=== PATIENT | male | born 1955 | race Caucasian/White ===

== ENCOUNTER → 2016-11-29 | Outpatient (REF) | payer OTHER | LOC: M LAB REF 12:21 | PROVIDERS: ATTEND Family Medicine | DX: N39.0 Urinary tract infection, site not specified (principal) ==

== ENCOUNTER 2019-03-11 15:07 | Observation (INO) | payer BC, SELFPAY ==
[~2019-03-11] VITALS: Ht 180.3 cm; Wt 218.2 kg
[2019-03-11 11:45] VITALS: BP 132/62
[2019-03-11] MEDS ORDERED: METF10004 (15:17)
[2019-03-11] MEDS ORDERED: ATEN50TA2 (15:17)
[2019-03-11] MEDS ORDERED: FURO20TA2 (15:17)
[2019-03-11] MEDS ORDERED: SIMV40TA2 (15:17)
[2019-03-11] MEDS ORDERED: HUMA75IN2 (15:17)
[2019-03-11] MEDS ORDERED: ASPI81TA85 PO (15:18)
[2019-03-11] MEDS ORDERED: RAMI1CAP26 (15:18)
[2019-03-11] MEDS ORDERED: HYDR25TAB (15:18)
[2019-03-11 17:55] LABS: BASO % 0.2 % (0.0-1.0); EOS # 0.1 10^3/uL (0.0-0.50); EOS % 0.5 % (0.0-3.0); HEMATOCRIT 42.3 % (42.0-52.0); HEMOGLOBIN 13.6 g/dl (13.5-17.5); LYMPH # 1.3 10^3/uL (1.5-4.5); LYMPH % 13.8 % (24.0-44.0); MEAN CORPUSCULAR HEMOGLOBIN 31.7 pg (27.0-33.0); MEAN CORPUSCULAR HGB CONC 32.2 g/dl (32.0-36.5); MEAN CORPUSCULAR VOLUME 98.6 fl (80.0-96.0); MONO # 0.7 10^3/uL (0.0-0.8); MONO % 7.4 % (0.0-5.0); NEUTROPHILS # 7.6 10^3/uL (1.8-7.7); NEUTROPHILS % 77.7 % (36.0-66.0); PLATELET COUNT, AUTOMATED 242 10^3/uL (150-450); RED BLOOD COUNT 4.29 10^6/uL (4.30-6.10); WHITE BLOOD COUNT 9.7 10^3/uL (4.0-10.0)
[2019-03-11 18:10] LABS: BLOOD UREA NITROGEN 24 MG/DL (7-18); CARBON DIOXIDE LEVEL 34 MEQ/L (21-32); CHLORIDE LEVEL 98 MEQ/L (98-107); CPK CREATINE PHOSPHOKINASE 101 U/L (39-308); CREATININE FOR GFR 1.06 MG/DL (0.70-1.30); GLOMERULAR FILTRATION RATE > 60.0 (>49); GLUCOSE, FASTING 162 MG/DL (70-100); MB/CK RELATIVE INDEX 1.68 (< OR =4); NT-PRO BNP 1759 PG/ML (<125); POTASSIUM SERUM 4.3 MEQ/L (3.5-5.1); SODIUM LEVEL 139 MEQ/L (136-145); TROPONIN I 0.02 NG/ML (< 0.10)
[2019-03-11] MEDS ORDERED: ISOVUE-370 76% 100ML VIAL (Q9967) As Ordered ONE (18:34)
--- NOTE | 2019-03-11 19:41 | REPVR ---
EXAM: CT Angiography Chest With Contrast EXAM DATE/TIME: 03/11/2019 7:21 PM CLINICAL HISTORY: 63 years old, male; Signs and symptoms; Shortness of breath; Additional info: SOB, HX chf TECHNIQUE: Imaging protocol: Axial computed tomographic angiography images of the chest with intravenous contrast using CT angiography protocol. Coronal and sagittal reformatted images were created and reviewed. 3D rendering: MIP reconstructed images were created and reviewed. Radiation optimization: All CT scans at this facility use at least one of these dose optimization techniques: automated exposure control; mA and/or kV adjustment per patient size (includes targeted exams where dose is matched to clinical indication); or iterative reconstruction. Contrast material: ISOVUE 370; Contrast volume: 75 ml; Contrast route: IV; COMPARISON: CR CHEST 2 VIEW 03/20/2014 8:13 AM FINDINGS: Limitations: Detail/sensitivity limited by motion and other artifacts. Pulmonary arteries: No pulmonary emboli. Aorta: No aortic aneurysm. No aortic dissection. Lungs: No focal infiltrate, consolidation, or mass. Pleural space: No pneumothorax. No pleural effusion. Heart: No cardiomegaly. No pericardial effusion. Lymph nodes: Unremarkable. No enlarged lymph nodes. Bones/joints: Degenerative changes in the spine. No acute fracture. Normal alignment. Bridging osteophytes at multiple contiguous levels in the spine, which could be due to diffuse idiopathic skeletal hyperostosis (DISH). Soft tissues: Unremarkable. IMPRESSION: 1. No acute findings. No pulmonary embolism. 2. Nonacute/incidental findings above. COMMENT: Study limited by artifacts. Electronically signed by: Lino Mina On 03/11/2019 19:41:12 PM
[2019-03-11] MEDS ORDERED: ACETAMINOPHEN TAB 650MG DOSE (2X325MG) PO PRN (21:00)
[2019-03-11] MEDS: CEPHALEXIN 500 MG CAP PO SCH (21:00)
[2019-03-11] MEDS ORDERED: MAALOX 30 ML SUSP *UDC PO PRN (21:00)
[2019-03-11] MEDS: LEVEMIR (INSULIN DETEMIR) 1 UNITS/0.01ML SC SCH (21:00)
[2019-03-11] MEDS ORDERED: MOM 30ML SUSPENSION UDC PO PRN (21:00)
[2019-03-11] MEDS ORDERED: SIMV40TA2 PO (21:10)
[2019-03-11] MEDS ORDERED: HYDR25TAB PO (21:10)
[2019-03-11] MEDS ORDERED: ATEN50TA2 PO (21:10)
[2019-03-11] MEDS ORDERED: RAMI1CAP26 PO (21:10)
[2019-03-11] MEDS ORDERED: METF-877 PO (21:10)
[2019-03-11] MEDS ORDERED: HUMA75VLDS SC (21:10)
[2019-03-11] MEDS ORDERED: ASPI81TA27 PO (21:10)
[2019-03-11] MEDS ORDERED: FURO20TA2 PO (21:10)
[2019-03-11] MEDS ORDERED: LANTINJ4 SC (21:10)
[2019-03-11] MEDS ORDERED: HYDR-4514 PO (21:14)
--- NOTE | 2019-03-11 22:57 | HPEPDOC ---
General Date of Admission Mar 11, 2019 at 15:08 Date of Service: Mar 11, 2019 Chief Complaint The patient is a 63-year-old male admitted with a reason for visit of New Onset Afib. Source: Patient, RN/MD, Old records History of Present Illness Mr. Blackmon is a 63 years old man with hx/p IDDM, CHF and HTN who presents to the Er with c/o SOB and dry cough for a week. He denies chest pain, palpitation, fever or chills. He also reports spontaneous tear of the skin on his right sole and sharp pain in the area. In the Er, pt had normal vitals, and pretty normal routine blood tests, except for elevated BNP 1759; no previous lab to compare. EKG showed AF with rate in 60s; no previous EKG to compare. Pt doesn't give hx/o AF in the past. Cardiac markers are normal. The area around the skin tear on right sole appeared slightly irritated and red without fluid collection or discharge. Pt has significant, chronic leg swelling from lymphedema. Home Medications Scheduled Aspirin (Aspirin EC) 81 Mg Tablet.dr, 81 MG PO DAILY, (Reported) Atenolol (Atenolol) 50 Mg Tablet, 50 MG PO DAILY, (Reported) Furosemide (Furosemide) 20 Mg Tablet, 40 MG PO DAILY, (Reported) Hydrochlorothiazide (Hydrochlorothiazide) 25 Mg Tablet, 25 MG PO DAILY, (Reported) Insulin Glargine,Hum.rec.anlog (Lantus Solostar) 100 Unit/1 Ml Insuln.pen, 30 UNITS SC QHS, (Reported) WAS ON 50 UNITS BUT PATIENT FELT HIS BLOOD SUGAR WAS TOO LOW ON THAT DOSE Insulin Human Lispro (Humalog Mix 75-25 Vial) 100 Unit/1 Ml Vial, 1 DOSE SC AC, (Reported) PER SLIDING SCALE Metformin HCl (Metformin HCl) 1,000 Mg Tablet, 1,000 MG PO BID, (Reported) Ramipril (Ramipril) 10 Mg Capsule, 10 MG PO DAILY, (Reported) Simvastatin (Simvastatin) 40 Mg Tablet, 40 MG PO DAILY, (Reported) Scheduled PRN Hydrocodone/Acetaminophen (Hydrocodone-Acetamin 7.5-325) 1 Each Tablet, 1 TAB PO QID PRN for PAIN, (Reported) Allergies Coded Allergies: No Known Allergies (Unverified , 03/11/19) Past Medical History Medical History IDDM, Chronic Lymphedema, ?CHF, HTN, HLD Surgical History none reported Family History Significant Family History: No pertinent family hx Social History * Smoker: Denies Alcohol: Denies Drugs: denies A-FIB/CHADSVASC A-FIB History Current/History of A-Fib/PAF?: Yes Current PO Anticoag Therapy: Yes Age/Risk Factor Scoring CHADSVASC: CHADSVASC Response (Comments) Value Age Risk Factor Age < 65 years old 0 Gender Risk Factor Male 0 Hx of CHF Yes 1 Hx of HTN Yes 1 Hx of Stroke/TIA/or VTE No 0 Hx of Diabetes Yes 1 Hx of Vascular Disease No 0 Total 3 Treatment Treatment ordered: Rivaroxaban Review of Systems Constitutional: Denies: Chills, Fever Eyes: Denies: Pain ENT: Denies: Head Aches Skin: Reports: Breakdown; Denies: Rash, Lesions Pulmonary: Reports: Dyspnea, Cough Cardiovascular: Reports: Orthopnea, Edema; Denies: Chest Pain, Palpitations Gastrointestinal: Denies: Nausea, Vomiting, Abdominal Pain, Diarrhea Genitourinary: Denies: Dysuria, Frequency Musculoskeletal: Denies: Neck Pain, Back Pain Neurological: Denies: Weakness, Numbness, Change in speech, Confusion Psych: Reports: Mood Normal; Denies: Anxiety Physical Examination General Exam: Positive: Alert, Cooperative Eye Exam: Positive: PERRLA ENT Exam: Positive: Atraumatic Neck Exam: Positive: Supple; Negative: JVD Chest Exam: Positive: Clear to auscultation, Normal air movement Heart Exam: Positive: Rate Normal, Irregular Rhythm; Negative: Murmurs Abdomen Exam: Positive: Normal bowel sounds, Soft; Negative: Tenderness Extremity Exam: Positive: Edema Skin Exam: Positive: Nl turgor and temperature, Rash, Breakdown Neuro Exam: Positive: Normal Speech, Strength at 5/5 X4 ext, Normal Tone Psych Exam: Positive: Mental status NL, Mood NL Vital Signs Vital Signs Date Time Temp Pulse Resp B/P (MAP) Pulse Ox O2 Delivery O2 Flow Rate FiO2 03/11/19 22:37 66 22 135/86 (102) 97 Room Air 03/11/19 19:50 97.7 Laboratory Data Labs 24H Laboratory Tests 2 03/11/19 17:32: Immature Granulocyte % (Auto) 0.4, White Blood Count 9.7, Red Blood Count 4.29L, Hemoglobin 13.6, Hematocrit 42.3, Mean Corpuscular Volume 98.6H, Mean Corpuscular Hemoglobin 31.7, Mean Corpuscular Hemoglobin Concent 32.2, Red Cell Distribution Width 13.9, Platelet Count 242, Neutrophils (%) (Auto) 77.7H, Lymphocytes (%) (Auto) 13.8L, Monocytes (%) (Auto) 7.4H, Eosinophils (%) (Auto) 0.5, Basophils (%) (Auto) 0.2, Neutrophils # (Auto) 7.6, Lymphocytes # (Auto) 1.3L, Monocytes # (Auto) 0.7, Eosinophils # (Auto) 0.1, Basophils # (Auto) 0.0, Nucleated Red Blood Cells % (auto) 0.0, Anion Gap 7L, Glomerular Filtration Rate > 60.0, Blood Urea Nitrogen 24H, Creatinine 1.06, Sodium Level 139, Potassium Level 4.3, Chloride Level 98, Carbon Dioxide Level 34H, Calcium Level 9.0, Total Creatine Kinase 101, Creatine Kinase MB 2.0, Creatine Kinase MB Relative Index 1.68, Troponin I 0.02, VY-Rra-I-Type Natriuretic Peptide 1759H 03/11/19 17:35: Bedside Glucose (Misc Panel) 170H CBC/BMP Laboratory Tests 03/11/19 17:32 Red Blood Count 4.29 L, Mean Corpuscular Volume 98.6 H, Mean Corpuscular Hemoglobin 31.7, Mean Corpuscular Hemoglobin Concent 32.2, Red Cell Distribution Width 13.9, Neutrophils (%) (Auto) 77.7 H, Lymphocytes (%) (Auto) 13.8 L, Monocytes (%) (Auto) 7.4 H, Eosinophils (%) (Auto) 0.5, Basophils (%) (Auto) 0.2, Neutrophils # (Auto) 7.6, Lymphocytes # (Auto) 1.3 L, Monocytes # (Auto) 0.7, Eosinophils # (Auto) 0.1, Basophils # (Auto) 0.0, Calcium Level 9.0, Total Creatine Kinase 101 Assessment/Plan New Onset AF, Acute on Chronic CHF - Admit to inpatient - Tele; repeat cardiac markers - IV Lasix; continue other home cardiac meds - Start on Xarelto for anticoagulation - Echo in the morning Mild Cellulitis near skin tear on right Sole - Oral Keflex - Wound care IDDM - AREVALO and SSI Plan / VTE VTE Prophylaxis Ordered?: No VTE Exclusion Mechanical Proph: Other VTE Exclusion Pharmacological: Other Plan Anticipated Discharge: Home With Services MARTA NEWMAN MD Mar 11, 2019 22:57
[2019-03-11] MEDS: FUROSEMIDE 100 MG/10 ML VIAL (J1940) IV SCH (23:06)
[2019-03-11] MEDS: DOCUSATE SODIUM 100 MG CAP PO SCH (23:07)
[2019-03-11] MEDS: RIVAROXABAN 10 MG TAB (XARELTO) PO SCH (23:07)
[2019-03-12 01:02] LABS: INR 2.04; PROTHROMBIN TIME 23.4 SECONDS (12.1-14.4)
[2019-03-12 01:07] LABS: PARTIAL THROMBOPLASTIN TIME 37.9 SECONDS (25.4-37.6)
[2019-03-12] MEDS ORDERED: GLUCOSE 4 GM CHEW TABLET PO PRN (01:15)
[2019-03-12] MEDS ORDERED: GLUCAGON FOR INJ 1 MG VIAL (J1610) SC PRN (01:15)
[2019-03-12] MEDS ORDERED: DEXTROSE 50% 50 ML SYRINGE IV PRN (01:15)
[2019-03-12 01:22] LABS: CPK CREATINE PHOSPHOKINASE 128 U/L (39-308); MB/CK RELATIVE INDEX 1.56 (< OR =4); TROPONIN I < 0.02 NG/ML (< 0.10)
[2019-03-12 05:59] LABS: HEMOGLOBIN 13.1 g/dl (13.5-17.5); MEAN CORPUSCULAR HEMOGLOBIN 31.3 pg (27.0-33.0); MEAN CORPUSCULAR VOLUME 98.1 fl (80.0-96.0); PLATELET COUNT, AUTOMATED 239 10^3/uL (150-450); RED BLOOD COUNT 4.18 10^6/uL (4.30-6.10); WHITE BLOOD COUNT 8.3 10^3/uL (4.0-10.0)
[2019-03-12 06:00] VITALS: BP 130/68
[2019-03-12 06:27] LABS: BLOOD UREA NITROGEN 23 MG/DL (7-18); CALCIUM LEVEL 8.9 MG/DL (8.8-10.2); CARBON DIOXIDE LEVEL 35 MEQ/L (21-32); CHLORIDE LEVEL 97 MEQ/L (98-107); CPK CREATINE PHOSPHOKINASE 193 U/L (39-308); CREATININE FOR GFR 1.05 MG/DL (0.70-1.30); GLOMERULAR FILTRATION RATE > 60.0 (>49); GLUCOSE, FASTING 153 MG/DL (70-100); MB/CK RELATIVE INDEX 0.98 (< OR =4); POTASSIUM SERUM 4.5 MEQ/L (3.5-5.1); SODIUM LEVEL 137 MEQ/L (136-145); TROPONIN I < 0.02 NG/ML (< 0.10)
[2019-03-12 08:01] LABS: ABG BASE EXCESS 7.3 (-2.0-2.0); ABG HCO3 32.5 MEQ/L (22.0-26.0); ABG O2 SATURATION 91.2 % (95.0-99.0); ABG PARTIAL PRESSURE CO2 48.2 mmHg (35.0-45.0); ABG STANDARD HCO3 30.9 MEQ/L (22.0-26.0); ABG pH (ARTERIAL) 7.447 UNITS (7.350-7.450)
--- NOTE | 2019-03-12 08:15 | ECGEPIP ---
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
[2019-03-12] MEDS: HumaLOG INSULIN (NovoLOG) PER UNIT SC SCH ×3 (08:23→17:10)
[2019-03-12] MEDS: RAMIPRIL 5 MG CAP PO SCH (08:24)
[2019-03-12] MEDS: DOCUSATE SODIUM 100 MG CAP PO SCH ×2 (08:24→20:29)
[2019-03-12] MEDS: SIMVASTATIN 40 MG TAB PO SCH (08:24)
[2019-03-12] MEDS: FUROSEMIDE 100 MG/10 ML VIAL (J1940) IV SCH ×2 (08:24→17:10)
[2019-03-12] MEDS: CEPHALEXIN 500 MG CAP PO SCH ×3 (08:24→20:29)
[2019-03-12] MEDS ORDERED: ATENOLOL 50 MG TAB PO SCH (09:00)
[2019-03-12] MEDS ORDERED: hydroCHLOROthiazide 25 MG TAB PO SCH (09:00)
[2019-03-12 14:00] VITALS: BP 120/60
--- NOTE | 2019-03-12 16:09 | IPNPDOC ---
Subjective Date Seen The patient was seen on 03/12/19. Subjective Chief Complaint/HPI Says unable to sleep in a bed. He has been sitting in the sofa. There is no recliner large enough for him in the hospital. Says SOb is better. The right heel cracked skin is noted with some erythema around it pateint does not complain of any pain there. Objective Physical Examination General Exam: Positive: Alert, Cooperative, No Acute Distress Eye Exam: Positive: PERRLA ENT Exam: Positive: Atraumatic Neck Exam: Positive: Supple; Negative: JVD Chest Exam: Positive: Clear to auscultation, Diminished Heart Exam: Positive: Rate Normal, Irregular Rhythm, Normal S1, Normal S2; Negative: Murmurs Telemetry: Positive: Atrial fibrillation Abdomen Exam: Positive: Normal bowel sounds, Soft; Negative: Tenderness Extremity Exam: Positive: Edema, Tenderness, Swelling, Other (Lymphedema with chronic venous stasis changes bilaterally) Skin Exam: Positive: Nl turgor and temperature, Rash, Breakdown Neuro Exam: Positive: Normal Speech, Strength at 5/5 X4 ext, Normal Tone Psych Exam: Positive: Mental status NL, Mood NL Assessment /Plan Assessment Right Heel ulcer, dry thick and cracked skin. does not look infected but due to h/o dm will give keflex consult podiatry. Afib new diagnosis. Unknown how long present. rate controlled . On atenolol pulse down to 40s during sleep with pauses will stop atenolol. started on Xarelto. Morbid obesity complicating care. patient cannot lie down in bed sleeps in a recliner for > 10 years. possibly has SUSAN also. Obesity hypoventilation probably restrictive due to obesity. Abg in awake and sitting shows hypoxia and hypercarbia. IDDM, continue levemir and lispro hold meformin in hospital Diabetic Neuropathy Chronic Lymphedema with bilateral stasis dermatitis. CHF, ordered echo continue lasix. HTN will stop atenolol continue lasix and ramipril HLD continue statin. Plan/VTE VTE Prophylaxis Ordered?: Yes VTE Exclusion Mechanical Proph: Other VTE Exclusion Pharmacological: Other Plan Anticipated Discharge: Home With Services VS, I&O, 24H, Fishbone Vital Signs/I&O Vital Signs Date Time Temp Pulse Resp B/P (MAP) Pulse Ox O2 Delivery O2 Flow Rate FiO2 6/4/19 14:00 97.2 71 20 120/60 (80) 92 03/11/19 22:37 Room Air I&O- Last 24 Hours up to 6 AM 03/12/19 06:00 Intake Total 60 ml Output Total 450 ml Balance -390 ml Laboratory Data 24H LABS Laboratory Tests 2 03/11/19 17:32: Immature Granulocyte % (Auto) 0.4, White Blood Count 9.7, Red Blood Count 4.29L, Hemoglobin 13.6, Hematocrit 42.3, Mean Corpuscular Volume 98.6H, Mean Corpuscular Hemoglobin 31.7, Mean Corpuscular Hemoglobin Concent 32.2, Red Cell Distribution Width 13.9, Platelet Count 242, Neutrophils (%) (Auto) 77.7H, Lymphocytes (%) (Auto) 13.8L, Monocytes (%) (Auto) 7.4H, Eosinophils (%) (Auto) 0.5, Basophils (%) (Auto) 0.2, Neutrophils # (Auto) 7.6, Lymphocytes # (Auto) 1.3L, Monocytes # (Auto) 0.7, Eosinophils # (Auto) 0.1, Basophils # (Auto) 0.0, Nucleated Red Blood Cells % (auto) 0.0, Anion Gap 7L, Glomerular Filtration Rate > 60.0, Blood Urea Nitrogen 24H, Creatinine 1.06, Sodium Level 139, Potassium Level 4.3, Chloride Level 98, Carbon Dioxide Level 34H, Calcium Level 9.0, Total Creatine Kinase 101, Creatine Kinase MB 2.0, Creatine Kinase MB Relative Index 1.68, Troponin I 0.02, PR-Ydg-A-Type Natriuretic Peptide 1759H 03/11/19 17:35: Bedside Glucose (Misc Panel) 170H 03/11/19 23:05: Bedside Glucose (Misc Panel) 186H 03/12/19 00:38: Total Creatine Kinase 128, Creatine Kinase MB 2.0, Creatine Kinase MB Relative Index 1.56, Troponin I < 0.02, Prothrombin Time 23.4H, Prothromb Time International Ratio 2.04, Activated Partial Thromboplast Time 37.9H 03/12/19 05:21: Nucleated Red Blood Cells % (auto) 0.0, Anion Gap 5L, Glomerular Filtration Rate > 60.0, Blood Urea Nitrogen 23H, Creatinine 1.05, Sodium Level 137, Potassium Level 4.5, Chloride Level 97L, Carbon Dioxide Level 35H, Calcium Level 8.9, Total Creatine Kinase 193, Creatine Kinase MB 2.0, Creatine Kinase MB Relative Index 0.98, Troponin I < 0.02 03/12/19 07:51: Blood Gas Bicarbonate Standard 30.9H, Arterial Blood pH 7.447, Arterial Blood Partial Pressure CO2 48.2H, Arterial Blood Partial Pressure O2 63.0L, Arterial Blood Total CO2 34.0H, Arterial Blood HCO3 32.5H, Arterial Blood Base Excess 7.3H, Arterial Blood Oxygen Saturation 91.2L 03/12/19 12:08: Bedside Glucose (Misc Panel) 149H CBC/BMP Laboratory Tests 03/11/19 17:32 Red Blood Count 4.29 L, Mean Corpuscular Volume 98.6 H, Mean Corpuscular Hemoglobin 31.7, Mean Corpuscular Hemoglobin Concent 32.2, Red Cell Distribution Width 13.9, Neutrophils (%) (Auto) 77.7 H, Lymphocytes (%) (Auto) 13.8 L, Monocytes (%) (Auto) 7.4 H, Eosinophils (%) (Auto) 0.5, Basophils (%) (Auto) 0.2, Neutrophils # (Auto) 7.6, Lymphocytes # (Auto) 1.3 L, Monocytes # (Auto) 0.7, Eosinophils # (Auto) 0.1, Basophils # (Auto) 0.0, Calcium Level 9.0, Total Creatine Kinase 101 03/12/19 05:21 Red Blood Count 4.18 L, Mean Corpuscular Volume 98.1 H, Mean Corpuscular Hemoglobin 31.3, Mean Corpuscular Hemoglobin Concent 32.0, Red Cell Distribution Width 14.0, Calcium Level 8.9, Total Creatine Kinase 193 DORCAS DISLA MD Mar 12, 2019 16:09
--- NOTE | 2019-03-12 16:42 | CR ---
DATE OF CONSULTATION: 03/12/219 REASON FOR CONSULTATION: Right foot open wound. Mr. Blackmon is a pleasant 63-year-old diabetic male who presented to the hospital on March 11 due to open wound and new onset atrial fibrillation. States the wound was noticed earlier this last week, does not recall any injury to the area. He has chronic swelling of his legs. He is unable to elevate his legs secondary to this swelling and also due to trouble breathing when his feet are elevated. 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 PAST MEDICAL HISTORY: Significant for insulin dependent diabetes, congestive heart failure, hypertension, and lymphedema as well as atrial fibrillation. ALLERGIES: None. SOCIAL HISTORY: Denies alcohol and smoking. PAST SURGICAL HISTORY: None. REVIEW OF SYSTEMS: Denies nausea, vomiting, fever or chills. VITAL SIGNS: Are reviewed. He has remained afebrile since being in the hospital. LABS: Are reviewed. White blood cell count is 8.3; was 9.7 yesterday. LOWER EXTREMITY EXAM: Significant edema is present on bilateral lower extremities. There is dry cracking skin on the plantar aspects of both feet with a skin tear open area on the plantar surface of the right foot. Pedal pulses are nonpalpable secondary to edema. There is no surrounding erythema or significant signs of infection. ASSESSMENT: 63-year-old diabetic male with right foot ulcer, chronic lymphedema. PLAN: Antibiotic ointment and Optifoam to be applied to the plantar wound. Lac-Hydrin ordered for the dry skin. The patient should have his feet elevated as much as he able. This is limited, however, secondary to his inability to raise his legs. Can continue on oral Keflex. Recommend 10 days duration. He should have followup in my office once discharged.
[2019-03-12] MEDS: RIVAROXABAN 10 MG TAB (XARELTO) PO SCH (17:13)
[2019-03-12] MEDS: LACTIC ACID 12% LOTION 225 GM BTL TOP SCH (19:27)
[2019-03-12] MEDS: NEOSPORIN TOP OINT 15GM TOP SCH (19:28)
[2019-03-12] MEDS: LEVEMIR (INSULIN DETEMIR) 1 UNITS/0.01ML SC SCH (20:30)
[2019-03-12] MEDS ORDERED: HumaLOG INSULIN (NovoLOG) PER UNIT SC SCH (21:00)
[2019-03-12 22:00] VITALS: BP 108/62
--- NOTE | 2019-03-12 22:22 | ECHO ---
DATE OF PROCEDURE: 03/12/2019 AGE: 63 GENDER: Male HEIGHT: 71 inches WEIGHT: 487 pounds BODY SURFACE AREA: 3.07 m2 PATIENT LOCATION: Inpatient, [address] [place] [address], room 4235 REFERRING PHYSICIAN: Eliel Bustillos MD INDICATION: Congestive heart failure (CHF). 2-D MEASUREMENTS: RV: Not possible LV: 5.6 cm Septum: 1.3 cm Posterior wall: 1.3 cm Aortic root: 3.0 cm LA: 5.7 cm LVEF: ? 50 - 55% DOPPLER MEASUREMENTS: Not possible because of technical reasons with the patient's body habitus. COMMENTS: Underlying atrial fibrillation with controlled ventricular response. Technically extremely challenging study in light of the patient's body habitus, but some diagnostically useful information was obtained. M-mode and attempted two-dimensional echocardiography was performed with attempted pulsed, continuous wave, and color flow Doppler study were performed from limited projections. Mildly dilated and hypertrophied left ventricle with fairly normal motion of the proximal left ventricle/basal structures visualized. Moderately prominently dilated left atrium in keeping with an elevated mean left atrial pressure. Right heart chamber sizes could not be evaluated. Mildly dilated inferior vena cava with reduced respiratory collapse suggestive of an elevated central venous pressure. Visualized portions of the mitral and aortic valves showed minimal thickening without valvular stenosis or visualized insufficiency. No pericardial effusion.
[2019-03-13 06:00] VITALS: BP 112/58
[2019-03-13 08:26] VITALS: BP 158/68
[2019-03-13] MEDS: DOCUSATE SODIUM 100 MG CAP PO SCH (08:26)
[2019-03-13] MEDS: SIMVASTATIN 40 MG TAB PO SCH (08:26)
[2019-03-13] MEDS: RAMIPRIL 5 MG CAP PO SCH (08:26)
[2019-03-13] MEDS: FUROSEMIDE 100 MG/10 ML VIAL (J1940) IV SCH (08:26)
[2019-03-13] MEDS: CEPHALEXIN 500 MG CAP PO SCH (08:26)
[2019-03-13] MEDS: HumaLOG INSULIN (NovoLOG) PER UNIT SC SCH (08:27)
[2019-03-13] MEDS: LACTIC ACID 12% LOTION 225 GM BTL TOP SCH (09:34)
[2019-03-13] MEDS: NEOSPORIN TOP OINT 15GM TOP SCH (09:34)
[2019-03-13] MEDS ORDERED: CEPH500C PO (10:00)
[2019-03-13] MEDS ORDERED: LACH12LO TOP (10:00)
[2019-03-13] MEDS ORDERED: TRIPOIN5 TOP (10:00)
[2019-03-13] MEDS ORDERED: XARE10TA PO (10:00)
[2019-03-13] MEDS ORDERED: FUROSEMIDE 100 MG/10 ML VIAL (J1940) IV ONE (12:00)
--- NOTE | 2019-03-13 21:18 | DS.PDOC ---
Discharge Summary General Date of Admission Mar 11, 2019 at 15:08 Date of Discharge 03/13/19 Discharge Summary PROCEDURES PERFORMED DURING STAY: ECHO: Mildly dilated and hypertrophied left ventricle with fairly normal motion of the proximal left ventricle/basal structures visualized. Moderately prominently dilated left atrium in keeping with an elevated mean left atrial pressure. Right heart chamber sizes could not be evaluated. Mildly dilated inferior vena cava with reduced respiratory collapse suggestive of an elevated central venous pressure. Visualized portions of the mitral and aortic valves showed minimal thickening without valvular stenosis or visualized insufficiency. No pericardial effusion. DISCHARGE DIAGNOSES: Right Diabetic foot ulcer Afib rate controlled new diagnosis Systolic and diastolic CHF exacerbation Obesity Hypoventilation Morbid obesity Probable SUSAN chronic Lymphedema Hypertension HLD Diabetes with neuropathy COMPLICATIONS/CHIEF COMPLAINT: New Onset Afib. HISTORY OF PRESENT ILLNESS: See history and physical HOSPITAL COURSE: 63 year old male with h/o Morbid obesity, Diabetes, Lymphedema, CHF, Hypertension , hyperlipidemia presented to the hospital for right heel ulcer, difficulty in walking and SOB. He was admitted for right heel diabetic foot ulcer and CHF exacerbation. Patient was noted to be in Afib with controlled heart rate. On telemetry he was noted to have bradycardia to low 40s during sleep. Also in the hospital pateint could not sleep in the bariatric bed and as the hospital did not have any recliner big enough for him he was sitting in the chair through out the hospitalization and he was sleeping in sitting position which was causing his head to drop forward and then he would desaturate to 70s. However ABG done showed hypoxia and hypercarbia when awake so patient probably has Obesity hypoventilation and probably also SUSAN. Right foot diabetic ulcer, dry thick and cracked skin. does not look infected but due to h/o dm will give keflex follow podiatry recommendations follow up Dr Chen on discharge. keep legs elevated as much as possible. Afib new diagnosis. Unknown how long present. rate controlled . On atenolol pulse down to 40s during sleep with pauses stopped atenolol. started on Xarelto. stopped ASA. Morbid obesity complicating care. patient cannot lie down in bed sleeps in a recliner for > 10 years. possibly has SUSAN also. Obesity hypoventilation probably restrictive due to obesity. Abg in awake and sitting shows hypoxia and hypercarbia. Probable SUSAN should get a sleep study. IDDM, continue levemir restart metformin Diabetic Neuropathy Chronic Lymphedema with bilateral stasis dermatitis. CHF, very poor technical quality of the echo due to body habitus But looks like he has both systolic and diastolic CHF. EF 50 to 55%. also probably pulmonary hypertension and chronic right heart failure continue lasix and HCTZ. HTN will stop atenolol continue lasix and ramipril HLD continue statin. DISCHARGE MEDICATIONS: Please see below. ALLERGIES: Please see below. PHYSICAL EXAMINATION ON DISCHARGE: VITAL SIGNS: Please see below. General Exam: Positive: Alert, Cooperative, No Acute Distress Eye Exam: Positive: PERRLA ENT Exam: Positive: Atraumatic Neck Exam: Positive: Supple; Negative: JVD Chest Exam: Positive: Clear to auscultation, Diminished Heart Exam: Positive: Rate Normal, Irregular Rhythm, Normal S1, Normal S2; Negative: Murmurs Telemetry: Positive: Atrial fibrillation Abdomen Exam: Positive: Normal bowel sounds, Soft; Negative: Tenderness Extremity Exam: Positive: Edema, Tenderness, Swelling, Other (Lymphedema with chronic venous stasis changes bilaterally) Skin Exam: Positive: Nl turgor and temperature, Rash, Breakdown prssent. Neuro Exam: Positive: Normal Speech, Strength at 5/5 X4 ext, Normal Tone Psych Exam: Positive: Mental status NL, Mood NL LABORATORY DATA: Please see below. ACTIVITY: [As tolerated]. DIET: Carb consistent, 2 gram sodium with fluid restriction 2L / day. DISPOSITION: Home, Self-Care. DISCHARGE INSTRUCTIONS: Follow up PMD in [address] Chen in 3 to 4 weeks Suggested Sleep Study DISCHARGE CONDITION: [Stable]. TIME SPENT ON DISCHARGE: 40 minutes. Vital Signs/I&Os Vital Signs Date Time Temp Pulse Resp B/P (MAP) Pulse Ox O2 Delivery O2 Flow Rate FiO2 03/13/19 08:26 158/68 03/13/19 06:00 96.6 56 17 96 03/11/19 22:37 Room Air I&O- Last 24 Hours up to 6 AM 03/13/19 06:00 Intake Total 720 ml Output Total 4625 ml Balance -3905 ml Laboratory Data CBC/BMP Item Value Date Time White Blood Count 8.3 10^3/uL 03/12/19 0521 Red Blood Count 4.18 10^6/uL L 03/12/19 0521 Hemoglobin 13.1 g/dl L 03/12/19 0521 Hematocrit 41.0 % L 03/12/19520 Mean Corpuscular Volume 98.1 fl H 03/12/19520 Mean Corpuscular Hemoglobin 31.3 pg 03/12/19520 Mean Corpuscular Hemoglobin Concent 32.0 g/dl 03/12/19520 Red Cell Distribution Width 14.0 % 03/12/19520 Platelet Count 239 10^3/uL 03/12/19520 Sodium Level 137 MEQ/L 03/12/19520 Potassium Level 4.5 MEQ/L 03/12/19520 Chloride Level 97 MEQ/L L 03/12/19520 Carbon Dioxide Level 35 MEQ/L H 03/12/19520 Anion Gap 5 MEQ/L L 03/12/19520 Blood Urea Nitrogen 23 MG/DL H 03/12/19520 Creatinine 1.05 MG/DL 03/12/19520 Glomerular Filtration Rate > 60.0 03/12/19520 Fasting Glucose 153 MG/DL H 03/12/19520 Calcium Level 8.9 MG/DL 03/12/19520 Total Creatine Kinase 193 U/L 03/12/19520 Creatine Kinase MB 2.0 NG/ML 03/12/19520 Creatine Kinase MB Relative Index 0.98 03/12/19520 Troponin I < 0.02 NG/ML 03/12/19520 Discharge Medications Scheduled Cephalexin (Cephalexin) 500 Mg Capsule, 500 MG PO TID Furosemide (Furosemide) 20 Mg Tablet, 40 MG PO DAILY, (Reported) Hydrochlorothiazide (Hydrochlorothiazide) 25 Mg Tablet, 25 MG PO DAILY, (Reported) Insulin Glargine,Hum.rec.anlog (Lantus Solostar) 100 Unit/1 Ml Insuln.pen, 30 UNITS SC QHS, (Reported) WAS ON 50 UNITS BUT PATIENT FELT HIS BLOOD SUGAR WAS TOO LOW ON THAT DOSE Insulin Human Lispro (Humalog Mix 75-25 Vial) 100 Unit/1 Ml Vial, 1 DOSE SC AC, (Reported) PER SLIDING SCALE Lactic Acid (Britt-Hydrolac) 222 Ml Lotion, 0 DOSE TOP DAILY Metformin HCl (Metformin HCl) 1,000 Mg Tablet, 1,000 MG PO BID, (Reported) Neomycin/Bacitracin/Polymyxinb (Triple Antibiotic Ointment) 28 Gm Oint...g., 0 DOSE TOP DAILY Ramipril (Ramipril) 10 Mg Capsule, 10 MG PO DAILY, (Reported) Rivaroxaban (Xarelto) 10 Mg Tablet, 20 MG PO DAILY@18 Simvastatin (Simvastatin) 40 Mg Tablet, 40 MG PO DAILY, (Reported) Scheduled PRN Hydrocodone/Acetaminophen (Hydrocodone-Acetamin 7.5-325) 1 Each Tablet, 1 TAB PO QID PRN for PAIN, (Reported) Allergies Coded Allergies: No Known Allergies (Unverified , 03/11/19) DORCAS DISLA MD Mar 13, 2019 21:17
== END 2019-03-13 12:45 | disposition home or self-care (01) ==
LOC: M ED 15:07 → M ED INP 15:08 → M MSPAV 23:39
PROVIDERS: ADMIT Internal Medicine; ATTEND Internal Medicine Nephrology
DX: I48.91 Unspecified atrial fibrillation (principal); E11.622 Type 2 diabetes mellitus with other skin ulcer; L98.498 Non-pressure chronic ulcer of skin of other sites with other specified severity; I50.43 Acute on chronic combined systolic (congestive) and diastolic (congestive) heart failure; E66.2 Morbid (severe) obesity with alveolar hypoventilation; G47.9 Sleep disorder, unspecified; I89.0 Lymphedema, not elsewhere classified; I11.0 Hypertensive heart disease with heart failure; E78.5 Hyperlipidemia, unspecified; E11.40 Type 2 diabetes mellitus with diabetic neuropathy, unspecified; R00.1 Bradycardia, unspecified; I87.2 Venous insufficiency (chronic) (peripheral); L03.115 Cellulitis of right lower limb; Z79.899 Other long term (current) drug therapy; Z79.82 Long term (current) use of aspirin; Z79.4 Long term (current) use of insulin
CPT/HCPCS: 36415; 36600; 71275; 80048; 82550; 82553; 82803; 83880; 84484; 85025; 85027; 85610; 85730; 93005; 93306; 94760; 96374; 96376; 99285; J1940; Q9967

== ENCOUNTER → 2020-04-07 | Outpatient (REF) | payer BC ==
[~2020-04-07] MED LIST: ASPI81TA27 PO; ASPI81TA85 PO; ATEN50TA2; ATEN50TA2 PO; CEPH500C PO; FURO20TA2; FURO20TA2 PO; HUMA75IN2; HUMA75VLDS SC; HYDR-4514 PO; HYDR25TAB; HYDR25TAB PO; LACH12LO TOP; LANTINJ4 SC; METF-877 PO; METF10004; RAMI1CAP26; RAMI1CAP26 PO; SIMV40TA20; SIMV40TA20 PO; TRIPOIN5 TOP; XARE10TA PO
== END ==
LOC: M LAB REF 12:06
PROVIDERS: ATTEND Family Medicine
DX: D64.9 Anemia, unspecified (principal)

== ENCOUNTER 2020-04-27 11:05 | Inpatient (IN) | payer BC ==
[~2020-04-27] VITALS: Ht 182.9 cm; Wt 218.0 kg
[~2020-04-27 11:05] MED LIST changes: -ASPI81TA85 PO; +ASPI81TA86 PO
[2020-04-27] MEDS ORDERED: XARE20TA PO (11:53)
[2020-04-27] MEDS ORDERED: METF10004 (11:53)
--- NOTE | 2020-04-27 12:28 | REP ---
Clinical: Cough and dyspnea. Comparison: 03/20/2014. Findings: Very subtle perihilar and lower lobe infiltrates cannot be excluded. No discrete focal consolidation. No effusion or pneumothorax. Skeletal structures intact. Impression: Cannot exclude subtle alveolar infiltrates. Electronically Signed by Jesus Serrano MD 04/27/2020 12:20 P
[2020-04-27 13:54] LABS: BASO % 0.3 % (0.0-1.0); EOS # 0.1 10^3/uL (0.0-0.5); EOS % 1.5 % (0.0-3.0); HEMATOCRIT 36.9 % (42.0-52.0); HEMOGLOBIN 10.5 g/dl (13.5-17.5); LYMPH # 1.4 10^3/uL (1.5-5.0); LYMPH % 15.3 % (24.0-44.0); MEAN CORPUSCULAR HEMOGLOBIN 25.2 pg (27.0-33.0); MEAN CORPUSCULAR HGB CONC 28.5 g/dl (32.0-36.5); MEAN CORPUSCULAR VOLUME 88.7 fl (80.0-96.0); MONO # 0.6 10^3/uL (0.0-0.8); MONO % 6.8 % (0.0-5.0); NEUTROPHILS # 6.9 10^3/uL (1.5-8.5); NEUTROPHILS % 74.7 % (36.0-66.0); PLATELET COUNT, AUTOMATED 342 10^3/uL (150-450); RED BLOOD COUNT 4.16 10^6/uL (4.30-6.10); WHITE BLOOD COUNT 9.2 10^3/uL (4.0-10.0)
[2020-04-27 14:22] LABS: ALBUMIN 2.1 GM/DL (3.2-5.2); ALT/SGPT 15 U/L (12-78); BILIRUBIN,DIRECT 0.3 MG/DL (0.0-0.2); BILIRUBIN,TOTAL 0.5 MG/DL (0.2-1.0); TOTAL PROTEIN 7.3 GM/DL (6.4-8.2)
[2020-04-27] MEDS ORDERED: ISOVUE-370 76% 100ML VIAL As Ordered ONE (14:42)
--- NOTE | 2020-04-27 15:30 | REP ---
Clinical: Shortness of breath. Technique: Axial contrast enhanced images from the thoracic inlet to the upper abdomen with coronal and sagittal re-formations using 75 ml Isovue 370 intravenous contrast material. Comparison: 03/11/2019 Findings: Very subtle perihilar and basilar atelectasis (versus motion artifact) cannot be excluded. No focal consolidation. No effusion. No pneumothorax. Tracheobronchial tree is patent. Subcentimeter mediastinal and hilar lymph nodes are nonspecific and possibly reactive. Mediastinum demonstrates normal thoracic aorta, pulmonary vasculature, and heart/pericardium. Atherosclerotic changes to the coronary arteries again noted. Surrounding musculoskeletal structures are intact. Impression: No focal consolidation. Electronically Signed by Jesus Serrano MD 04/27/2020 03:21 P
[2020-04-27 15:35] LABS: CK-MB VALUE MASS < 1.0 NG/ML (<3.6); CPK CREATINE PHOSPHOKINASE 34 U/L (39-308); MB/CK RELATIVE INDEX 2.94 (< OR =4); NT-PRO BNP 2358 PG/ML (<125); TROPONIN I 0.05 NG/ML (< 0.10)
[2020-04-27] MEDS ORDERED: FUROSEMIDE 40MG/4ML VIAL (J1940) IV ONE (15:45)
--- NOTE | 2020-04-27 17:22 | REP ---
SOFT TISSUE SONOGRAPHY LEFT POSTERIOR THIGH. HISTORY: Left posterior five swelling and bleeding, question hematoma. FINDINGS: Scanning in the area of clinical concern demonstrates multiple superficial venous varicosities in the posterior thigh. These surround a hypoechoic gelatinous-appearing complex fluid collection demonstrating independent internal motion. This is adjacent to a nearby open wound. IMPRESSION: Findings consistent with hematoma versus abscess, 4.0 x 2.0 x 3.0 cm. There are adjacent superficial venous varicosities. Electronically Signed by Reji Madrigal MD 04/27/2020 05:33 P
[2020-04-27] MEDS: HumaLOG INSULIN (NovoLOG) PER UNIT SC SCH ×2 (17:30→21:00)
[2020-04-27 17:31] LABS: INR 1.71; PROTHROMBIN TIME 19.8 SECONDS (11.8-14.0)
[2020-04-27 17:32] LABS: PARTIAL THROMBOPLASTIN TIME 42.3 SECONDS (25.0-38.4)
--- NOTE | 2020-04-27 17:42 | HPEPDOC ---
[facility] Medical History & Physical Date of Admission Apr 27, 2020 Date of Service: Apr 27, 2020 History and Physical CHIEF COMPLAINT: SOB HISTORY OF PRESENT ILLNESS: Patient is 64 year old morbidly obese male with PMH CHF, IDDM, HTN presented to the ER with complaints of SOB for the past week. He states that he normally sits upright because of orthopnea. He doesn't not walk around much, usually with a walker when he go around the house but no significant distance. He states that it has been more difficult in the past week due to dyspnea on exertion. His leg is chronically swollen with extreme skin thickening and lumpy. He has a draining lesion in his posterior thigh that bursted in the ER today, he reports getting occasional boils at home. He currently is lying comfortably in bed any denies any complaints including any chest pain, SOB, fever, chills or recent illness. He is very poor historian with poor insight into his medical problems. Most history obtained from previous documentation and re-verified with patient. PAST MEDICAL HISTORY: Refer to [facility] PAST SURGICAL HISTORY: None reported SOCIAL HISTORY: Social alcohol consumption. Denies tobacco or illicit drug use. FAMILY HISTORY: Parents- CAD ALLERGIES: Please see below. REVIEW OF SYSTEMS: 10 point review of system negative except as stated in HPI HOME MEDICATIONS: Please see below. PHYSICAL EXAMINATION: General: No acute distress, Alert, morbidly obese with limited mobility Eyes: Normal sclera, EOMI HENT: Atraumatic Cardiovascular: Normal rate Pulmonary: Clear to auscultation b/l, no wheezing GI: Soft, nontender, obese Skin: Extensive thickening and lumps in b/l LE with some spots of bloody smears. Cannot appreciate pitting edema as skin is too thick for indentation. Open lesion posterior LLE with serosanguineous drainage. Neuro: CN grossly intact. No focal deficits. Strengths equal b/l. Psych: oriented x 3 LABORATORY DATA: See below. IMAGING: CXR- cannot exclude subtle alveolar infiltrates. Chest CT- No focal consolidation Extremity US- hematoma vs. abscess 4x2x3 cm. MICROBIOLOGY: Please see below. ASSESSMENT AND PLAN: 1. Acute on chronic SOB - Suspect CHF given elevated BNP at 2300. Do not appreciate significant fluid on CXR however. - CT with contrast does not show any significant findings. - Difficult to appreciate LE edema as his skin is so thickened that unable to make dentation. - On 40mg PO lasix daily at home. Will give 40mg IV lasix BID. monitor I/O. Fluid restriction. - Saturating well. ECHO 03/27 does not seem to show any significant finding surprisingly. EF 50-55%. - Will repeat ECHO. 2. IDDM - Resume conversion Lantus to Levemir home dose with ISS. - Hold metformin for now. - consistent carbohydrate diet. 3. HTN - BP controlled. Home med resumed. 4. Afib - rate controlled. - Xarelto for AC. 5. Chronic debility - PT ordered. - Very limited mobility, gets around at home to go to bathroom mostly only using a walker. 6. Posterior LLE wound - draining serosanguineous lesion. Recurrent "boils" at home reportedly. - No evidence of systemic infection. - Wound care ordered and surgery consulted. DVT ppx: Xarelto Code status: Full code Vital Signs Vital Signs Date Time Temp Pulse Resp B/P (MAP) Pulse Ox O2 Delivery O2 Flow Rate FiO2 04/27/20 11:49 04/27/20 11:47 97.3 82 24 99 Nasal Cannula 2.0 Laboratory Data Labs 24H Laboratory Tests 2 04/27/20 13:06: Prothrombin Time 19.8H, Prothromb Time International Ratio 1.71, Activated Partial Thromboplast Time 42.3H, Total Bilirubin 0.5, Direct Bilirubin 0.3H, Aspartate Amino Transf (AST/SGOT) 17, Alanine Aminotransferase (ALT/SGPT) 15, Alkaline Phosphatase 204H, Total Creatine Kinase 34L, Creatine Kinase MB < 1.0, Creatine Kinase MB Relative Index 2.94, Troponin I 0.05, VV-Lnj-M-Type Natriuretic Peptide 2358H, Total Protein 7.3, Albumin 2.1L, Albumin/Globulin Ratio 0.4 04/27/20 13:07: Immature Granulocyte % (Auto) 1.4, Neutrophils (%) (Auto) 74.7H, Lymphocytes (%) (Auto) 15.3L, Monocytes (%) (Auto) 6.8H, Eosinophils (%) (Auto) 1.5, Basophils (%) (Auto) 0.3, Neutrophils # (Auto) 6.9, Lymphocytes # (Auto) 1.4L, Monocytes # (Auto) 0.6, Eosinophils # (Auto) 0.1, Basophils # (Auto) 0.0, Nucleated Red Blood Cells % (auto) 0.0 04/27/20 13:52: POC Glucose (Misc Panel) 88, POC Sodium (Misc Panel) 139, POC Potassium (Misc Panel) 3.7, POC Chloride (Misc Panel) 92L, POC Total CO2 (Misc Panel) 36.0H, POC Blood Urea Nitrogen (Misc Panel 25, POC Ionized Calcium (Misc Panel) 4.6, POC Creatinine (Misc Panel) 0.9, POC Hematocrit (Misc Panel) 37.0L CBC/BMP Laboratory Tests 04/27/20 13:07 Microbiology Microbiology 04/27/20 Respiratory Virus Panel (PCR) (ROSSY) - Final, Complete 04/27/20 Blood Culture, Received Pending 04/27/20 Blood Culture, Received Pending Home Medications Scheduled Furosemide (Furosemide) 20 Mg Tablet, 40 MG PO DAILY Hydrochlorothiazide (Hydrochlorothiazide) 25 Mg Tablet, 25 MG PO DAILY Insulin Glargine,Hum.rec.anlog (Lantus Solostar) 100 Unit/1 Ml Insuln.pen, 50 UNITS SC QHS Insulin Human Lispro (Humalog Mix 75-25 Vial) 100 Unit/1 Ml Vial, 1 DOSE SC AC PER SLIDING SCALE Metformin HCl (Metformin HCl) 1,000 Mg Tablet, 1,000 MG PO BID Ramipril (Ramipril) 10 Mg Capsule, 10 MG PO DAILY Rivaroxaban (Xarelto) 20 Mg Tablet, 20 MG PO DAILY IN AFTERNOON Simvastatin (Simvastatin) 40 Mg Tablet, 40 MG PO QHS Scheduled PRN Hydrocodone/Acetaminophen (Hydrocodone-Acetamin 7.5-325) 1 Each Tablet, 1 TAB PO QID PRN for PAIN Allergies Coded Allergies: No Known Allergies (Unverified , 03/11/19) A-FIB/CHADSVASC A-FIB History Current/History of A-Fib/PAF?: Yes Current PO Anticoag Therapy: Yes MIKE GOETZ MD Apr 27, 2020 17:42
[2020-04-27] MEDS ORDERED: ACETAMINOPHEN TAB 650MG DOSE (2X325MG) PO PRN (17:45)
[2020-04-27] MEDS ORDERED: GLUCAGON INJ 1MG VIAL SC PRN (19:00)
[2020-04-27] MEDS ORDERED: DEXTROSE 50% 50 ML SYRINGE IV PRN (19:00)
[2020-04-27] MEDS ORDERED: ANEXSIA, NORCO 7.5MG/325MG TABLET(HYDROCODONE/APAP) PO PRN (19:00)
[2020-04-27] MEDS ORDERED: GLUCOSE 4GM CHEW TABLET PO PRN (19:00)
[2020-04-27] MEDS ORDERED: LEVEMIR (INSULIN DETEMIR) 1 UNITS/0.01ML SC SCH (21:00)
[2020-04-27 21:15] VITALS: BP 138/63
[2020-04-27] MEDS: SIMVASTATIN 40 MG TAB PO SCH (22:24)
[2020-04-28 05:51] LABS: HEMATOCRIT 36.8 % (42.0-52.0); HEMOGLOBIN 10.5 g/dl (13.5-17.5); MEAN CORPUSCULAR HEMOGLOBIN 25.5 pg (27.0-33.0); MEAN CORPUSCULAR HGB CONC 28.5 g/dl (32.0-36.5); MEAN CORPUSCULAR VOLUME 89.5 fl (80.0-96.0); PLATELET COUNT, AUTOMATED 275 10^3/uL (150-450); RED BLOOD COUNT 4.11 10^6/uL (4.30-6.10); WHITE BLOOD COUNT 8.5 10^3/uL (4.0-10.0)
[2020-04-28 06:00] VITALS: BP 145/75
[2020-04-28 06:17] LABS: BLOOD UREA NITROGEN 24 MG/DL (7-18); CALCIUM LEVEL 8.6 MG/DL (8.8-10.2); CARBON DIOXIDE LEVEL 35 MEQ/L (21-32); CHLORIDE LEVEL 99 MEQ/L (98-107); CREATININE FOR GFR 0.92 MG/DL (0.70-1.30); GLOMERULAR FILTRATION RATE > 60.0 (>49); GLUCOSE, FASTING 43 MG/DL (70-100); POTASSIUM SERUM 4.4 MEQ/L (3.5-5.1); SODIUM LEVEL 141 MEQ/L (136-145)
[2020-04-28] MEDS: HumaLOG INSULIN (NovoLOG) PER UNIT SC SCH ×4 (07:30→20:56)
--- NOTE | 2020-04-28 07:30 | ECGEPIP ---
[facility] - ED Test Date: 2020-04-27 Pat Name: MARTÍN ADDISON Department: Room: - Gender: Male Desktop Support Technician: jennifer : [id number] Requested By: Alan Lopez Order Number: [id number] Reading MD: Paul Rivas Measurements Intervals [place] Rate: 73 P: [place]: 0 QRS: 90 QRSD: 97 T: 41 QT: 382 QTc: 422 Interpretive Statements ATRIAL FIBRILLATION Nonspecific ST-T wave abnormalities Low QRS complex voltage in the limb leads Similar to tracing done 03-11-19 Electronically Signed on 04-28-2020 7:30:44 EDT by Paul Rivas
[2020-04-28] MEDS: RIVAROXABAN 20 MG TAB (XARELTO) PO SCH (09:16)
[2020-04-28] MEDS: hydroCHLOROthiazide 25 MG TAB PO SCH (09:16)
[2020-04-28] MEDS: ramipriL 5 MG CAP PO SCH (09:21)
--- NOTE | 2020-04-28 10:23 | CR ---
DATE OF CONSULTATION: 04/28/2020 REASON FOR CONSULTATION: Left leg abscess. HISTORY OF PRESENT ILLNESS: The patient is a 64-year-old male who presents with shortness of breath. He was admitted by the hospital service for suspected congestive heart failure (CHF) exacerbation. Incidentally, while he was in the emergency room (ER), he mentioned a wound on the back of his left leg, Ultrasound confirmed that it was likely an abscess and opened and started draining ectopy on its own while he was in the ER. He claims he has had these boils on the back of his legs for years. He has never had to have any of them cut opened; they usually will open and drain on their own and go away spontaneously. He does have severe morbid obesity with venous stasis dermatitis, oozing wounds in between cracks in the skin in the lower leg bilaterally. No signs of any cellulitis. His main complaint at this time is weakness and difficulty with movement, mainly due to his size. His shortness of breath is already starting to improve. He has no complaints of the abscess. He has no pain from it and its already open and draining well on its own. PAST MEDICAL HISTORY: 1. Morbid obesity. 2 Congestive heart failure (CHF). 3. Diabetes. 4. Hypertension. PAST SURGICAL HISTORY: None. SOCIAL HISTORY: Denies drug, alcohol, tobacco abuse. FAMILY HISTORY: Noncontributory. ALLERGIES: None. HOME MEDICATIONS: Please see [facility] rec REVIEW OF SYSTEMS: For positives and negatives, see in history of present illness. PHYSICAL EXAMINATION: General: Alert and oriented x3. No acute distress. VITALS: Temperature 98, pulse 73, respirations 20, blood pressure 145/75, pulse oximetry 94% on 2 liters nasal cannula. HEENT: Pupils equally round and react to light accommodation. HEART: S1-S2 regular rate and rhythm. LUNGS: Clear to auscultation bilaterally. ABDOMEN: Soft, obese, nontender. EXTREMITIES: There is bilateral lower extremity pitting edema with venous stasis dermatitis on the left medial posterior thigh. There is about a 4 cm indurated area that is open and actively draining purulent fluid. No signs of surrounding cellulitis. LABORATORY DATA: White count on admission 9.2, down to 8.5 today, hemoglobin 10.5, platelets 275. IMAGING STUDIES: Ultrasound of the left lower extremity on the emergency room (ER) yesterday showed an abscess versus hematoma measuring 4 x 2 x 3 cm. ASSESSMENT/PLAN: The patient is 64-year-old male with congestive heart failure (CHF) exacerbation also has left posterior leg superficial skin abscesses already open and draining. He has not in any distress. Vitals are stable. Labs are stable. RECOMMENDATIONS: Just to continue with antibiotics. Continue with wound care with keeping covered and clean at least once a day. There is no need for any further surgical debridement at this time. It is already opened actively draining. He does not need to follow up with us, outpatient either, unless this returns or increases in size.
[2020-04-28 14:00] VITALS: BP 101/70
[2020-04-28] MEDS: FUROSEMIDE 40MG/4ML VIAL (J1940) IV SCH (16:48)
--- NOTE | 2020-04-28 17:34 | IPNPDOC ---
Date Seen The patient was seen on 04/28/20. Progress Note SUBJECTIVE: Patient reports feeling better today. Breathing better than on presentation and denies any other complaints. LLE wound evaluated by surgery. Afebrile overnight. WBC 8.5. OBJECTIVE PHYSICAL EXAMINATION: VITAL SIGNS: Please see below. General: No acute distress, Alert, morbidly obese with limited mobility Eyes: Normal sclera, EOMI HENT: Atraumatic Cardiovascular: Normal rate Pulmonary: Clear to auscultation b/l, no wheezing GI: Soft, nontender, obese Skin: Extensive thickening and lumps in b/l LE with some spots of bloody smears. Cannot appreciate pitting edema as skin is too thick for indentation. Open lesion posterior LLE with serosanguineous drainage. Neuro: CN grossly intact. No focal deficits. Strengths equal b/l. Psych: oriented x 3 LABORATORY DATA, IMAGING STUDIES, MICROBIOLOGY: Please see below. ASSESSMENT AND PLAN: 1. Acute on chronic SOB - Suspect CHF given elevated BNP at 2300. Do not appreciate significant fluid on CXR however. - CT with contrast does not show any significant findings. - Difficult to appreciate LE edema as his skin is so thickened that unable to make dentation. - On 40mg PO lasix daily at home. Will give 40mg IV lasix BID. monitor I/O. Fluid restriction. - Saturating well. ECHO 03/27 does not seem to show any significant finding surprisingly. EF 50-55%. - Will repeat ECHO. 2. IDDM - Resumed conversion Lantus to Levemir with ISS. - Hold metformin for now. - consistent carbohydrate diet. - Home dose documented as 50 units qhs but patient was hypoglycemic today. Drop ped down to 20 units daily. 3. HTN - BP controlled. Home med resumed. 4. Afib - rate controlled. - Xarelto for AC. 5. Chronic debility - PT ordered. - Very limited mobility, gets around at home to go to bathroom mostly only using a walker. 6. Posterior LLE wound - draining serosanguineous lesion. Recurrent "boils" at home reportedly. - No evidence of systemic infection. - Wound care ordered and surgery consulted. No further intervention recommended as it is already draining. - Will treat with course of Bactrim. DVT ppx: Xarelto Code status: Full code VS, I&O, 24H, Fishbone Vital Signs/I&O Vital Signs Date Time Temp Pulse Resp B/P (MAP) Pulse Ox O2 Delivery O2 Flow Rate FiO2 04/28/20 09:21 122/68 04/28/20 06:00 98.0 73 20 94 Nasal Cannula 2.0 I&O- Last 24 Hours up to 6 AM 04/28/20 06:00 Intake Total 300 ml Output Total 450 ml Balance -150 ml Laboratory Data 24H LABS Laboratory Tests 2 04/27/20 22:20: Bedside Glucose (Misc Panel) 105 04/28/20 05:41: Nucleated Red Blood Cells % (auto) 0.0, Anion Gap 7L, Glomerular Filtration Rate > 60.0, Calcium Level 8.6L 04/28/20 07:59: Bedside Glucose (Misc Panel) 28*L 04/28/20 08:21: Bedside Glucose (Misc Panel) 37*L 04/28/20 08:22: Bedside Glucose Confirm (Misc) 39*L 04/28/20 08:46: Bedside Glucose (Misc Panel) 39*L 04/28/20 09:13: Bedside Glucose (Misc Panel) 75L 04/28/20 11:17: Bedside Glucose (Misc Panel) 124H 04/28/20 17:01: Bedside Glucose (Misc Panel) 111 CBC/BMP Laboratory Tests 04/28/20 05:41 Microbiology Microbiology 04/27/20 Respiratory Virus Panel (PCR) (ROSSY) - Final, Complete 04/27/20 Blood Culture - Preliminary, Resulted No growth after 24 hours . All specim... 04/27/20 Blood Culture - Preliminary, Resulted No growth after 24 hours . All specim... MIKE GOETZ MD Apr 28, 2020 17:34
[2020-04-28] MEDS: LEVEMIR (INSULIN DETEMIR) 1 UNITS/0.01ML SC SCH (21:00)
[2020-04-28] MEDS: BACTRIM 160MG/800MG DS TAB PO SCH (21:33)
[2020-04-28] MEDS: SIMVASTATIN 40 MG TAB PO SCH (21:33)
[2020-04-28 22:00] VITALS: BP 110/57
[2020-04-29] MEDS: FUROSEMIDE 40MG/4ML VIAL (J1940) IV SCH ×2 (03:59→16:23)
[2020-04-29 06:00] VITALS: BP 164/60
[2020-04-29 06:23] LABS: HEMATOCRIT 33.7 % (42.0-52.0); HEMOGLOBIN 9.6 g/dl (13.5-17.5); MEAN CORPUSCULAR HEMOGLOBIN 25.6 pg (27.0-33.0); MEAN CORPUSCULAR HGB CONC 28.5 g/dl (32.0-36.5); MEAN CORPUSCULAR VOLUME 89.9 fl (80.0-96.0); PLATELET COUNT, AUTOMATED 311 10^3/uL (150-450); RED BLOOD COUNT 3.75 10^6/uL (4.30-6.10); WHITE BLOOD COUNT 9.5 10^3/uL (4.0-10.0)
[2020-04-29 06:48] LABS: BLOOD UREA NITROGEN 24 MG/DL (7-18); CALCIUM LEVEL 8.5 MG/DL (8.8-10.2); CARBON DIOXIDE LEVEL 42 MEQ/L (21-32); CHLORIDE LEVEL 96 MEQ/L (98-107); CREATININE FOR GFR 1.04 MG/DL (0.70-1.30); GLOMERULAR FILTRATION RATE > 60.0 (>49); GLUCOSE, FASTING 80 MG/DL (70-100); POTASSIUM SERUM 4.4 MEQ/L (3.5-5.1); SODIUM LEVEL 137 MEQ/L (136-145)
[2020-04-29] MEDS: HumaLOG INSULIN (NovoLOG) PER UNIT SC SCH ×4 (07:30→21:00)
[2020-04-29] MEDS: ramipriL 5 MG CAP PO SCH (09:00)
[2020-04-29] MEDS: hydroCHLOROthiazide 25 MG TAB PO SCH (09:11)
[2020-04-29] MEDS: BACTRIM 160MG/800MG DS TAB PO SCH ×2 (09:11→21:24)
[2020-04-29] MEDS: RIVAROXABAN 20 MG TAB (XARELTO) PO SCH (09:11)
[2020-04-29 09:16] VITALS: BP 98/50
[2020-04-29 10:34] VITALS: BP 100/54
[2020-04-29 14:00] VITALS: BP 148/56
[2020-04-29 18:09] VITALS: BP 110/62
--- NOTE | 2020-04-29 19:55 | IPNPDOC ---
Date Seen The patient was seen on 04/29/20. Progress Note SUBJECTIVE: Patient seen and examined at bedside. Patient denies any complaints currently. Patient says he is feeling well. Denies any fever, chills, chest pain, difficulty breathing, nausea, vomiting, abdominal pain. We'll simply patient off O2 today OBJECTIVE PHYSICAL EXAMINATION: VITAL SIGNS: Please see below. GENERAL: Supportive morbidly obese man laying in bed, pleasant CARDIOVASCULAR: irregularly irregular, normal S1/2. RESPIRATORY: CTA B/L, normal W/R/R. ABDOMINAL: Soft, morbidly obese, nontender, nondistended EXTREMITIES: 2+ pitting edema bilateral lower extremities, intact distal pulses NEUROLOGICAL: No focal deficits appreciated. Normal speech PSYCHOLOGICAL: AAO 3, appropriate LABORATORY DATA, IMAGING STUDIES, MICROBIOLOGY: Please see below. DVT prophylaxis ordered?: On AC ASSESSMENT AND PLAN: Patient is 64 year old morbidly obese male with PMH CHF, IDDM, HTN presented to the ER with complaints of SOB for the past week found to have CHF exacerbation with LLE abscess as well. #Acute on chronic SOB - Suspect CHF given elevated BNP at 2300. Do not appreciate significant fluid on CXR however. - CT with contrast does not show any significant findings. - Cont. 40mg IV lasix BID. monitor I/O. Fluid restriction. - Saturating well. ECHO 03/27 does not seem to show any significant finding surprisingly. EF 50-55%. #IDDM - Resumed conversion Lantus to Levemir with ISS. - Hold metformin for now. - consistent carbohydrate diet. - Home dose documented as 50 units qhs but patient was hypoglycemic today. Dropped down to 20 units daily. #HTN - BP controlled. Home med resumed. #Afib - rate controlled. - Xarelto for AC. #Chronic debility - PT ordered. - Very limited mobility, gets around at home to go to bathroom mostly only using a walker. #Posterior LLE wound - draining serosanguineous lesion. Recurrent "boils" at home reportedly. - No evidence of systemic infection. - Wound care ordered and surgery consulted. No further intervention recommended as it is already draining. - appreciate surgery consult DVT ppx: Xarelto Code status: Full code VS, I&O, 24H, Fishbone Vital Signs/I&O Vital Signs Date Time Temp Pulse Resp B/P (MAP) Pulse Ox O2 Delivery O2 Flow Rate FiO2 04/29/20 18:09 80 110/62 (78) 04/29/20 14:00 98.0 22 94 Nasal Cannula 2.0 I&O- Last 24 Hours up to 6 AM 04/29/20 06:00 Intake Total 1710 ml Output Total 1700 ml Balance 10 ml Laboratory Data 24H LABS Laboratory Tests 2 04/28/20 20:33: Bedside Glucose (Misc Panel) 85 04/29/20 00:20: Bedside Glucose (Misc Panel) 93 04/29/20 05:41: Nucleated Red Blood Cells % (auto) 0.0, Anion Gap , Glomerular Filtration Rate > 60.0, Calcium Level 8.5L 04/29/20 11:14: Bedside Glucose (Misc Panel) 132H 04/29/20 16:33: Bedside Glucose (Misc Panel) 135H CBC/BMP Laboratory Tests 04/29/20 05:41 Microbiology Microbiology 04/27/20 Respiratory Virus Panel (PCR) (ROSSY) - Final, Complete 04/27/20 Blood Culture - Preliminary, Resulted No Growth after 48 hours. All Specime... 04/27/20 Blood Culture - Preliminary, Resulted No Growth after 48 hours. All Specime... HANNAH HAND MD Apr 29, 2020 19:55
[2020-04-29] MEDS: SIMVASTATIN 40 MG TAB PO SCH (21:24)
[2020-04-29] MEDS: LEVEMIR (INSULIN DETEMIR) 1 UNITS/0.01ML SC SCH (21:24)
[2020-04-29 22:00] VITALS: BP 108/62
[2020-04-30] MEDS: FUROSEMIDE 40MG/4ML VIAL (J1940) IV SCH (04:19)
[2020-04-30 06:00] VITALS: BP 108/62
[2020-04-30 06:19] LABS: HEMATOCRIT 32.8 % (42.0-52.0); HEMOGLOBIN 9.5 g/dl (13.5-17.5); MEAN CORPUSCULAR HEMOGLOBIN 25.3 pg (27.0-33.0); MEAN CORPUSCULAR VOLUME 87.5 fl (80.0-96.0); PLATELET COUNT, AUTOMATED 299 10^3/uL (150-450); RED BLOOD COUNT 3.75 10^6/uL (4.30-6.10); WHITE BLOOD COUNT 8.7 10^3/uL (4.0-10.0)
[2020-04-30 06:30] LABS: BLOOD UREA NITROGEN 22 MG/DL (7-18); CALCIUM LEVEL 8.8 MG/DL (8.8-10.2); CARBON DIOXIDE LEVEL 40 MEQ/L (21-32); CHLORIDE LEVEL 94 MEQ/L (98-107); CREATININE FOR GFR 1.07 MG/DL (0.70-1.30); GLOMERULAR FILTRATION RATE > 60.0 (>49); GLUCOSE, FASTING 108 MG/DL (70-100); POTASSIUM SERUM 4.1 MEQ/L (3.5-5.1); SODIUM LEVEL 138 MEQ/L (136-145)
[2020-04-30] MEDS: BACTRIM 160MG/800MG DS TAB PO SCH (08:16)
[2020-04-30] MEDS: HumaLOG INSULIN (NovoLOG) PER UNIT SC SCH (08:16)
[2020-04-30] MEDS: RIVAROXABAN 20 MG TAB (XARELTO) PO SCH (08:16)
[2020-04-30] MEDS: hydroCHLOROthiazide 25 MG TAB PO SCH (08:16)
[2020-04-30 08:19] VITALS: BP 104/62
[2020-04-30] MEDS: ramipriL 5 MG CAP PO SCH (08:19)
[2020-05-02] MEDS ORDERED: FUROSEMIDE 40MG/4ML VIAL (J1940) ONE ×2 (09:26→16:37)
[2020-05-02] MEDS ORDERED: HumaLOG INSULIN (NovoLOG) PER UNIT ONE ×3 (09:26→16:37)
[2020-05-02] MEDS ORDERED: hydroCHLOROthiazide 25 MG TAB ONE (09:26)
[2020-05-02] MEDS ORDERED: BACTRIM 160MG/800MG DS TAB ONE ×2 (09:26→20:58)
[2020-05-02] MEDS ORDERED: RIVAROXABAN 20 MG TAB (XARELTO) ONE (09:26)
[2020-05-02] MEDS ORDERED: ramipriL 5 MG CAP ONE (09:26)
[2020-05-02] MEDS ORDERED: FUROSEMIDE 40 MG TAB ONE (11:30)
[2020-05-02] MEDS ORDERED: SIMVASTATIN 40 MG TAB ONE (20:58)
[2020-05-02] MEDS ORDERED: LEVEMIR (INSULIN DETEMIR) 1 UNITS/0.01ML ONE (20:58)
[2020-05-03] MEDS ORDERED: hydroCHLOROthiazide 25 MG TAB ONE (03:50)
[2020-05-03] MEDS ORDERED: RIVAROXABAN 20 MG TAB (XARELTO) ONE (03:50)
[2020-05-03] MEDS ORDERED: FUROSEMIDE 40MG/4ML VIAL (J1940) ONE (03:50)
[2020-05-03] MEDS ORDERED: BACTRIM 160MG/800MG DS TAB ONE ×2 (03:50→06:09)
[2020-05-03] MEDS ORDERED: HumaLOG INSULIN (NovoLOG) PER UNIT ONE ×3 (03:50→12:55)
[2020-05-03] MEDS ORDERED: LEVEMIR (INSULIN DETEMIR) 1 UNITS/0.01ML ONE (06:09)
[2020-05-03] MEDS ORDERED: SIMVASTATIN 40 MG TAB ONE (06:09)
[2020-05-03] MEDS ORDERED: FUROSEMIDE 40 MG TAB ONE (12:55)
[2020-05-03] MEDS ORDERED: FUROSEMIDE 40 MG TAB As Ordered ONE (15:13)
[2020-05-04] MEDS ORDERED: FUROSEMIDE 40 MG TAB As Ordered ONE (04:09)
[2020-05-04] MEDS ORDERED: RIVAROXABAN 20 MG TAB (XARELTO) ONE (09:37)
[2020-05-04] MEDS ORDERED: ramipriL 5 MG CAP ONE (09:37)
[2020-05-04] MEDS ORDERED: FUROSEMIDE 40 MG TAB ONE (09:37)
[2020-05-04] MEDS ORDERED: BACTRIM 160MG/800MG DS TAB ONE (09:37)
[2020-05-04] MEDS ORDERED: HumaLOG INSULIN (NovoLOG) PER UNIT ONE (09:37)
[2020-06-10 11:47] LABS: HEMATOCRIT 34.6 % (42.0-52.0); HEMOGLOBIN 10.2 g/dl (13.5-17.5); MEAN CORPUSCULAR HEMOGLOBIN 25.5 pg (27.0-33.0); MEAN CORPUSCULAR HGB CONC 29.5 g/dl (32.0-36.5); MEAN CORPUSCULAR VOLUME 86.5 fl (80.0-96.0); PLATELET COUNT, AUTOMATED 258 10^3/uL (150-450); WHITE BLOOD COUNT 6.6 10^3/uL (4.0-10.0)
[2020-06-10 15:00] LABS: HEMOGLOBIN 11.3 g/dl (13.5-17.5); MEAN CORPUSCULAR HEMOGLOBIN 25.8 pg (27.0-33.0); MEAN CORPUSCULAR HGB CONC 29.7 g/dl (32.0-36.5); MEAN CORPUSCULAR VOLUME 86.8 fl (80.0-96.0); PLATELET COUNT, AUTOMATED 319 10^3/uL (150-450); RED BLOOD COUNT 4.38 10^6/uL (4.30-6.10); WHITE BLOOD COUNT 7.1 10^3/uL (4.0-10.0)
[2020-06-16 12:24] LABS: BLOOD UREA NITROGEN 18 MG/DL (7-18); CALCIUM LEVEL 8.3 MG/DL (8.8-10.2); CARBON DIOXIDE LEVEL 40 mmol/L (20-29); CHLORIDE LEVEL 92 MEQ/L (98-107); CREATININE FOR GFR 1.09 MG/DL (0.70-1.30); GLOMERULAR FILTRATION RATE > 60.0 (>49); GLUCOSE, FASTING 133 MG/DL (70-100); MAGNESIUM LEVEL 1.7 MG/DL (1.8-2.4); POTASSIUM SERUM 3.8 MEQ/L (3.5-5.1); SODIUM LEVEL 137 MEQ/L (136-145)
[2020-06-16 15:09] LABS: BLOOD UREA NITROGEN 19 MG/DL (7-18); CALCIUM LEVEL 8.6 MG/DL (8.8-10.2); CARBON DIOXIDE LEVEL 40 mmol/L (20-29); CHLORIDE LEVEL 92 MEQ/L (98-107); CREATININE FOR GFR 1.27 MG/DL (0.70-1.30); GLOMERULAR FILTRATION RATE > 60.0 (>49); GLUCOSE, FASTING 138 MG/DL (70-100); SODIUM LEVEL 137 MEQ/L (136-145)
== END 2020-05-04 13:00 | disposition home or self-care (01) | DRG 194 ==
LOC: M ED 11:05 → M ED INP 17:34 → ENRESERV 18:42 → M MSPAV 21:23
PROVIDERS: ADMIT Student in an Organized Health Care Education/Training Program; ATTEND Internal Medicine
DX: I11.0 Hypertensive heart disease with heart failure (principal); L02.416 Cutaneous abscess of left lower limb; Z79.01 Long term (current) use of anticoagulants; E66.01 Morbid (severe) obesity due to excess calories; I50.43 Acute on chronic combined systolic (congestive) and diastolic (congestive) heart failure; Z68.44 Body mass index [BMI] 60.0-69.9, adult; I87.2 Venous insufficiency (chronic) (peripheral); I48.91 Unspecified atrial fibrillation; E11.9 Type 2 diabetes mellitus without complications; R53.81 Other malaise; Z74.09 Other reduced mobility; Z79.4 Long term (current) use of insulin; Z79.899 Other long term (current) drug therapy

== ENCOUNTER → 2020-10-13 | Outpatient (REF) | payer BC ==
[~2020-10-13] MED LIST changes: +XARE20TA PO
== END ==
LOC: M LAB REF 12:02
PROVIDERS: ATTEND Family Medicine
DX: E63.9 Nutritional deficiency, unspecified (principal)

== ENCOUNTER → 2021-02-22 | Outpatient (REF) | payer BC ==
[~2021-02-22] MED LIST changes: +HYDR-3490; +HYDR-3490 PO; -HYDR25TAB; -HYDR25TAB PO
[2021-02-22 19:07] LABS: PERCENT SATURATION 7.6 % (19.7-50.0); PREALBUMIN 11.5 MG/DL (20.0-40.0)
[2021-02-22 19:11] LABS: FOLATE 3.9 NG/ML
[2021-02-22 20:31] LABS: % LABILE ALKALINE PHOSPHATASE 38.86 %
== END ==
LOC: M LAB REF 17:19
PROVIDERS: ATTEND Family Medicine
DX: D64.9 Anemia, unspecified (principal)

== ENCOUNTER 2021-04-25 23:21 | Inpatient (IN) | payer BC ==
[~2021-04-25] VITALS: Ht 185.4 cm; Wt 187.0 kg
[~2021-04-25 23:21] MED LIST changes: +NEOM28OI TOP; -TRIPOIN5 TOP
[2021-04-25] MEDS ORDERED: NS 1,000 ML IV ONE (23:50)
[2021-04-26] VITALS (81 sets, daily range): BP systolic 65–145; BP diastolic 28–71
[2021-04-26] MEDS ORDERED: NS IV ONE (00:20)
[2021-04-26 00:35] LABS: BASO % 0.1 % (0.0-1.0); EOS % 0.3 % (0.0-3.0); HEMATOCRIT 31.4 % (42.0-52.0); HEMOGLOBIN 9.7 g/dl (13.5-17.5); LYMPH # 1.1 10^3/uL (1.5-5.0); LYMPH % 8.4 % (24.0-44.0); MEAN CORPUSCULAR HEMOGLOBIN 25.6 pg (27.0-33.0); MEAN CORPUSCULAR HGB CONC 30.9 g/dl (32.0-36.5); MEAN CORPUSCULAR VOLUME 82.8 fl (80.0-96.0); MONO # 0.6 10^3/uL (0.0-0.8); MONO % 4.9 % (2.0-8.0); NEUTROPHILS # 10.8 10^3/uL (1.5-8.5); NEUTROPHILS % 85.6 % (36.0-66.0); PLATELET COUNT, AUTOMATED 389 10^3/uL (150-450); RED BLOOD COUNT 3.79 10^6/uL (4.30-6.10); WHITE BLOOD COUNT 12.6 10^3/uL (4.0-10.0)
[2021-04-26 01:05] LABS: ALBUMIN 2.5 GM/DL (3.2-5.2); ALT/SGPT 15 U/L (12-78); BILIRUBIN,DIRECT 0.2 MG/DL (0.0-0.2); BILIRUBIN,TOTAL 0.4 MG/DL (0.2-1.0); BLOOD UREA NITROGEN 80 MG/DL (7-18); CALCIUM LEVEL 7.7 MG/DL (8.8-10.2); CARBON DIOXIDE LEVEL 18 MEQ/L (21-32); CHLORIDE LEVEL 91 MEQ/L (98-107); CPK CREATINE PHOSPHOKINASE 89 U/L (39-308); CREATININE FOR GFR 8.29 MG/DL (0.70-1.30); GLUCOSE, FASTING 101 MG/DL (70-100); LIPASE 1090 U/L (73-393); MB/CK RELATIVE INDEX 8.99 (< OR =4); POTASSIUM SERUM 7.1 MEQ/L (3.5-5.1); SODIUM LEVEL 121 MEQ/L (136-145); TOTAL PROTEIN 7.3 GM/DL (6.4-8.2); TROPONIN I < 0.02 NG/ML (< 0.10)
[2021-04-26 01:08] LABS: VENOUS BASE EXCESS -12.1 (-2.0-2.0); VENOUS HCO3 15.1 MEQ/L (23.0-27.0); VENOUS PARTIAL PRESSURE CO2 38.9 mmHg (38.0-50.0); VENOUS PARTIAL PRESSURE O2 73.3 mmHg (30.0-50.0); VENOUS PH 7.206 UNITS (7.330-7.430); VENOUS STANDARD HCO3 14.8 MEQ/L; VENOUS TOTAL CO2 16.3 MEQ/L (24.0-28.0)
[2021-04-26] MEDS ORDERED: PIPERACILLIN/TAZOBACTAM SOD 3.375 GM in D5W MINI-BAG PLUS 50 ML IV ONE (01:25)
[2021-04-26 01:27] LABS: RSV AMPLIFICATION NEGATIVE (NEGATIVE)
--- NOTE | 2021-04-26 02:19 | REPVR ---
PROCEDURE INFORMATION: Exam: CT Head without Contrast Exam date and time: 04/26/21 (1:23am) Age: 65 years old Clinical indication: AMS, sepsis. Fall. Taking Eliquis. TECHNIQUE: Imaging protocol: Computed tomography of the head without contrast. Radiation optimization: All CT scans at this facility use at least one of these dose optimization techniques: automated exposure control; mA and/or kV adjustment per patient size (includes targeted exams where dose is matched to clinical indication); or iterative reconstruction. COMPARISON: No relevant prior studies available FINDINGS: Brain: Unremarkable. No acute hemorrhage. No mass effect. Cerebral ventricles: No ventriculomegaly. Paranasal sinuses: Visualized sinuses are unremarkable. No air-fluid levels. Mastoid air cells: Visualized mastoid air cells are well aerated. Bones/joints: Unremarkable. No acute fracture. Soft tissues: Unremarkable. IMPRESSION: No acute intracranial pathology. Electronically signed by: Jesusita Khoury On 04/26/2021 02:18:21 AM
--- NOTE | 2021-04-26 02:55 | REPVR ---
PROCEDURE INFORMATION: Exam: CT Chest without Contrast; Diagnostic Exam date and time: 04/26/21 (1:24am) Age: 65 years old Clinical indication: AMS. Sepsis. Fall. Taking Eliquis. TECHNIQUE: Imaging protocol: Diagnostic computed tomography of the chest without contrast. Radiation optimization: All CT scans at this facility use at least one of these dose optimization techniques: automated exposure control; mA and/or kV adjustment per patient size (includes targeted exams where dose is matched to clinical indication); or iterative reconstruction. COMPARISON: CT CHEST of 04/27/20 FINDINGS: Lungs: Unremarkable. No consolidation. No masses. Pleural spaces: Unremarkable. No pneumothorax. No pleural effusions. Heart: Cardiomegaly. No pericardial effusion. Coronary artery calcifications. Aorta: Unremarkable. No aortic aneurysm. Lymph nodes: Unremarkable. No enlarged lymph nodes. Bones/joints: No acute fracture. Degenerative thoracic spine changes. Soft tissues: Unremarkable. IMPRESSION: No acute findings. Electronically signed by: Jesusita Khoury On 04/26/2021 02:55:15 AM
--- NOTE | 2021-04-26 03:04 | REPVR ---
PROCEDURE INFORMATION: Exam: CT Abdomen and Pelvis without Contrast Exam date and time: 04/26/21 (1:24am) Age: 65 years old Clinical indication: AMS. Sepsis. Scrotal erythema. KARMEN. Possible gangrene. TECHNIQUE: Imaging protocol: Computed tomography of the abdomen and pelvis without contrast. Radiation optimization: All CT scans at this facility use at least one of these dose optimization techniques: automated exposure control; mA and/or kV adjustment per patient size (includes targeted exams where dose is matched to clinical indication); or iterative reconstruction. COMPARISON: CT ABDOMEN PELVIS of 09/26/16 FINDINGS: Liver: Normal. No mass. Gallbladder and bile ducts: Distended gallbladder, containing a few small calcified stones (also noted in 2015). No ductal dilatation. Pancreas: Normal. No ductal dilatation. Spleen: Normal. No splenomegaly. Adrenal glands: Normal. No mass. Kidneys and ureters: Normal. No hydronephrosis. Stomach and bowel: Unremarkable. No bowel obstruction. No mucosal thickening. Appendix: No evidence of appendicitis. Intraperitoneal space: Unremarkable. No free air. No significant fluid collection. Vasculature: Unremarkable. No abdominal aortic aneurysm. Lymph nodes: Unremarkable. No enlarged lymph nodes. Urinary bladder: Lopez catheter in place. Urinary bladder not distended. Reproductive: Unremarkable as visualized. Bones/joints: Unremarkable. No acute fracture. Soft tissues: Obese patient. IMPRESSION: No acute findings. Distended gallbladder, containing a few small calcified stones (similar appearance in 2015). Electronically signed by: Jesusita Khoury On 04/26/2021 03:04:19 AM
--- NOTE | 2021-04-26 03:31 | REPVR ---
PROCEDURE INFORMATION: Exam: XR Chest Exam date and time: 04/26/21 (2:58am) Age: 65 years old Clinical indication: SOB TECHNIQUE: Imaging protocol: Portable CXR Views: 1 view COMPARISON: CT CHEST of 04/26/21 FINDINGS: Lungs: Unremarkable. No consolidation. Pleural spaces: Unremarkable. No pleural effusions. No pneumothorax. Heart/Mediastinum: Cardiomegaly. Bones/joints: Unremarkable. IMPRESSION: No acute findings. Clear lung walker. Electronically signed by: Jesusita Khoury On 04/26/2021 03:30:54 AM
[2021-04-26] MEDS ORDERED: POTA20TA6 PO (04:10)
[2021-04-26] MEDS ORDERED: OZEM2INJ SC (04:10)
[2021-04-26] MEDS ORDERED: HOME MED LIST COMPLETE! XX SCH (04:15)
--- NOTE | 2021-04-26 04:42 | HPEPDOC ---
[facility] Medical History & Physical Date of Admission Apr 26, 2021 Date of Service: Apr 26, 2021 Primary Care Physician: ROSI EVANS M.D. Attending Physician: ASHLEY MÁRQUEZ MD History and Physical TIME OF SERVICE: 440AM / CC time (including time discussing the case with the patient's & various specialists 69 min) CHIEF COMPLAINT: "not feeling well" HISTORY OF PRESENT ILLNESS: The patient was alert but confused and unable to provide a lot of history; per has not been feeling well and has not been eating or drinking for 1 week and he hasn't urinated for 5 days. At the time of my assessment the patient denied having any pain he thinks that he has not been taking his medications because he has not been feeling well. He received 2L of NS, zosyn & had a triple lumen placed by for levophed. According to his the patient doesn't like to go to the doctor, was referred to wound care for the BLE wounds over a year ago but declined, had 1 episode of "diarrhea" yesterday, has been c/o of not feeling well and has actually been taking his medications. ROS: limited except as listed in HPI bc of confusion PAST MEDICAL/SURGICAL HISTORY: essential HTN, Chronic HFpEF, NIDDM, Longstanding persistent Afib,& class 3 obesity SOCIAL HISTORY: He doesn't use tobacco products, drinks alcohol socially and uses THC; he is ( [place] [phone]) FAMILY HISTORY: CAD ALLERGIES: Please see below. HOME MEDICATIONS: Please see below. PHYSICAL EXAMINATION: Vital Signs Date Time Temp Pulse Resp B/P (MAP) Pulse Ox O2 Delivery O2 Flow Rate FiO2 04/25/21 23:33 77/42 (54) 04/25/21 23:35 98.9 69 16 93 Room Air GENERAL APPEARANCE: well nourished and developed / NAD HEENT: EOMI / MM pink but dry / no scleral icterus or conjunctival injection INTEGUMENT: stasis dermatitis changes on BLE / skin break down affecting BLE CARDIOVASCULAR: RRR/+ systolic murmur/ unable to assess for JVD bc of excess subcutaneous tissue / + BLE edema LUNGS: able to speak full sentences w/o stopping to take a break / not coughing /not wheezing ABDOMEN: contour obese / soft / he doesn't grimace w palpation : middleton in place (per RN only drained 60 ml of urine) MUSCULOSKELETAL: NCAT / KALYAN x 4 extremities NEUROLOGICAL: CN 2-12 grossly intact / speech not dysarthric PSYCHIATRIC: A&O / able to understand and follow simple commands LABORATORY DATA: Immature Granulocyte % (Auto) 0.7, Neutrophils (%) (Auto) 85.6H, Lymphocytes (%) (Auto) 8.4L, Monocytes (%) (Auto) 4.9, Eosinophils (%) (Auto) 0.3, Basophils (%) (Auto) 0.1, Neutrophils # (Auto) 10.8H, Lymphocytes # (Auto) 1.1L, Monocytes # (Auto) 0.6, Eosinophils # (Auto) 0.0, Basophils # (Auto) 0.0, Nucleated Red Blood Cells % (auto) 0.0, Anion Gap 12, Glomerular Filtration Rate 7.0L, Lactic Acid Level 1.8, Calcium Level 7.7L, Total Bilirubin 0.4, Direct Bilirubin 0.2, Aspartate Amino Transf (AST/SGOT) 14, Alanine Aminotransferase (ALT/SGPT) 15, Alkaline Phosphatase 167H, Total Creatine Kinase 89, Creatine Kinase MB 8.0H, Creatine Kinase MB Relative Index 8.99H, Troponin I < 0.02, Total Protein 7.3, Albumin 2.5L, Albumin/Globulin Ratio 0.5, Lipase 1090H 04/26/21 00:11: Urine Color BRAYAN, Urine Appearance CLOUDYH, Urine pH 5.0, Urine Specific [place] 1.024, Urine Protein 3+H, Urine Glucose (UA) NEGATIVE, Urine Ketones TRACEH, Urine Blood 1+H, Urine Nitrite NEGATIVE, Urine Bilirubin 1+H, Urine Urobilinogen 0.2, Urine Leukocyte Esterase 1+H, Urine WBC (Auto) 13H, Urine RBC (Auto) 4H, Urine Hyaline Casts (Auto) 3, Urine Bacteria (Auto) 1+H, Urine Squamous Epithelial Cells 1, Urine Transitional Epithelial Cells 1, Urine Amorphous Sediment SMALLH, Urine Mucus (Auto) SMALL, Urine Sperm (Auto) 04/26/21 00:34: POC pH (Misc Panel) 7.250L, POC Base Excess (Misc Panel) -11.0L, POC Saturated Percent O2 (Misc) 88L, POC pO2 (Misc Panel) 64.0L, POC pCO2 (Misc Panel) 36.8, POC HCO3 (Misc Panel) 16.1L, POC Total CO2 (Misc Panel) 17.0L 04/26/21 00:45: Coronavirus (COVID-19)(PCR) NEGATIVE, Influenza Type A (RT-PCR) NEGATIVE, Influenza Type B (RT-PCR) NEGATIVE, Respiratory Syncytial Virus (PCR) NEGATIVE 04/26/21 01:03: Blood Gas Bicarbonate Standard 14.8, Venous Blood pH 7.206L, Venous Blood Partial Pressure CO2 38.9, Venous Blood Partial Pressure O2 73.3H, Venous Blood Total Carbon Dioxide 16.3L, Venous Blood HCO3 15.1L, Venous Blood Oxygen Saturation 91.0H, Venous Blood Base Excess -12.1L, Ammonia 26 EKG A fib rate 64 IMAGING: CT abd/pelvis "IMPRESSION: No acute findings. Distended gallbladder, containing a few small calcified stones (similar appearance in 2015)." CT chest "IMPRESSION: No acute findings." CT head "IMPRESSION: No acute intracranial pathology." Chest xray "IMPRESSION: No acute findings. Clear lung walker." MICROBIOLOGY: Respiratory panel neg ASSESSMENT: is a 65 yr old w HTN, Chronic HFpEF, NIDDM, Afib, & obesity who is admitted for sepsis cause TBD, and multiple electrolyte derangements. PLAN: 1. Septic Shock qSOFA score is 3 which is high risk doubt UTI bc he is asymptomatic source may be wounds will need to r/o Cdiff & bacteremia Plan: admit to ICU/ pancx results including C.dif / c/w Zosyn and Linezolid / IVF / c/w Levophed & f/u w 2 KARMEN He is oliguric, I suspect he may need dialysis Plan: f/u w /IVF/ f/u ulytes, renal US, PTH, phosp, Hepatitis panel /hold ACEI, HTCZ, metformin and lasix /renal diet 3 Hyperkalemia EKG reviewed no T waves Plan: telemetry / calcium gluconate, insulin with dextrose, albuterol and Kayexalate / hold oral potassium supplement 4 Metabolic Encephalopathy Plan: neuro checks / treat infection and metabolic derangements 5 NAG Metabolic Acidosis / RTA? Plan: f/u repeat BMP & w Nephro 6 Hyponatremia Plan: middleton / f/u serum and U osmo, Jhon, TSH, Cortisol / frequent BMPs / repeat labs reviewed w who confirmed that it is ok to c/w NS 7 N anemia Plan: trend Hg & f/u w iron studies 8 Elevated Lipase He doesn't meet the [place] criteria to diagnose pancreatitis 9 Chronic HFpEF clinically hypovolemic Plan: hold lasix / monitor Is and Os and weight 10 NIDDM Plan: FSBS Q6H / SSI / hypoglycemia protocol / f/u A1C / hold oral agents/ hold long acting insulin until his appetite has improved 11 Wounds BLE, scrotum and back Plan: day time team to consult for woun care 12 Longstanding persistent Afib Plan: hold DOAC 13 class 3 obesity complicates care DVT Px w heparin DVT dose anticipate he will need a permacath for dialysis prognosis is guarded Dispo: will need more than 2 midnight's stay Home Medications Scheduled Furosemide (Furosemide) 20 Mg Tablet, 40 MG PO DAILY Hydrochlorothiazide (Hydrochlorothiazide) 25 Mg Tablet, 25 MG PO DAILY Insulin Glargine,Hum.rec.anlog (Lantus Solostar) 100 Unit/1 Ml Insuln.pen, 20 UNITS SC QHS Insulin Human Lispro (Humalog Mix 75-25 Vial) 100 Unit/1 Ml Vial, 1 DOSE SC AC PER SLIDING SCALE Metformin HCl (Metformin HCl) 1,000 Mg Tablet, 1,000 MG PO BID Potassium Chloride (Potassium Chloride) 20 Meq Tab.er.prt, 20 MG PO DAILY Ramipril (Ramipril) 10 Mg Capsule, 10 MG PO DAILY Rivaroxaban (Xarelto) 20 Mg Tablet, 20 MG PO QHS Semaglutide (Ozempic) 0.25 Mg/0.2 Ml Pen.injctr, 0.5 MG SC QWEEK monday Simvastatin (Simvastatin) 40 Mg Tablet, 40 MG PO DAILY Scheduled PRN Hydrocodone/Acetaminophen (Hydrocodone-Acetamin 7.5-325) 1 Each Tablet, 1 TAB PO QID PRN for PAIN Allergies Coded Allergies: No Known Allergies (Unverified , 03/11/19) A-FIB/CHADSVASC A-FIB History Current/History of A-Fib/PAF?: Yes Current PO Anticoag Therapy: No Treatment Reason Anticoagulant not given: Recent/upcomin procedure LWANGA,ASHLEY MD Apr 26, 2021 04:42
--- NOTE | 2021-04-26 04:44 | REPVR ---
PROCEDURE INFORMATION: Exam: XR Chest Exam date and time: 04/26/21 (4:14am) Age: 65 years old Clinical indication: Central line insertion TECHNIQUE: Imaging protocol: Portable CXR Views: 1 view COMPARISON: Portable CXR of 04/26/21 (2:58am) FINDINGS: Comparison is made with a portable CXR done approx. 80 minutes ago. Stable cardiomegaly. No focal infiltrates. No pleural effusions. A left-sided jugular venous catheter has been placed, with its tip in the low SVC. No pneumothorax. IMPRESSION: Stable cardiomegaly. A left-sided jugular venous catheter has been placed, with its tip in the low SVC. No pneumothorax. Electronically signed by: Jesusita Khoury On 04/26/2021 04:44:17 AM
[2021-04-26] MEDS ORDERED: HumuLIN R (REGULAR) INSULIN (NovoLIN R) **100U/ML** PER UNIT IV STA (04:59)
[2021-04-26] MEDS ORDERED: DEXTROSE 50% 50 ML SYRINGE IV STA (04:59)
[2021-04-26] MEDS ORDERED: GLUCAGON INJ 1MG VIAL SC PRN (05:00)
[2021-04-26] MEDS ORDERED: CALCIUM GLUCONATE 1,000 MG in D5W MINI-BAG PLUS 100 ML IV ONE (05:00)
[2021-04-26] MEDS ORDERED: DEXTROSE 50% 50 ML SYRINGE IV PRN (05:00)
[2021-04-26] MEDS ORDERED: GLUCOSE 4GM CHEW TABLET PO PRN (05:00)
[2021-04-26] MEDS ORDERED: ALBUTEROL SULFATE 2.5 MG/0.5 ML INH NEB SOLN NEB SCH (05:00)
[2021-04-26] MEDS ORDERED: SOD POLYSTYRENE SULFONATE SUSP 15 GM/60 ML UD PO STA (05:09)
[2021-04-26 05:12] LABS: INR 1.32; PROTHROMBIN TIME 16.7 SECONDS (12.5-14.3)
[2021-04-26] MEDS ORDERED: NOREPINEPHRINE BITARTRATE 8 MG in D5W 500 ML IV SCH (05:15)
[2021-04-26 05:17] LABS: PARTIAL THROMBOPLASTIN TIME 39.4 SECONDS (24.2-38.5)
[2021-04-26 05:48] LABS: BLOOD UREA NITROGEN 78 MG/DL (7-18); CALCIUM LEVEL 6.7 MG/DL (8.8-10.2); CARBON DIOXIDE LEVEL 16 MEQ/L (21-32); CHLORIDE LEVEL 100 MEQ/L (98-107); CREATININE FOR GFR 7.61 MG/DL (0.70-1.30); GLOMERULAR FILTRATION RATE 7.7 (>49); GLUCOSE, FASTING 91 MG/DL (70-100); POTASSIUM SERUM 6.7 MEQ/L (3.5-5.1); SODIUM LEVEL 127 MEQ/L (136-145); TROPONIN I < 0.02 NG/ML (< 0.10)
[2021-04-26] MEDS ORDERED: SODIUM CHLORIDE 0.9% 1000ML IV STA (05:52)
[2021-04-26] MEDS: HumaLOG INSULIN (NovoLOG) PER UNIT SC SCH ×4 (06:00→23:56)
--- NOTE | 2021-04-26 06:05 | REPVR ---
PROCEDURE INFORMATION: Exam: US Retroperitoneal Limited, Kidneys Exam date and time: 04/26/21 (5:39am) Age: 65 years old Clinical indication: KARMEN. Screening examination. TECHNIQUE: Imaging protocol: Real-time ultrasound of the retroperitoneum with image documentation. Examination was focused on the kidneys. COMPARISON: CT ABDOMEN PELVIS of 04/26/21 FINDINGS: Right kidney: No stones. No hydronephrosis. Measures 11.0 cm in length. Left kidney: No stones. No hydronephrosis. Measures 12.0 cm in length. Urinary bladder: Lopez catheter in place. IMPRESSION: No acute findings. Each kidney is normal in size. No hydronephrosis. Electronically signed by: Jesusita Khoury On 04/26/2021 06:04:09 AM
[2021-04-26] MEDS: NOREPINEPHRINE BITARTRATE 16 MG in D5W 484 ML IV SCH (06:21)
[2021-04-26] MEDS: HEPARIN SOD (PORCINE) 5000UNITS/ML 1ML VIAL/SYRINGE SC SCH ×3 (06:34→21:46)
[2021-04-26 06:59] LABS: OSMOLALITY SERUM 289 MOSM/KG (280-301)
[2021-04-26 07:42] LABS: PHOSPHORUS LEVEL 6.6 MG/DL (2.5-4.9)
[2021-04-26 08:00] LABS: HEMOGLOBIN 8.8 g/dl (13.5-17.5); MEAN CORPUSCULAR HEMOGLOBIN 25.6 pg (27.0-33.0); MEAN CORPUSCULAR HGB CONC 30.3 g/dl (32.0-36.5); MEAN CORPUSCULAR VOLUME 84.3 fl (80.0-96.0); PLATELET COUNT, AUTOMATED 335 10^3/uL (150-450); RED BLOOD COUNT 3.44 10^6/uL (4.30-6.10); WHITE BLOOD COUNT 11.8 10^3/uL (4.0-10.0)
[2021-04-26] MEDS ORDERED: LINEZOLID 600 MG in IV 1 EA IV SCH (08:00)
[2021-04-26 08:23] LABS: HEMOGLOBIN A1c 6.2 %
--- NOTE | 2021-04-26 08:25 | CR ---
CRITICAL CARE CONSULTATION DATE: 04/26/2021 CHIEF COMPLAINT: Weakness. HISTORY OF PRESENT ILLNESS: Mr. Blackmon is a 65-year-old male with a past medical history of morbid obesity, CHF, insulin dependent diabetes and hypertension who presented to the ED with complaints of weakness and decreased p.o. intake for the past five days. Most of the history is obtained from the patient's as patient is confused although able to answer some questions appropriately and does follow commands appropriately. At baseline, the patient's states that he is a poor historian and does depend on her to provide most of his medical history at baseline and that she also gives all of his medications as well. As per the , for the past five days, the patient had not been eating or drinking because he reported feeling unwell. He was unable to qualify that any further. He denied any nausea or vomiting, did not have any abdominal pain. He denies any chest pain and had not reported any worsening shortness of breath or dyspnea. He has a history of chronic lower extremity edema and a history of chronic wounds in his lower extremities. His primary care provider had been adjusting his diuretics and reportedly had been working up leukocytosis as an outpatient. His reports his leg swelling does look much improved from previous but he does have wound still noted. He was on Lasix which he did hold in the last few days given that he was not eating or drinking. The patient also was reported not urinating. He did have an episode of loose stools earlier in the day. The patient does have some occasional cough which sounds as if it could be productive as per the but generally does not bring up any mucus. He had not had any fevers or chills reported at home. Patient's stated she was unable to get him up given his generalized weakness and so she did convince the patient to consent to coming to the ED for further evaluation. In the ED, the patient was noted to be hypotensive with blood pressure systolics in the 70s and 60s. Patient was not tachycardic, was in atrial fibrillation. He was ordered for 6.7 liters of normal saline fluid bolus of which he received almost four liters of normal saline and continues to have hypotension. Attempts at central line placement were done by the ED physician in the right IJ and in the left IJ which were unsuccessful. A postprocedure chest x-ray did not show any evidence of pneumothorax. The patient was also given Zosyn for broad-spectrum antibiotics in the ED. PAST MEDICAL AND SURGICAL HISTORY: 1. CHF. 2. Hypertension. 3. Insulin dependent diabetes. 4. Morbid obesity. 5. Chronic lower extremity edema. 6. Chronic lower extremity wounds. 7. Atrial fibrillation on anticoagulation. PAST SURGICAL HISTORY: None reported. SOCIAL HISTORY: Denies nicotine dependence and a history of social alcohol use. FAMILY HISTORY: Parents with history of CAD. ALLERGIES: No known drug allergies. HOME MEDICATIONS: 1. Furosemide. 2. Hydrochlorothiazide. 3. Percocet p.r.n. 4. Lantus. 5. Lispro. 6. Metformin. 7. Potassium chloride. 8. Ramipril. 9. Xarelto. 10. Semaglutide 11. Simvastatin. PHYSICAL EXAMINATION: Vitals: Temperature 96.4, pulse 68, respirations 20, blood pressure 76/46. O2 sat 92% on room air, ins 3.5 liters, out none. General: Patient is a morbidly obese male lying in the stretcher. He is awake and alert and able to answer questions appropriately although confused. He does not appear to be in any acute respiratory distress and is not using any accessory muscles for respiration. HEENT: Normocephalic, atraumatic. Pupils are reactive to light bilaterally. Dry mucous membranes. Neck: Supple. Trachea is midline. Unable to appreciate JVD with thick neck habitus. There is some bruising from previous attempts at central line placement in his neck bilaterally. Cardiac: Irregularly irregular. Normal S-1, S-2. Unable to appreciate any murmurs with somewhat distant heart sounds auscultated. . Pulmonary: Generalized diminished breath sounds bilaterally with no focal wheezing, rales or rhonchi noted. Abdomen: Obese, soft, nontender, nondistended. No palpable organomegaly. There is fungal infection in interginous folds and groin region with skin breakdown in scotal region. Extremities: There is chronic venous stasis skin changes noted with areas of excoriation and scabbing wounds bilaterally. There is some trace pitting edema in the lower extremities with mostly chronic lymphedema skin changes. There is wrinkling of skin noted in the lower extremities. There is larger wound noted on left leg posteriorly that is draining foul smelling discharge with some appearance of cellulitis/local necrosis. LABORATORY DATA: WBC 12.6, hemoglobin 9.7, platelets of 389. Chemistries: Sodium is 121. Potassium is 7.1. Chloride is 91. Bicarb is 18, BUN 80. Creatinine 8.29. Glucose is 101. Anion gap is 12. Lactic acid is 1.8. Calcium is 7.7. AST, ALT 14 and 15. Alk phos is 157. Ammonia is 26. Troponin if negative x1. Albumin is 2.5. Lipase is 1090. ABG: pH is 7.250, pCO2 of 36.8 and pO2 of 64.0. Micro: Respiratory virus panel negative. UA was positive for protein, trace ketones, bili, leukocytes, WBC and bacteria. IMAGING: CT of the head shows no acute intracranial pathology, no evidence of hemorrhage or stroke. CT, abdomen and pelvis shows distended gallbladder and gallstones which are relatively similar in appearance compared to 2016. CT of the chest shows some respiratory motion artifact and atelectasis noted in the lower lobes and lingula. There is no focal opacities or infiltrates. There are coronary artery calcifications noted. There is no pericardial effusion and no significant mediastinal hilar adenopathy on a noncontrast CT. ASSESSMENT AND PLAN: Mr. Blackmon is a 65-year-old male with a past medical history of hypertension, insulin dependent diabetes, atrial fibrillation on anticoagulation, CHF and morbid obesity who presented with complaints of weakness and decreased p.o. intake for five days. Patient was found on admission to have evidence of hypotension likely secondary to dehydration. He did also have leukocytosis and while he was afebrile he was mildly hypothermic and there is a possibility for sepsis contributing. He was also noted to have significant acute renal failure with various electrolyte abnormalities including hyperchloremia and hyponatremia as well as a nonanion gap metabolic acidosis. 1. Hypotension likely hypovolemic with a possible component of sepsis. Patient has received almost four liters of normal saline in the ED and continues to be hypotensive with systolics in the 70s. He had attempts for central line placement in the ED which were unsuccessful. A left IJ was placed by me and we will start him then on vasopressors with Levophed if needed to maintain a MAP above 65. He is ordered for 5.7 liters of fluid per weight for sepsis protocol with 30 mL per kg. We will continue to assess after every 500 mL for signs of fluid overload and hold IV fluids if there is evidence of worsening fluid overload. At this time, he does not have any crackles on exam and no significant lower extremity edema with mostly chronic exchanges in his lower extremities. He is also satting around 92% on room air and suspect this is chronic for him with likely a degree of OHS/SUSAN undiagnosed. Patient's lactic acid was normal. We will continue monitor. Patient was given broad spectrum antibiotics with Zosyn. His CT, abdomen, pelvis and chest did not show any acute pathology suggesting an etiology for his sepsis. His UA was positive, however, and so there is a possibility of UTI as his infectious etiology. We will follow up the results of his urine culture. Given his skin breakdown and chronic lower extremity wounds, we will also check a MRSA screen and if positive, then will start him on vancomycin as well for additional antibiotic coverage as suspect he has local cellulitis also with his LE wounds. 2. Acute renal failure likely secondary to a combination of medications and hypovolemia. Patient has been on CHAVEZ inhibitor and a diuretic chronically and was also on metformin. Suspect he is now in a degree of ATN. He does have severe electrolyte abnormalities with hyperkalemia and hyponatremia with the hyponatremia likely secondary to hypovolemia. The patient also has a nonanion gap metabolic acidosis with inappropriate respiratory acidosis again likely secondary to his renal failure. Patient has a Lopez catheter in place and currently does not have a urine output. We will continue to monitor closely and if he continues to be anuric and oliguric, he may need hemodialysis at that time. Would get renal consult for management of his renal failure and electrolyte abnormalities. May require hemodialysis, likely CRRT given hypotension. We will continue to monitor his electrolytes, in particular his potassium and his sodium. Suspect as this is more of an acute hyponatremia he could likely tolerate more rapid correction of his sodium but would still be cautious of overly rapid correction of sodium. Would repeat his chemistry now. Patient did not receive any calcium in the ED. His EKG did not show any significant peak T-waves. Would closely monitor and would have a low threshold for calcium given his hyperkalemia. Would follow up on his repeat chemistries and if still persistently hyperkalemic would give calcium at that time. Would renally dose medications and hold further nephrotoxins. 3. History of CHF and atrial fibrillation on anticoagulation. Patient clinically appears dehydrated and volume depleted. We will hold all his diuretics and hypotensive medications given his shock. He is Xarelto for anticoagulation. However, given his renal failure, would check his coags and would hold his Xarelto for now. He would need to be on a renally dosed NOAC or could also consider systemic heparin for anticoagulation. Would repeat troponins. His initial troponin was negative. Acute ACS event is less likely but would still rule out. 4. Anemia. Patient was anemic on presentation. Suspect that he has a degree of hemoconcentration and so will likely have even further decline after his aggressive fluid repletion. We will get a type and screen and transfuse if needed if hemoglobin less than 7. No evidence of active bleeding, most likely anemia of chronic disease 5. History of insulin dependent diabetes. Patient does not appear to be in DKA currently as he does not have any significant anion gap and while there are trace ketones in his urine, suspect it is more due to starvation ketoacidosis. We will closely monitor his fingerstick glucose checks, however, and if there is evidence of worsening anion gap and hyperglycemia, would treat him for likely DKA at that time. DVT prophylaxis: heparin, was on anticoagulation Code Status: FULL CODE. Total critical care time spent not including procedures approximately one hour and 45 minutes. ALBERTINA
[2021-04-26 08:27] LABS: CALCIUM LEVEL 7.5 MG/DL (8.8-10.2); CREATININE FOR GFR 7.89 MG/DL (0.70-1.30); GLOMERULAR FILTRATION RATE 7.4 (>49); MAGNESIUM LEVEL 2.4 MG/DL (1.8-2.4); PHOSPHORUS LEVEL 6.3 MG/DL (2.5-4.9); POTASSIUM SERUM 6.5 MEQ/L (3.5-5.1)
--- NOTE | 2021-04-26 08:51 | RO ---
OPERATIVE NOTE DATE OF OPERATION: 04/26/2021 PREPROCEDURE DIAGNOSIS: Shock. POSTPROCEDURE DIAGNOSIS: Shock. PROCEDURE: Central line. SURGEON: Gayle Houston MD INDICATION: Venous access; administration of vasopressors. CONSENT: Due to the emergent nature of the procedure, the permission was implied. ANESTHESIA: Local, epinephrine PROCEDURE SUMMARY: A timeout was performed prior to the procedure verifying correct patient, procedure and site. A central line practices form was completed by an independent observer. Full sterile technique was maintained throughout the procedure, including surgical cap, mask with protective eyewear, surgical gown, and sterile gloves. The patient was placed in the Trendelenburg position. The left neck region was prepped using chlorhexidine scrub and draped in sterile fashion using a full drape and then a sterile probe cover was employed. The left internal jugular vein was identified using ultrasound and anesthesia was achieved over the vein using 1% Lidocaine. Using real-time [id number] ultrasound guidance, the introducer needle was inserted into the left internal jugular vein. Under ultrasound visualization, venous blood was withdrawn. The syringe was removed and a guidewire was advanced into the introducer needle. The introducer needle was removed over the guidewire. A small incision was made at the skin surface with a scalpel, and the dilator was exchanged over the guidewire. After appropriate dilation was obtained, the dilator was exchanged over the wire for a triple-lumen central venous catheter. The wire was removed and the catheter was sutured in place at 20 cm. A sterile chlorhexidine-impregnated dressing was placed over the catheter at the insertion site. The patient tolerated the procedure without any hemodynamic compromise. At the time of procedure completion, all ports were aspirated and flushed properly. Post-procedure chest x-ray showed the left internal jugular triple-lumen catheter crossing over midline with the tip at the superior vena cava and no post-procedure pneumothorax. Estimated blood loss was less than 3 mL. MTDD
[2021-04-26] MEDS ORDERED: SODIUM CHLORIDE 0.9% INJ 10 ML SYR IV PRN (09:35)
[2021-04-26 10:11] LABS: PTH INTACT 328.8 PG/ML (18.5-88.0)
[2021-04-26 10:17] LABS: HEPATITIS B SURFACE ANTIBODY NEGATIVE (POSITIVE)
[2021-04-26 10:22] LABS: HEPATITIS B SURFACE ANTIGEN NEGATIVE (NEGATIVE)
[2021-04-26] MEDS ORDERED: LIDOCAINE 1% MDV 20ML VIAL As Ordered ONE (10:34)
[2021-04-26] MEDS ORDERED: LIDOCAINE 1% MDV 20ML VIAL SC ONE (10:45)
[2021-04-26 10:49] LABS: HEPATITIS B CORE ANTIBODY IGM NEGATIVE (NEGATIVE)
[2021-04-26 10:51] LABS: HEPATITIS A ANTIBODY IGM NEGATIVE (NEGATIVE)
--- NOTE | 2021-04-26 11:04 | REP ---
INDICATION: dialysis catheter placement. COMPARISON: 04/26/2021, 4:14 a.m. TECHNIQUE: Single portable AP view of the chest was performed. FINDINGS: There is placement of a right internal jugular central venous catheter, the tip is in the superior vena cava. Left central venous catheter is unchanged. There is no pneumothorax. There are no other acute findings. IMPRESSION: New right central venous catheter with the tip in the superior vena cava. No pneumothorax. <Electronically signed by Joaquin Leblanc > 04/26/21 1100
[2021-04-26] MEDS ORDERED: NS 1,000 ML IV SCH (11:05)
[2021-04-26] MEDS ORDERED: VANCOMYCIN HCL 1 MG in IV FLUID PLACE HOLDER 1 EA IV SCH (11:10)
--- NOTE | 2021-04-26 12:21 | RO ---
OPERATIVE NOTE DATE OF OPERATION: 04/26/2021 INDICATIONS: CRRT dialysis access. PRE-PROCEDURE DIAGNOSIS: Acute renal failure. POST-PROCEDURE DIAGNOSIS: Acute renal failure. RESIDENT PHYSICIAN: Dr. German Garcia ATTENDING PHYSICIAN: Dr. Gayle Houston ANESTHESIA: 1% lidocaine. CONSENT: Patient's was called and it was communicated to her that her needs another IV access line to receive hemodialysis for his acute renal failure. Consent was obtained over the phone with the patient's , risks and benefits were explained. PROCEDURE SUMMARY: A time out was performed prior to the procedure. Full sterile technique was obtained throughout the procedure including surgical cap, mask, protective eye wear, full gown, and sterile gloves. The right Internal Jugular region was prepped using chlorhexidine scrub and draped in a sterile fashion using a full drape. A sterile probe cover was employed. The right Internal Jugular Vein was identified using ultrasound. Anesthesia was achieved over the vein using 1% lidocaine. Using xopc-sbmd-jjl-of-plane guidance, the introducer needle was inserted into the right internal jugular vein under direct ultrasound visualization. Venous blood was drawn. The syringe was removed and a guidewire was advanced into the introducer needle. The introducer needle was removed over the guidewire. The guidewire was visualized in the internal jugular vein by ultrasound. A small incision was made at the skin surface with a scalpel and the introducer needle was exchanged for a dilator over the guidewire. After appropriate double dilation was obtained, the dilator was exchanged over the wire for a dual-lumen hemodialysis catheter. The wire was removed and the catheter was sutured in place. A sterile chlorhexidine-impregnated dressing was placed over the catheter at the insertion site. The patient tolerated the procedure without hemodynamic compromise. At the time of the procedure completion, all ports were aspirated and flushed properly and Heparin was instilled in the dialysis ports. Post-procedural chest x-ray shows the central venous catheter with the tip in the SVC. No pneumothorax. Estimated blood loss was less than 3 mL. Gayle Nettles, was present during the entirety of the procedure and supervised and assisted the procedure. ALBERTINA
[2021-04-26] MEDS: D5W/0.9% SODIUM CHLORIDE 1,000 ML IV SCH ×2 (12:33→18:58)
[2021-04-26] MEDS: PIPERACILLIN/TAZOBACTAM SOD 4.5 GM in D5W MINI-BAG PLUS 50 ML IV SCH ×2 (12:33→20:10)
[2021-04-26] MEDS: NYSTATIN 100,000 UNITS/GM TOPICAL PWD 15 GM TOP SCH ×2 (13:55→21:44)
[2021-04-26] MEDS: VANCOMYCIN HCL 1,000 MG, VIAL MATE ADAPTER 1 EACH in NS 250 ML IV SCH (13:55)
--- NOTE | 2021-04-26 14:37 | CR ---
CONSULTATION DATE: 04/26/2021 REQUESTING PHYSICIAN: Lisa Cruz MD CONSULTING PHYSICIAN: Hebert Pichardo M.D. REASON FOR CONSULTATION: Management of acute renal failure and electrolyte abnormalities in this patient with septic shock. CHIEF COMPLAINT: The patient was brought to the emergency room for weakness and not feeling well and leg ulcers. HISTORY OF PRESENT ILLNESS: Keegan Blackmon is a 65-year-old male with past medical history of hypertension, CHF, type 2 diabetic, history of A fib, multiple other comorbidities as mentioned below. He was not feeling well for the last couple of days. Most of the history was obtained from patient's and from the medical chart. The patient himself is not a very good historian. He has not been eating or drinking much for the last one week. He had a decreased urine output. He has not urinated in about five days. His kept on giving him all the home medications which included diuretics and Lee inhibitors as well. He has chronic leg ulcers as well and he has not followed up with anyone for the leg ulcers. When he arrived in the emergency room, the patient was confused. He was hypotensive with systolic blood pressures in the 60s-70s. He was fond to have leukocytosis with a white cell count of more than 12. He had ulcers in groin and legs. The patient was in acute renal failure with a creatinine of 8.2 and a potassium of 7.1. The case was discussed with myself, by the admitting physician, Dr. Lisa Cruz. Decision was made to hydrate the patient with normal saline and he was given 30 mL per kg of body weight fluid bolus and was started on empiric IV antibiotics and despite that, the patient needed to start Levophed. Critical care service was also called on board. He got a left IJ triple lumen catheter placed. I saw and evaluated the patient today morning at the bedside in the ICU. The patient is awake, able to answer a few questions. He was getting IV Levophed. Lopez has been placed. He has only made 15 mL of urine so far. There is no significant improvement in his renal function and he is persistently hyperkalemic and has metabolic acidosis. PAST MEDICAL HISTORY: 1. Hypertension. 2. Chronic heart failure with preserved ejection fraction. 3. Diabetes mellitus type 2. 4. Morbid obesity. 5. Persistent A fib. PAST SURGICAL HISTORY: Unknown past surgical history. ALLERGIES: No known drug allergies. FAMILY HISTORY: No significant family history of end-stage renal disease requiring hemodialysis. SOCIAL HISTORY: The patient lives at home with his . He uses marijuana, denies any smoking. His Izabella is the caregiver who makes medical decisions for him and her cell phone number is . REVIEW OF SYSTEMS: The patient is not a good historian. He was unable to provide me with a reliable review of systems. However, he did tell me that he is feeling weak and he is not making much urine and he has ulcers on his legs. PHYSICAL EXAMINATION: VITAL SIGNS: Temperature is 96.1 degrees Fahrenheit. Blood pressure is 92/43. Pulse is 77, respiratory rate of 18, saturating 93% on room air. HEAD AND NECK: Extraocular muscles are intact. Pupils are equally round and reactive to light. Mucous membranes are moist. Neck is supple. There is no JVD. He has a left IJ triple lumen catheter. CARDIOVASCULAR: S1, S2, irregular rate. EXTREMITIES: There is 1+ edema in the bilateral lower extremities. RESPIRATORY: Chest is clear to auscultation bilaterally. Bilateral equal air entry. No rales or rhonchi. ABDOMEN: Obese, positive bowel sounds. I could not appreciate any organomegaly. GENITOURINARY: The patient has a lot of excoriations and ulcerations in the groin region and in the scrotal area and he had an indwelling Lopez catheter placed and there was a very small amount of urine in the bag. MUSCULOSKELETAL: The patient has chronic, nonhealing ulcers of bilateral legs. He has edema and erythema of the legs and ulcers are painful and he has skin excoriations as well on the lower extremities. 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 Moves extremities and follows commands. LYMPH NODES: No significant cervical, axillary or inguinal lymphadenopathy noted. LAB REVIEW: CBC showed WBC of 10.6 on arrival, 11.8 right now, hemoglobin 8.8. Platelets are 335. BMP showed cloudy urine, 3+ protein, 1+ blood, 1+ bilirubin, 1+ leukocyte esterase. VBG: pH was 7.20 today. BMP on arrival showed sodium 121, potassium 7.1, chloride 91, bicarb 18, BUN 80, creatinine 8.2, glucose 101, A1c 6.2, lactic acid 1.8, calcium 7.7. Total bilirubin 0.4. Troponin less than 0.02. Repeat BMP after IV fluid hydration is sodium 127, potassium 6.5, chloride 99, bicarb 15, BUN 71, creatinine is 7.8, calcium 7.5, phosphorus 6.3, magnesium 2.4. Microbiology: Urine culture and blood cultures are pending. IMAGING: A chest CT was done which showed no acute findings. CT scan of the abdomen and pelvis was also done which showed distended gallbladder containing a few calculi, otherwise no acute pathology. HOME MEDICATIONS: The patient's home medications include Lasix 40 mg p.o. daily, hydrochlorothiazide 25 mg p.o. daily, insulin Lantus 20 units subcu q.h.s., insulin lispro sliding scale, metformin 1 gm p.o. twice a day, potassium chloride 20 mEq p.o. daily, Ramipril 10 mg p.o. daily, Xarelto 20 mg p.o. q.h.s., Ozempic 0.5 mg subcu once a week and simvastatin 40 mg p.o. daily. CURRENT INPATIENT MEDICATIONS: The patient's medications included Levophed which is running at 10 mcg. He was given normal saline bolus. He is getting IV Zosyn 4.5 gm q.8 hourly and vancomycin 1 gm IV q.12 hourly, heparin subcu, insulin lispro sliding scale and one dose of Kayexalate 30 gm was given. ASSESSMENT AND PLAN: 1. Acute anuric renal failure. It is secondary to sepsis, hypotension, use of metformin and lisinopril at home along with diuretics. The patient is septic and has metabolic acidosis and hyperkalemia. His current condition was discussed with his over the phone by myself. She agreed to start the patient on CVVHDF after placement of dialysis catheter. Pulmonary team is going to place the dialysis catheter and patient will be started on CVVHDF after that. 2. Septic shock. The patient is hypotensive, has leukocytosis and has ulcers on the lower extremities and groin. He is empirically getting vancomycin and Zosyn. He has already received normal saline 30 mL per kg body weight. I am going to check the CVP and start the patient on further IV fluid hydration. 3. Hyperkalemia. It is secondary to use of LEE inhibitors and potassium chloride at home in the setting of renal failure. Hemodialysis should correct his hyperkalemia. No need of further administration of Kayexalate. 4. Hyponatremia. The patient had hypovolemic hyponatremia secondary to use of diuretics and he has acute renal failure as well. With normal saline hydration, his sodium has improved to 127 which is optimal for today. 5. High anion gap metabolic acidosis. It is secondary to renal failure and also use of metformin. Avoid further use of metformin. Acidosis should resolve with hemodialysis, no need of bicarb administration at this time. 6. Anemia of chronic kidney disease. Hemoglobin is 8.8 which is suboptimal. Transfuse p.r.n. for hemoglobin below 8 only. 7. Ulcers in bilateral lower extremities. Management is as per wound care nursing. Continue the antibiotics at this time. 8. Secondary hyperparathyroidism. It is secondary to renal failure. At this point, no need of calcitriol. Calcitriol will be considered if patient's renal function does not improve. 9. Diabetes mellitus, type 2. Okay to continue insulin at this time. Avoid use of Ozempic or metformin at this time. Thank you for involving me in the care of this patient. I shall be happy to follow the patient along with you tomorrow morning. Total critical care time spent in the management of this patient today morning at the ICU excluding all the procedures was 1 hour and 45 minutes.
[2021-04-26] MEDS ORDERED: PIPERACILLIN/TAZOBACTAM SOD 4.5 GM in D5W MINI-BAG PLUS 50 ML IV SCH (15:00)
[2021-04-26] MEDS ORDERED: ACETAMINOPHEN TAB 650MG DOSE (2X325MG) PO PRN (16:30)
--- NOTE | 2021-04-26 16:54 | IPNPDOC ---
Text Note Date of Service The patient was seen on 04/26/21. NOTE Subjective: 65-year-old male with PMH of HTN, chronic HFpEF, IDDM 2, she of A. fib on Xarelto 20 mg at home, obesity, HDL, bilateral pedal edema with stasis dermatitis who was brought in to the ED by his reports patient had not been eating or drinking anything since 1 week and has not urinated in 5 days. He has not taken his medications as he is not feeling well past 1 week. In the ED patient was hypotensive and elevated white count he was given 7 L of boluses of fluids and started on broad-spectrum antibiotics and he reported triple-lumen placed by Dr. Houston for Levophed. Patient was admitted to the ICU for the same reason. Patient was seen and examined at bedside. Patient is alert oriented x3 but could not answer much of questions beyond that, and does not follow commands appropriately. He denies having any headache, shortness of breath, chest pain, cough, abdominal pain. The only thing he keeps mentioning this he feels like he has to pee, but he has a Lopez catheter in place. Objective: Physical exam: General: Patient is alert oriented x3, laying in bed does not appear to be in acute distress. He does not follow commands appropriately. Neck: Patient has some central line put in on the left side. Cardiac: Regularly irregular rhythm, no murmurs appreciated, distant heart sounds on auscultation Lungs: Could auscultate only anteriorly and laterally, diminished breath sounds laterally, could not appreciate any crackles, wheezes, rhonchi or rales. Abdomen: Morbidly obese, soft to touch, no tenderness on palpation of all 4 quadrants, positive bowel sounds heard in all 4 quadrants. Extremities: Bilateral lower extremities are large with chronic venous stasis, nonpitting edema, excoriation and scab wound found in bilateral legs. Large op en wound on the left lower calf posteriorly, with foul-smelling discharge. Labs: Vitals 96.1 temperature, HR 69, RR 18, BP 116/55, 98% on 3 L of oxygen. In the morning patient was on Levophed 4 mg. WBC 11.8 [came down from 12.6], Hb 8.8, head CT 29, platelet 335. BMP: NA 127, K6.5 [came down from 6.7], CL 94, HCO3 15, BUN 71 [came down from 78], creatinine 7.89 [trending up from 7.61], glucose 107 GFR 7.4 , UA done overnight showed appearance cloudy, leukocyte esterase 1+, WBC 13, RBC 4, nitrates negative, bacteria 1+. VBG done around midnight: pH 7.2, PCO2 338.9, HCO3 15, Blood cultures done on 04/26/2021: Pending Urine cultures done on 04/26/2021: Pending Gram stain/wound culture done on 04/26/2021: Pending Imaging: CT abdomen and pelvis with contrast 04/26/2021: Reported as:IMPRESSION: No acute findings. Distended gallbladder, containing a few small calcified stones (similar appearance in 2015). CT chest without contrast done on 04/26/2021: Reported as: Impression: No acute findings. CT head without contrast on 04/26/2021: Reported as: Impression: No acute intracranial pathology. Chest x-ray done on 04/26/2021: Reported as: No acute findings. Clear lung walker. Renal ultrasound done on 04/26/2021: Reported as: No acute findings. Each kidney is normal in size. No hydr onephrosis. Lower extremity Doppler done on 04/26/2021: Reported as: No evidence of DVT of bilateral lower extremity femoral popliteal venous system Assessment: 65-year-old male patient with PMH as mentioned above presented to the emergency department with hypotension, decreased oral intake since 1 week and anuric since 5 days. In the ED patient has leukocytosis, afebrile, abnormal electrolytes hyperkalemia and hyponatremia, and was in non-anion gap metabolic acidosis. Patient was started on Levophed after his central line was and was admitted to the ICU. Plan: Acute kidney injury: 2/2 hypotension[prerenal], vs intrinsic renal -Patient was on multiple blood pressure medications at home CHAVEZ inhibit/diuretics/Metformin -She reports he was not taking his medications appropriately since 1 week. -Decreased oral intake since 1 week. -Which might be even contributing non-anion gap metabolic acidosis. -Nephrology was consulted from the ED, Dr. Pichardo is the fuel cell builder on board with this patient. -We will avoid nephrotoxic medications at this point. Non-anion gap metabolic acidosis: -Patient had only one episode of diarrhea as reported by the . -Patient is on multiple hypertensive medications at home. -Patient might have a component of renal tubular acidosis given his hyperkalemia likely type IV. -Patient was started on CRRT because of his anuria. Hyperkalemia: -Patient does not have EKG changes suggesting of hyperkalemia. -Patient has an potassium level of 6.7 on arrival. -Patient was given 1 dose of calcium gluconate, and is getting every hourly -Patient was not given bicarbonate. -Patient was started on Kayexalate in the ED. -Likely cause of patient's hyperkalemia at this point is renal failure and his hypertensive medication at home. -As patient is on CRRT he would be given bicarbonate if needed through that, as per nephrology. Hypotension: -Patient did receive about 7 L of fluid in the ED. -He is started on Levophed because of his hypotension. -Likely cause of his hypotension is dehydration. History of CHF, HFpEF: -Patient had an echocardiogram done in December 2020 showing bilateral ventricular left > right and bilateral atrial dilatations. With EF of 65% -Patient does not have any crackles or not in any CHF exacerbation. -He does have bilateral edema nonpitting type likely from his lymphedema and chronic venous stasis. Atrial fibrillation: -Patient is on Xarelto at home for his anticoagulation for A. fib. -Given his acute renal failure will hold off on his anticoagulation for now. Chronic venous stasis ulcers: -Patient has stasis dermatitis and chronic ulcer on his left calf. -Patient has an elevated white count likely from the infection in his calf. -Patient was started on Zosyn and vancomycin empirically for now. -Gram stain and wound culture was sent and the results are pending. -Nystatin powder was ordered for patient wounds. Anemia of chronic disease: -Likely patient's anemia is due to his kidney condition. -Given his cardiac history if the hemoglobin is below 8 we will consider transfusing the patient. -We will continue to monitor H&H Diabetes mellitus type 2: -Patient is on insulin glargine 20 units at home. -Patient is on hypoglycemic protocol -we will continue insulin sliding scale with meals -We will hold his Metformin given his renal condition. Hypertension: -Patient is on furosemide 40 mg p.o. at home will hold this medication. -Patient is on hydrochlorothiazide 25 mg p.o. daily at home we will hold this m edication -Patient is on ramipril 10 mg at home will hold this medication. Dyslipidemia: -Patient is on simvastatin 40 mg p.o. daily we will hold this medication DVT prophylaxis: -Heparin 5000 units SC every 8 hours. GI prophylaxis: -Pantoprazole 40 mg IV every 24 hours VS,Fishbone, I+O VS, Fishbone, I+O Laboratory Tests 04/26/21 00:10 04/26/21 04:41 04/26/21 07:41 04/26/21 07:42 Vital Signs Date Time Temp Pulse Resp B/P (MAP) Pulse Ox O2 Delivery O2 Flow Rate FiO2 04/26/21 15:15 114 83/46 (58) 95 Room Air 04/26/21 12:00 96.1 18 04/26/21 08:00 3.0 I&O- Last 24 Hours up to 6 AM 04/26/21 06:00 Intake Total 5613 ml Balance 5613 ml GME ATTESTATION GME ATTESTATION My faculty preceptor for this patient encounter was physically present during the encounter and was fully available. All aspects of the patient interview, examination, medical decision making process, and medical care plan development were reviewed and approved by the faculty preceptor. The faculty preceptor is aware and concurs with the plan as stated in the body of this note and will attest to such by his/her cosignature. ATTENDING NOTE I, Jim Sanchez MD, have independently examined this patient and performed my own physical exam, as well as reviewed the documentation and edited where necessary. I have discussed in detail with the resident / student the findings and plan of treatment as documented by the resident / student and edited their n ote. I agree with their findings and treatment plan and have edited their documentation. I will continue to follow the patient during this hospital stay. Hina Camara MD Apr 26, 2021 16:54 JIM SANCHEZ MD Apr 29, 2021 12:29
[2021-04-26] MEDS ORDERED: VANCOMYCIN HCL 1,000 MG, VIAL MATE ADAPTER 1 EACH in NS 250 ML IV ONE (17:00)
--- NOTE | 2021-04-26 17:29 | REP ---
INDICATION: venous stasis changes COMPARISON: None. TECHNIQUE: Real time compression and duplex Doppler interrogation of the bilateral lower extremity deep venous system is performed. Compression ultrasound is performed of the bilateral peroneal and posterior tibial veins. FINDINGS: Bilaterally, the common femoral, superficial femoral and popliteal veins are fully compressible with transducer pressure and demonstrate normal spontaneous and phasic flow, without evidence of deep venous thrombosis. The peroneal and posterior tibial veins are not well visualized due to body habitus. IMPRESSION: No evidence of deep venous thrombosis of the bilateral lower extremity femoral popliteal venous system. <Electronically signed by Joaquin Leblanc > 04/26/21 [id number]
[2021-04-26 18:06] LABS: HEMATOCRIT 26.5 % (42.0-52.0); HEMOGLOBIN 8.2 g/dl (13.5-17.5); MEAN CORPUSCULAR HEMOGLOBIN 25.9 pg (27.0-33.0); MEAN CORPUSCULAR HGB CONC 30.9 g/dl (32.0-36.5); MEAN CORPUSCULAR VOLUME 83.6 fl (80.0-96.0); PLATELET COUNT, AUTOMATED 293 10^3/uL (150-450); RED BLOOD COUNT 3.17 10^6/uL (4.30-6.10); WHITE BLOOD COUNT 9.6 10^3/uL (4.0-10.0)
[2021-04-26] MEDS: CALCIUM GLUCONATE 1,000 MG, VIAL MATE ADAPTER 1 EACH in NS 100 ML IV SCH ×2 (18:17→19:34)
[2021-04-26 18:32] LABS: CALCIUM LEVEL 6.8 MG/DL (8.8-10.2); CREATININE FOR GFR 5.5 MG/DL (0.70-1.30); GLOMERULAR FILTRATION RATE 11.2 (>49); MAGNESIUM LEVEL 2.3 MG/DL (1.8-2.4); PHOSPHORUS LEVEL 4.7 MG/DL (2.5-4.9); POTASSIUM SERUM 5.6 MEQ/L (3.5-5.1)
--- NOTE | 2021-04-26 21:06 | ECGEPIP ---
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
[2021-04-26] MEDS: VASOPRESSIN INJ 20 UNITS in NS 499 ML IV SCH (23:33)
[2021-04-27] VITALS (99 sets, daily range): BP systolic 73–148; BP diastolic 36–78
[2021-04-27 00:08] LABS: CALCIUM LEVEL 7.1 MG/DL (8.8-10.2); CREATININE FOR GFR 4.48 MG/DL (0.70-1.30); GLOMERULAR FILTRATION RATE 14.2 (>49); MAGNESIUM LEVEL 2.4 MG/DL (1.8-2.4); POTASSIUM SERUM 5.4 MEQ/L (3.5-5.1)
[2021-04-27] MEDS: CALCIUM GLUCONATE 1,000 MG, VIAL MATE ADAPTER 1 EACH in NS 100 ML IV SCH ×6 (00:14→14:13)
[2021-04-27 00:36] LABS: PHOSPHORUS LEVEL 4.2 MG/DL (2.5-4.9)
[2021-04-27] MEDS: VANCOMYCIN HCL 1,000 MG, VIAL MATE ADAPTER 1 EACH in NS 250 ML IV SCH ×2 (02:16→15:23)
[2021-04-27] MEDS: PIPERACILLIN/TAZOBACTAM SOD 4.5 GM in D5W MINI-BAG PLUS 50 ML IV SCH ×3 (04:34→19:21)
[2021-04-27] MEDS: HumaLOG INSULIN (NovoLOG) PER UNIT SC SCH ×4 (06:00→23:54)
[2021-04-27] MEDS: NOREPINEPHRINE BITARTRATE 16 MG in D5W 484 ML IV SCH (06:02)
[2021-04-27] MEDS: PANTOPRAZOLE 40MG VIAL (C9113 PER 1) IV SCH (06:03)
[2021-04-27] MEDS: HEPARIN SOD (PORCINE) 5000UNITS/ML 1ML VIAL/SYRINGE SC SCH ×2 (06:03→13:57)
[2021-04-27 06:04] LABS: BASO % 0.4 % (0.0-1.0); EOS # 0.1 10^3/uL (0.0-0.5); EOS % 0.9 % (0.0-3.0); HEMATOCRIT 25.9 % (42.0-52.0); LYMPH # 0.9 10^3/uL (1.5-5.0); MEAN CORPUSCULAR HEMOGLOBIN 25.8 pg (27.0-33.0); MEAN CORPUSCULAR HGB CONC 30.9 g/dl (32.0-36.5); MEAN CORPUSCULAR VOLUME 83.5 fl (80.0-96.0); MONO # 0.7 10^3/uL (0.0-0.8); MONO % 8.4 % (2.0-8.0); NEUTROPHILS # 6.5 10^3/uL (1.5-8.5); NEUTROPHILS % 78.9 % (36.0-66.0); PLATELET COUNT, AUTOMATED 272 10^3/uL (150-450); WHITE BLOOD COUNT 8.2 10^3/uL (4.0-10.0)
[2021-04-27 06:36] LABS: CREATININE FOR GFR 3.63 MG/DL (0.70-1.30); GLOMERULAR FILTRATION RATE 18.1 (>49); MAGNESIUM LEVEL 2.4 MG/DL (1.8-2.4); PHOSPHORUS LEVEL 3.5 MG/DL (2.5-4.9)
[2021-04-27] MEDS ORDERED: D5W/0.9% SODIUM CHLORIDE 1,000 ML IV SCH (07:20)
[2021-04-27] MEDS: VASOPRESSIN INJ 20 UNITS in NS 499 ML IV SCH ×3 (07:41→23:46)
[2021-04-27] MEDS: NYSTATIN 100,000 UNITS/GM TOPICAL PWD 15 GM TOP SCH ×2 (08:40→21:18)
[2021-04-27 09:36] LABS: CORTISOL AM 21.1 UG/DL (4.3-22.4)
--- NOTE | 2021-04-27 10:31 | IPN ---
NEPHROLOGY PROGRESS NOTE DATE: 04/27/2021 SUBJECTIVE: Patient was seen and examined at the bedside today morning in the ICU, last 24 hour events are noted. Patient was started on CVVHDF, which he is tolerating well. His filter clotted once, that had to be changed. He continues to be on Levophed, actually vasopressin had also needed to be added. His CVP today was 14. Patient is otherwise awake and alert, but he is not being fed at this time. Hyperkalemia and acidosis is getting better with CVVHDF. OBJECTIVE: VITAL SIGNS: Temperature 98.8 degrees Fahrenheit, blood pressure 100/59, pulse 69, respiratory rate 30, saturating 94% on room air. INTAKE/OUTPUT: Urine output recorded as only 25 mL since overnight. Weight in the bed scale is 190.5 kg. PHYSICAL EXAMINATION: GENERAL: Patient is awake, alert, oriented x2, lying in bed, getting CVVHDF. HEAD/NECK: Extraocular muscles intact. Pupils equally round and reactive to light. Mucous membranes are moist. Neck is supple. He has a right IJ dialysis catheter which is being used for CVVHDF and left IJ triple lumen catheter. CVS: S1, S2, regular rate. 2+ edema of the bilateral lower extremities. RESPIRATORY: Chest is clear to auscultation bilaterally. Bilateral equal air entry. No rales or rhonchi. ABDOMEN: Soft, obese, positive bowel sounds, nontender. GENITOURINARY: He has a Lopez catheter and there are a lot of excoriations and ulcers in the groin area. MUSCULOSKELETAL: Multiple ulcers in the bilateral lower extremities with macerated skin in the lower extremities. 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 He is able to follow commands and move his extremities. LABORATORY REVIEW: CBC showed WBC 8.2, hemoglobin 8, platelets 272,000. BMP done today morning showed sodium 135, potassium 5, chloride 100, bicarb 24, BUN 31, creatinine 3.6; it was 4.4 yesterday. Calcium 7.7. Ionized calcium 4.1. MICROBIOLOGY: Wound culture is pending. Urine culture is negative so far. IMAGING: Vascular ultrasound was done, which ruled out the possibility of DVT. CURRENT INPATIENT MEDICATIONS: Patient's medications were all reviewed by myself. He continues to be on Levophed. Vasopressin was started yesterday. He is still on Vancomycin and Zosyn. I have restarted his I.V. fluid D5 normal saline at 60 cc an hour. ASSESSMENT AND PLAN: 1. Acute anuric renal failure: Patient is still dependent on CVVHDF because of shock hypotension requiring pressors. Continue the CVVHDF with minimal to no fluid removal depending upon the MAP perimeters. 2. Septic shock: Patient is on Vancomycin and Zosyn. He continues to be on I.V. antibiotics. CVP is adequate at this time. 3. Hyperkalemia: It has gotten better with the use of CVVHDF. Potassium level is trending down. 4. High anion gap metabolic acidosis: It is improving with CVVHDF. No need of I.V. bicarb administration. 5. Diabetes mellitus type 2: Insulin sliding scale is being used at this time. Patient is not eating food at this time. Glucose levels are in the acceptable range. 6. Ulcers in bilateral lower extremities: Patient is getting wound care. He is already on empiric antibiotic coverage. TOTAL CRITICAL CARE TIME SPENT IN THE MANAGEMENT OF THIS PATIENT: Today morning in the ICU excluding all the procedures was 40 minutes. MTDD
--- NOTE | 2021-04-27 10:59 | CCN ---
CRITICAL CARE NOTE DATE: 04/26/2021 SUBJECTIVE: The patient was seen and examined this morning during bedside rounds. Yesterday, the patient was started on CRRT by Nephrology for his acute anuric renal failure with hyperkalemia and metabolic acidosis. Patient was on Levophed for blood pressure support and with CRRT he did require increasing amounts of Levophed. He did not have any fluid removal including not being kept net, even so has been significantly positive since his admission of almost 8 liters now. Patient was started on Vasopressin yesterday evening to decrease the Levophed requirements. He did have a few runs of VT with the longest of approximately 20 beats. He was asymptomatic during this episode. This morning the patient denies any chest pain. No shortness of breath or dyspnea. He does have some occasional cough still which is nonproductive. He denies any abdominal pain. He has not had any nausea or vomiting. He is complaining of gas but has not had any bowel movements. Patient still does not report having any appetite. OBJECTIVE: VITAL SIGNS: Temperature is 96.3, pulse is 67, respirations are 16, blood pressure is 107/53, O2 sat 91 to 95% on room air. INTAKE AND OUTPUT: In 7.9 liters, out 30 ml. GENERAL: Patient is a morbidly obese male, is lying in bed and is awake, and alert and answers questions appropriately. He is not in any acute respiratory distress and is not using any accessory muscles for respirations. HEENT: Normocephalic, atraumatic. Pupils are reactive to light bilaterally. There are moist mucous membranes noted. NECK: Supple. Trachea is midline. Unable to evaluate JVD. Patient has a right IJ dialysis catheter and a left IJ triple lumen catheter. CARDIAC: Irregularly irregular. Normal S1 and S2. Unable to appreciate any murmurs with somewhat distant heart sounds. PULMONARY: Diminished breath sounds bilaterally with coarse wheeze on the right and no significant rhonchi noted. Wheezing appears to improve with coughing. ABDOMEN: Obese, soft, nontender and nondistended. No palpable organomegaly. Patient has Nystatin in the intertriginous folds and in his groin region where he had evidence of fungal infection and skin breakdown. EXTREMITIES: Chronic venous stasis skin changes noted with areas of excoriation and scabbing wounds bilaterally. There is trace pitting edema in the bilateral lower extremities and chronic lymphedema changes. There is a wound on his left leg posteriorly that is draining discharge. LABORATORY DATA: WBC 8.2, hemoglobin 8.0, platelets are 272,000. Chemistries: Sodium is 135, potassium is 5.0, chloride is 104, bicarbonate is 24, BUN 31, creatinine 3.63, glucose is 114. Potassium is 7.0, ionized calcium 4.1, phosphorus 2.5, magnesium 2.4, PTT is 39.2. IMAGING: Lower extremity Duplex yesterday was negative for DVT in the bilateral lower extremities. ASSESSMENT AND PLAN: Mr. Blackmon is a 65-year-old male with a past medical history of hypertension, insulin dependent diabetes, atrial fibrillation on anticoagulation, CHF and morbid obesity who presented with complaints of weakness and decreased p.o. intake for several days. On admission, the patient was hypotensive, likely hypovolemic as well as component of septic shock. Patient was also noted to have acute anuric renal failure with electrolyte abnormalities including hyperkalemia and hyponatremia as well as a non-anion gap metabolic acidosis. The patient was started on OCEANOGRAPHIC METEOROLOGIST given his renal failure with significant electrolyte abnormalities. He was also on vasopressors for his septic shock. 1. Hypotension, likely hypovolemic with component of septic shock. Patient has received aggressive fluid repletion and as he is not having any fluid removal with CRRT he is net positive now in the last 24 hours of almost 8 liters. Patient was started on Levophed for vasopressor support to maintain a MAP above 65. Overnight with CRRT he required increasing amounts of Levophed. He was started on Vasopressin and his Levophed requirements have been weaned down. He is current on 9 mcg/minute of Levophed. Will continue to wean down Levophed as tolerated to maintain a MAP of 65 and continue with Vasopressin. Patient did not have any lactic acidosis on admission. Patient does not appear to have any evidence of fluid overload, however, would continue closely monitoring and once he is on less vasopressor requirements would discuss with Nephrology about keeping patient more net even. Patient is on broad spectrum antibiotics with Zosyn and Vancomycin. His CT of chest, abdomen and pelvis did not show any acute pathology suggesting etiology for sepsis. His UA was positive, however his urine culture shows no growth to date. There is skin breakdown as well as a wound draining in his left lower extremity and there is concern for cellulitis. His MRSA screen was positive. His wound culture gram stain was negative Will continue with broad spectrum antibiotics and follow-up his culture results before deescalating Continue with contact precautions for MRSA. 2. Acute anuric renal failure secondary to combination of medications and shock. Patient with hyperkalemia and hyponatremia which is improving with CRRT. Patient's non-anion gap metabolic acidosis also is improving. Patient has a right hemodialysis catheter in place and he is on CRRT as per Nephrology. Would continue with CRRT and monitoring of renal function and electrolytes as per Nephrology. Will continue to replete his electrolytes. Would maintain his potassium and maintain a magnesium above 2 given the episode of VT overnight. Will continue to monitor his urine output. He has not had any urine output while on CRRT yet. 3. History of CHF and atrial fibrillation, on anticoagulation. Patient did also have episodes of VT overnight likely in the setting of his CRRT and potentially electrolyte derangements. Will continue to monitor his electrolytes and replete as needed. Patient does not appear to be fluid overloaded but for now will closely monitor his fluid status. He is unable to have any fluid removed due to his hypotension and shock. Once he is on less Vasopressor requirements, would see about keeping him net even if possible. Patient's anticoagulation was on hold given his renal failure. Would likely be able to restart his NOAC now that he has improvement in renal function on CRRT 4. For anemia, patient has evidence of anemia with no active bleeding, likely anemia of chronic disease. Will continue to monitor his H and H transfuse if needed. He does have an active type and screen currently. 5. History of insulin dependent diabetes. Patient has not been significantly hyperglycemic. He has significant glucose checks and sliding scale coverage. Will start him on diet although he does report a poor appetite. May need to adjust his insulin coverage once he is eating. DVT prophylaxis, Heparin and would start full dose anticoagulation. Code status: Full code. Total critical care time spent not including procedures approximately 45 minutes. MTDD
[2021-04-27 12:24] LABS: CALCIUM LEVEL 7.5 MG/DL (8.8-10.2); CREATININE FOR GFR 2.8 MG/DL (0.70-1.30); GLOMERULAR FILTRATION RATE 24.4 (>49); PHOSPHORUS LEVEL 2.8 MG/DL (2.5-4.9)
[2021-04-27 12:25] LABS: MAGNESIUM LEVEL 2.3 MG/DL (1.8-2.4)
[2021-04-27 12:28] LABS: TROPONIN I < 0.02 NG/ML (< 0.10)
--- NOTE | 2021-04-27 18:54 | IPNPDOC ---
Date Seen The patient was seen on 04/27/21. Progress Note SUBJECTIVE: Mr. Blackmon is sitting in his ICU bed. He states that he is doing about the same as he was yesterday. He is alert and oriented x3 and has an oxygen saturation of 93% on room air. He denies chest pain, palpitations, shortness of breath, or abdominal pain. His lower extremities are tender to the touch. He is not producing urine out of his middleton catheter and is receiving continuous CRRT. They are not removing fluid at this time due to patient's history of hypotension. OBJECTIVE PHYSICAL EXAMINATION: VITAL SIGNS: Please see below. GENERAL: Morbidly obese male in no acute distress HEENT: normocephalic, atraumatic, poor dentition, no lymphadenopathy, trachea midline, right IJ dialysis catheter noted CARDIOVASCULAR: regularly irregular rhythm, no murmurs or rubs noted RESPIRATORY: diminished breath sounds, unable to assess breath sounds posteriorly due to body habitus ABDOMINAL: distended and round due to obesity, positive bowel sounds, non tender to palpation : middleton catheter noted scrotal ulcers present EXTREMITIES: Chronic venous stasis changes noted on lower extremities with bilateral excoriations. This is nonpitting in nature. Large wound present on posterior aspect of left leg. There is brown fluid draining from wound. Patient is tender to palpation of lower extremities. LABORATORY DATA, IMAGING STUDIES, MICROBIOLOGY: Please see below. CT abdomen and pelvis with contrast 04/26/2021: IMPRESSION: No acute findings. Distended gallbladder, containing a few small calcified stones (similar appearance in 2015). CT chest without contrast done on 04/26/2021: Impression: No acute findings. CT head without contrast on 04/26/2021: Impression: No acute intracranial pathology. Chest x-ray 04/26/2021: No acute findings. Clear lung walker. Renal ultrasound 04/26/2021: No acute findings. Each kidney is normal in size. No hydronephrosis. Venous u/s lower ext: 04/26/21: no evidence of DVT of bilateral lower extremities. Echocardiogram: results pending Last echo 12/17/20: Mildly dilated left ventricle with mild eccentric left ventricle hypertrophy. Severe left atrial dilatation. Moderate right ventricle dilatation with normal right ventricular systolic function. Severe right atrial dilatation. DVT prophylaxis ordered?: yes, continue heparin ASSESSMENT AND PLAN: Mr. Blackmon is a 65 year old male with pmhx of hypertension, chronic HFpEF, T2DM, atrial fibrillation, obesity, hyperlipidemia, lower extremity stasis dermatitis who presented to the ED for confusion and "not feeling well", he was found to have electrolyte derangements, an KARMEN, and chronic non healing lower extremity wounds. He was admitted to the ICU for medical management and treatment. PROBLEMS: Anuric renal failure: 2/2 to hypotension vs intrinsic renal injury vs possible CKD -Currently holding nephrotoxic medications -Patient takes CHAVEZ inhibit/diuretics/Metformin at home -Patient has not been eating or drinking for last 7 days- per patient's -Patient has not taken Blood pressure medication in 7 days -Patient has not produced urine in 5 days. -Nephrology was consulted, we appreciate Dr. Pichardo's input on this patient. -BUN, Creatinine, and GFR are improved today Hypovolemic shock 2/2 to dehydration and possible septic shock -Patient is net positive 8 L today -Patient did not eat or drink much for 7 days prior to admission. -Patient is sustaining a blood pressure of 104/43 on levophed and vasopressor -Patient started on vasopressor overnight -blood cultures are negative -urine cultures negative Hyperkalemia: -likely 2/2 to renal failure and build up of blood pressure medications in body -Potassium level was 6.7 at time of admission, today potassium is 5.0 -No EKG changes noted -Patient has been receiving calcium gluconate -Patient given 1 dose of kayexelate -Potassium is downtrending secondary to CRRT. Hypotension -his blood pressure continues to be soft despite receiving 8 L of fluid: 104/43 -Ordered Echocardiogram (results pending), repeat EKG, and troponins (wnl) to r/o cardiac causes. -continue levophed and vasopressor. MAP goal is above 65 -patient is not having any fluid removed during CRRT to maintain blood pressure -AM cortisol levels were 21 which are within normal limits. Hyperparathyroidism -likely secondary hyperparathyroidism due to kidney disease -PTH 300 -Calcium 7.5 Ionized calcium is 4.2: both of which are low -Patient continues to receive calcium gluconate History of CHF, HFpEF: -Echocardiogram ordered today, results pending. Results from echocardiogram 12/2020 as above. -The patient is net positive 8 L today but does not appear fluid overloaded. -trace pitting edema seen on bilateral lower extremities likely secondary to chronic venous stasis changes. Atrial fibrillation: -Patient is on xarelto as an outpatient -holding xarelto at this time due to kidney function Chronic venous stasis ulcers: -Located on bilateral lower extremities and scrotum. The largest of which is on posterior aspect of left calf. -c/w nursing wound care. -WBC count has decreased today to 8.2 -c/w Zosyn and vancomycin. Day 2. Patient tested positive for MRSA. -Wound culture pending, wound gram stain shows no growth -c/w nystatin power and interdry -duplex venous u/s was negative for DVT Anemia of chronic disease 2/2 likely CKD -His hemoglobin was 8 today -He may require a blood transfusion if hgb drops below 8 tomorrow -We will continue to monitor H&H Diabetes mellitus type 2: -continue hypoglycemic protocol -continue SSI -Holding metformin at this time Hypertension: -stable at 104/43 -continue to hold blood pressure medications at this time Dyslipidemia: -holding simvastatin at this time DVT prophylaxis: yes continue heparin DISPOSITION: Will continue to monitor patient for clinical improvement. His hem oglobin is 8.0 today, he may require a blood transfusion tomorrow if he continues to downtrend. We appreciate Dr. Pichardo and Dr. Houston for their input. VS, I&O, 24H, Fishbone Vital Signs/I&O Vital Signs Date Time Temp Pulse Resp B/P (MAP) Pulse Ox O2 Delivery O2 Flow Rate FiO2 04/27/21 18:00 66 17 97/55 (69) 93 Room Air 04/27/21 16:00 98.0 04/27/21 05:00 2.0 I&O- Last 24 Hours up to 6 AM 04/27/21 06:00 Intake Total 3325.6 ml Output Total 35 ml Balance 3290.6 ml Laboratory Data 24H LABS Laboratory Tests 2 04/26/21 23:24: Anion Gap 9, Glomerular Filtration Rate 14.2L, Calcium Level 7.1L, Whole Blood Ionized Calcium 4.1L, Phosphorus Level 4.2, Magnesium Level 2.4 04/26/21 23:54: Bedside Glucose (Misc Panel) 116H 04/27/21 05:53: Anion Gap 7L, Glomerular Filtration Rate 18.1L, Calcium Level 7.0L, Whole Blood Ionized Calcium 4.1L, Phosphorus Level 3.5, Magnesium Level 2.4, Immature Granulocyte % (Auto) 0.4, Neutrophils (%) (Auto) 78.9H, Lymphocytes (%) (Auto) 11.0L, Monocytes (%) (Auto) 8.4H, Eosinophils (%) (Auto) 0.9, Basophils (%) (Auto) 0.4, Neutrophils # (Auto) 6.5, Lymphocytes # (Auto) 0.9L, Monocytes # (Auto) 0.7, Eosinophils # (Auto) 0.1, Basophils # (Auto) 0.0, Nucleated Red Blood Cells % (auto) 0.0, Activated Partial Thromboplast Time 39.2H, Cortisol AM Sample 21.1 04/27/21 06:12: Bedside Glucose (Misc Panel) 99 04/27/21 11:37: Anion Gap 4L, Glomerular Filtration Rate 24.4L, Calcium Level 7.5L, Whole Blood Ionized Calcium 4.2L, Phosphorus Level 2.8, Magnesium Level 2.3, Troponin I < 0.02 04/27/21 11:39: Bedside Glucose (Misc Panel) 120H 04/27/21 12:55: Vancomycin Level Trough 12.9 04/27/21 17:30: Bedside Glucose (Misc Panel) 107 CBC/BMP Laboratory Tests 04/26/21 23:24 04/27/21 05:53 04/27/21 11:37 Microbiology Microbiology 04/26/21 Gram Stain - Final, Resulted 04/26/21 Wound Culture, Resulted Pending 04/26/21 Urine Culture - Final, Complete 04/26/21 Blood Culture - Preliminary, Resulted No growth after 24 hours . All specim... 04/26/21 Blood Culture - Preliminary, Resulted No growth after 24 hours . All specim... GME ATTESTATION GME ATTESTATION My faculty preceptor for this patient encounter was physically present during the encounter and was fully available. All aspects of the patient interview, examination, medical decision making process, and medical care plan development were reviewed and approved by the faculty preceptor. The faculty preceptor is aware and concurs with the plan as stated in the body of this note and will attest to such by his/her cosignature. ATTENDING NOTE I, Jim Sanchez MD, have independently examined this patient and performed my own physical exam, as well as reviewed the documentation and edited where necessary. I have discussed in detail with the resident / student the findings and plan of treatment as documented by the resident / student and edited their note. I agree with their findings and treatment plan and have edited their documentation. I will continue to follow the patient during this hospital stay. SONU BUENO DO Apr 27, 2021 18:54 JIM SANCHEZ MD Apr 29, 2021 12:34
[2021-04-27] MEDS: APIXABAN 2.5 MG TAB (ELIQUIS) PO SCH (21:18)
--- NOTE | 2021-04-27 23:22 | ECGEPIP ---
[facility] Test Date: 2021-04-27 Pat Name: MARTÍN ADDISON Department: Room: [place] [address] Gender: Male Sander Wooden Pencils: GERBER : 1955 Requested By: SIMONE HUNTLEY Order Number: [id number] Reading MD: Varghese Gonzalez Measurements Intervals [place] Rate: 70 P: MS: QRS: 74 QRSD: 88 T: 28 QT: 436 QTc: 470 Interpretive Statements Atrial fibrillation Low voltage QRS Nonspecific T wave abnormality INCOMPLETE RIGHT YESENIA BRANCH BLOCK Compared to prior tracings (3) in the system. No remarkable changes Electronically Signed on 04-27-2021 23:21:31 EDT by Varghese Gonzalez
[2021-04-28] VITALS (72 sets, daily range): BP systolic 60–148; BP diastolic 35–77
[2021-04-28 00:08] LABS: HEMATOCRIT 23.8 % (42.0-52.0); HEMOGLOBIN 7.4 g/dl (13.5-17.5); MEAN CORPUSCULAR HEMOGLOBIN 26.2 pg (27.0-33.0); MEAN CORPUSCULAR HGB CONC 31.1 g/dl (32.0-36.5); MEAN CORPUSCULAR VOLUME 84.4 fl (80.0-96.0); PLATELET COUNT, AUTOMATED 210 10^3/uL (150-450); RED BLOOD COUNT 2.82 10^6/uL (4.30-6.10); WHITE BLOOD COUNT 5.9 10^3/uL (4.0-10.0)
[2021-04-28 00:23] LABS: BLOOD UREA NITROGEN 15 MG/DL (7-18); CALCIUM LEVEL 7.1 MG/DL (8.8-10.2); CARBON DIOXIDE LEVEL 27 MEQ/L (21-32); CHLORIDE LEVEL 106 MEQ/L (98-107); CREATININE FOR GFR 2.05 MG/DL (0.70-1.30); GLUCOSE, FASTING 121 MG/DL (70-100); MAGNESIUM LEVEL 2.5 MG/DL (1.8-2.4); PHOSPHORUS LEVEL 2.6 MG/DL (2.5-4.9); POTASSIUM SERUM 4.6 MEQ/L (3.5-5.1); SODIUM LEVEL 138 MEQ/L (136-145)
[2021-04-28] MEDS: CALCIUM GLUCONATE 1,000 MG, VIAL MATE ADAPTER 1 EACH in NS 100 ML IV SCH ×4 (01:31→10:03)
[2021-04-28] MEDS: VANCOMYCIN HCL 1,000 MG, VIAL MATE ADAPTER 1 EACH in NS 250 ML IV SCH ×2 (01:31→13:59)
[2021-04-28] MEDS: PIPERACILLIN/TAZOBACTAM SOD 4.5 GM in D5W MINI-BAG PLUS 50 ML IV SCH (04:03)
[2021-04-28] MEDS: PANTOPRAZOLE 40MG VIAL (C9113 PER 1) IV SCH (05:20)
[2021-04-28] MEDS: HumaLOG INSULIN (NovoLOG) PER UNIT SC SCH ×3 (05:36→18:18)
[2021-04-28 06:05] LABS: BASO % 0.4 % (0.0-1.0); EOS # 0.1 10^3/uL (0.0-0.5); EOS % 2.4 % (0.0-3.0); HEMATOCRIT 22.7 % (42.0-52.0); LYMPH # 0.9 10^3/uL (1.5-5.0); LYMPH % 20.4 % (24.0-44.0); MEAN CORPUSCULAR HEMOGLOBIN 25.8 pg (27.0-33.0); MEAN CORPUSCULAR HGB CONC 30.4 g/dl (32.0-36.5); MONO # 0.5 10^3/uL (0.0-0.8); MONO % 10.1 % (2.0-8.0); NEUTROPHILS % 66.3 % (36.0-66.0); PLATELET COUNT, AUTOMATED 184 10^3/uL (150-450); RED BLOOD COUNT 2.67 10^6/uL (4.30-6.10); WHITE BLOOD COUNT 4.6 10^3/uL (4.0-10.0)
[2021-04-28 06:11] LABS: HEMOGLOBIN 6.9 g/dl (13.5-17.5)
[2021-04-28 06:29] LABS: CALCIUM LEVEL 7.4 MG/DL (8.8-10.2); CREATININE FOR GFR 1.72 MG/DL (0.70-1.30); GLOMERULAR FILTRATION RATE 42.8 (>49); POTASSIUM SERUM 4.7 MEQ/L (3.5-5.1)
[2021-04-28 06:41] LABS: MAGNESIUM LEVEL 2.5 MG/DL (1.8-2.4); PHOSPHORUS LEVEL 2.5 MG/DL (2.5-4.9)
[2021-04-28] MEDS: VASOPRESSIN INJ 20 UNITS in NS 499 ML IV SCH ×2 (07:33→17:10)
[2021-04-28] MEDS: NYSTATIN 100,000 UNITS/GM TOPICAL PWD 15 GM TOP SCH ×2 (08:48→21:11)
[2021-04-28 08:51] LABS: PHOSPHORUS LEVEL 2.8 MG/DL (2.5-4.9)
[2021-04-28] MEDS: APIXABAN 2.5 MG TAB (ELIQUIS) PO SCH ×2 (10:02→21:12)
--- NOTE | 2021-04-28 11:27 | CCN ---
CRITICAL CARE NOTE DATE: 04/28/2021 SUBJECTIVE: Patient was seen and examined this morning during bedside rounds. Earlier this morning, he was able to be weaned off of Levophed. He is still on vasopressin for blood pressure support. Patient was noted to be anemic on labs this morning and has been ordered for a PRBC transfusion. He otherwise did not have any acute events noted overnight. Patient has been afebrile. He had some mild hypothermia in the setting of his ORTHODONTIC ASSISTANT. He has not had any reported episodes of VT overnight. He does have improvement in his appetite and has been eating more this morning compared to yesterday. He was on fluids with D5 started yesterday which has since been discontinued. Patient denies any chest pain this morning. He does continue to have some cough still which is mostly nonproductive. He denies any shortness of breath or dyspnea. He denies any abdominal pain, no nausea or vomiting. He did have four soft bowel movements in the past 24 hours. Patient does have episodes of apnea and desaturation while sleeping and overnight did require nasal cannula oxygen supplementation which he was able to be weaned off this morning once he was awake. OBJECTIVE: Vitals: Temperature 96.8, pulse 94, respirations 16, blood pressure 93/42. O2 sat 92 to 97% on two liters nasal cannula or to room air, in 2.3 liters, out 383 mL General: The patient is a morbidly obese male, is lying in bed awake and alert and oriented x3. He is not in any acute respiratory distress and is not using any accessory muscle for respiration. HEENT: Normocephalic, atraumatic. Pupils were reactive to light bilaterally. There are moist mucous membranes noted. Neck: Supple. Trachea is midline. Unable to evaluate JVD as patient has a right IJ dialysis catheter and a left IJ triple lumen catheter. Cardiac: Irregularly irregular. Normal S-1, S-2. Unable to clearly appreciate any murmurs with distant heart sounds. Pulmonary: Diminished breath sounds bilaterally with faint crackle at the base. There is no wheezing or rhonchi noted. Abdomen: Obese, soft, nontender, nondistended. No palpable organomegaly. Patient has Nystatin powder in his groin are and intertriginous folds with evidence of a fungal skin infection. Extremities: Chronic venous stasis skin changes and chronic lymphedema changes. There are some areas of excoriation and scabbing wounds bilaterally. There is trace to +1 pitting edema in the bilateral lower extremities. There is a larger wound in his left leg posteriorly that is draining serosanguineous discharge. LABORATORY DATA: WBC 4.6, hemoglobin 6.9, platelets are 184. Chemistries: Sodium is 139, potassium is 4.7, chloride is 107, bicarb is 28, BUN 12, creatinine 1.72, glucose 116. Ionized calcium is 4.3, magnesium 2.5, phosphorus 2.5. Urine culture: No growth to date. Wound culture positive for MRSA and Serratia. ASSESSMENT AND PLAN: Mr. Blackmon is a 65-year-old male with a past medical history of hypertension, insulin dependent diabetes, atrial fibrillation on anticoagulation, CHF and morbid obesity who presented with complaints of weakness and decreased p.o. intake for several days. On admission, the patient was hypotensive likely in the setting of hypovolemia as well as a component of septic shock. He was also found to have acute anuric renal failure with electrolyte abnormalities including hyperkalemia and hyponatremia as well as a metabolic acidosis secondary to his renal failure. Patient required vasopressors for his septic shock as well as ORTHODONTIC ASSISTANT for his acute renal failure. 1. Hypotension, likely hypovolemic with component of septic shock. Patient has been on Levophed and vasopressin for blood pressure support. Earlier this morning, he was weaned off of this Levophed and is only on vasopressin currently. We will continue to wean off of the vasopressin. He will be getting transfusion of PRBC which will likely help with his blood pressure. We will attempt to maintain a MAP above 65. Patient was receiving fluids containing D5 as he was not eating much even with a diet. We will DC his IV fluids today and continue to encourage oral intake. He does appear to have more appetite today. Patient had been on broad spectrum antibiotics with Zosyn and Vancomycin. His urine culture has been no growth to date. His wound culture does show MRSA and Serratia. He can continue the vancomycin for the MRSA and can consider deescalating his Zosyn to an aminoglycoside for the Serratia or perhaps a cephalosporin as it was sensitive to both. Continue contact precautions for MRSA. Continue with wound care and would likely need followup with wound care as an outpatient. 2. Acute anuric renal failure secondary to a combination of medications and shock. Patient's acidosis as well as his electrolyte abnormalities have been improving with CRRT. Continue with CRRT as per nephrology. Continue monitoring his electrolytes and repleting as needed including magnesium and calcium. Patient has had some increasing urine output noted but will likely need to continue with CRRT for the next 24 hours and perhaps regular hemodialysis once blood pressure is more stable. 3. History of CHF and atrial fibrillation. Patient has not had any further episodes of VT reported. Patient will be planned for possible fluid removal with CRRT to keep him net even once he is weaned off of pressors. His CVP has increased from 14 yesterday to about 20 today. Patient was restarted on anticoagulation yesterday with Eliquis given his renal failure. He previously had been on Xarelto. He is currently on renally dosed Eliquis. 4. Anemia. Likely anemia of chronic disease. Patient's H and H had trended down likely some degree of hemodilution. We will transfuse him two units of PRBC and continue with active type and screen. 5. History of insulin dependent diabetes. Patient has fingerstick glucose check and sliding scale coverage. He does have improved appetite today but he is still not completing his full plate. We will start him on Ensure supplemental as well and he may need further adjustments in his insulin coverage. 6. Suspected SUSAN/OHS. Patient has episodes overnight of desaturation as well as bradycardia and some witnessed apneic episodes. Suspect he does have SUSAN and possible OHS. He will need followup as an outpatient for sleep testing. Otherwise, we will continue to monitor his O2 sats to maintain above 90%. DVT prophylaxis: Tracey ADAIR. Code Status: FULL CODE. Total critical care time spent not including procedures approximately 45 minutes. Please do not hesitate to call if any further questions or concerns. MTDD
[2021-04-28] MEDS: cefTRIAXone SOD 1 GM in D5W MINI-BAG PLUS 50 ML IV SCH (11:48)
[2021-04-28 11:56] LABS: FERRITIN 73 NG/ML (26-388); IRON (FE) 30 UG/DL (65-175); PERCENT SATURATION 14.7 % (19.7-50.0); TOTAL IRON BINDING CAPACITY 204 UG/DL (250-450)
[2021-04-28 12:02] LABS: VITAMIN B12 LEVEL > 2000 PG/ML
[2021-04-28 12:04] LABS: FOLATE 2.9 NG/ML
--- NOTE | 2021-04-28 13:27 | IPN ---
NEPHROLOGY PROGRESS NOTE DATE: 04/28/2021 SUBJECTIVE: The patient was seen and examined at the bedside today morning. The last 24 hour events were noted. The patient is tolerating the CVVHDF. His urine output is slightly better today as compared with yesterday. He is off of Levophed. He is just requiring Vasopressin at 0.04 units. His hemoglobin has dropped. I have ordered 2 units of PRVC transfusion. The patient is otherwise awake, able to follow commands and answer questions, and I was told by nursing staff that he eats about 25% of his meals. OBJECTIVE: VITAL SIGNS: Temperature is 98 degrees Fahrenheit, blood pressure 195/50, pulse is 81, respiratory rate of 18, saturating 95% on room air. INTAKE AND OUTPUT: Urine output recorded as 339 mL yesterday, 155 mL so far today since overnight. Fluid removal with CRRT is only 28 mL. Weight in the bed scale was 190.5 kg yesterday. PHYSICAL EXAMINATION: GENERAL APPEARANCE: The patient is awake, alert, oriented times one, laying in bed in no apparent distress. HEAD AND NECK: Extraocular muscles intact. Pupils are equally round and reactive to light. Mucous membranes are moist. Neck is supple. He has a right IJ dialysis catheter which is being used and a left IJ triple lumen catheter. CARDIOVASCULAR: S1, S2, regular rate. EXTREMITIES: 1+ edema of the bilateral lower extremities. RESPIRATORY: Chest is clear to auscultation bilaterally. Bilaterally currently no rales or rhonchi. ABDOMEN: Soft, positive bowel sounds, nontender, no organomegaly. GENITOURINARY: Excoriations in the scrotal area are better. He has an indwelling Lopez catheter. MUSCULOSKELETAL: Chronic bilateral lower extremity ulcers with venous stasis changes. INCINERATOR OPERATOR: No focal deficits. Power is 5/5 in bilateral upper extremities. LAB REVIEW: CBC showed a WBC count of 4.6, hemoglobin is 6.9, platelet count 184. BMP showed sodium of 139, potassium 4.7, chloride 107, bicarbonate 28, BUN 12, creatinine is 1.7, calcium 7.4, magnesium 2.5. MICROBIOLOGY: Wound cultures are growing staph aureus methicillin resistant and Serratia Marcescens. CURRENT INPATIENT MEDICATIONS: The patient's medications were all reviewed by myself. He continues to be on IV Ceftriaxone now. Levophed is on hold. He is still on Vasopressin. Zosyn has been stopped. He continues to be on Vancomycin. Heparin subcutaneously has been stopped. He continues to be on Protonix 40 mg IV daily. ASSESSMENT AND PLAN: 1. Acute oliguric renal failure the patient's urine output is slightly better now. He is still dependent on CVVHDF. I will continue him on CVVHDF as long as he is on pressors. Fluid removal parameters have been changed. Plan of care was discussed with the nursing staff. 2. Anemia the patient's hemoglobin has dropped. I have ordered 2 units of PRBC transfusion. Subcutaneous Heparin has been stopped. Continue IV Protonix. Watch for GI bleed because the patient is chronically anticoagulated for atrial fibrillation. 3. Septic shock - The patient is recovering, just requiring small dose of Vasopressin. IV antibiotics have been changed. Source of sepsis is most likely wounds from the leg. CVP today is more than 20. IV fluids were stopped. 4. Atrial fibrillation - heart rate is controlled at this time. Eliquis was restarted but it has been stopped again because of drop in his hemoglobin. Total critical care time spent in the management of this patient today morning in the ICU excluding all the procedures was 35 minutes. MTDD
[2021-04-28 14:12] LABS: CALCIUM LEVEL 7.6 MG/DL (8.8-10.2); CREATININE FOR GFR 1.46 MG/DL (0.70-1.30); GLOMERULAR FILTRATION RATE 51.7 (>49); MAGNESIUM LEVEL 2.6 MG/DL (1.8-2.4); POTASSIUM SERUM 4.6 MEQ/L (3.5-5.1); VANCOMYCIN LEVEL TROUGH 15.8 UG/ML (10.0-20.0)
--- NOTE | 2021-04-28 15:32 | IPNPDOC ---
Date Seen The patient was seen on 04/28/21. Progress Note SUBJECTIVE: Mr. Blackmon was sitting in bed eating breakfast (eggs, toast, orange slices) when I walked into the room. He appears to be in better spirits today and states he is feeling "a little better" than yesterday. He continues to receive CRRT which is attached to him via a left IJ dialysis catheter. The patient's hemoglobin dropped to 6.7 overnight and the patient will receive two units of blood ordered by Dr. Pichardo via his right IJ triple lumen catheter. He is currently producing approx 10ml urine per hour and has a total of 300ml in his middleton cather bag. He has had three bowel movements in the last 24 hours. He denies chest pain, shortness of breath, palpitations, abdominal pain, nausea, vomiting, fevers, or chills. He has an oxygen saturation of 92% on room air. OBJECTIVE PHYSICAL EXAMINATION: VITAL SIGNS: Please see below. GENERAL: Morbidly obese male eating breakfast in bed. He is in no acute distress. HEENT: Right IJ dialysis catheter noted, left IJ triple lumen catheter noted, normocephalic, atraumatic, neck is supple and trachea midline, mucous membranes are moist. CARDIOVASCULAR: Distant heart sounds. Irregularly irregular. RESPIRATORY: Distant lung sounds, equal inspiratory effort bilaterally, was able to listen to posterior lung walker and heart faint crackles in lung bases. ABDOMINAL: Round obese abdomen, soft, nontender to palpation in all four arely drants, : Middleton catheter noted, ulcerations on scrotum are improving but fungal infection still apparent EXTREMITIES: venous stasis skin changes appreciated bilaterally, skin is thickened and hyperpigmented with excoriations and scabs visible. 1+ pitting edema appreciated up to knee. PSYCHOLOGICAL: alert and oriented x 3, mood appropriate LABORATORY DATA, IMAGING STUDIES, MICROBIOLOGY: Please see below. CT abdomen and pelvis with contrast 04/26/2021: IMPRESSION: No acute findings. Distended gallbladder, containing a few small calcified stones (similar appearance in 2015). CT chest without contrast done on 04/26/2021: Impression: No acute findings. CT head without contrast on 04/26/2021: Impression: No acute intracranial pathology. Chest x-ray 04/26/2021: No acute findings. Clear lung walker. Renal ultrasound 04/26/2021: No acute findings. Each kidney is normal in size. No hydronephrosis. Venous u/s lower ext: 04/26/21: no evidence of DVT of bilateral lower extremities. Echocardiogram: results pending Last echo 12/17/20: Mildly dilated left ventricle with mild eccentric left ve ntricle hypertrophy. Severe left atrial dilatation. Moderate right ventricle dilatation with normal right ventricular systolic function. Severe right atrial dilatation. DVT prophylaxis ordered?: Yes, continue Eliquis 2.5 mg BID ASSESSMENT AND PLAN: Mr. Blackmon is a 65 year old male with pmhx of h ypertension, chronic HFpEF, T2DM, atrial fibrillation, obesity, hyperlipidemia, lower extremity stasis dermatitis who presented to the ED for confusion and "not feeling well", he was found to have electrolyte derangements, an KARMEN, and chronic non healing lower extremity wounds. He was admitted to the ICU for medical management and treatment. PROBLEMS: Anuric renal failure: 2/2 to hypotension vs intrinsic renal injury vs possible CKD -continuing to hold nephrotoxic medications -Patient takes CHAVEZ inhibit/diuretics/Metformin at home -Continuing CRRT -Patient is producing about 10ml of urine per hour, his middleton bag had 300ml of yellow urine this AM -Nephrology is on board, we appreciate Dr. Pichardo's input on this patient. -BUN, Creatinine, and GFR continue to improve -Patient will stop CRRT once he is weaned off of vasopressin and will be transitioned to dialysis. Will continue to monitor his urine output. Hypovolemic shock 2/2 to dehydration and possible septic shock -Patient is net positive 69978 ml -Patient is maintaining a blood pressure of 130/62 on vasopressin. -Dr. Pichardo d/c levophed -Patient did not eat or drink much for 7 days prior to admission. -Fluid removal parameters in place for CRRT. Nursing staff advised to remove as much fluid as they put in so patient is net neutral. -Maintenance fluids were discontinued. -blood cultures are negative -urine cultures negative Anemia 2/2 likely CKD (anemia of chronic inflammation) vs dilutional anemia -His hemoglobin dropped to 6.7 -Patient was transfused 2 units of packed red blood cells -Will continue to monitor H&H -Ordered FOBT, reticulocyte count, and iron panel studies. -FOBT is pending -Reticulocyte count: 1.7 elevated -Iron low 30, TIBC Low 204, Transferrin % saturation Low 14.7 ferritin 73 wnl -Will discuss Iron and erythropoietin tomorrow Hyperkalemia: -resolved -likely 2/2 to renal failure and build up of blood pressure medications in body -Potassium level was 6.7 at time of admission, today potassium is 4.7 -Potassium is downtrending secondary to CRRT. Hypotension -resolved currently 130/62 -Ordered Echocardiogram-results pending -repeat EKG 04/27/21 showed an incomplete R bundle branch block but no remarkable changes from the last three EKGs. -Repeat troponin is within normal limits. -continue vasopressin. Per Dr. Pichardo the patient can be weaned off of vasopressin once his MAP is above 75 -patient is not having any fluid removed during CRRT to maintain blood pressure -AM cortisol levels were 21 which are within normal limits. Hyperparathyroidism -likely secondary hyperparathyroidism due to kidney disease -PTH 300 -Calcium 7.5 Ionized calcium is 4.2: both of which are low -Patient continues to receive calcium gluconate -This can be followed up in outpatient setting History of CHF, HFpEF: -Patient denies chest pain or shortness of breath -Echocardiogram ordered, results pending. Results from echocardiogram 12/2020 as above. -The patient is net positive 12 L today and appears somewhat fluid overloaded -Maintenance fluids were discontinued -1+ pitting edema present on bilateral lower extremities Atrial fibrillation: -Patient is on xarelto 20mg q hs as an outpatient -started patient on eliquis 2.5mg BID -Patient started bleeding from left IJ dialysis catheter, heparin was discontinued -His anemia is likely secondary to hemodilution. Chronic venous stasis ulcers: -Located on bilateral lower extremities and scrotum. The largest of which is on posterior aspect of left calf. -c/w nursing wound care. -WBC count has decreased today to 4.6 -Wound culture results: Heavy MRSA growth, few serratia marcescens noted -Will continue vancomycin Day 3 -Discontinued zosyn -Started patient on rocephin -c/w nystatin power and interdry -duplex venous u/s was negative for DVT Diabetes mellitus type 2: -continue hypoglycemic protocol -continue SSI -Holding metformin at this time Hypertension: -stable at 130/62 -continue to hold blood pressure medications at this time Dyslipidemia: -holding simvastatin at this time #DVT prophylaxis: -Continue Eliquis 2.5mg BID -Patient will need to be discharged on 5mg BID DISPOSITION: The patient appears to be clinically improving. He is not on vasopressin and has a MAP goal of greater than 75. Will start dialysis once claude ent is weaned off of vasopressin and CRRT. Patient is beginning to produce approx 10ml of urine per hour. Will continue to monitor urine output. We appreciate Dr. Pichardo and Dr. Houston for their input on this patient. GME ATTESTATION My faculty preceptor for this patient encounter was physically present during the encounter and was fully available. All aspects of the patient interview, examination, medical decision making process, and medical care plan development were reviewed and approved by the faculty preceptor. The faculty preceptor is aware and concurs with the plan as stated in the body of this note and will attest to such by his/her cosignature. VS, I&O, 24H, Fishbone Vital Signs/I&O Vital Signs Date Time Temp Pulse Resp B/P (MAP) Pulse Ox O2 Delivery O2 Flow Rate FiO2 04/28/21 15:00 70 20 102/50 (67) 96 Room Air 04/28/21 12:00 98.1 04/28/21 06:00 2.0 I&O- Last 24 Hours up to 6 AM 04/28/21 06:00 Intake Total 3984.5 ml Output Total 508 ml Balance 3476.5 ml Laboratory Data 24H LABS Laboratory Tests 2 04/27/21 17:30: Bedside Glucose (Misc Panel) 107 04/27/21 23:33: Bedside Glucose (Misc Panel) 114 04/27/21 23:37: Nucleated Red Blood Cells % (auto) 0.0, Anion Gap 5L, Glomerular Filtration Rate 35.0L, Calcium Level 7.1L, Whole Blood Ionized Calcium 4.2L, Phosphorus Level 2.6, Magnesium Level 2.5H, Iron Level 30L, Total Iron Binding Capacity 204L, Transferrin % Saturation 14.7L, Ferritin 73, Vitamin B12 Level > 2000, Folate 2.9 04/28/21 05:30: Bedside Glucose (Misc Panel) 120H 04/28/21 05:44: 04/28/21 05:48: Immature Granulocyte % (Auto) 0.4, Neutrophils (%) (Auto) 66.3H, Lymphocytes (%) (Auto) 20.4L, Monocytes (%) (Auto) 10.1H, Eosinophils (%) (Auto) 2.4, Basophils (%) (Auto) 0.4, Neutrophils # (Auto) 3.0, Lymphocytes # (Auto) 0.9L, Monocytes # (Auto) 0.5, Eosinophils # (Auto) 0.1, Basophils # (Auto) 0.0, Nucleated Red Blood Cells % (auto) 0.0, Activated Partial Thromboplast Time 42.2H, Anion Gap 4L, Glomerular Filtration Rate 42.8L, Calcium Level 7.4L, Whole Blood Ionized Calcium 4.3L, Phosphorus Level 2.5, Magnesium Level 2.5H, PA-Naq-G-Type Natriuretic Peptide 8978H 04/28/21 11:36: Bedside Glucose (Misc Panel) 110 04/28/21 12:28: Anion Gap 3L, Glomerular Filtration Rate 51.7, Calcium Level 7.6L, Whole Blood Ionized Calcium 4.3L, Phosphorus Level 2.0L, Magnesium Level 2.6H, Reticulocyte # (auto) 53.0, Percent Reticulocyte Count 1.7H, Reticulocyte Hemoglobin Equivalent 31.7, Vancomycin Level Trough 15.8 CBC/BMP Laboratory Tests 04/27/21 23:37 04/28/21 05:48 04/28/21 12:28 Microbiology Microbiology 04/26/21 Gram Stain - Final, Complete 04/26/21 Wound Culture - Final, Complete Staph.aureus Methicillin Resis Serratia Marcescens 04/26/21 Urine Culture - Final, Complete 04/26/21 Blood Culture - Preliminary, Resulted No Growth after 48 hours. All Specime... 04/26/21 Blood Culture - Preliminary, Resulted No Growth after 48 hours. All Specime... GME ATTESTATION GME ATTESTATION My faculty preceptor for this patient encounter was physically present during the encounter and was fully available. All aspects of the patient interview, examination, medical decision making process, and medical care plan development were reviewed and approved by the faculty preceptor. The faculty preceptor is aware and concurs with the plan as stated in the body of this note and will attest to such by his/her cosignature. ATTENDING NOTE I, Jim Sanchez MD, have independently examined this patient and performed my own physical exam, as well as reviewed the documentation and edited where necessary. I have discussed in detail with the resident / student the findings and plan of treatment as documented by the resident / student and edited their note. I agree with their findings and treatment plan and have edited their documentation. SONU BUENO DO Apr 28, 2021 15:32 JIM SANCHEZ MD Apr 29, 2021 12:45
[2021-04-28] MEDS ORDERED: HEPARIN SOD (PORCINE) 5000UNITS/ML 1ML VIAL/SYRINGE SQ SCH (22:00)
[2021-04-29] VITALS (37 sets, daily range): BP systolic 93–158; BP diastolic 39–66
[2021-04-29] MEDS: VASOPRESSIN INJ 20 UNITS in NS 499 ML IV SCH (01:30)
[2021-04-29] MEDS: VANCOMYCIN HCL 1,000 MG, VIAL MATE ADAPTER 1 EACH in NS 250 ML IV SCH (02:32)
[2021-04-29] MEDS: PANTOPRAZOLE 40MG VIAL (C9113 PER 1) IV SCH (05:48)
[2021-04-29] MEDS: HumaLOG INSULIN (NovoLOG) PER UNIT SC SCH ×5 (05:51→20:51)
[2021-04-29 06:19] LABS: BASO % 0.6 % (0.0-1.0); EOS # 0.1 10^3/uL (0.0-0.5); EOS % 2.6 % (0.0-3.0); HEMOGLOBIN 8.1 g/dl (13.5-17.5); LYMPH % 19.1 % (24.0-44.0); MEAN CORPUSCULAR HEMOGLOBIN 26.1 pg (27.0-33.0); MEAN CORPUSCULAR VOLUME 87.1 fl (80.0-96.0); MONO # 0.4 10^3/uL (0.0-0.8); MONO % 8.4 % (2.0-8.0); NEUTROPHILS # 3.5 10^3/uL (1.5-8.5); NEUTROPHILS % 68.5 % (36.0-66.0); PLATELET COUNT, AUTOMATED 172 10^3/uL (150-450); WHITE BLOOD COUNT 5.1 10^3/uL (4.0-10.0)
[2021-04-29 06:27] LABS: CALCIUM LEVEL 7.2 MG/DL (8.8-10.2); CREATININE FOR GFR 2.03 MG/DL (0.70-1.30); GLOMERULAR FILTRATION RATE 35.4 (>49); POTASSIUM SERUM 4.6 MEQ/L (3.5-5.1)
[2021-04-29] MEDS: cefTRIAXone SOD 1 GM in D5W MINI-BAG PLUS 50 ML IV SCH (12:18)
[2021-04-29] MEDS: NYSTATIN 100,000 UNITS/GM TOPICAL PWD 15 GM TOP SCH ×2 (12:18→20:52)
[2021-04-29] MEDS: APIXABAN 2.5 MG TAB (ELIQUIS) PO SCH ×2 (12:18→20:51)
[2021-04-29] MEDS ORDERED: FUROSEMIDE 100MG/10ML VIAL (J1940) IV ONE (13:00)
--- NOTE | 2021-04-29 13:09 | IPN ---
NEPHROLOGY PROGRESS NOTE DATE: 04/29/2021 SUBJECTIVE: Patient was seen and examined at the bedside today morning in the intensive care unit (ICU). Yesterday's events were noted. Patient was weaned of vasopressors yesterday. His continuous veno-venous hemodiafiltration (CVVHDF) was stopped late in the evening. Patient is awake and alert. His oral intake is improving. Urine output is still not optimal. He remains oliguric. No improvement in the renal function was noted and I arranged his bedside hemodialysis to be done in the morning. When I examined the patient, patient was getting his hemodialysis done and he was tolerating it well. OBJECTIVE: VITAL SIGNS: Temperature 97.1 degrees Fahrenheit, blood pressure 104/50, pulse 72, respiratory rate 18, saturating 98% on nasal cannula at 2 liters. INTAKE AND OUTPUT: Urine output recorded as 234 mL yesterday, 127 mL so far today since overnight. Weight in the bed scale is 193 kg, which is gradually rising.. PHYSICAL EXAMINATION: GENERAL: Patient is awake, alert, oriented times two, with morbid obesity, laying in bed. HEAD AND NECK EXAM: Extraocular muscles intact. Pupils equally round and reactive to light. Mucous membranes are moist. Neck is supple. He has a right internal jugular (IJ) non-tunneled hemodialysis catheter and left IJ triple lumen catheter. CARDIOVASCULAR: S1, S2. Regular rate. 3+ edema of the bilateral lower extremities. RESPIRATORY: Chest is clear to auscultation bilaterally. Bilateral equal air entry. No rales or rhonchi. ABDOMEN: Soft. Obese. Positive bowel sounds. Nontender. No organomegaly MUSCULOSKELETAL: Patient has multiple ulcers in the bilateral lower extremities. Chronic venous stasis changes of the lower extremities. CENTRAL NERVOUS SYSTEM (CONSTRUCTION SAFETY MANAGER): No focal deficit. Power is 5/5 in all extremities. LABORATORY STUDIES: CBC showed WBC 5.1, hemoglobin 8.1, platelets 172. BMP showed sodium 138, potassium 4.6, chloride 108, bicarbonate 27, BUN 13, creatinine 2, calcium 7.2. CURRENT INPATIENT MEDICATIONS: Patient's medications were all reviewed by myself. He continues to be on intravenous (IV) ceftriaxone. His vancomycin dose is every 12 hours. I am going to change it to every night at bedtime, since he is oliguric and continuous veno-venous hemodiafiltration (CVVHDF) has been stopped. No other significant change in the medications today. ASSESSMENT AND PLAN: 1. Acute oliguric renal failure. Patient was on continuous veno-venous hemodiafiltration (CVVHDF), which has been stopped. I will continue to do bedside intermittent hemodialysis. One session is being done today. 2. Sepsis secondary to bilateral lower extremity ulcers and infection. Patient is on ceftriaxone and vancomycin, as mentioned above. Vancomycin dose will be changed according to his levels. Hemodynamically, he is stable and he is off the pressors. 3. Fluid overload and lower extremity edema. I will try to remove at least 1.5 kg of fluid today and, if needed, he will get another session of dialysis tomorrow or the day after tomorrow. 4. Anemia. Patient is status post 2 units of packed red blood cells (PRBC) transfusion. Hemoglobin is 8.1, which is optimal. Transfuse as needed for hemoglobin below 8. I am going to start him on Aranesp and Venofer with dialysis as well. 5. Atrial fibrillation. Continue Eliquis at this time. Heart rate is within the acceptable range.
--- NOTE | 2021-04-29 20:55 | IPNPDOC ---
Date Seen The patient was seen on 04/29/21. Progress Note SUBJECTIVE: Mr. Blackmon was sitting in bed receiving his first session of bedside hemodialysis when I entered the room. He is in a pleasant mood today and states that he is feels better than he did the day prior. He has had a good appetite and is eating a good majority of his meals. He states he ate chicken last night for dinner and did not experience any nausea, vomiting, or diarrhea. His middleton bag did not have much urine it in this morning as it must have been changed recently. His lower extremities are still causing him discomfort but he states they are not as painful as they were when he first arrived. I told him that we would be consulting PT/OT/PFS today to help assess his mobility and assess his need for home health. He open to PT/OT/and PFS assessing him. He has an oxygen saturation of 98% on 2LNC. OBJECTIVE PHYSICAL EXAMINATION: VITAL SIGNS: Please see below. GENERAL: Morbidly obese male in no acute distress. HEENT: normocephalic, atraumatic, Right IJ dialysis catheter noted, left IJ triple lumen catheter noted, mucous membranes are moist. CARDIOVASCULAR: Irregularly irregular distant heart sounds. Did not appreciate any murmurs. RESPIRATORY: Distant lung sounds, equal inspiratory effort bilaterally, faint crackles in lung bases. ABDOMINAL: Round obese abdomen, soft, nontender to palpation in all four quadrants, unable to assess for organomegaly due to body habitus : Middleton catheter noted, ulcerations and fungal infection on scrotum are improving from days prior EXTREMITIES: venous stasis skin changes appreciated bilaterally, 1+ pitting edema appreciated up to knee, skin is thickened with excoriations and scabs visible. The skin is softening and appears to be healing with wound care. PSYCHOLOGICAL: alert and oriented x 3 LABORATORY DATA, IMAGING STUDIES, MICROBIOLOGY: Please see below. CT abdomen and pelvis with contrast 04/26/2021: IMPRESSION: No acute findings. Distended gallbladder, containing a few small calcified stones (similar appearance in 2015). CT chest without contrast done on 04/26/2021: Impression: No acute findings. CT head without contrast on 04/26/2021: Impression: No acute intracranial pathology. Chest x-ray 04/26/2021: No acute findings. Clear lung walker. Renal ultrasound 04/26/2021: No acute findings. Each kidney is normal in size. No hydronephrosis. Venous u/s lower ext: 04/26/21: no evidence of DVT of bilateral lower extremities. Echocardiogram: results still pending; will look into this further tomorrow. Last echo 12/17/20: Mildly dilated left ventricle with mild eccentric left ventricle hypertrophy. Severe left atrial dilatation. Moderate right ventricle dilatation with normal right ventricular systolic function. Severe right atrial dilatation. DVT prophylaxis ordered?:Yes, continue Eliquis 2.5 mg BID ASSESSMENT AND PLAN: Mr. Blackmon is a 65 year old male with pmhx of hypertension, chronic HFpEF, T2DM, atrial fibrillation, obesity, hyperlipidemia, lower extremity stasis dermatitis who presented to the ED for confusion and "not feeling well", he was found to have electrolyte derangements, an KARMEN, and chronic non healing lower extremity wounds. He was admitted to the ICU for medical management and treatment. PROBLEMS: Anuric renal failure: 2/2 to hypotension vs intrinsic renal injury vs possible CKD -Patient is net negative 152ml and had 1500ml removed during hemodialysis -He produced 682ml of urine -Patient may have another hemodialysis session tomorrow AM to remove more fluid- per Dr. Pichardo -continuing to hold nephrotoxic medications -Nephrology is on board, we appreciate Dr. Pichardo's input on this patient. -BUN, Creatinine, and GFR continue to improve Hypovolemic shock 2/2 to dehydration and possible septic shock -Patient BP is stable -WBC: 5.1 -blood cultures are negative -urine cultures negative Anemia 2/2 likely CKD (anemia of chronic inflammation) vs dilutional anemia vs depressed bone marrow response -Hemoglobin is 8.1 today s/p 2 units of PRBC yesterday -will continue to monitor H/H -FOBT is pending -Reticulocyte count: 1.7 elevated, the absolute reticulocyte count corrected for hemoglobin is 1.1 with a reticulocyte index of 0.73. A reticulocyte index of <2 is indicative of hypoproliferation and an inappropriate bone marrow response. -Iron low 30, TIBC Low 204, Transferrin % saturation Low 14.7 ferritin 73 within normal limits-this is indicative of anemia of chronic inflammation. History of CHF, HFpEF: -Patient appears somewhat fluid overloaded -Echocardiogram ordered, results pending. -Patient is net -152ml today following hemodialysis -1500ml were removed during hemodialysis this morning -patient was given 80mg of lasix following dialysis and produced 682ml of urine today -1+ pitting edema present on bilateral lower extremities Hyperkalemia: -resolved -likely 2/2 to renal failure and build up of blood pressure medications in body -Potassium level was 6.7 at time of admission, today potassium is 4.6 Hypotension -stable currently 112/59 -Echocardiogram-results pending -EKG and repeat troponins negative -AM cortisol levels were 21 which are within normal limits. Atrial fibrillation: -Patient is on xarelto 20mg q hs as an outpatient -continue eliquis 2.5mg BID -Patient will be discharged home on 5mg BID eliquis -Heart rate is 71 Chronic venous stasis ulcers: -Patient will need outpatient wound care services once he is discharged. -Ulcers appear to be healing with some granulation tissue appreciated. -WBC count has decreased today to 5.1 -Wound culture results: Heavy MRSA growth, few serratia marcescens noted -Will continue vancomycin and rocephin -c/w nursing wound care, nystatin power and interdry -duplex venous u/s was negative for DVT Diabetes mellitus type 2: -continue hypoglycemic protocol -continue SSI -Holding metformin at this time Hypertension: -stable at 112/59 -continue to hold blood pressure medications at this time #likely secondary Hyperparathyroidism -likely 2/2 to kidney disease -Calcium 7.2 today PTH 300+ -patient should have workup in outpatient setting Dyslipidemia: -holding simvastatin at this time #DVT prophylaxis: -Continue Eliquis 2.5mg BID -Patient will need to be discharged on 5mg BID DISPOSITION: Patient continues to clinically improve. PFS/PT/OT consulted. PFS anticipates patient will need to be discharged home with services or to rehab. PT/OT attempted to assess patient today but he was getting dialysis and they were unable to. They will return tomorrow morning to assess. We appreciate Dr. Pichardo's input on this patient. GME ATTESTATION My faculty preceptor for this patient encounter was physically present during the encounter and was fully available. All aspects of the patient interview, examination, medical decision making process, and medical care plan development were reviewed and approved by the faculty preceptor. The faculty preceptor is aware and concurs with the plan as stated in the body of this note and will attest to such by his/her cosignature. I, Juaquin Sanchez MD, have independently examined this patient and performed my own physical exam, as well as reviewed the documentation and edited where necessary. I have discussed in detail with the resident / student the findings and plan of treatment as documented by the resident / student and edited their note. I agree with their findings and treatment plan and have edited their documentation. VS, I&O, 24H, Fishbone Vital Signs/I&O Vital Signs Date Time Temp Pulse Resp B/P (MAP) Pulse Ox O2 Delivery O2 Flow Rate FiO2 04/29/21 19:00 67 93/63 (73) 98 Room Air 04/29/21 16:00 97.2 14 04/29/21 13:01 2.0 I&O- Last 24 Hours up to 6 AM 04/29/21 06:00 Intake Total 2204 ml Output Total 199 ml Balance 2005 ml Laboratory Data 24H LABS Laboratory Tests 2 04/29/21 00:10: Bedside Glucose (Misc Panel) 84 04/29/21 05:44: Immature Granulocyte % (Auto) 0.8, Neutrophils (%) (Auto) 68.5H, Lymphocytes (%) (Auto) 19.1L, Monocytes (%) (Auto) 8.4H, Eosinophils (%) (Auto) 2.6, Basophils (%) (Auto) 0.6, Neutrophils # (Auto) 3.5, Lymphocytes # (Auto) 1.0L, Monocytes # (Auto) 0.4, Eosinophils # (Auto) 0.1, Basophils # (Auto) 0.0, Nucleated Red Blood Cells % (auto) 0.0, Anion Gap 4L, Glomerular Filtration Rate 35.4L, Calcium Level 7.2L 04/29/21 05:50: Bedside Glucose (Misc Panel) 75L 04/29/21 12:07: Bedside Glucose (Misc Panel) 99 04/29/21 12:57: Vancomycin Level Trough 22.1H 04/29/21 16:44: Bedside Glucose (Misc Panel) 117H CBC/BMP Laboratory Tests 04/29/21 05:44 Microbiology Microbiology 04/26/21 Gram Stain - Final, Complete 04/26/21 Wound Culture - Final, Complete Staph.aureus Methicillin Resis Serratia Marcescens 04/26/21 Urine Culture - Final, Complete 04/26/21 Blood Culture - Preliminary, Resulted No Growth after 72 hours. All specime... 04/26/21 Blood Culture - Preliminary, Resulted No Growth after 72 hours. All specime... SONU BUENO DO Apr 29, 2021 20:55 JUAQUIN SANCHEZ MD May 10, 2021 14:42
[2021-04-30] VITALS (15 sets, daily range): BP systolic 100–134; BP diastolic 49–63
[2021-04-30 05:13] LABS: BASO % 0.3 % (0.0-1.0); EOS # 0.2 10^3/uL (0.0-0.5); EOS % 2.9 % (0.0-3.0); HEMATOCRIT 25.9 % (42.0-52.0); HEMOGLOBIN 7.9 g/dl (13.5-17.5); LYMPH # 1.3 10^3/uL (1.5-5.0); LYMPH % 21.7 % (24.0-44.0); MEAN CORPUSCULAR HEMOGLOBIN 26.5 pg (27.0-33.0); MEAN CORPUSCULAR HGB CONC 30.5 g/dl (32.0-36.5); MEAN CORPUSCULAR VOLUME 86.9 fl (80.0-96.0); MONO # 0.6 10^3/uL (0.0-0.8); MONO % 9.6 % (2.0-8.0); NEUTROPHILS % 64.9 % (36.0-66.0); PLATELET COUNT, AUTOMATED 153 10^3/uL (150-450); RED BLOOD COUNT 2.98 10^6/uL (4.30-6.10); WHITE BLOOD COUNT 6.2 10^3/uL (4.0-10.0)
[2021-04-30 05:43] LABS: CALCIUM LEVEL 7.5 MG/DL (8.8-10.2); CREATININE FOR GFR 2.34 MG/DL (0.70-1.30); VANCOMYCIN RANDOM 21.5 UG/ML
[2021-04-30] MEDS: PANTOPRAZOLE 40MG VIAL (C9113 PER 1) IV SCH (05:46)
[2021-04-30] MEDS: HumaLOG INSULIN (NovoLOG) PER UNIT SC SCH ×4 (07:07→21:38)
[2021-04-30] MEDS ORDERED: FUROSEMIDE 100MG/10ML VIAL (J1940) IV ONE ×2 (09:00→18:00)
[2021-04-30] MEDS: APIXABAN 2.5 MG TAB (ELIQUIS) PO SCH ×2 (09:40→21:38)
[2021-04-30] MEDS: NYSTATIN 100,000 UNITS/GM TOPICAL PWD 15 GM TOP SCH ×2 (09:41→21:39)
--- NOTE | 2021-04-30 10:28 | IPN ---
NEPHROLOGY PROGRESS NOTE DATE: 04/30/2021 SUBJECTIVE: Patient was seen and examined at the bedside today morning in the intensive care unit (ICU). He was sitting up in the bed. Physical therapy was working with him. He reports that he is feeling better today as compared with yesterday. He was dialyzed yesterday. He tolerated the hemodialysis procedure well and after that, he was given a dose of Lasix as well. With that, he has been making more urine now. OBJECTIVE: VITAL SIGNS: Temperature 98.1 degrees Fahrenheit, blood pressure 134/154, pulse 112, respiratory rate 20, saturating 96% on room air. INTAKE AND OUTPUT: Urine output recorded as 1.1 liters yesterday, 285 mL so far today since overnight. He also got 1.5 liters removed with hemodialysis as well. Weight in the bed scale is 195 kg. PHYSICAL EXAMINATION: GENERAL: Patient is awake, alert, oriented times three, morbidly obese, sitting up in the bed. HEAD AND NECK EXAM: Extraocular muscles intact. Pupils equally round and reactive to light. Mucous membranes are moist. Neck is supple. Right internal jugular (IJ) hemodialysis non-tunneled hemodialysis catheter and left IJ triple lumen catheter is noted. CARDIOVASCULAR: S1, S2. Regular rate. 2+ edema of the bilateral lower extremities. RESPIRATORY: Chest is clear to auscultation bilaterally. Bilateral equal air entry. No rales or rhonchi. ABDOMEN: Soft. Obese. Positive bowel sounds. Nontender. No organomegaly MUSCULOSKELETAL: Chronic venous stasis changes of bilateral lower extremities and chronic ulcers of the lower extremities, but they are healing, as compared with a few days ago. CENTRAL NERVOUS SYSTEM (WILDLIFE OFFICER): No focal deficit. Power is 5/5 in all extremities. LABORATORY STUDIES: CBC showed WBC 6.2, hemoglobin 7.9, platelets 153. BMP showed sodium 138, potassium 4, chloride 104, bicarbonate 27, BUN 15, creatinine 2.3, it was 2 yesterday, calcium 7.5. MICROBIOLOGY: Wound cultures are growing Staphylococcus aureus, methicillin-resistant and Serratia marcescens. CURRENT INPATIENT MEDICATIONS: Patient's medications were all reviewed by myself. He continues to be on intravenous (IV) ceftriaxone. He is not requiring any pressors. Vancomycin is on hold because of high levels. I gave him another dose of 80 mg of IV Lasix today morning and another dose of 60 mg will be given in the evening. No other significant change in the medications as compared with yesterday. ASSESSMENT AND PLAN: 1. Acute renal failure. Patient has nonoliguric renal failure now. He is responding to the diuretics. Last dialysis was done yesterday. His renal function will be evaluated in the morning for any need of dialysis. Otherwise, I would try to continue the diuretics, 80 mg of Lasix in the morning, another 60 mg ordered, as mentioned above. Continue the Loepz catheter at this time for monitoring of intake and output. 2. Anemia. Hemoglobin has dropped to below 8 now. Patient is going to get 1 unit of packed red blood cells (PRBC) transfusion. 3. Leg ulcers and sepsis. Septic shock has resolved now. He has persistent leg ulcers, which are growing two organisms. He is currently on vancomycin and Rocephin, which adequately cover his infection.
--- NOTE | 2021-04-30 11:47 | ECHO ---
ECHOCARDIOGRAM DATE OF PROCEDURE: 04/28/2021 Age: 65 Gender: Male Height: 185 cm Weight: 191 kg REFERRING PHYSICIAN: June Mcclellan M.D. INDICATION: Sepsis. MEASUREMENTS: 2D Measurements: Left atrial volume index 31 Left ventricle diastole 5.75 cm Left ventricle systole 4.1 cm Interventricular septum 0.57 cm Posterior wall 0.67 cm Aortic root 3.3 cm Left atrium 5.5 cm Proximal ascending aorta 2.9 cm Inferior vena cava 3.0 cm with less than 50% respiratory variation Doppler Measurements: No aortic stenosis No aortic regurgitation LVOT velocity 94.6 cm/sec LVOT VTI 25.3 cm Very mild mitral regurgitation Mitral E velocity 124 cm/sec Mitral A velocity 38.3 cm/sec Mitral deceleration time 197 msec Mild tricuspid regurgitation Estimated right ventricle systolic pressure 68-73 mmHg Estimated right atrial pressure 10-15 mmHg No pulmonic regurgitation. MITRAL ANNULAR TISSUE DOPPLER: E prime septal 6.3 cm/sec E prime lateral 11.2 cm/sec DESCRIPTION: Rhythm was sinus. This was a technically difficult echocardiogram. No pericardial effusion. This was a 2D, M-mode, color flow Doppler and pulsed wave Doppler examination and included mitral annular tissue Doppler. CONCLUSIONS: 1. Severe elevation of estimated right ventricle systolic pressure (68-73 mmHg). Estimated right atrial pressure of 10-15 mmHg. Visual assessment of mild right ventricle dilatation with hypertrophy of the right ventricle free wall and normal right ventricular (RV) systolic function. Visual assessment of at least moderate right atrial dilatation. 2. Normal left ventricle size taking into account the patient's body size. Normal left ventricular (LV) wall thickness. Normal regional LV wall motion and wall thickening. Left ventricular ejection fraction (LVEF) 60-65% by visual assessment. Somewhat difficult LV diastolic function assessment, but most likely normal LV diastolic function. 3. Mild left atrial dilatation by left atrial volume index. 4. No obvious vegetations identified. 5. Very mild aortic valve sclerosis of A3-cuspid aortic valve. No aortic regurgitation. 6. No pericardial effusion. 7. Inferior vena cava dilatation. Elevated central venous pressure estimated at 10-15 mmHg. 8. Technically difficult echocardiogram.
[2021-04-30] MEDS: cefTRIAXone SOD 1 GM in D5W MINI-BAG PLUS 50 ML IV SCH (12:52)
--- NOTE | 2021-04-30 15:58 | IPNPDOC ---
Date Seen The patient was seen on 04/30/21. Progress Note SUBJECTIVE: Mr. Blackmon is a 65 year old male with pmhx of hypertension, chronic HFpEF, T2DM, atrial fibrillation, obesity, hyperlipidemia, lower extremity stasis dermatitis who presented to the ED for confusion and "not feeling well", he was found to have electrolyte derangements, an KARMEN, and chronic non healing lower extremity wounds. He was admitted to the ICU for medical management and treatment. Mr. Blackmon is sitting up in a chair to the right of his bed when I walked into the room this AM. He is happy to be out of bed and is looking forward eating breakfast. He states that Dr. Pichardo stopped by to speak with him this morning but he does remember what was said in the conversation. Physical and occupational therapy worked with him today; he states that he felt lightheaded and unsteady on his feet initially upon standing but soon felt comfortable once seated in the chair. He did not have a session of hemodialysis this AM and is producing some urine. There is approx 300ml in the middleton cather bag. OBJECTIVE PHYSICAL EXAMINATION: VITAL SIGNS: Please see below. GENERAL: Morbidly obese male sitting in chair in no acute distress HEENT: Right IJ dialysis catheter and left triple lumen catheter appreciated. sclera are clear, poor dentition, neck is supple, trachea midline, mucous membranes are pink and moist. CARDIOVASCULAR: Unable to appreciate any murmurs. Irregularly irregular rhythm RESPIRATORY: Equal air intake bilaterally, lung sounds are distant, no crackles, rhonchi, or rales appreciated ABDOMINAL: round obese abdomen that is soft and nontender to palpation, bowel sounds are positive : healing scrotal ulcers and fungal infection present, middleton catheter viewed EXTREMITIES: venous stasis skin changes present, 1+ pitting edema appreciated up to knee, skin is thickened with excoriations and scabs visible. The skin is softening and appears to be healing with wound care. Watery brown fluid draining from ulceration on left posterior calf. PSYCHOLOGICAL: appropriate mood LABORATORY DATA, IMAGING STUDIES, MICROBIOLOGY: Please see below. CT abdomen and pelvis with contrast 04/26/2021: IMPRESSION: No acute findings. Distended gallbladder, containing a few small calcified stones (similar appearance in 2015). CT chest without contrast done on 04/26/2021: Impression: No acute findings. CT head without contrast on 04/26/2021: Impression: No acute intracranial pathology. Chest x-ray 04/26/2021: No acute findings. Clear lung walker. Renal ultrasound 04/26/2021: No acute findings. Each kidney is normal in size. No hydronephrosis. Venous u/s lower ext: 04/26/21: no evidence of DVT of bilateral lower extremities. Echocardiogram: Last echo 12/17/20: Mildly dilated left ventricle with mild eccentric left ventricle hypertrophy. Severe left atrial dilatation. Moderate right ventricle dilatation with normal right ventricular systolic function. Severe right atrial dilatation. DVT prophylaxis ordered?: Yes, continue 2.5mg Eliquis BID ASSESSMENT AND PLAN: Mr. Blackmon is a 65 year old male with pmhx of hypertension, chronic HFpEF, T2DM, atrial fibrillation, obesity, hyperlipidemia, lower extremity stasis dermatitis who presented to the ED for confusion and "not feeling well", he was found to have electrolyte derangements, an KARMEN, and chronic non healing lower extremity wounds. He was admitted to the ICU for medical management and treatment. PROBLEMS: Renal failure: 2/2 to hypotension and septic shock -Patient is net negative -1355mg today and is producing urine -Patient given 80mg lasix this AM and 60mg lasix this afternoon -Patient did not have a hemodialysis session today, Dr. Pichardo will decide if patient needs another session tomorrow. -If patient requires additional hemodialysis sessions will schedule permcath placement. -continuing to hold nephrotoxic medications -Creatinine increased today likely 2/2 to lasix Chronic venous stasis ulcers: -r/o DVT with duplex u/s -Ulcers appear to be healing with some granulation tissue appreciated. Two ulcers on lower extremities are weeping brown watery fluid. -WBC is 6.2 today; Will continue vancomycin and rocephin -Wound culture results: Heavy MRSA growth, few serratia marcescens noted -c/w nursing wound care, nystatin power, interdry -will start applying alginate and foam dressings to weeping ulcerations BID as needed. Hypovolemic shock 2/2 to dehydration and possible septic shock -Patient BP is stable -WBC: 6.2 -blood cultures are negative -urine cultures negative Anemia 2/2 likely CKD (anemia of chronic inflammation) and depressed bone marrow response -Hemoglobin is 7.9 -Patient given 1 unit of PRBC today, he has received a total of 3 units of blood -continue to monitor H/H -FOBT is pending -Absolute reticulocyte count corrected for hemoglobin is 1.1 with a reticulocyte index of 0.73. -Reticulocyte index of <2 is indicative of hypoproliferation and an in appropriate bone marrow response. -Iron low: 30, TIBC low: 204, Transferrin % saturation low: 14.7 Ferritin: 73 WNL- indicative of anemia of chronic inflammation. History of CHF, HFpEF: -Patient appears somewhat fluid overloaded -Echocardiogram ordered, results pending. -Patient is net -152ml today following hemodialysis -1500ml were removed during hemodialysis this morning -patient was given 80mg of lasix following dialysis and produced 682ml of urine today -1+ pitting edema present on bilateral lower extremities Hyperkalemia: -resolved; todays level is 4.0 -likely 2/2 to renal failure and build up of blood pressure medications in body Hypotension -stable currently 120/59 -Last echocardiogram results as above -EKG and repeat troponins negative -AM cortisol levels were 21 which are within normal limits. Atrial fibrillation: -Patient is on xarelto 20mg q hs as an outpatient -continue eliquis 2.5mg BID -Patient will be discharged home on 5mg BID eliquis -Heart rate is 77 and stable Diabetes mellitus type 2: -continue hypoglycemic protocol -continue SSI -Holding metformin at this time Hypertension: -stable at 120/59 -continue to hold blood pressure medications at this time #likely secondary Hyperparathyroidism 2/2 to CKD stage 3 or 4 -Calcium 7.5 today PTH 300+ -workup in outpatient setting Dyslipidemia: -holding simvastatin at this time #DVT prophylaxis: -Continue Eliquis 2.5mg BID -If patient requires a permcath will hold 48 hours prior to procedure. -Patient will need to be discharged on 5mg BID DISPOSITION: Patient may require permcath placement if it is decided he needs additional hemodialysis treatments in the weeks to come. Spoke to IR, patient will need to stop Eliquis 48 hours before procedure and be made NPO starting at 00:[address] procedure[address]. Singer is available 05/03/21 or 05/05/21. An ARU admissio screening order was placed today; he will be evaluated on Monday. Patient evaluated by PT/OT this AM, they believe he would benefit from rehab. PFS spoke to who believes patient would benefit more by returning home. Patient has been downgraded to PCU. GME ATTESTATION My faculty preceptor for this patient encounter was physically present during the encounter and was fully available. All aspects of the patient interview, examination, medical decision making process, and medical care plan development were reviewed and approved by the faculty preceptor. The faculty preceptor is aware and concurs with the plan as stated in the body of this note and will attest to such by his/her cosignature. VS, I&O, 24H, Fishbone Vital Signs/I&O Vital Signs Date Time Temp Pulse Resp B/P (MAP) Pulse Ox O2 Delivery O2 Flow Rate FiO2 04/30/21 13:55 97.0 77 16 120/59 98 Room Air 04/29/21 20:00 2.0 I&O- Last 24 Hours up to 6 AM 04/30/21 06:00 Intake Total 2060 ml Output Total 2820 ml Balance -760 ml Laboratory Data 24H LABS Laboratory Tests 2 04/29/21 16:44: Bedside Glucose (Misc Panel) 117H 04/29/21 20:27: Bedside Glucose (Misc Panel) 143H 04/30/21 04:58: Immature Granulocyte % (Auto) 0.6, Neutrophils (%) (Auto) 64.9, Lymphocytes (%) (Auto) 21.7L, Monocytes (%) (Auto) 9.6H, Eosinophils (%) (Auto) 2.9, Basophils (%) (Auto) 0.3, Neutrophils # (Auto) 4.0, Lymphocytes # (Auto) 1.3L, Monocytes # (Auto) 0.6, Eosinophils # (Auto) 0.2, Basophils # (Auto) 0.0, Nucleated Red Blood Cells % (auto) 0.3H, Anion Gap 7L, Glomerular Filtration Rate 30.0L, Calcium Level 7.5L, Random Vancomycin Level 21.5 04/30/21 12:45: Bedside Glucose (Misc Panel) 97 CBC/BMP Laboratory Tests 04/30/21 04:58 Microbiology Microbiology 04/26/21 Gram Stain - Final, Complete 04/26/21 Wound Culture - Final, Complete Staph.aureus Methicillin Resis Serratia Marcescens 04/26/21 Urine Culture - Final, Complete 04/26/21 Blood Culture - Preliminary, Resulted No Growth after 72 hours. All specime... 04/26/21 Blood Culture - Preliminary, Resulted No Growth after 72 hours. All specime... GME ATTESTATION GME ATTESTATION My faculty preceptor for this patient encounter was physically present during the encounter and was fully available. All aspects of the patient interview, examination, medical decision making process, and medical care plan development were reviewed and approved by the faculty preceptor. The faculty preceptor is aware and concurs with the plan as stated in the body of this note and will attest to such by his/her cosignature. ATTENDING NOTE I, Juaquin Sanchez MD, have independently examined this patient and performed my own physical exam, as well as reviewed the documentation and edited where necessary. I have discussed in detail with the resident / student the findings and plan of treatment as documented by the resident / student and edited their note. I agree with their findings and treatment plan and have edited their documentation. SONU BUENO DO Apr 30, 2021 15:58 JUAQUIN SANCHEZ MD May 10, 2021 14:46
[2021-05-01 04:00] VITALS: BP_SYST 113
[2021-05-01 05:54] LABS: BASO % 0.6 % (0.0-1.0); EOS # 0.1 10^3/uL (0.0-0.5); HEMATOCRIT 28.6 % (42.0-52.0); HEMOGLOBIN 8.9 g/dl (13.5-17.5); LYMPH # 1.3 10^3/uL (1.5-5.0); LYMPH % 24.7 % (24.0-44.0); MEAN CORPUSCULAR HEMOGLOBIN 26.4 pg (27.0-33.0); MEAN CORPUSCULAR HGB CONC 31.1 g/dl (32.0-36.5); MEAN CORPUSCULAR VOLUME 84.9 fl (80.0-96.0); MONO # 0.5 10^3/uL (0.0-0.8); MONO % 9.4 % (2.0-8.0); NEUTROPHILS # 3.4 10^3/uL (1.5-8.5); PLATELET COUNT, AUTOMATED 132 10^3/uL (150-450); RED BLOOD COUNT 3.37 10^6/uL (4.30-6.10); WHITE BLOOD COUNT 5.4 10^3/uL (4.0-10.0)
[2021-05-01] MEDS: PANTOPRAZOLE 40MG VIAL (C9113 PER 1) IV SCH (06:25)
[2021-05-01 06:27] LABS: CALCIUM LEVEL 7.6 MG/DL (8.8-10.2); CREATININE FOR GFR 2.64 MG/DL (0.70-1.30); GLOMERULAR FILTRATION RATE 26.1 (>49); POTASSIUM SERUM 3.7 MEQ/L (3.5-5.1); VANCOMYCIN RANDOM 16.5 UG/ML
[2021-05-01] MEDS: HumaLOG INSULIN (NovoLOG) PER UNIT SC SCH ×4 (07:30→21:52)
[2021-05-01 08:00] VITALS: BP 114/60
[2021-05-01] MEDS: NYSTATIN 100,000 UNITS/GM TOPICAL PWD 15 GM TOP SCH ×2 (08:15→21:53)
[2021-05-01] MEDS: APIXABAN 2.5 MG TAB (ELIQUIS) PO SCH ×2 (08:15→21:51)
--- NOTE | 2021-05-01 10:36 | IPNPDOC ---
Text Note Date of Service The patient was seen on 05/01/21. NOTE SUBJECTIVE: -No acute complaints, noted to have some oozing and blood on bedpad. No pain of cecilio bleeding. OBJECTIVE VITAL SIGNS: Please see below. GENERAL: Morbidly obese male sitting on the commode in no acute distress HEENT: Right IJ dialysis catheter and left triple lumen still present. Poor dentition, mucous membranes are moist. CARDIOVASCULAR: Irregularly irregular rhythm, distant sounds, no noted murmurs RESPIRATORY: Distant sounds, no noted crackles, rhonchi, wheezing appreciated ABDOMINAL: Normoactive sounds, obese abdomen, soft and nontender to palpation : Scrotal ulcers and intertriginous erythema present SKIN: Has 4 stage 2 pressure ulcers noted on buttock area EXTREMITIES: venous stasis skin changes present, 1+ pitting edema appreciated up to knee, skin is thickened with excoriations and scabs visible. Brownish fluid draining from ulceration on left posterior calf, in bilateral LE bandaging PSYCHOLOGICAL: AOx3 LABORATORY DATA: Reviewed CT abdomen and pelvis with contrast 04/26/2021: IMPRESSION: No acute findings. Distended gallbladder, containing a few small calcified stones (similar appearance in 2015). CT chest without contrast done on 04/26/2021: Impression: No acute findings. CT head without contrast on 04/26/2021: Impression: No acute intracranial pathology. Chest x-ray 04/26/2021: No acute findings. Clear lung walker. Renal ultrasound 04/26/2021: No acute findings. Each kidney is normal in size. No hydronephrosis. Venous u/s lower ext: 04/26/21: no evidence of DVT of bilateral lower extremities. Echocardiogram: Last echo 12/17/20: Mildly dilated left ventricle with mild eccentric left ventricle hypertrophy. Severe left atrial dilatation. Moderate right ventricle dilatation with normal right ventricular systolic function. Severe right atrial dilatation. DVT prophylaxis ordered?: Yes, continue 2.5mg Eliquis BID ASSESSMENT AND PLAN: Mr. Blackmon is a 65 year old male with pmhx of hypertension, chronic HFpEF, T2DM, atrial fibrillation, obesity, hyperlipidemia, lower extremity stasis dermatitis who presented to the ED for confusion and "not feeling well", he was found to have electrolyte derangements, an KARMEN, and chronic non healing lower extremity wounds. He was admitted to the ICU for medical management and treatment. PROBLEMS: Renal failure: 2/2 to hypotension and septic shock -Hemodialysis per nephrology as well as diuresis per nephrology. -Holding nephrotoxic medications Chronic venous stasis ulcers: -Healing ulcers with some granulation tissue appreciated. -Continue vancomycin and rocephin -Wound culture results: Heavy MRSA growth, few serratia marcescens noted -c/w nursing wound care, nystatin power, interdry -Applying alginate and foam dressings to weeping ulcerations BID as needed. Hypovolemic shock 2/2 to dehydration, also with infected wounds: Resolved -blood cultures were negative -urine cultures were negative Anemia 2/2 likely CKD (anemia of chronic inflammation) and depressed bone marrow response -Hemoglobin is 7.9 -Patient given 1 unit of PRBC today, he has received a total of 3 units of blood -continue to monitor H/H -FOBT is pending -Absolute reticulocyte count corrected for hemoglobin is 1.1 with a reticulocyte index of 0.73. -Reticulocyte index of <2 is indicative of hypoproliferation and an inappropriate bone marrow response. -Iron low: 30, TIBC low: 204, Transferrin % saturation low: 14.7 Ferritin: 73 WNL- indicative of anemia of chronic inflammation. HFpEF exacerbation: -Patient appears somewhat fluid overloaded -Echocardiogram ordered, results pending. Volume management being managed by nephrology with diuresis and recently HD Hyperkalemia: -resolved -likely 2/2 to renal failure Atrial fibrillation: -Patient is on xarelto 20mg q hs as an outpatient -continue eliquis 2.5mg BID -Patient will be discharged home on 5mg BID eliquis Diabetes mellitus type 2: -continue hypoglycemic protocol -continue SSI -Holding metformin at this time Hypertension: -continue to hold blood pressure medications at this time #likely secondary Hyperparathyroidism 2/2 to CKD stage 3 or 4 -workup in outpatient setting Dyslipidemia: -continue simvastatin at this time #DVT prophylaxis: -Continue Eliquis 2.5mg BID -If patient requires a permcath will hold 48 hours prior to procedure. -Patient will need to be discharged on 5mg BID VS,Fishbone, I+O VS, Fishbone, I+O Laboratory Tests 05/01/21 05:43 Vital Signs Date Time Temp Pulse Resp B/P (MAP) Pulse Ox O2 Delivery O2 Flow Rate FiO2 05/01/21 08:00 98.4 74 14 114/60 (78) 95 Room Air 04/29/21 20:00 2.0 I&O- Last 24 Hours up to 6 AM 05/01/21 06:00 Intake Total 1240 ml Output Total 5750 ml Balance -4510 ml MONAE BLACKBURN MD May 01, 2021 10:36
[2021-05-01] MEDS: VANCOMYCIN HCL 1,000 MG, VIAL MATE ADAPTER 1 EACH in NS 250 ML IV SCH (11:48)
[2021-05-01 12:00] VITALS: BP 114/66
[2021-05-01] MEDS: cefTRIAXone SOD 1 GM in D5W MINI-BAG PLUS 50 ML IV SCH (13:11)
--- NOTE | 2021-05-01 15:47 | IPN ---
NEPHROLOGY PROGRESS NOTE DATE: 05/01/2021 SUBJECTIVE: The patient was seen and examined this morning at the bedside. He has no complaints, no shortness of breath, no nausea, vomiting or chest pain. He has had excellent urine output, more than 4 liters yesterday, and I discussed with him regarding removing the dialysis catheter, as I am hopeful that he would not need further dialysis treatments. OBJECTIVE: PHYSICAL EXAMINATION: VITAL SIGNS: Temperature 96.8, pulse 74, respiratory rate 16, blood pressure 114/66, saturating 97% on room air. INTAKE AND OUTPUT: Intake yesterday was 1,240. Urine output yesterday was 4,135, net negative 2,900. Weight in the bed scale today is 189.8 kg. GENERAL APPEARANCE: The patient is seen lying in bed fairly flat in the bed, morbidly obese male, awake, alert and in no distress. There is a right IJ dialysis catheter. HEART: Irregularly irregular and distant. There are chronic venous stasis changes of the legs and chronic edema of the legs. LUNGS: Anterior auscultation only, diminished and distant breath sounds secondary to body habitus. No crackles or rales. He is comfortable on room air. ABDOMEN: Obese, soft and nontender. GENITOURINARY: Indwelling Lopez catheter. EXTREMITIES: Chronic venous stasis changes in the legs and dressings on the legs. SKIN: Thickened with chronic excoriations as well. NEUROLOGICAL: He is awake, alert, oriented x3, interactive and conversational. LABORATORY STUDIES: White count 5.4, hemoglobin 8.9, platelet count 132. Sodium 139, potassium 3.7, bicarbonate 27, BUN 23, creatinine 2.6, glucose 95. CURRENT INPATIENT MEDICATIONS: The patient's medications were reviewed by myself. He continues on IV Ceftriaxone and IV Vancomycin. He is on Tylenol, Eliquis 2.5 mg p.o. twice daily, insulin sliding scale, Protonix and Simvastatin. PROBLEMS: 1. Non oliguric acute kidney injury in the setting of recent septic shock - The patient was initially on CRRT. He then improved and was switched over to hemodialysis. He had one hemodialysis treatment on , April 29. He subsequently became diuretic responsive and had more than 4 liters urine output yesterday after a dose of Lasix. His creatinine is still rising on the labs, but I am hopeful that he may not require further dialysis. We can remove the dialysis catheter at this point. 2. Anemia with iron deficiency he did not receive IV iron because of recent sepsis. He did get transfused a total of 3 units of packed red blood cells. His hemoglobin is 8.9 on the latest labs. Would transfuse for hemoglobin less than 8 and we will arrange for correction of his iron deficiency after all the infectious issues have resolved. 3. Atrial fibrillation he is presently receiving Eliquis, low dose, 2.5 mg p.o. twice daily. I do note that his platelet counts have been downtrending since admission, 389 on admission, and down to 132 today. Defer management of anticoagulation to the Primary Service. 4. Diastolic congestive heart failure - The patient is diuresing satisfactorily at this time. He will be given IV Lasix on an as-needed basis. He is net negative 3 liters in the past 24 hours and daily weights are now downtrending.
[2021-05-01 16:00] VITALS: BP 133/66
[2021-05-01 20:00] VITALS: BP 126/58
[2021-05-02] VITALS: BP 139/61
[2021-05-02 04:00] VITALS: BP 123/58
[2021-05-02 05:09] LABS: BASO # 0.1 10^3/uL (0.0-0.2); BASO % 0.6 % (0.0-1.0); EOS # 0.2 10^3/uL (0.0-0.5); EOS % 2.3 % (0.0-3.0); HEMATOCRIT 29.5 % (42.0-52.0); HEMOGLOBIN 9.3 g/dl (13.5-17.5); LYMPH # 1.3 10^3/uL (1.5-5.0); LYMPH % 16.3 % (24.0-44.0); MEAN CORPUSCULAR HEMOGLOBIN 26.6 pg (27.0-33.0); MEAN CORPUSCULAR HGB CONC 31.5 g/dl (32.0-36.5); MEAN CORPUSCULAR VOLUME 84.3 fl (80.0-96.0); MONO # 0.7 10^3/uL (0.0-0.8); NEUTROPHILS # 5.7 10^3/uL (1.5-8.5); NEUTROPHILS % 70.7 % (36.0-66.0); PLATELET COUNT, AUTOMATED 141 10^3/uL (150-450)
[2021-05-02 05:40] LABS: CALCIUM LEVEL 7.4 MG/DL (8.8-10.2); CREATININE FOR GFR 2.64 MG/DL (0.70-1.30); GLOMERULAR FILTRATION RATE 26.1 (>49); POTASSIUM SERUM 3.5 MEQ/L (3.5-5.1); VANCOMYCIN RANDOM 19.1 UG/ML
[2021-05-02] MEDS: PANTOPRAZOLE 40MG VIAL (C9113 PER 1) IV SCH (05:59)
[2021-05-02] MEDS: NYSTATIN 100,000 UNITS/GM TOPICAL PWD 15 GM TOP SCH ×2 (08:18→22:03)
[2021-05-02] MEDS: APIXABAN 2.5 MG TAB (ELIQUIS) PO SCH ×2 (08:18→22:02)
[2021-05-02] MEDS: HumaLOG INSULIN (NovoLOG) PER UNIT SC SCH ×4 (08:18→22:08)
[2021-05-02] MEDS: SIMVASTATIN 40 MG TAB PO SCH (08:18)
[2021-05-02 08:26] VITALS: BP 136/59
[2021-05-02] MEDS: VANCOMYCIN HCL 1,000 MG, VIAL MATE ADAPTER 1 EACH in NS 250 ML IV SCH (11:24)
[2021-05-02 11:57] VITALS: BP 130/60
[2021-05-02] MEDS: cefTRIAXone SOD 1 GM in D5W MINI-BAG PLUS 50 ML IV SCH (12:39)
--- NOTE | 2021-05-02 14:16 | IPNPDOC ---
Text Note Date of Service The patient was seen on 05/02/21. NOTE SUBJECTIVE: -No acute complaints. -Per nephrology will not require further dialysis at this time, I am pulling his Jono catheter this morning. OBJECTIVE VITAL SIGNS: Please see below. GENERAL: Morbidly obese male sitting on the commode in no acute distress HEENT: Right IJ dialysis catheter and left triple lumen still present. Poor dentition, mucous membranes are moist. CARDIOVASCULAR: Irregularly irregular rhythm, distant sounds, no noted murmurs RESPIRATORY: Distant sounds, no noted crackles, rhonchi, wheezing appreciated ABDOMINAL: Normoactive sounds, obese abdomen, soft and nontender to palpation : Scrotal ulcers and intertriginous erythema present SKIN: Has 4 stage 2 pressure ulcers noted on buttock area EXTREMITIES: venous stasis skin changes present, 1+ pitting edema appreciated up to knee, skin is thickened with excoriations and scabs visible. Brownish fluid draining from ulceration on left posterior calf, in bilateral LE bandaging PSYCHOLOGICAL: AOx3 LABORATORY DATA: Reviewed, stable CT abdomen and pelvis with contrast 04/26/2021: IMPRESSION: No acute findings. Distended gallbladder, containing a few small calcified stones (similar appearance in 2015). CT chest without contrast done on 04/26/2021: Impression: No acute findings. CT head without contrast on 04/26/2021: Impression: No acute intracranial pathology. Chest x-ray 04/26/2021: No acute findings. Clear lung walker. Renal ultrasound 04/26/2021: No acute findings. Each kidney is normal in size. No hydronephrosis. Venous u/s lower ext: 04/26/21: no evidence of DVT of bilateral lower extremities. Echocardiogram: Last echo 12/17/20: Mildly dilated left ventricle with mild eccentric left ventricle hypertrophy. Severe left atrial dilatation. Moderate right ventricle dilatation with normal right ventricular systolic function. Severe right atrial dilatation. DVT prophylaxis ordered?: Yes, continue 2.5mg Eliquis BID ASSESSMENT AND PLAN: Mr. Blackmon is a 65 year old male with pmhx of hypertension, chronic HFpEF, T2DM, atrial fibrillation, obesity, hyperlipidemia, lower extremity stasis dermatitis who presented to the ED for confusion and "not feeling well", he was found to have electrolyte derangements, an KARMEN, and chronic non healing lower extremity wounds. He was admitted to the ICU for medical management and treatment. PROBLEMS: Renal failure: 2/2 to hypotension and septic shock -s/p HD per nephrology, and will not not requiring further HD so I pulled the temporary dialysis catheter this morning per Dr. Dang Toro. -With ongoing diuresis per nephrology. -Holding nephrotoxic medications Chronic venous stasis ulcers with infection: -Healing ulcers with some granulation tissue appreciated. -Continue vancomycin and rocephin -Wound culture results: Heavy MRSA growth, few serratia marcescens noted -c/w nursing wound care, nystatin power, interdry -Applying alginate and foam dressings to weeping ulcerations BID as needed. Hypovolemic shock 2/2 to dehydration, also with infected wounds: Resolved -blood cultures were negative -urine cultures were negative Anemia 2/2 likely CKD (anemia of chronic inflammation) and depressed bone marrow response -Hemoglobin is 7.9 -Patient given 1 unit of PRBC today, he has received a total of 3 units of blood -continue to monitor H/H -f/u FOBT -Absolute reticulocyte count corrected for hemoglobin is 1.1 with a reticulocyte index of 0.73. -Reticulocyte index of <2 is indicative of hypoproliferation and an inap propriate bone marrow response. -Iron low: 30, TIBC low: 204, Transferrin % saturation low: 14.7 Ferritin: 73 WNL- indicative of anemia of chronic inflammation. HFpEF exacerbation: -Patient appears somewhat fluid overloaded -Echocardiogram ordered, results pending. Volume management being managed by nephrology with diuresis and recently HD Hyperkalemia: -resolved -likely 2/2 to renal failure Atrial fibrillation: -Patient is on xarelto 20mg q hs as an outpatient -continue eliquis 2.5mg BID -Patient will be discharged home on 5mg BID eliquis Diabetes mellitus type 2: -continue hypoglycemic protocol -continue SSI -Holding metformin at this time Hypertension: -continue to hold blood pressure medications at this time #likely secondary Hyperparathyroidism 2/2 to CKD stage 3 or 4 -workup in outpatient setting Dyslipidemia: -continue simvastatin at this time #DVT prophylaxis: -Continue Eliquis 2.5mg BID -If patient requires a permcath will hold 48 hours prior to procedure. -Patient will need to be discharged on 5mg BID VS,Fishbone, I+O VS, Fishbone, I+O Laboratory Tests 05/02/21 04:42 Vital Signs Date Time Temp Pulse Resp B/P (MAP) Pulse Ox O2 Delivery O2 Flow Rate FiO2 05/02/21 08:26 98.9 65 18 136/59 (84) 94 Room Air 04/29/21 20:00 2.0 I&O- Last 24 Hours up to 6 AM 05/02/21 06:00 Intake Total 1300 ml Output Total 2225 ml Balance -925 ml MONAE BLACKBURN MD May 02, 2021 08:34
[2021-05-02 16:02] VITALS: BP 131/60
[2021-05-02] MEDS ORDERED: POTASSIUM CHLORIDE 10 MEQ SR TABLET PO ONE (17:30)
[2021-05-02 20:00] VITALS: BP 121/58
--- NOTE | 2021-05-02 21:50 | IPN ---
PROGRESS NOTE DATE: 05/02/2021 SUBJECTIVE: Mr. Blackmon is seen and examined this morning at the bedside with his present. He denies any complaints. No shortness of breath. No nausea, vomiting, diarrhea. His renal function is improving. His creatinine has now plateaued. His dialysis catheter was removed yesterday. He has no complaints. His inquires about discharge planning. Mr. Blackmon tells me he has not been out of bed since his hospitalization. PHYSICAL EXAMINATION: VITAL SIGNS: Temperature 97.5, pulse 78, respiratory rate 16, blood pressure 123/58, saturating 93% on room air. INTAKE/OUTPUT: Intake yesterday was 1420. Urine output yesterday was 3.2 liters. Net negative 1.7 liters. Weight in the bed scale today is 188.5 kg. GENERAL: Patient is seen lying in bed, morbidly obese male, awake, alert, oriented and in no distress. HEENT: Neck shows dressings bilaterally. He no longer has any central lines. His tongue is moist. His jugular veins are not elevated. HEART: Heart sounds are irregularly irregular. There are chronic venous stasis changes in the lower extremities and 1+ pitting edema in the lower extremities. There are dressings on the lower extremities present as well. LUNGS: Anterior auscultation only. Diminished breath sounds secondary to morbid obesity and body habitus, but no crackle or rale. ABDOMEN: Obese and nontender. There are bowel sounds. GENITOURINARY: Shows indwelling Lopez catheter draining clear yellow urine. NEUROLOGIC: He is awake, alert and oriented and cooperative with physical exam, and answers questions appropriately. LABORATORY STUDIES: Labs today show: Sodium 139, potassium 3.5, bicarbonate 27, BUN 27, creatinine 2.6; creatinine was also 2.6 yesterday, glucose 118. Hemoglobin 9.3, platelets 141,000. INPATIENT MEDICATIONS: I ordered a dose of potassium chloride 40 mEq p.o. x1. He continues on I.V. Ceftriaxone and I.V. Vancomycin managed by the primary service. The remainder of his medications are all unchanged as compared to yesterday. PROBLEMS: 1. Nonoliguric acute kidney injury in the setting of recent septic shock: Patient is now in renal recovery. His dialysis catheter was removed yesterday. His creatinine has plateaued, it was 2.6 yesterday and 2.6 again today. He is having excellent urine output and has not received any diuretic in the past 24 hours. I expect to see further improvement in serum creatinine tomorrow. He is unlikely to require further dialysis at this point. 2. Hypokalemia: Oral potassium supplementation is ordered. I am stopping the renal diet and switching him over to a low fat diet. 3. Anemia with iron deficiency: Patient has been transfused a total of 3 units of packed red blood cells on this admission. His hemoglobin is up to 9.3 on the latest labs. His transferrin saturation was only 14% with an iron level of 30. We will arrange for iron infusion after all the infectious issues have resolved. 4. Diastolic congestive heart failure: Patient is diuresing satisfactorily at this time. He is in renal recovery. He does not need any further I.V. Lasix at present. He is in daily net negative fluid balance the past three days and his weights are down trending.
[2021-05-03] VITALS: BP 124/59
[2021-05-03] MEDS: PANTOPRAZOLE 40MG VIAL (C9113 PER 1) IV SCH (06:00)
[2021-05-03 07:41] VITALS: BP 127/62
[2021-05-03 08:41] LABS: BASO % 0.4 % (0.0-1.0); EOS # 0.4 10^3/uL (0.0-0.5); EOS % 5.1 % (0.0-3.0); HEMATOCRIT 31.4 % (42.0-52.0); HEMOGLOBIN 9.3 g/dl (13.5-17.5); LYMPH % 14.2 % (24.0-44.0); MEAN CORPUSCULAR HEMOGLOBIN 26.1 pg (27.0-33.0); MEAN CORPUSCULAR HGB CONC 29.6 g/dl (32.0-36.5); MONO # 0.5 10^3/uL (0.0-0.8); MONO % 7.3 % (2.0-8.0); NEUTROPHILS # 5.1 10^3/uL (1.5-8.5); PLATELET COUNT, AUTOMATED 127 10^3/uL (150-450); RED BLOOD COUNT 3.57 10^6/uL (4.30-6.10); WHITE BLOOD COUNT 7.1 10^3/uL (4.0-10.0)
[2021-05-03 09:01] LABS: CREATININE FOR GFR 2.27 MG/DL (0.70-1.30); GLOMERULAR FILTRATION RATE 31.1 (>49); POTASSIUM SERUM 3.7 MEQ/L (3.5-5.1); VANCOMYCIN RANDOM 21.2 UG/ML
[2021-05-03] MEDS: SIMVASTATIN 40 MG TAB PO SCH (09:31)
[2021-05-03] MEDS: APIXABAN 2.5 MG TAB (ELIQUIS) PO SCH ×2 (09:31→20:29)
[2021-05-03] MEDS: NYSTATIN 100,000 UNITS/GM TOPICAL PWD 15 GM TOP SCH ×2 (09:31→20:29)
[2021-05-03] MEDS: HumaLOG INSULIN (NovoLOG) PER UNIT SC SCH ×4 (09:32→21:00)
[2021-05-03] MEDS: VANCOMYCIN HCL 750 MG, VIAL MATE ADAPTER 1 EACH in NS 250 ML IV SCH (11:15)
[2021-05-03 11:58] VITALS: BP 12/65
--- NOTE | 2021-05-03 13:05 | IPN ---
PROGRESS NOTE DATE: 05/03/2021 SUBJECTIVE: Mr. Blackmon is seen and examined this morning at the bedside. He offers no complaints. He continues to have good urine output and is in renal recovery. His serum creatinine is downtrending. He offers no complaints. No nausea, vomiting or diarrhea. No shortness of breath. He got out of bed today with the assistance of the physical therapist and sat in the chair. OBJECTIVE: VITAL SIGNS: Temperature is 97.8, pulse is 73, respiratory rate is 20, blood pressure is 127/62, saturating 98% on room air. INTAKE AND OUTPUT: Intake yesterday was 1.2 liters. Urine output was 2.7 liters. Net negative 1.5 liters. Weight on the bed scale today is 189 kg. GENERAL: Patient is seeing lying in bed morbidly obese, awake, alert, oriented and in no distress. HEENT: Extraocular muscles are intact. Tongue is moist. There are dressings on the bilateral neck where his central lines previously were. HEART: Heart sounds are irregularly irregular. EXTREMITIES: There are chronic venous stasis changes in the lower extremities and chronic 1+ edema in the lower extremities. There are dressings as well. LUNGS: Anterior auscultation only, diminished breath sounds secondary to morbid obesity and body habitus but no crackle or rale. He is comfortable on room air. ABDOMEN: Obese, soft and nontender. There are bowel sounds. GENITOURINARY: Indwelling Lopez catheter draining clear yellow urine. NEUROLOGIC: He is oriented and conversational and cooperative with physical exam. LABORATORY DATA: Today's laboratory studies shows a sodium of 141, potassium of 3.7, bicarbonate 28, BUN 26, creatinine 2.2, magnesium 1.8, hemoglobin 9.3, platelets are 127,000. INPATIENT MEDICATIONS: Reviewed by myself. His Vancomycin dose was adjusted. His remainder of medications are unchanged as compared to yesterday. PROBLEMS: 1. Nonoliguric acute kidney injury in the setting of recent septic shock. Patient is now in renal recovery. Dialysis catheter was removed over the weekend. His creatinine is now downtrending. He is having adequate urine output. He has not received any diuretic the past 48 hours. I expect that he should continue to have daily improvement in his renal parameters. There is no need for any IV fluid. 2. Anemia with iron deficiency. He was transfused a total of 3 units of packed red blood cells on this admission. His transferrin saturation was 14% with iron level of 30. I will give him Venofer. 3. Diastolic congestive heart failure. The patient has been in daily net negative fluid balance the past four days. Diuretics will be resumed when indicated. At home, he takes both Lasix and Hydrochlorothiazide. 4. Hypertension. Status post recent septic shock, all of his home antihypertensives remain on hold (he was taking Ramipril, Lasix and Hydrochlorothiazide at home).
[2021-05-03] MEDS: cefTRIAXone SOD 1 GM in D5W MINI-BAG PLUS 50 ML IV SCH (13:24)
--- NOTE | 2021-05-03 13:42 | IPNPDOC ---
Text Note Date of Service The patient was seen on 05/03/21. NOTE SUBJECTIVE: -No acute complaints. -Per nephrology will not require further IV diuretics at this time OBJECTIVE VITAL SIGNS: Please see below. GENERAL: Morbidly obese male sitting on the commode in no acute distress HEENT: Poor dentition, mucous membranes are moist. CARDIOVASCULAR: Irregularly irregular rhythm, distant sounds, no noted murmurs RESPIRATORY: Distant sounds, no noted crackles, rhonchi, wheezing appreciated ABDOMINAL: Normoactive sounds, obese abdomen, soft and nontender to palpation : Scrotal ulcers and intertriginous erythema present SKIN: Has 4 stage 2 pressure ulcers noted on buttock area EXTREMITIES: venous stasis skin changes present, 1+ pitting edema appreciated up to knee, skin is thickened with excoriations and scabs visible. In bilateral LE bandaging PSYCHOLOGICAL: AOx3 LABORATORY DATA: Reviewed CT abdomen and pelvis with contrast 04/26/2021: IMPRESSION: No acute findings. Distended gallbladder, containing a few small calcified stones (similar appearance in 2015). CT chest without contrast done on 04/26/2021: Impression: No acute findings. CT head without contrast on 04/26/2021: Impression: No acute intracranial pathology. Chest x-ray 04/26/2021: No acute findings. Clear lung walker. Renal ultrasound 04/26/2021: No acute findings. Each kidney is normal in size. No hydronephrosis. Venous u/s lower ext: 04/26/21: no evidence of DVT of bilateral lower extremities. Echocardiogram: Last echo 12/17/20: Mildly dilated left ventricle with mild eccentric left ventricle hypertrophy. Severe left atrial dilatation. Moderate right ventricle dilatation with normal right ventricular systolic function. Severe right atrial dilatation. DVT prophylaxis ordered?: Yes, continue 2.5mg Eliquis BID ASSESSMENT: 65 year old M with pmhx of hypertension, chronic HFpEF, T2DM, atrial fibrillation, obesity, hyperlipidemia, lower extremity stasis dermatitis who presented to the ED for confusion and "not feeling well", he was found to have e lectrolyte derangements, an KRAMEN, and chronic non healing lower extremity wounds. He was admitted to the ICU for medical management and treatment. PROBLEMS: Renal failure: 2/2 to hypotension w/ hypovolemic shock vs. septic -s/p HD per nephrology, and will not require IV diuretics at this time. Imagine will be restored back on his PO diuretic regimen per nephrology. -Holding nephrotoxic medications Chronic venous stasis ulcers with suspected infection: -Healing ulcers with some granulation tissue appreciated. -Will continue vancomycin and rocephin, day 5 of 7 -Wound culture results: Heavy MRSA growth, few serratia marcescens noted -c/w nursing wound care, nystatin power, interdry -Applying alginate and foam dressings to weeping ulcerations BID as needed. Hypovolemic shock 2/2 to dehydration, also with infected wounds: Resolved -blood cultures were negative -urine cultures were negative -s/p hydration Anemia 2/2 likely CKD (anemia of chronic inflammation) and depressed bone marrow response -Patient given 1 unit of PRBC, he has received a total of 3 units of blood -continue to monitor H/H -Absolute reticulocyte count corrected for hemoglobin is 1.1 with a reticulocyte index of 0.73. -Reticulocyte index of <2 is indicative of hypoproliferation and an inappropriate bone marrow response. -Iron low: 30, TIBC low: 204, Transferrin % saturation low: 14.7 Ferritin: 73 WNL- indicative of anemia of chronic inflammation. HFpEF exacerbation: -Echocardiogram ordered, results pending. 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
[2021-05-03 16:00] VITALS: BP 142/84
[2021-05-03 20:00] VITALS: BP 124/59
[2021-05-04] VITALS (7 sets, daily range): BP systolic 110–128; BP diastolic 58–67
[2021-05-04] MEDS ORDERED: ATROPINE SULF 1MG/10ML SYRINGE (J0461) IV PRN (01:50)
[2021-05-04 05:45] LABS: HEMATOCRIT 30.7 % (42.0-52.0); HEMOGLOBIN 9.1 g/dl (13.5-17.5); MEAN CORPUSCULAR HEMOGLOBIN 26.1 pg (27.0-33.0); MEAN CORPUSCULAR HGB CONC 29.6 g/dl (32.0-36.5); PLATELET COUNT, AUTOMATED 120 10^3/uL (150-450); RED BLOOD COUNT 3.49 10^6/uL (4.30-6.10); WHITE BLOOD COUNT 6.6 10^3/uL (4.0-10.0)
[2021-05-04] MEDS: PANTOPRAZOLE 40MG VIAL (C9113 PER 1) IV SCH (05:52)
[2021-05-04 06:03] LABS: CALCIUM LEVEL 8.1 MG/DL (8.8-10.2); CREATININE FOR GFR 1.8 MG/DL (0.70-1.30); GLOMERULAR FILTRATION RATE 40.6 (>49); MAGNESIUM LEVEL 1.8 MG/DL (1.8-2.4); POTASSIUM SERUM 3.6 MEQ/L (3.5-5.1)
[2021-05-04] MEDS: HumaLOG INSULIN (NovoLOG) PER UNIT SC SCH ×4 (07:30→20:22)
[2021-05-04] MEDS ORDERED: CALCIUM/VITAMIN D 500 MG TAB PO SCH (09:00)
[2021-05-04] MEDS: SIMVASTATIN 40 MG TAB PO SCH (09:25)
[2021-05-04] MEDS: APIXABAN 2.5 MG TAB (ELIQUIS) PO SCH ×2 (09:25→20:22)
[2021-05-04] MEDS: NYSTATIN 100,000 UNITS/GM TOPICAL PWD 15 GM TOP SCH ×2 (09:26→20:22)
[2021-05-04 11:00] LABS: VANCOMYCIN LEVEL TROUGH 17.7 UG/ML (10.0-20.0)
[2021-05-04] MEDS ORDERED: IRON SUCROSE 100MG 5ML VIAL (J1756 PER 1MG) IV ONE (11:05)
[2021-05-04] MEDS ORDERED: POTASSIUM CHLORIDE 10 MEQ SR TABLET PO ONE (11:15)
[2021-05-04 11:36] LABS: TOTAL 25(OH) VITAMIN D 5.6 NG/ML (30.0-100.0)
[2021-05-04] MEDS: VANCOMYCIN HCL 750 MG, VIAL MATE ADAPTER 1 EACH in NS 250 ML IV SCH (11:36)
[2021-05-04] MEDS: TORSEMIDE 20 MG TAB PO SCH (11:50)
[2021-05-04] MEDS ORDERED: IRON SUCROSE 25 MG in NS 23.75 ML IV ONE (13:00)
[2021-05-04] MEDS: cefTRIAXone SOD 1 GM in D5W MINI-BAG PLUS 50 ML IV SCH (13:06)
--- NOTE | 2021-05-04 13:43 | IPNPDOC ---
Subjective Date Seen The patient was seen on 05/04/21. Subjective Chief Complaint/HPI Patient was examined sitting up in the chair. He did not have any complaints this morning reports that he has been slowly feeling better. Both of his legs are bandaged and dressing change daily. No fever or chills. Telemetry from 05/04/2021 showed profound bradycardia up to the lowest of 25 during sleep with the pause of a maximum of 4.8 second during sleep. When awake he is bradycardic 50s sometimes but mostly he is in 70s and when he is moving around he has a rate of around 80 to 90. He is asymptomatic. Objective Physical Examination General Exam: Positive: Alert, Cooperative, No Acute Distress, Other (Morbidly obese) Eye Exam: Positive: PERRLA, Conjunctiva & lids normal, EOMI; Negative: Sclera icteric ENT Exam: Positive: Atraumatic, Mucous membr. moist/pink, Pharynx Normal Neck Exam: Positive: Supple; Negative: JVD, thyromegaly Chest Exam: Positive: Normal air movement, Diminished (Diffusely); Negative: Rales, Rhonchi, Wheezing Heart Exam: Positive: Rate Normal, Irregular Rhythm, Normal S1, Normal S2; Negative: Murmurs, Rubs Telemetry: Positive: Atrial fibrillation, Bradycardia, Pause Abdomen Exam: Positive: Normal bowel sounds, Soft, Other (Severe obesity so no organomegaly could be appreciated); Negative: Tenderness Extremity Exam: Positive: Edema, Other (Varicose veins); Negative: Clubbing, Cyanosis Skin Exam: Positive: Breakdown (In both the legs) Psych Exam: Positive: Memory Intact, Oriented x 3 Assessment /Plan Assessment 65 year old M with pmhx of morbid obesity, hypertension, chronic HFpEF, T2DM, atrial fibrillation, hyperlipidemia, lower extremity stasis dermatitis who presented to the ED for confusion and "not feeling well", he was found to have electrolyte derangements, an KARMEN, and chronic non healing lower extremity wounds. He was admitted for oliguric acute renal failure, shock (hypovolemic and septic), metabolic encephalopathy. He was also noted to have severe bradycardia during sleep in 20s and 30s. Acute renal failure requiring hemodialysis: 2/2 to hypovolemic shock and septic shock Now renal function is recovering and patient is off dialysis Septic shock Resolved Source is from skin infection Continue Vanco and ceftriaxone Hypovolemic shock 2/2 to dehydration, also with infected wounds: Resolved Infected chronic venous stasis ulcers Healing ulcers with some granulation tissue appreciated. Will continue vancomycin and rocephin x 7 days Wound culture results: Heavy MRSA growth, few serratia marcescens noted c/w nursing wound care, nystatin power, interdry Applying alginate and foam dressings to weeping ulcerations BID as needed. Bradycardia with pauses Not on any AV blocking medications Echo shows severe pulmonary hypertension with a right ventricular systolic pressure of 68 to 73 mmHg with chronic right heart failure Discussed bradycardia issue with Dr. Lamas. As per Dr. Lamas this is likely due to undiagnosed sleep apnea and would benefit from a sleep study. his pulse rate is not low and there are no long pauses when he is awake he does not need a pacemaker. He has severe pulmonary hypertension with cor pulmonale so his overall prognosis from cardiac standpoint is very poor. Anemia Due to renal failure , iron deficiency, bone marrow suppression due to he has received a total of 3 units of blood Getting Venofer HFpEF exacerbation: Now close to euvolemia Hyperkalemia: resolved Atrial fibrillation: continue eliquis 2.5mg BID Patient will be discharged home on 5mg BID eliquis if his renal function does not improve completely Diabetes mellitus type 2: continue hypoglycemic protocol continue SSI Holding metformin at this time Hypertension: We will resume blood pressure medications as needed Secondary Hyperparathyroidism Dyslipidemia: continue simvastatin at this time Vitamin D deficiency Supplementation started Plan/VTE VTE Prophylaxis Ordered?: Yes VS, I&O, 24H, Fishbone Vital Signs/I&O Vital Signs Date Time Temp Pulse Resp B/P (MAP) Pulse Ox O2 Delivery O2 Flow Rate FiO2 05/04/21 12:00 97.9 72 16 128/67 (87) 96 Room Air 05/04/21 08:10 2.0 I&O- Last 24 Hours up to 6 AM 05/04/21 06:00 Intake Total 2445 ml Output Total 1950 ml Balance 495 ml Laboratory Data 24H LABS Laboratory Tests 2 05/03/21 18:01: Bedside Glucose (Misc Panel) 154H 05/03/21 20:19: Bedside Glucose (Misc Panel) 128H 05/04/21 05:20: Nucleated Red Blood Cells % (auto) 0.0, Anion Gap 3L, Glomerular Filtration Rate 40.6L, Calcium Level 8.1L, Magnesium Level 1.8 05/04/21 10:09: 25-Hydroxy Vitamin D Total 5.6L, Vancomycin Level Trough 17.7 05/04/21 12:06: Bedside Glucose (Misc Panel) 123H CBC/BMP Laboratory Tests 05/04/21 05:20 Microbiology Microbiology 04/26/21 Gram Stain - Final, Complete 04/26/21 Wound Culture - Final, Complete Staph.aureus Methicillin Resis Serratia Marcescens 04/26/21 Urine Culture - Final, Complete 04/26/21 Blood Culture - Final, Complete NO GROWTH AFTER 5 DAYS 04/26/21 Blood Culture - Final, Complete NO GROWTH AFTER 5 DAYS DORCAS DISLA MD May 04, 2021 13:43
[2021-05-04] MEDS ORDERED: IRON SUCROSE 200 MG in NS 190 ML IV ONE (14:00)
--- NOTE | 2021-05-04 16:13 | IPN ---
NEPHROLOGY PROGRESS NOTE DATE: 05/04/2021 SUBJECTIVE: The patient is seen and examined this morning at the bedside. He offers no complaints. He is in ongoing renal recovery. He becomes extremely bradycardic during sleep. He remains otherwise hemodynamically stable, saturating well on room air. He denies shortness of breath at rest. OBJECTIVE: PHYSICAL EXAMINATION: VITAL SIGNS: Temperature 97.9, pulse 72, respiratory rate 16, blood pressure 128/67, saturating 96% on room air. INTAKE AND OUTPUT: Intake yesterday was 2.2 liters. Urine output yesterday was 2.3 liters. Weight in the bed scale today is not recorded. GENERAL APPEARANCE: The patient is seen lying in bed, morbidly obese male, awake, alert and in no distress. HEENT: The extraocular muscles are intact. Tongue is moist. He is seen on room air. HEART: Irregular. There is chronic edema in the lower extremities and venous stasis changes and dressings that are present on the shins. LUNGS: Anterior auscultation only. No crackles or rales. There are diminished breath sounds secondary to body habitus. ABDOMEN: Obese and nontender. GENITOURINARY: Indwelling Lopez catheter. NEUROLOGICAL: He is awake, alert and cooperative and no focal deficits appreciated. LABORATORY STUDIES: Sodium 140, potassium 3.6, bicarbonate 30, BUN 24, creatinine 1.8, GFR 40, magnesium 1.8, hemoglobin 9.1, platelet count 120, calcium 8.1. CURRENT INPATIENT MEDICATIONS: The patient continues on IV Ceftriaxone. He received a dose of Venofer today, 200 mg. He continues on IV Vancomycin. He was started on vitamin D 1,000 units daily. He was started on Torsemide 20 mg p.o. daily and he got a dose of potassium chloride 40 mEq p.o. times one. PROBLEMS: 1. Acute kidney injury in the setting of recent septic shock the patient continues to be in renal recovery. Creatinine down to 1.8 today. I am going to resume him on diuretic. He was previously taking both Lasix and Hydrochlorothiazide at home. I would keep him off of Hydrochlorothiazide and I have ordered Torsemide 20 mg once daily. He is mildly hypervolemic on exam with notable peripheral edema. 2. Diastolic congestive heart failure - The patient is mildly hypervolemic. At home he was previously taking both Lasix and Hydrochlorothiazide. At this time I would keep him off of Hydrochlorothiazide, and I have ordered Torsemide 20 mg once daily. 3. Hypokalemia - potassium supplementation is written for. 4. Secondary hyperparathyroidism of renal origin his parathyroid hormone level was more than 300. He is severely vitamin D deficient. Vitamin D supplementation is written for. 5. Hypertension - The patient was previously taking Ramipril and Hydrochlorothiazide at home. He is status post recent septic shock. All of his antihypertensives have been on hold and today he is being started on diuretic alone (Torsemide 20 mg p.o. daily). 6. Anemia with iron deficiency he got 3 units of packed red blood cells on this admission. His infectious issues have improved. He is going to be transitioned to oral antibiotics soon. I have ordered one dose of Venofer. There is no need for any further blood transfusion at this time. 7. Lines his Lopez catheter can be removed.
--- NOTE | 2021-05-04 21:57 | ECGEPIP ---
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 No remarkable changes Electronically Signed on 05-04-2021 21:57:07 EDT by Varghese Gonzalez
--- NOTE | 2021-05-04 22:05 | ECGEPIP ---
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 No remarkable changes Electronically Signed on 05-04-2021 22:05:21 EDT by Varghese Gonzalez
[2021-05-05] VITALS: BP 121/59
[2021-05-05 04:00] VITALS: BP 120/59
[2021-05-05 05:42] LABS: HEMATOCRIT 30.5 % (42.0-52.0); HEMOGLOBIN 8.9 g/dl (13.5-17.5); MEAN CORPUSCULAR HEMOGLOBIN 26.3 pg (27.0-33.0); MEAN CORPUSCULAR HGB CONC 29.2 g/dl (32.0-36.5); PLATELET COUNT, AUTOMATED 122 10^3/uL (150-450); RED BLOOD COUNT 3.39 10^6/uL (4.30-6.10); WHITE BLOOD COUNT 6.3 10^3/uL (4.0-10.0)
[2021-05-05] MEDS: PANTOPRAZOLE 40MG VIAL (C9113 PER 1) IV SCH (06:02)
[2021-05-05 06:03] LABS: CALCIUM LEVEL 7.6 MG/DL (8.8-10.2); CREATININE FOR GFR 1.69 MG/DL (0.70-1.30); GLOMERULAR FILTRATION RATE 43.7 (>49); MAGNESIUM LEVEL 1.7 MG/DL (1.8-2.4); POTASSIUM SERUM 3.8 MEQ/L (3.5-5.1)
[2021-05-05] MEDS ORDERED: MAG SULF 1GM/100ML (MAG RUN) 1 GM in IV 1 EA IV ONE (07:30)
[2021-05-05] MEDS: HumaLOG INSULIN (NovoLOG) PER UNIT SC SCH ×4 (08:02→20:22)
[2021-05-05] MEDS: SIMVASTATIN 40 MG TAB PO SCH (08:03)
[2021-05-05] MEDS: TORSEMIDE 20 MG TAB PO SCH (08:03)
[2021-05-05] MEDS: APIXABAN 2.5 MG TAB (ELIQUIS) PO SCH ×2 (08:03→21:10)
[2021-05-05] MEDS: VITAMIN D 1,000 INTERNATIONAL UNITS TABLET PO SCH (08:03)
[2021-05-05] MEDS: NYSTATIN 100,000 UNITS/GM TOPICAL PWD 15 GM TOP SCH ×2 (08:04→21:10)
[2021-05-05 08:28] VITALS: BP 114/57
[2021-05-05] MEDS ORDERED: SLF 3 ML SYR IV PRN (10:05)
[2021-05-05] MEDS: MAGNESIUM OXIDE 400MG TAB (MAG-OX) PO SCH (10:12)
[2021-05-05] MEDS: VANCOMYCIN HCL 750 MG, VIAL MATE ADAPTER 1 EACH in NS 250 ML IV SCH (10:13)
[2021-05-05] MEDS: cefTRIAXone SOD 1 GM in D5W MINI-BAG PLUS 50 ML IV SCH (12:45)
[2021-05-05 12:51] VITALS: BP 131/60
--- NOTE | 2021-05-05 14:09 | IPNPDOC ---
Subjective Date Seen The patient was seen on 05/05/21. Subjective Chief Complaint/HPI Feels okay asking when he would be able to go home. no overnight issues. Objective Physical Examination General Exam: Positive: Alert, Cooperative, No Acute Distress, Other (Morbidly obese) Eye Exam: Positive: PERRLA, Conjunctiva & lids normal, EOMI; Negative: Sclera icteric ENT Exam: Positive: Atraumatic, Mucous membr. moist/pink, Pharynx Normal Neck Exam: Positive: Supple; Negative: JVD, thyromegaly Chest Exam: Positive: Normal air movement, Diminished (Diffusely); Negative: Rales, Rhonchi, Wheezing Heart Exam: Positive: Rate Normal, Irregular Rhythm, Normal S1, Normal S2; Negative: Murmurs, Rubs Telemetry: Positive: Atrial fibrillation, Bradycardia, Pause Abdomen Exam: Positive: Normal bowel sounds, Soft, Other (Severe obesity so no organomegaly could be appreciated); Negative: Tenderness Extremity Exam: Positive: Edema, Other (Varicose veins); Negative: Clubbing, Cyanosis Skin Exam: Positive: Breakdown (In both the legs) Psych Exam: Positive: Memory Intact, Oriented x 3 Assessment /Plan Assessment 65 year old M with pmhx of morbid obesity, hypertension, chronic HFpEF, T2DM, atrial fibrillation, hyperlipidemia, lower extremity stasis dermatitis who presented to the ED for confusion and "not feeling well", he was found to have electrolyte derangements, an KARMEN, and chronic non healing lower extremity wounds. He was admitted for oliguric acute renal failure, shock (hypovolemic and septic), metabolic encephalopathy. He was also noted to have severe bradycardia during sleep in 20s and 30s. Acute renal failure requiring hemodialysis: 2/2 to hypovolemic shock and septic shock Now renal function is recovering and patient is off dialysis Septic shock Resolved Source is from skin infection Vanco + Zosyn/ceftriaxone finished 10 days. Hypovolemic shock 2/2 to dehydration, also with infected wounds: Resolved Infected chronic venous stasis ulcers Healing ulcers with some granulation tissue appreciated. Will continue vancomycin and rocephin x 7 days Wound culture results: Heavy MRSA growth, few serratia marcescens noted c/w nursing wound care, nystatin power, interdry Applying alginate and foam dressings to weeping ulcerations BID as needed. Bradycardia with pauses Not on any AV blocking medications Echo shows severe pulmonary hypertension with a right ventricular systolic pressure of 68 to 73 mmHg with chronic right heart failure Discussed bradycardia issue with Dr. Lamas. As per Dr. Lamas this is likely due to undiagnosed sleep apnea and would benefit from a sleep study. his pul se rate is not low and there are no long pauses when he is awake he does not need a pacemaker. He has severe pulmonary hypertension with cor pulmonale so his overall prognosis from cardiac standpoint is very poor. I discussed the necessity of sleep study and the severe pulmonary hypertension with patient. Anemia Due to renal failure , iron deficiency, bone marrow suppression due to he has received a total of 3 units of blood Venofer HFpEF exacerbation: Now close to euvolemia Hyperkalemia: resolved Atrial fibrillation: continue eliquis 2.5mg BID Patient will be discharged home on 5mg BID eliquis if his renal function does not improve completely Diabetes mellitus type 2: continue hypoglycemic protocol continue SSI Holding metformin at this time Hypertension: We will resume blood pressure medications as needed Secondary Hyperparathyroidism Dyslipidemia: continue simvastatin at this time Vitamin D deficiency Supplementation started Plan/VTE VTE Prophylaxis Ordered?: Yes VS[facility] Sign[facility]/I&O Vital Signs Date Time Temp Pulse Resp B/P (MAP) Pulse Ox O2 Delivery O2 Flow Rate FiO2 05/05/21 12:51 96.0 60 18 131/60 (83) 94 05/05/21 08:28 Nasal Cannula 2.0 I&O- Last 24 Hours up to 6 AM 05/05/21 06:00 Intake Total 1870 ml Output Total 2300 ml Balance -430 ml Laboratory Data 24H LABS Laboratory Tests 2 05/04/21 18:33: Bedside Glucose (Misc Panel) 148H 05/04/21 19:47: Bedside Glucose (Misc Panel) 139H 05/05/21 05:24: Nucleated Red Blood Cells % (auto) 0.0, Anion Gap 4L, Glomerular Filtration Rate 43.7L, Calcium Level 7.6L, Magnesium Level 1.7L 05/05/21 10:04: Vancomycin Level Trough 16.3 05/05/21 12:01: Bedside Glucose (Misc Panel) 100 CBC/BMP Laboratory Tests 05/05/21 05:24 Microbiology Microbiology 04/26/21 Gram Stain - Final, Complete 04/26/21 Wound Culture - Final, Complete Staph.aureus Methicillin Resis Serratia Marcescens 04/26/21 Urine Culture - Final, Complete 04/26/21 Blood Culture - Final, Complete NO GROWTH AFTER 5 DAYS 04/26/21 Blood Culture - Final, Complete NO GROWTH AFTER 5 DAYS DORCAS DISLA MD May 05, 2021 14:09
[2021-05-05] MEDS: SLF 3 ML SYR IV SCH ×2 (14:44→21:11)
[2021-05-05 16:19] VITALS: BP 119/59
[2021-05-05 20:00] VITALS: BP 126/58
[2021-05-06] VITALS: BP 114/56
[2021-05-06 04:00] VITALS: BP 117/56
[2021-05-06 05:30] LABS: HEMATOCRIT 29.7 % (42.0-52.0); HEMOGLOBIN 9.1 g/dl (13.5-17.5); MEAN CORPUSCULAR HEMOGLOBIN 27.2 pg (27.0-33.0); MEAN CORPUSCULAR HGB CONC 30.6 g/dl (32.0-36.5); MEAN CORPUSCULAR VOLUME 88.7 fl (80.0-96.0); PLATELET COUNT, AUTOMATED 143 10^3/uL (150-450); RED BLOOD COUNT 3.35 10^6/uL (4.30-6.10); WHITE BLOOD COUNT 5.9 10^3/uL (4.0-10.0)
[2021-05-06] MEDS: PANTOPRAZOLE 40MG VIAL (C9113 PER 1) IV SCH (05:35)
[2021-05-06] MEDS: SLF 3 ML SYR IV SCH ×3 (05:35→20:28)
[2021-05-06 05:39] LABS: CALCIUM LEVEL 7.5 MG/DL (8.8-10.2); CREATININE FOR GFR 1.52 MG/DL (0.70-1.30); GLOMERULAR FILTRATION RATE 49.4 (>49); MAGNESIUM LEVEL 1.7 MG/DL (1.8-2.4); POTASSIUM SERUM 3.6 MEQ/L (3.5-5.1)
[2021-05-06 08:00] VITALS: BP 127/59
--- NOTE | 2021-05-06 08:38 | IPN ---
PROGRESS NOTE DATE: 05/05/2021 SUBJECTIVE: Patient is seen and examined this morning at the bedside. His Lopez catheter was removed yesterday. He reports no issues with voiding. He denies any complaints. He asks about discharge plans. No shortness of breath. OBJECTIVE: VITAL SIGNS: Temperature 98.4, pulse 80, respiratory rate 17, blood pressure is 119/59, saturating 97% on room air. INTAKE AND OUTPUT: Intake yesterday was 1770, urine output was 2100, weight on the bed scale today is 190 kg. GENERAL: Patient is seen awake, alert and oriented, eating lunch in no distress. HEENT: Extraocular muscles are intact. Morbidly obese male. Tongue is moist. NECK: There is no jugular venous distention. HEART: Heart sounds are irregular S1 and S2. EXTREMITIES: There is 1+ leg edema and chronic venous stasis changes. LUNGS: Anterior auscultation only, symmetric air movement. No crackle or rale. ABDOMEN: Soft, obese and nontender. EXTREMITIES: There is some skin breakdown on the legs and dressings are in place. There is venous stasis changes. NEUROLOGIC: He is oriented x3. Moves all four extremities on command. LABORATORY DATA: White count is 6.3, hemoglobin is 8.9, platelets 122,000. Sodium 140, potassium 3.8, bicarbonate is 30, BUN 24, creatinine is 1.6. Magnesium is 1.7. INPATIENT MEDICATIONS: He got a dose of magnesium sulfate today. I note his IV Ceftriaxone and IV Vancomycin were both stopped by the primary service. I started him on magnesium oxide 400 mg p.o. daily. His remainder of medications are unchanged as compared to yesterday. PROBLEMS: 1. Acute kidney injury in the setting of recent septic shock. Patient initially required CRRT. His last dialysis treatment was last . His dialysis catheter was removed over the weekend. He is ongoing renal recovery. Creatinine is 1.6 on the latest labs. Lopez catheter was stopped yesterday. He is now on a diuretic regimen of torsemide 20 mg daily. He is mildly hypervolemic on exam. At home, he was previously taking Lasix and Hydrochlorothiazide. 2. Diastolic congestive heart failure. Continue torsemide 20 mg daily. 3. Hypomagnesemia, start magnesium oxide 400 mg daily. 4. Secondary hyperparathyroidism of renal origin. Parathyroid hormone level was more than 300. He is vitamin D deficient. Continue vitamin D supplementation. 5. Hypertension. Patient was previously taking Ramipril and Hydrochlorothiazide at home. I would keep him off of CHAVEZ or ARB given recent acute kidney injury and ongoing renal recovery. All his antihypertensives remain on hold and he is on a diuretic alone (torsemide 20 mg p.o. daily). 6. Anemia with iron deficiency. He got 3 units of packed red blood cells on this admission. I gave a dose of Venofer yesterday as well. Hemoglobin is 8.9 on the latest labs. I will give him another dose of Venofer on Monday. 7. Resolved septic shock. Patient has completed a course of antibiotics and I note the primary team have stopped the antibiotics at this point. He continues with wound care for his infected venous stasis ulcers.
[2021-05-06] MEDS: SIMVASTATIN 40 MG TAB PO SCH (09:36)
[2021-05-06] MEDS: NYSTATIN 100,000 UNITS/GM TOPICAL PWD 15 GM TOP SCH ×2 (09:36→20:28)
[2021-05-06] MEDS: MAGNESIUM OXIDE 400MG TAB (MAG-OX) PO SCH (09:37)
[2021-05-06] MEDS: APIXABAN 2.5 MG TAB (ELIQUIS) PO SCH ×2 (09:37→20:28)
[2021-05-06] MEDS: TORSEMIDE 20 MG TAB PO SCH (09:37)
[2021-05-06] MEDS: VITAMIN D 1,000 INTERNATIONAL UNITS TABLET PO SCH (09:37)
[2021-05-06] MEDS: HumaLOG INSULIN (NovoLOG) PER UNIT SC SCH ×4 (09:41→20:09)
[2021-05-06] MEDS ORDERED: POTASSIUM CHLORIDE 10 MEQ SR TABLET PO ONE (10:45)
[2021-05-06] MEDS ORDERED: MAG SULF 1GM/100ML (MAG RUN) 1 GM in IV 1 EA IV ONE (11:00)
--- NOTE | 2021-05-06 11:02 | IPNPDOC ---
Subjective Date Seen The patient was seen on 05/06/21. Subjective Chief Complaint/HPI No complaints this morning patient is eager to go home. Patient will be working with physical therapy today and see if he could be discharged home instead of going to rehab. Overnight patient desaturates during sleep and had to be put on 2 L of oxygen. Will get nocturnal pulse oximetry tonight. Objective Physical Examination General Exam: Positive: Alert, Cooperative, No Acute Distress, Other (Morbidly obese) Eye Exam: Positive: PERRLA, Conjunctiva & lids normal, EOMI; Negative: Sclera icteric ENT Exam: Positive: Atraumatic, Mucous membr. moist/pink, Pharynx Normal Neck Exam: Positive: Supple; Negative: JVD, thyromegaly Chest Exam: Positive: Normal air movement, Diminished (Diffusely); Negative: Rales, Rhonchi, Wheezing Heart Exam: Positive: Rate Normal, Irregular Rhythm, Normal S1, Normal S2; Negative: Murmurs, Rubs Telemetry: Positive: Atrial fibrillation, Bradycardia, Pause Abdomen Exam: Positive: Normal bowel sounds, Soft, Other (Severe obesity so no organomegaly could be appreciated); Negative: Tenderness Extremity Exam: Positive: Edema, Other (Varicose veins); Negative: Clubbing, Cyanosis Skin Exam: Positive: Breakdown (In both the legs) Psych Exam: Positive: Memory Intact, Oriented x 3 Assessment /Plan Assessment 65 year old M with pmhx of morbid obesity, hypertension, chronic HFpEF, T2DM, atrial fibrillation, hyperlipidemia, lower extremity stasis dermatitis who presented to the ED for confusion and "not feeling well", he was found to have electrolyte derangements, an KARMEN, and chronic non healing lower extremity wounds. He was admitted for oliguric acute renal failure, shock (hypovolemic and septic), metabolic encephalopathy. He was also noted to have severe bradycardia during sleep in 20s and 30s. Acute renal failure requiring hemodialysis: 2/2 to hypovolemic shock and septic shock Now renal function is recovering and patient is off dialysis Septic shock Resolved Source is from skin infection Vanco + Zosyn/ceftriaxone finished 10 days. Hypovolemic shock 2/2 to dehydration, also with infected wounds: Resolved Infected chronic venous stasis ulcers Healing ulcers with some granulation tissue appreciated. Will continue vancomycin and rocephin x 7 days Wound culture results: Heavy MRSA growth, few serratia marcescens noted c/w nursing wound care, nystatin power, interdry Applying alginate and foam dressings to weeping ulcerations BID as needed. Bradycardia with pauses Not on any AV blocking medications Echo shows severe pulmonary hypertension with a right ventricular systolic pressure of 68 to 73 mmHg with chronic right heart failure Discussed bradycardia issue with Dr. Lamas. As per Dr. Lamas this is likely due to undiagnosed sleep apnea and would benefit from a sleep study. his pulse rate is not low and there are no long pauses when he is awake he does not need a pacemaker. He has severe pulmonary hypertension with cor pulmonale so his overall prognosis from cardiac standpoint is very poor. I discussed the necessity of sleep study and the severe pulmonary hypertension with patient. Anemia Due to renal failure , iron deficiency, bone marrow suppression due to he has received a total of 3 units of blood Venofer HFpEF exacerbation: Now close to euvolemia Hyperkalemia: resolved Atrial fibrillation: continue eliquis 2.5mg BID Patient will be discharged home on 5mg BID eliquis if his renal function does not improve completely Diabetes mellitus type 2: continue hypoglycemic protocol continue SSI Holding metformin at this time Hypertension: We will resume blood pressure medications as needed Secondary Hyperparathyroidism Dyslipidemia: continue simvastatin at this time Vitamin D deficiency Supplementation started Plan/VTE VTE Prophylaxis Ordered?: Yes VS, I&O, 24H, Fishbone Vital Signs/I&O Vital Signs Date Time Temp Pulse Resp B/P (MAP) Pulse Ox O2 Delivery O2 Flow Rate FiO2 05/06/21 04:00 98.3 78 18 117/56 (76) 96 Nasal Cannula 2.0 I&O- Last 24 Hours up to 6 AM 05/06/21 06:00 Intake Total 2375 ml Output Total 3375 ml Balance -1000 ml Laboratory Data 24H LABS Laboratory Tests 2 05/05/21 12:01: Bedside Glucose (Misc Panel) 100 05/05/21 17:07: Bedside Glucose (Misc Panel) 127H 05/05/21 20:14: Bedside Glucose (Misc Panel) 132H 05/06/21 05:09: Nucleated Red Blood Cells % (auto) 0.0, Anion Gap 5L, Glomerular Filtration Rate 49.4, Calcium Level 7.5L, Magnesium Level 1.7L CBC/BMP Laboratory Tests 05/06/21 05:09 Microbiology Microbiology 04/26/21 Gram Stain - Final, Complete 04/26/21 Wound Culture - Final, Complete Staph.aureus Methicillin Resis Serratia Marcescens 04/26/21 Urine Culture - Final, Complete 04/26/21 Blood Culture - Final, Complete NO GROWTH AFTER 5 DAYS 04/26/21 Blood Culture - Final, Complete NO GROWTH AFTER 5 DAYS DORCAS DISLA MD May 06, 2021 11:02
[2021-05-06 12:00] VITALS: BP 122/58
--- NOTE | 2021-05-06 13:46 | IPN ---
PROGRESS NOTE DATE: 05/06/2021 SUBJECTIVE: Mr. Blackmon is seen and examined this morning at the bedside. He wants to go home. He tells me that he does not want to go to any rehab center. His renal function continues to improve and he is responding well to diuretic therapy. The patient has no complaints. Denies shortness of breath. OBJECTIVE: VITAL SIGNS: Temperature is 98.3, pulse 78, respiratory rate 18, blood pressure 117/56, saturating 96% on 2 liter nasal cannula. INTAKE AND OUTPUT: Intake yesterday was 2.2 liters, urine output yesterday was 3.6 liters. Weight on the bed scale today is 188.3 kg. GENERAL: Patient is seen sitting in the bariatric chair at the bedside. Morbidly obese male, awake, alert and oriented and in no distress. Disheveled appearing. HEENT: Extraocular muscles are intact. Tongue is moist. I cannot assess the jugular veins. HEART: Heart sounds are irregular S1 and S2. There is chronic leg edema and chronic venous stasis changes. LUNGS: Symmetric air entry that is diminished secondary to obesity and body habitus. There are no crackles or rales. ABDOMEN: Obese and soft and nontender. EXTREMITIES: Edema about 1+ bilaterally with venous stasis changes and stasis dermatitis and dressings on the legs. NEUROLOGIC: He is oriented x3, interactive and conversational. LABORATORY DATA: White count 5.9, hemoglobin 9.1, platelets 143,000, sodium 143, potassium 3.6, bicarbonate 31, BUN 23, creatinine 1.5, magnesium 1.7. GFR 49. INPATIENT MEDICATIONS: He received a dose of magnesium sulfate IV x1 gram today and potassium 40 mEq p.o. x1. The remainder of medications are unchanged as compared to yesterday. PROBLEMS: 1. Acute renal failure in the setting of septic shock that had initially required hemodialysis. Patient subsequently has been in renal recovery. He had his last hemodialysis one week ago, April 29. His Lopez catheter was removed a couple of days ago. His creatinine is down to 1.5 on the labs today. He is tolerating diuretic therapy. He is making good amount of urine and his electrolytes and volume status are reasonable. I would keep him off of CHAVEZ inhibitor going forward (he was previously on Ramipril at home). 2. Diastolic congestive heart failure. Patient continues on torsemide 20 mg p.o. daily. He made 3.6 liters of urine yesterday. He is on daily net negative fluid balance. Continue diuretic regimen. 3. Hypokalemia, he is receiving potassium supplementation. 4. Hypomagnesemia, he is receiving IV and oral magnesium supplementation. 5. Anemia secondary to renal failure and iron deficiency. He received 3 units of packed red bloods on this admission. He also got a dose of Venofer and I will re-dose him with Venofer again tomorrow. Hemoglobin is up to 9.1 on the latest labs. 6. Secondary hyperparathyroidism of renal origin worsened by vitamin D deficiency, continue vitamin D.
[2021-05-06 16:00] VITALS: BP 127/60
[2021-05-06 20:00] VITALS: BP 124/61
[2021-05-07] VITALS: BP 106/55
[2021-05-07 03:45] LABS: HEMATOCRIT 28.7 % (42.0-52.0); HEMOGLOBIN 8.6 g/dl (13.5-17.5); MEAN CORPUSCULAR HEMOGLOBIN 26.4 pg (27.0-33.0); PLATELET COUNT, AUTOMATED 153 10^3/uL (150-450); RED BLOOD COUNT 3.26 10^6/uL (4.30-6.10); WHITE BLOOD COUNT 5.8 10^3/uL (4.0-10.0)
[2021-05-07 04:00] VITALS: BP 108/53
[2021-05-07 04:07] LABS: CALCIUM LEVEL 7.5 MG/DL (8.8-10.2); CREATININE FOR GFR 1.39 MG/DL (0.70-1.30); GLOMERULAR FILTRATION RATE 54.8 (>49); MAGNESIUM LEVEL 1.9 MG/DL (1.8-2.4); POTASSIUM SERUM 3.8 MEQ/L (3.5-5.1)
[2021-05-07] MEDS: PANTOPRAZOLE 40MG VIAL (C9113 PER 1) IV SCH (05:52)
[2021-05-07] MEDS: SLF 3 ML SYR IV SCH (05:53)
[2021-05-07 07:23] VITALS: BP 109/55
[2021-05-07] MEDS ORDERED: TORS20TA2 PO (07:38)
[2021-05-07] MEDS ORDERED: VITAD1000T PO (07:38)
[2021-05-07] MEDS ORDERED: MAGN400T2 PO (07:38)
[2021-05-07] MEDS ORDERED: PANT40TA29 PO (07:42)
[2021-05-07] MEDS ORDERED: LANTINJ4 SC (07:42)
[2021-05-07] MEDS ORDERED: APIXABAN 5 MG TAB (ELIQUIS) PO SCH (09:00)
[2021-05-07] MEDS: HumaLOG INSULIN (NovoLOG) PER UNIT SC SCH (09:26)
[2021-05-07] MEDS: TORSEMIDE 20 MG TAB PO SCH (09:26)
[2021-05-07] MEDS: SIMVASTATIN 40 MG TAB PO SCH (09:27)
[2021-05-07] MEDS: MAGNESIUM OXIDE 400MG TAB (MAG-OX) PO SCH (09:27)
[2021-05-07] MEDS: VITAMIN D 1,000 INTERNATIONAL UNITS TABLET PO SCH (09:27)
[2021-05-07] MEDS: NYSTATIN 100,000 UNITS/GM TOPICAL PWD 15 GM TOP SCH (09:27)
[2021-05-07] MEDS ORDERED: IRON SUCROSE 200 MG in NS 100 ML IV ONE (10:00)
--- NOTE | 2021-05-07 10:27 | DS.PDOC ---
Discharge Summary General Date of Admission Apr 26, 2021 at 04:59 Date of Discharge 05/07/21 Discharge Summary PROCEDURES PERFORMED DURING STAY: [None]. DISCHARGE DIAGNOSES: Septic Shock Infected venous stasis ulcers Hypovolemic Shock Acute metabolic encephalopathy Acute renal failure requiring hemodialysis Electrolyte imbalance Diastolic CHF with exacerbation. Chronic Afib with bradycardia in 30s during sleep Suspected Sleep apnea Morbid obesity Severe pulmonary hypertension with corpulmonary Anemia Iron def Diabetes Hypertension HLD COMPLICATIONS/CHIEF COMPLAINT: Sepsis. HOSPITAL COURSE: 65 year old M with pmhx of morbid obesity, hypertension, chronic HFpEF, T2DM, atrial fibrillation, hyperlipidemia, lower extremity stasis dermatitis who presented to the ED for confusion and "not feeling well", he was found to have electrolyte derangements, an KARMEN, and chronic non healing lower extremity wounds. He was admitted for oliguric acute renal failure, shock (hypovolemic and septic), metabolic encephalopathy from infected bilateral leg venous stasis ulcers. He was also noted to have severe bradycardia during sleep in 20s and 30s. Acute renal failure requiring hemodialysis: 2/2 to hypovolemic shock and septic shock Now renal function has recovered Follow up with Nephrology. Septic shock Resolved Source is from skin infection Vanco + Zosyn/ceftriaxone finished 10 days. Hypovolemic shock 2/2 to dehydration, also with infected wounds: Resolved Infected chronic venous stasis ulcers Healing ulcers with some granulation tissue appreciated. Finished vancomycin and rocephin x 7 days Wound culture results: Heavy MRSA growth, few serratia marcescens noted c/w nursing wound care, nystatin power, interdry Applying alginate and foam dressings to weeping ulcerations BID as needed. Bradycardia with pauses Not on any AV blocking medications Echo shows severe pulmonary hypertension with a right ventricular systolic pressure of 68 to 73 mmHg with chronic right heart failure Discussed bradycardia issue with Dr. Lamas. As per Dr. Lamas this is likely due to undiagnosed sleep apnea and would benefit from a sleep study. his pulse rate is not low and there are no long pauses when he is awake he does not need a pacemaker. He has severe pulmonary hypertension with cor pulmonale so his overall prognosis from cardiac standpoint is very poor. I discussed the necessity of sleep study and the severe pulmonary hypertension with patient. Anemia Due to renal failure , iron deficiency, bone marrow suppression due to he has received a total of 3 units of blood Venofer HFpEF exacerbation: Now close to euvolemia Hyperkalemia: resolved Atrial fibrillation: continue eliquis 2.5mg BID Patient will be discharged home on 5mg BID eliquis if his renal function does not improve completely Diabetes mellitus type 2: continue hypoglycemic protocol continue SSI Holding metformin at this time Hypertension: We will resume blood pressure medications as needed Secondary Hyperparathyroidism Dyslipidemia: continue simvastatin at this time Vitamin D deficiency Supplementation started DISCHARGE MEDICATIONS: Please see below. ALLERGIES: Please see below. PHYSICAL EXAMINATION ON DISCHARGE: VITAL SIGNS: Please see below. General Exam: Positive: Alert, Cooperative, No Acute Distress, Other (Morbidly obese) Eye Exam: Positive: PERRLA, Conjunctiva & lids normal, EOMI; Negative: Sclera icteric ENT Exam: Positive: Atraumatic, Mucous membr. moist/pink, Pharynx Normal Neck Exam: Positive: Supple; Negative: JVD, thyromegaly Chest Exam: Positive: Normal air movement, Diminished (Diffusely); Negative: Rales, Rhonchi, Wheezing Heart Exam: Positive: Rate Normal, Irregular Rhythm, Normal S1, Normal S2; Negative: Murmurs, Rubs Telemetry: Positive: Atrial fibrillation, Bradycardia, Pause Abdomen Exam: Positive: Normal bowel sounds, Soft, Other (Severe obesity so no organomegaly could be appreciated); Negative: Tenderness Extremity Exam: Positive: Edema, Other (Varicose veins); Negative: Clubbing, Cyanosis Skin Exam: Positive: Breakdown (In both the legs) Psych Exam: Positive: Memory Intact, Oriented x 3 LABORATORY DATA: Please see below. ACTIVITY: [As tolerated]. DIET: Carb consistent DISCHARGE PLAN: Home with services. DISCHARGE INSTRUCTIONS: Follow up with PMD in 1 week Follow up with Renal in 1 week DISCHARGE CONDITION: [Stable]. TIME SPENT ON DISCHARGE: 35 minutes. Vital Signs/I&Os Vital Signs Date Time Temp Pulse Resp B/P (MAP) Pulse Ox O2 Delivery O2 Flow Rate FiO2 05/07/21 07:23 98.7 65 18 109/55 (73) 98 Nasal Cannula 2.0 I&O- Last 24 Hours up to 6 AM 05/07/21 06:00 Intake Total 780 ml Output Total 1825 ml Balance -1045 ml Laboratory Data Labs 24H Laboratory Tests 2 05/06/21 12:51: Bedside Glucose (Misc Panel) 121H 05/06/21 17:07: Bedside Glucose (Misc Panel) 135H 05/06/21 19:35: Bedside Glucose (Misc Panel) 158H 05/07/21 03:28: Nucleated Red Blood Cells % (auto) 0.0, Anion Gap 2L, Glomerular Filtration Rate 54.8, Calcium Level 7.5L, Magnesium Level 1.9 CBC/BMP Laboratory Tests 05/07/21 03:28 FSBS Laboratory Tests Test 05/06/21 12:51 05/06/21 17:07 05/06/21 19:35 Range/Units Bedside Glucose (Misc Panel) 121 135 158 80-115 MG/DL Discharge Medications Scheduled Cholecalciferol (Vitamin D3) (Vitamin D3) 25 Mcg Tablet, 1,000 UNITS PO DAILY Insulin Glargine,Hum.rec.anlog (Lantus Solostar) 100 Unit/1 Ml Insuln.pen, 10 UNITS SC QHS Insulin Human Lispro (Humalog Mix 75-25 Vial) 100 Unit/1 Ml Vial, 1 DOSE SC AC, (Reported) PER SLIDING SCALE Magnesium Oxide (Magnesium Oxide) 400 Mg Tablet, 400 MG PO DAILY Pantoprazole Sodium (Pantoprazole Sodium) 40 Mg Tablet.dr, 1 TAB PO DAILY Rivaroxaban (Xarelto) 20 Mg Tablet, 20 MG PO QHS, (Reported) Simvastatin (Simvastatin) 40 Mg Tablet, 40 MG PO DAILY, (Reported) Torsemide (Torsemide) 20 Mg Tablet, 20 MG PO DAILY Scheduled PRN Hydrocodone/Acetaminophen (Hydrocodone-Acetamin 7.5-325) 1 Each Tablet, 1 TAB PO QID PRN for PAIN, (Reported) Allergies Coded Allergies: No Known Allergies (Unverified , 03/11/19) DORCAS DISLA MD May 07, 2021 10:27
[2021-05-07 11:31] VITALS: BP 116/58
--- NOTE | 2021-05-10 10:40 | NOCOX ---
DATE: 05/06/2021 Nocturnal oximetry done the night of 05/06/2021 into the morning of 05/07/2021. Study is performed on 28% FiO2. Mean oxygen saturation was 90.5%. Significant cyclic oxygen desaturations are identified with the lowest reliable recording oxygen saturation about 68%. IMPRESSION: Markedly abnormal nocturnal oximetry. Cannot rule out underlying obstructive sleep apnea (SUSAN). Please correlate clinically.
== END 2021-05-07 14:42 | disposition home health service (06) | DRG 720 ==
LOC: M ED 23:21 → M ED INP 04-26 04:59 → EEVIPCON 04-26 04:59 → ENRESERV 04-26 05:26 → M ICU 04-26 06:28 → M PCU 04-30 15:30
PROVIDERS: ADMIT Internal Medicine; ATTEND Internal Medicine Nephrology
PROC: 02HV33Z Insertion of Infusion Device into Superior Vena Cava, Percutaneous Approach (ICD-10-PCS; principal; 2021-04-26)
PROC: 02HV33Z Insertion of Infusion Device into Superior Vena Cava, Percutaneous Approach (ICD-10-PCS; 2021-04-26)
PROC: 5A1D90Z Performance of Urinary Filtration, Continuous, Greater than 18 hours Per Day (ICD-10-PCS; 2021-04-29)
DX: A41.9 Sepsis, unspecified organism (principal); N17.0 Acute kidney failure with tubular necrosis; R57.1 Hypovolemic shock; I50.33 Acute on chronic diastolic (congestive) heart failure; G93.41 Metabolic encephalopathy; I27.29 Other secondary pulmonary hypertension; Z68.43 Body mass index [BMI] 50.0-59.9, adult; R65.21 Severe sepsis with septic shock; I47.2 Ventricular tachycardia; E87.4 Mixed disorder of acid-base balance; N25.81 Secondary hyperparathyroidism of renal origin; I11.0 Hypertensive heart disease with heart failure; E11.622 Type 2 diabetes mellitus with other skin ulcer; I48.91 Unspecified atrial fibrillation; E66.01 Morbid (severe) obesity due to excess calories; E87.5 Hyperkalemia; E87.1 Hypo-osmolality and hyponatremia; L97.819 Non-pressure chronic ulcer of other part of right lower leg with unspecified severity; L97.829 Non-pressure chronic ulcer of other part of left lower leg with unspecified severity; E78.5 Hyperlipidemia, unspecified; D63.8 Anemia in other chronic diseases classified elsewhere; Z79.84 Long term (current) use of oral hypoglycemic drugs; Z79.899 Other long term (current) drug therapy; Z20.822 Contact with and (suspected) exposure to COVID-19; Z79.01 Long term (current) use of anticoagulants; L98.499 Non-pressure chronic ulcer of skin of other sites with unspecified severity; Z91.19 Patient's noncompliance with other medical treatment and regimen; Z91.14 Patient's other noncompliance with medication regimen; I87.2 Venous insufficiency (chronic) (peripheral); R00.1 Bradycardia, unspecified; G47.33 Obstructive sleep apnea (adult) (pediatric)

== ENCOUNTER → 2021-05-17 | Outpatient (REF) | payer BC ==
[~2021-05-17] MED LIST changes: +MAGN400T2 PO; +OZEM2INJ SC; +PANT40TA29 PO; +POTA20TA6 PO; +TORS20TA2 PO; +VITAD1000T PO
[2021-05-17 14:49] LABS: MAGNESIUM LEVEL 2.2 MG/DL (1.8-2.4)
== END ==
LOC: M LAB REF 13:36
PROVIDERS: ATTEND Internal Medicine Nephrology
DX: E83.42 Hypomagnesemia (principal)

== ENCOUNTER → 2021-06-22 | Outpatient (REF) | payer BC ==
[2021-06-22 13:40] LABS: MAGNESIUM LEVEL 2.2 MG/DL (1.8-2.4)
== END ==
LOC: M LAB REF 13:11
PROVIDERS: ATTEND Internal Medicine Nephrology
DX: I50.9 Heart failure, unspecified (principal); N18.31 Chronic kidney disease, stage 3a; E83.42 Hypomagnesemia

== ENCOUNTER → 2021-07-24 | Outpatient (CLI) | payer BC ==
[~2021-07-24] MED LIST changes: +FERR325T19 PO; +POTA10TA17 PO
== END ==
LOC: M LABSMTC 10:18
PROVIDERS: ATTEND Anesthesiology
DX: Z01.812 Encounter for preprocedural laboratory examination (principal); Z20.822 Contact with and (suspected) exposure to COVID-19

== ENCOUNTER 2021-07-29 09:49 | Day surgery (SDC) | payer BC ==
[~2021-07-29] VITALS: Ht 180.3 cm; Wt 194.6 kg
[~2021-07-29 09:49] MED LIST changes: +NS 1,000 ML IV ONE
--- OUTSIDE RECORDS SUMMARY | 2021-07-29 09:56 | CCD | Continuity of Care Document ---
Author Author Keegan HUNTLEY M.D. Organization Unknown Address [address] [place] [address] Phone [phone] Care Team Providers Care Wire Fence Erector Name Role Phone AUTM Unavailable Guille Frye M.D. AUTM [phone] Problems Description No Information Available Social History Type Date Description Comments Sex Unknown ETOH Use Denies alcohol use Recreational Drug Use Denies Drug Use Tobacco Use Start: Unknown Quit 20 YRS AGO Allergies, Adverse Reactions, Alerts Description No Known Drug Allergies Medications Active Medications SIG Qnty Indications Ordering Provide r Date Potassium Chloride ER 10Meq Capsul es ER Take 1 Capsule By Mouth Once Daily Unknown Torsemide 20mg Tablets Take 2 Tablets By Mouth Once Daily Unknown Ferosul 325(65Fe) mg Tablets Take 1 Tablet By Mouth Once Daily Unknown Magnesium Oxide 400(240Mg) mg Tabl ets Take 1 Tablet By Mouth Once Daily Unknown Pantoprazole Sodium 40mg Tablets D R Take 1 Tablet By Mouth Once Daily Unknown Simvastatin 40mg Tablets Take 1 Tablet By Mouth Once Daily AT Bedtime Unknown Hydrocodone-Acetaminophen 7.5-325mg Tablets Take 1 Tablet By Mouth Every 6 Hours as Needed For Pain . DO Not Exceed 4 Per 24 Hours Unknown Lantus Solostar 100U nit/ML Solution Pen-Inject 10U Daily Guille Frye M.D. 0 Humalog Mix 75/25 (7 5-25)100Unit/ML Suspension Sliding Scale Guille Frye M.D. 00 Xarelto 20mg Tablets Take 1 Tablet By Mouth Once Daily With Food Unknown Vitamin D3 50mcg (2000 Ut) Capsule s 1 by mouth every day Unknown Immunizations Description No Information Available Vital Signs Date Vital Result Comment 05/26/2021 9:20am BP Systolic 158 mmHg BP Diastolic 80 mmHg Body Temperature 97.9 F Height 71 inches 5'11" Weight 409.00 lb BMI (Body Mass Index) 57.0 kg/m2 [place] Body Weight 172 lb Weight 185.522 kg BSA (Body Surface Area) 2.86 m2 Results Test Acquired Date Facility Test Result H/L Range Note Prothrombin Time/Inr 04/26/2021 [facility] Main Lab [address] [place] [address] [id number] [phone] Prothrombin Time 16.7 seconds High 12.5-14.3 Inr 1.32 Normal 1 Laboratory test finding 04/26/2021 [facility] Main Lab [address] [place] [address] [phone] Partial Thromboplastin Time 39.4 seconds High 24 .2-38.5 Type & Screen -Incl Blood Type,Payam,AB SC 04/26/2021 [facility] Main Lab [address] [place] [address] [phone] Blood Type B POSITIVE Normal AB Screen (Indirect Mohit)Vis NEGATIVE Normal Basic Metabolic Profile 04/26/2021 [facility] Main Lab [address] [place] [address] [phone] Glucose, Fasting 91 mg/dL Normal 70-100 Blood Urea Nitrogen 78 mg/dL High 7-18 Creatinine For GFR 7.61 mg/dL High 0.70-1.30 Glomerular Filtration Rate 7.7 Low >49 2 Sodium Level 127 mEq/L Low 136-145 Potassium Serum 6.7 mEq/L Critical high 3.5-5.1 Chloride Level 100 mEq/L Normal 98-107 Carbon Dioxide Level 16 mEq/L Low 21-32 Anion Gap 11 mEq/L Normal 8-16 Calcium Level 6.7 mg/dL Low 8.8-10.2 Laboratory test finding 04/26/2021 [facility] Main Lab [address] [place] [address] [phone] Troponin I < 0.02 NG/ML Normal < 0.10 3 Fibrinogen 718 mg/dL High 221-452 1 THERAPUTIC HUMAN INR VALUES INDICATIONS NORMAL RANGES PROPHYLAXIS/TREATMENT OF: VENOUS THROMBOSIS 2.0-3.0 PULMONARY EMBOLISM 2.0-3.0 PREVENTION OF SYSTEMIC EMBOLISM FROM: TISSUE HEART VALVES 2.0-3.0 ACUTE MYOCARDIAL INFARCTION 2.0-3.0 VALVULAR HEART DISEASE 2.0-3.0 ATRIAL FIBRILLATION 2.0-3.0 MECHANICAL VALVES(HIGH RISK) 2.5-3.5 RECURRENT MYOCARDIAL INFARCTION 2.5-3.5 2 Units are mL/min/1.73 m2 Chronic Kidney Disease Staging per NKF: Stage I & II GFR >=60 Normal to Mildly Decreased Stage III GFR 30-59 Moderately Decreased Stage IV GFR 15-29 Severely Decreased Stage V GFR <15 Very Little GFR Left ESRD GFR <15 on PET CARE ATTENDANT 3 Troponin I Reference Interva l for [employer] LOCI: 99th Percentile= 0.00-0.045 ng/ml Risk Stratification: <= 0.10 ng/ml Decreased Risk for Adverse Clinical Events. 0.10-1.50 ng/ml Increased Risk for Adv erse Clinical Events. Evaluation of additional criterion and/or repeat testing in 2-6 hours is suggested to rule out myocardial damage. >= 1.50 ng/ml Indicative of Myocardial Injury. Procedures Date Code Description Status 05/26/2021 08179 Office/Outpatient New Moderate M DM 45-59 Minutes Completed 04/28/2021 06242 Critical Care First 30-74 Minute s Completed 04/27/2021 15471 Critical Care First 30-74 Minute s Completed 04/26/2021 21091 Critical Care Addl 30 Min Comple nilton 04/26/2021 99936 Critical Care First 30-74 Minute s Completed 04/26/2021 74861 Ultrasound Guidance For Vascular Access Requiring Ultrasound Eval Completed 04/26/2021 74056 Insertion Of Non-Ezekiel neled Centrally Inserted Central Venous Marilou Completed 04/26/2021 47564 Insertion Of Non-Ezekiel neled Centrally Inserted Central Venous Marilou Completed Medical Devices Description No Information Available Encounters Type Date Location Provider Dx Diagnosis Office Visit 05/26/2021 9:15a [facility] JAZ Lord D50.9 Iron deficiency anemia, unspecified Z86.010 Personal history of colonic polyps I48.20 Chronic atrial fibrillation, unspecified Z68.43 Body mass index [BMI] 50.0-5 9.9, adult Office Visit 04/28/2021 1:23a [facility] Gayle Vogel M.D. A41.9 Sepsis, unspecified organism R65.21 Severe sepsis with septic sh ock N17.9 Acute kidney failure, unspec ified E87.2 Acidosis Office Visit 04/27/2021 1:23a [facility] Gayle Vogel M.D. A41.9 Sepsis, unspecified organism R65.21 Severe sepsis with septic sh ock N17.9 Acute kidney failure, unspec ified E87.2 Acidosis Office Visit 04/26/2021 1:23a [facility] Gayle Vogel M.D. A41.9 Sepsis, unspecified organism R57.1 Hypovolemic shock N17.9 Acute kidney failure, unspec ified E87.2 Acidosis Assessments Date Code Description Provider 05/26/2021 D50.9 Iron deficiency anemia, unspecif ied JAZ Fraser 05/26/2021 Z86.010 Personal history of colonic poly ps JAZ Fraser 05/26/2021 I48.20 Chronic atrial fibrillation, uns pecified JAZ Fraser 05/26/2021 Z68.43 Body mass index [BMI] 50.0-59.9, adult JAZ Fraser 04/28/2021 A41.9 Sepsis, unspecified organism Gayle [place] M.D. 04/28/2021 R65.21 Severe sepsis with septic shock Gayle Huntley M.D. 04/28/2021 N17.9 Acute kidney failure, unspecifie d Gayle Huntley M.D. 04/28/2021 E87.2 Acidosis Gayle Huntley M.D. 04/27/2021 A41.9 Sepsis, unspecified organism Gayle [place] M.D. 04/27/2021 R65.21 Severe sepsis with septic shock Gayle Huntley M.D. 04/27/2021 N17.9 Acute kidney failure, unspecifie d Gayle Huntley M.D. 04/27/2021 E87.2 Acidosis Gayle Huntley M.D. 04/26/2021 A41.9 Sepsis, unspecified organism Gayle [place] M.D. 04/26/2021 R57.1 Hypovolemic shock Gayle Huntley M.D. 04/26/2021 N17.9 Acute kidney failure, unspecifie d Gayle Huntley M.D. 04/26/2021 E87.2 Acidosis Gayle Huntley M.D. Plan of Treatment Future Appointment(s):* 08/12/2021 11:30 am - JAZ Fraser at [facility] * 07/29/2021 12:40 pm - Aleksandar Vasquez JR, MD at [facility] 05/26/2021 - JAZ Fraser* D50.9 Iron deficiency anemia, unspecified * Z86.010 Personal history of colonic polyps * I48.20 Chronic atrial fibrillation, unspecified * Z68.43 Body mass index [BMI] 50.0-59.9, adult Functional Status Description No Information Available Mental Status Description No Information Available Referrals Refer to Reason for Referral Status Appt Date Aleksandar Vasquez JR, MD ANEMIA / EGD Scheduled [address] [place] [phone]
--- OUTSIDE RECORDS SUMMARY | 2021-07-29 09:57 | CCD | Continuity of Care Document ---
Author Author Keegan MCALLISTER PA Organization Unknown Address [address] [facility], [address] [place] [address] Phone [phone] Care Team Providers Care Splitter Hand Name Role Phone AUTM Unavailable Guille Frye M.D. AUTM [phone] Problems Description No Information Available Social History [...] Daily With Food Unknown Vitamin D3 50mcg (1999 Ut) Capsule s 1 by mouth every day Unknown Immunizations Description No Information Available Vital Signs Date Vital Result Comment 05/26/2021 9:20am BP Systolic 158 mmHg BP Diastolic 80 mmHg Body Temperature 97.9 F Height 71 inches 5'11" Weight 409.00 lb BMI (Body Mass Index) 57.0 kg/m2 [place] Body Weight 172 lb Weight 185.522 kg BSA (Body Surface Area) 2.86 m2 Results Test Acquired Date Facility Test Result H/L Range Note Prothrombin Time/Inr 04/26/2021 [facility] Main Lab [address] [place] [address] [phone] Prothrombin Time 16.7 seconds High 12.5-14.3 Inr 1.32 Normal 1 Laboratory test finding 04/26/2021 [facility] Main Lab [address] [place] [phone] Partial Thromboplastin Time 39.4 seconds High 24 .2-38.5 Type & Screen -Incl Blood Type,Payam,AB SC 04/26/2021 [facility] Main Lab [address] [place] [address] [phone] Blood Type B POSITIVE Normal AB Screen (Indirect Mohit)Vis NEGATIVE Normal Basic Metabolic Profile 04/26/2021 [facility] Main Lab [address] [place] [address] [phone] Glucose, Fasting 91 mg/dL Normal 70-100 Blood [...] mg/dL Low 8.8-10.2 Laboratory test finding 04/26/2021 [facility] Main Lab [address] [place] [address] [phone] Troponin I < 0.02 NG/ML Normal < [...] Little GFR Left ESRD GFR <15 on SALES OPERATIONS CONSULTANT 3 Troponin I Reference Interva l for [employer] LOCI: 99th Percentile= 0.00-0.045 ng/ml Risk Stratification: <= 0.10 ng/ml Decreased Risk for Adverse Clinical Events. 0.10-1.50 ng/ml Increased Risk for Adv erse Clinical Events. Evaluation of additional criterion and/or repeat testing in 2-6 hours is suggested to rule out myocardial damage. >= 1.50 ng/ml Indicative of Myocardial Injury. Procedures Date Code Description Status 04/28/2021 26026 Critical Care First 30-74 Minute s Completed 04/27/2021 88634 Critical Care First 30-74 Minute s Completed 04/26/2021 73031 Critical Care Addl 30 Min Comple nilton 04/26/2021 22904 Critical Care First 30-74 Minute s Completed 04/26/2021 98378 Ultrasound Guidance For Vascular Access Requiring Ultrasound Eval Completed 04/26/2021 22045 Insertion Of Non-Ezekiel neled Centrally Inserted Central Venous Marilou Completed 04/26/2021 43122 Insertion Of Non-Ezekiel neled Centrally Inserted Central Venous Marilou Completed Medical Devices Description No Information Available Encounters Type Date Location Provider Dx Diagnosis Office Visit 04/28/2021 1:23a [facility] Gayle Vogel M.D. A41.9 Sepsis, unspecified organism R65.21 Severe sepsis with septic sh ock N17.9 Acute kidney failure, unspec ified E87.2 Acidosis Office Visit 04/27/2021 1:23a [facility] Gayle Vogel M.D. A41.9 Sepsis, unspecified organism R65.21 Severe sepsis with septic sh ock N17.9 Acute kidney failure, unspec ified E87.2 Acidosis Office Visit 04/26/2021 1:23a [facility] Gayle Vogel M.D. A41.9 Sepsis, unspecified organism R57.1 Hypovolemic shock N17.9 Acute kidney failure, unspec ified E87.2 Acidosis Assessments Date Code Description Provider 04/28/2021 A41.9 Sepsis, unspecified organism Gayle [place] M.D. 04/28/2021 R65.21 Severe sepsis with septic shock Gayle [place] M.D. 04/28/2021 N17.9 Acute kidney failure, unspecifie d Gayle [place] M.D. 04/28/2021 E87.2 Acidosis Gayle Houston M.D. 04/27/2021 A41.9 Sepsis, unspecified organism Gayle [place] M.D. 04/27/2021 R65.21 Severe sepsis with septic shock Gayle [place] M.D. 04/27/2021 N17.9 Acute kidney failure, unspecifie d Gayle [place] M.D. 04/27/2021 E87.2 Acidosis Gayle Houston M.D. 04/26/2021 A41.9 Sepsis, unspecified organism Gayle [place] M.D. 04/26/2021 R57.1 Hypovolemic shock Gayle Houston M.D. 04/26/2021 N17.9 Acute kidney failure, unspecifie d Gayle Houston M.D. 04/26/2021 E87.2 Acidosis Gayle Houston M.D. Plan of Treatment No Information Available Functional Status Description No Information Available Mental Status Description No Information Available Referrals Refer to Reason for Referral Status Appt Date Aleksandar Vasquez JR, MD ANEMIA / EGD Scheduled [address] [phone] [phone]
--- OUTSIDE RECORDS SUMMARY | 2021-07-29 09:57 | CCD | Continuity of Care Document ---
Author Author Keegan HUNTLEY M.D. Organization Unknown Address [address] [place] [address] Phone [phone] Care Team Providers Care Family Law Mediator Name Role Phone AUTM Unavailable Guille Frye M.D. AUTM [phone] Problems Description No Information Available Social History Type Date Description Comments Sex Unknown Allergies, Adverse Reactions, Alerts Description No Information Available Medications Description No Information Available Immunizations Description No Information Available Vital Signs Description No Information Available Results Test Acquired Date Facility Test Result H/L Range Note Prothrombin Time/Inr 04/26/2021 [facility] Main Lab [address] [place], [place] [phone] Prothrombin Time 16.7 seconds High 12.5-14.3 Inr 1.32 Normal 1 Laboratory test finding 04/26/2021 [facility] Main Lab [address] [place] [address] [phone] Partial Thromboplastin Time 39.4 seconds High 24 .2-38.5 Type & Screen -Incl Blood Type,Payam,AB SC 04/26/2021 [facility] Main Lab [address] [place], [place] [phone] Blood Type B POSITIVE Normal AB Screen (Indirect Mohit)Vis NEGATIVE Normal Basic Metabolic Profile 04/26/2021 [facility] Main Lab [address] [place], [place] [phone] Glucose, Fasting 91 mg/dL Normal 70-100 Blood [...] mg/dL Low 8.8-10.2 Laboratory test finding 04/26/2021 [facility] Main Lab [address] [place] [id number] [phone] Troponin I < 0.02 NG/ML Normal < [...] Little GFR Left ESRD GFR <15 on SPECIAL ASSEMBLIES SUPERVISOR 3 Troponin I Reference Interva l for Siemens tu.nr LOCI: 99th Percentile= 0.00-0.045 ng/ml Risk Stratification: <= 0.10 ng/ml Decreased Risk for Adverse Clinical Events. 0.10-1.50 ng/ml Increased Risk for Adv erse Clinical Events. Evaluation of additional criterion and/or repeat testing in 2-6 hours is suggested to rule out myocardial damage. >= 1.50 ng/ml Indicative of Myocardial Injury. Procedures Date Code Description Status 04/28/2021 73082 Critical Care First 30-74 Minute s Completed 04/27/2021 73254 Critical Care First 30-74 Minute s Completed 04/26/2021 57325 Critical Care Addl 30 Min Comple nilton 04/26/2021 46719 Critical Care First 30-74 Minute s Completed 04/26/2021 91975 Ultrasound Guidance For Vascular Access Requiring Ultrasound Eval Completed 04/26/2021 68749 Insertion Of Non-Ezekiel neled Centrally Inserted Central Venous Marilou Completed 04/26/2021 41781 Insertion Of Non-Ezekiel neled Centrally Inserted Central Venous Marilou Completed Medical Devices Description No Information Available Encounters Type Date Location Provider Dx Diagnosis Office Visit 04/28/2021 1:23a [facility] Gayle [...] M.D. 04/28/2021 N17.9 Acute kidney failure, unspecifie Gayle Gonsalez M.D. 04/28/2021 E87.2 Acidosis Gayle Huntley M.D. 04/27/2021 A41.9 Sepsis, unspecified organism Gayle [place] M.D. 04/27/2021 R65.21 Severe sepsis with septic shock Gayle Huntley M.D. 04/27/2021 N17.9 Acute kidney failure, unspecifie Gayle Gonsalez M.D. 04/27/2021 E87.2 Acidosis Gayle Huntley M.D. 04/26/2021 A41.9 Sepsis, unspecified organism Gayle [place] M.D. 04/26/2021 R57.1 Hypovolemic shock Gayle Huntley M.D. 04/26/2021 N17.9 Acute kidney failure, unspecifie d Gayle Huntley M.D. 04/26/2021 E87.2 Acidosis Gayle Huntley M.D. Plan of Treatment Future Appointment(s):* 05/26/2021 9:15 am - JAZ Fraser at [facility] Functional Status Description No Information Available Mental Status Description No Information Available Referrals Refer to Dr Reason for Referral Status Appt Date Aleksandar Vasquez JR, MD ANEMIA / EGD Scheduled [address] [place] [phone]
--- OUTSIDE RECORDS SUMMARY | 2021-07-29 09:57 | CCD | Continuity of Care Document ---
Author Author Keegan HUNTLEY M.D. Organization Unknown Address [address] [place] [address] Phone [phone] Care Team Providers Care Fitness Teacher Name Role Phone AUTM Unavailable Guille Frye M.D. AUTM [phone] Problems Description No Information Available Social History Type Date Description Comments Sex Unknown Allergies, Adverse Reactions, Alerts Description No Information Available Medications Description No Information Available Immunizations Description No Information Available Vital Signs Description No Information Available Results Test Acquired Date Facility Test Result H/L Range Note Prothrombin Time/Inr 04/26/2021 [facility] Main Lab [address] [place], [place] [phone] Prothrombin Time 16.7 seconds High 12.5-14.3 Inr 1.32 Normal 1 Laboratory test finding 04/26/2021 [facility] Main Lab [address] [place] [address] [phone] Partial Thromboplastin Time 39.4 seconds High 24 .2-38.5 Type & Screen -Incl Blood Type,Payam,AB SC 04/26/2021 [facility] Main Lab [address] [place], [place] [phone] Blood Type B POSITIVE Normal AB Screen (Indirect Mohit)Vis NEGATIVE Normal Basic Metabolic Profile 04/26/2021 [facility] Main Lab [address] [place], [place] [phone] Glucose, Fasting 91 mg/dL Normal 70-100 Blood [...] mg/dL Low 8.8-10.2 Laboratory test finding 04/26/2021 [facility] Main Lab [address] [place] [id number] [phone] Troponin I < 0.02 NG/ML Normal < [...] Little GFR Left ESRD GFR <15 on [employer] 3 Troponin I Reference Interva l for Siemens XGIMI LOCI: 99th Percentile= 0.00-0.045 ng/ml Risk Stratification: <= 0.10 ng/ml Decreased Risk for Adverse Clinical Events. 0.10-1.50 ng/ml Increased Risk for Adv erse Clinical Events. Evaluation of additional criterion and/or repeat testing in 2-6 hours is suggested to rule out myocardial damage. >= 1.50 ng/ml Indicative of Myocardial Injury. Procedures Date Code Description Status 04/28/2021 51021 Critical Care First 30-74 Minute s Completed 04/27/2021 03510 Critical Care First 30-74 Minute s Completed 04/26/2021 06604 Critical Care Addl 30 Min Comple nilton 04/26/2021 14345 Critical Care First 30-74 Minute s Completed 04/26/2021 18695 Ultrasound Guidance For Vascular Access Requiring Ultrasound Eval Completed 04/26/2021 59713 Insertion Of Non-Ezekiel neled Centrally Inserted Central Venous Marilou Completed 04/26/2021 13929 Insertion Of Non-Ezekiel neled Centrally Inserted Central [...] 05/26/2021 9:15 am - JAZ Fraser at [facility] Functional Status Description No Information Available Mental Status Description No Information Available Referrals Refer to Dr Reason for Referral Status Appt Date Aleksandar Vasquez JR, MD ANEMIA / EGD Scheduled [address] [place] [phone]
--- OUTSIDE RECORDS SUMMARY | 2021-07-29 09:57 | CCD | Continuity of Care Document ---
Author Author Keegan FRYE M.D. 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 Morbid obesity Onset: 07/16/2010 Hyperlipidemia Onset: 01/06/2009 Type 2 diabetes mellitus Onset: 12/26/19 09 Low back pain Onset: 12/25/2008 Male erectile disorder Onset: 12/25/2008 Hypertensive disorder Onset: 12/25/2008 Social History Type Date Description Comments Sex Unknown ETOH Use Occasionally consumes alcohol DR INKS 2 MIXED DRINKS WEELKY Tobacco Use Start: Unknown End: Unknown Patient is a former smoker SMOKED FOR 25 YEARS X 1PPD QUIT IN 1997 Allergies, Adverse Reactions, Alerts Description No Known Drug Allergies Medications Active Medications SIG Qnty Indications Ordering Provide r Date Hydrocodone Bitartrate/Acetaminophen 7.5-325mg Tablets 1 PO Q6 Hours prn M54.5 28tabs Juani Wilson 06/22/2021 Potassium Chloride Donita ER 10Meq Tablets ER 1 by mouth every day 90tabs Guille Frye M.D. 05/18/2021 Iron (Ferrous Sulfate) 325(65Fe) mg Tablets 1 by mouth every day with juice 30tabs Guille Frye M.D. 05/18/2021 Vitamin D-3 125mcg (5000 Ut) Table ts one every day by mouth Guille Frye M.D. 05/18/20 21 Humalog Mix 75/25 Kwikpen (75-25)100Unit/ML Supn inject 2 units as needed on sliding scale MDD 100u 45units Guille Frye M.D. 2020 Xarelto 20mg Tablets take one tablet by mouth every day with food 90tabs Guille Frye M.D. 0 04/05/2019 Triple Antibiotic Ointment dose top daily Unkno wn 03/13/2019 BD Pen Needle/Naomy/Ultra -Fine/32G X 4mm 32G X 4 mm Misc 3 times a day 100units Guille Frye M.D. 12/25 Freestyle Lancets Misc 100units E11.9 Guille Frye M.D. 07/01/2015 Simvastatin 40mg Tablets 1 tablet, 1 time per day every night at bedtime, 90tabs Guille Frye M.D. Lantus Solostar 100U nit/ML Solution Pen-Inject inject subcu 10 units every night at bedtime, 45ml Guille Frye M.D. Protonix 40mg Tablets DR 1 by mouth every morning 30tabs Guille Frye M.D. Magnesium Oxide -MG Supplement 400mg Capsules 1 by mouth every day 90caps Guille Frye M.D. Torsemide 20mg Tablets 1 by mouth b.i.d. 180tabs Guille Frye M.D. Vitamin D3 1000Unit Tablets 2 by mouth every other day Unknown History Medications Ozempic (0.25 Or 0.5 MG/Dose) 2mg/1.5ML Solution Pen-Inject 0.5 mg inject weekly 4.5ml Guille Frye M.D. 04/06/2021 - 05/10/2021 Immunizations CPT Code Status Date Vaccine Lot # [id number] Given 09/26/2014 Influenza Virus Vaccine [id number] Given 10/09/2000 Adacel- Tetanus Diphtheria P ertussis U-Flu Refused 09/18/2018 Influenza,Unspecified [id number] Refused 09/03/2013 Influenza Virus Vaccine [id number] Refused 08/17/2012 Influenza Virus Vaccine 27935 Refused 10/09/2010 Pneumovax 23 16057 Refused 07/09/2010 Influenza Virus Vaccine Vital Signs Date Vital Result Comment 06/21/2021 3:41pm BP Systolic 128 mmHg BP Diastolic 62 mmHg Heart Rate 66 /min Height 70 inches 5'10" Weight 428.00 lb O2 % BldC Oximetry 93 % BMI (Body Mass Index) 61.4 kg/m2 05/18/2021 8:31am BP Systolic 112 mmHg BP Diastolic 70 mmHg Heart Rate 74 /min Height 70 inches 5'10" Weight 399.00 lb O2 % BldC Oximetry 99 % BMI (Body Mass Index) 57.2 kg/m2 Results Test Acquired Date Facility Test Result H/L Range Note Comprehensive Chem Profile 06/21/2021 [facility] [employer] [facility]: [place] [address] [phone] Glucose 223 mg/dL High 74 - 99 1 BUN 18 mg/dL 7 - 18 Creatinine 1.3 mg/dL 0.6 - 1.3 Sodium 139 mEq/L 136 - 145 Potassium 3.5 mEq/L 3.5 - 5.1 Chloride 100 mEq/L 98 - 107 Carbon Dioxide 37 mEq/L High 21 - 32 Calcium 8.8 mg/dL 8.5 - 10.1 Alk. Phosphatase 186 mg/dL High 46 - 116 Total Bilirubin 0.4 mg/dL 0.2 - 1.0 Ast (Sgot) 12 U/L Low 15 - 37 Alt (SGPT) 13 U/L 12 - 78 Albumin 2.5 g/dL Low 3.4 - 5.0 Total Protein 7.9 g/dL 6.4 - 8.2 A/G Ratio 0.46 CALC Low 1.00 - 1.90 GFR 56 mL/min Low >60 GFR >= 60 mL/min >60 2 A1c 06/21/2021 [facility] [employer] Maker: [place] [address] [phone] Hba1c 7.5 % High <5.7 3 Est Avg Glucose 169 mg/dL High 60 - 110 Complete Blood Count 06/21/2021 [facility] [employer] [facility]: Dr Giuliano Mc [place] [id number] [phone] WBC 8.0 x10*3/UL 4.1 - 10.9 4 RBC 3.56 x10*6/UL Low 4.20 - 6.30 Hemoglobin 10.1 g/dL Low 12.0 - 18.0 Hematocrit 30.5 % Low 37.0 - 51.0 MCV 85.6 fL 80.0 - 97.0 MCH 28.4 pg 26.0 - 32.0 MCHC 33.1 g/dL 31.0 - 38.0 RDW 15.5 % High 11.6 - 13.7 PLT 302 x10*3/UL 140 - 440 MPV 7.8 FL 7.8 - 11.0 Lymph % 15.3 % 10.0 - 58.5 Mid % 5.4 % 1.7 - 9.3 Neut % 79.3 % 37.0 - 92.0 Lymph # 1.2 x10*3/UL 0.6 - 4.1 Mid # 0.5 x10*3/UL 0.1 - 0.6 Neut # 6.3 x10*3/UL 2.0 - 7.8 Liver Profile 04/26/2021 [facility] nter [address] [place] [address] [phone] Ast/Sgot 14 U/L Normal 7-37 Alt/SGPT 15 U/L Normal 12-78 Alkaline Phosphatase 167 U/L High 45-117 Bilirubin,Total 0.4 mg/dL Normal 0.2-1.0 Bilirubin,Direct 0.2 mg/dL Normal 0.0-0.2 Total Protein 7.3 GM/DL Normal 6.4-8.2 Albumin 2.5 GM/DL Low 3.2-5.2 Albumin/Globulin Ratio 0.5 Normal Laboratory test finding 04/26/2021 [facility] [address] [place] [address] [phone] Lipase 1090 U/L High 73-393 Basic Metabolic Profile 04/26/2021 [facility] [address] [place] [address] [phone] Glucose, Fasting 101 mg/dL High 70-100 Blood Urea Nitrogen 80 mg/dL High 7-18 Creatinine For GFR 8.29 mg/dL Critical high 0.70-1.30 Glomerular Filtration Rate 7.0 Low >49 5 Sodium Level 121 mEq/L Low 136-145 Potassium Serum 7.1 mEq/L Critical high 3.5-5.1 6 Chloride Level 91 mEq/L Low 98-107 Carbon Dioxide Level 18 mEq/L Low 21-32 Anion Gap 12 mEq/L Normal 8-16 Calcium Level 7.7 mg/dL Low 8.8-10.2 Cardiac Marker Panel 04/26/2021 [facility] [address] [place], [place] [address] [phone] CPK Creatine Phosphokinase 89 U/L Normal 39-30 8 CK-MB Value Mass 8.0 NG/ML High <3.6 MB/CK Relative Index 8.99 High < Or =4 7 Troponin I < 0.02 NG/ML Normal < 0.10 8 Laboratory test finding 04/26/[address] [address] [phone] Lactic Acid Sepsis Protocol 1.8 mmol/L Normal 0.4- 2.0 9 CBC With Differential 04/26/[address] [address] [phone] White Blood Count 12.6 10 High 4.0-10.0 Red Blood Count 3.79 10 Low 4.30-6.10 Hemoglobin 9.7 g/dL Low 13.5-17.5 Hematocrit 31.4 % Low 42.0-52.0 Mean Corpuscular Volume 82.8 fl Normal 80.0-96.0 Mean Corpuscular Hemoglobin 25.6 pg Low 27.0-33.0 Mean Corpuscular HGB Conc 30.9 g/dL Low 32.0-36.5 Red Cell Distribution Width 17.4 % High 11.5-14.5 Platelet Count, Automated 389 10 Normal 150-450 Neutrophils % 85.6 % High 36.0-66.0 Lymph % 8.4 % Low 24.0-44.0 [place] % 4.9 % Normal 2.0-8.0 Eos % 0.3 % Normal 0.0-3.0 Baso % 0.1 % Normal 0.0-1.0 Immature Granulocyte % 0.7 % Normal 0-3.0 Nucleated Red Blood Cell % 0.0 % Normal 0-0 Neutrophils # 10.8 10 High 1.5-8.5 Lymph # 1.1 10 Low 1.5-5.0 [place] # 0.6 10 Normal 0.0-0.8 Eos # 0.0 10 Normal 0.0-0.5 Baso # 0.0 10 Normal 0.0-0.2 Ua W/ Reflex To Culture 04/26/2021 [facility] [address] [place] [address] [phone] Appearance, Urine RFX CLOUDY High Clear Color, Urine RFX BRAYAN Normal Yellow PH,Urine RFX 5.0 units Normal 5.0-9.0 Specific [place] Ur Auto RFX 1.024 Normal 1.002-1.035 Protein, Urine Auto RFX 3+ mg/dL High Negative Glucose, Urine (Ua) Auto RFX NEGATIVE mg/dL Normal Negative Ketone, Urine Auto RFX TRACE mg/dL High Negative Urobilinogen, Urine Auto RFX 0.2 mg/dL Normal 0.0-2.0 Bilirubin, Urine Auto RFX 1+ High Negative Nitrite, Urine Auto RFX NEGATIVE Normal Negative Leukocyte Esterase Ur Auto RFX 1+ High Negative Blood, Urine Blood RFX 1+ High Negative WBC, Urine Auto RFX 13 /HPF High 0-3 RBC, Urine Auto RFX 4 /HPF High 0-3 Bacteria, Urine Auto RFX 1+ High Negative Squam Epithelial Cell Ur Aurfx 1 /HPF Normal 0-6 Transitional Epithelial AU RFX 1 /HPF Normal None Mucus, Urine RFX SMALL Normal Negative Hyaline Cast, Urine Auto RFX 3 /LPF Normal 0-1 Amorphous Sediment RFX SMALL High Negative Istat ABG 04/26/2021 [facility] nter [address] [place] [address] [phone] iSTAT pH 7.250 units Low 7.350-7.450 iSTAT pCO2 36.8 MMHG Normal 35.0-45.0 iSTAT pO2 64.0 MMHG Low 80-105 iSTAT Tco2 17.0 mmol/L Low 23.0-27.0 iSTAT Hco3 16.1 mmol/L Low 22.0-26.0 iSTAT Base Excess -11.0 mmol/L Low -2.0-3.0 iSTAT sO2 88 % Low 95-98 Laboratory test finding 04/26/2021 [facility] [address] [place] [address] [phone] Ammonia 26 uMOL/L Normal <32 Venous Blood Gas 04/26/2021 [facility] nter [address] [place] [address] [phone] Venous PH 7.206 units Low 7.330-7.430 Venous Partial Pressure Co2 38.9 mmHg Normal 38.0-50.0 Venous Partial Pressure O2 73.3 mmHg High 30.0-50.0 Venous Total Co2 16.3 mEq/L Low 24.0-28.0 Venous Hco3 15.1 mEq/L Low 23.0-27.0 Venous Base Excess -12.1 Low -2.0-2.0 Venous Standard Hco3 14.8 mEq/L Normal Venous O2 Saturation 91.0 % High 60.0-80.0 Laboratory test finding 04/26/[address] [address] [phone] Troponin I < 0.02 NG/ML Normal < 0.10 10 Fibrinogen 718 mg/dL High 221-452 Basic Metabolic Profile 04/26/[address] [address] [phone] Glucose, Fasting 91 mg/dL Normal 70-100 Blood Urea Nitrogen 78 mg/dL High 7-18 Creatinine For GFR 7.61 mg/dL High 0.70-1.30 Glomerular Filtration Rate 7.7 Low >49 1 1 Sodium Level 127 mEq/L Low 136-145 Potassium Serum 6.7 mEq/L Critical high 3.5-5.1 Chloride Level 100 mEq/L Normal 98-107 Carbon Dioxide Level 16 mEq/L Low 21-32 Anion Gap 11 mEq/L Normal 8-16 Calcium Level 6.7 mg/dL Low 8.8-10.2 Type & Screen -Incl Blood Type,Payam,AB SC 04/26/[address] [address] [phone] Blood Type B POSITIVE Normal AB Screen (Indirect Mohit)Vis NEGATIVE Normal Laboratory test finding 04/26/2021 [facility] [address] [place] [address] [phone] Partial Thromboplastin Time 39.4 seconds High 24 .2-38.5 Prothrombin Time/Inr 04/26/2021 [facility] [address] [place] [address] [phone] Prothrombin Time 16.7 seconds High 12.5-14.3 Inr 1.32 Normal 12 Influenza A/B RSV Covid Amp 04/26/2021 [facility] [address] [place] [address] [phone] Influenza A Amplification NEGATIVE Normal Negati ve 13 Influenza B Amplification NEGATIVE Normal Negative 14 RSV Amplification NEGATIVE Normal Negative 15 Sars Covid-19 Amplification NEGATIVE Normal Negative 16 Laboratory test finding 03/01/2021 [facility] [employer] Maker: [place] [address] [phone] Fecal Immunochemical Test POSITIVE Abnormal Negati ve Retic (Reticulocyte Count) 02/22/2021 [facility] [address] [place] [address] [phone] Reticulocyte % 1.4 % Normal 0.5-1.5 Reticulocyte # 57.1 10 Normal 17-77 Retic Hemoglobin Equivalent 26.8 pg Normal 24-36 Comprehensive Chem Profile 02/22/2021 [facility] [place] [facility]: Dr Giuliano Mc [place] [id number] [phone] Glucose 123 mg/dL High 74 - 99 17 BUN 17 mg/dL 7 - 18 Creatinine 1.1 mg/dL 0.6 - 1.3 Sodium 136 mEq/L 136 - 145 Potassium 4.1 mEq/L 3.5 - 5.1 Chloride 98 mEq/L 98 - 107 Carbon Dioxide 29 mEq/L 21 - 32 Calcium 8.6 mg/dL 8.5 - 10.1 Alk. Phosphatase 231 mg/dL High 46 - 116 Total Bilirubin 0.6 mg/dL 0.2 - 1.0 Ast (Sgot) 18 U/L 15 - 37 Alt (SGPT) 12 U/L 12 - 78 Albumin 2.9 g/dL Low 3.4 - 5.0 18 Total Protein 7.7 g/dL 6.4 - 8.2 A/G Ratio 0.60 CALC Low 1.00 - 1.90 GFR >= 60 mL/min >60 GFR >= 60 mL/min >60 19 Complete Blood Count 02/22/2021 [facility] [employer] Maker: [place] [address] [phone] WBC 7.5 x10*3/UL 4.1 - 10.9 RBC 4.05 x10*6/UL Low 4.20 - 6.30 Hemoglobin 10.4 g/dL Low 12.0 - 18.0 20 Hematocrit 32.3 % Low 37.0 - 51.0 MCV 79.7 fL Low 80.0 - 97.0 MCH 25.6 pg Low 26.0 - 32.0 MCHC 32.1 g/dL 31.0 - 38.0 RDW 14.6 % High 11.6 - 13.7 PLT 351 x10*3/UL 140 - 440 MPV 8.1 FL 7.8 - 11.0 Lymph % 17.6 % 10.0 - 58.5 Mid % 5.3 % 1.7 - 9.3 Neut % 77.1 % 37.0 - 92.0 Lymph # 1.3 x10*3/UL 0.6 - 4.1 Mid # 0.4 x10*3/UL 0.1 - 0.6 Neut # 5.8 x10*3/UL 2.0 - 7.8 Laboratory test finding 02/22/2021 [facility] [address] [place] [address] [phone] Ferritin 29 NG/ML Normal 26-388 Prealbumin 11.5 mg/dL Low 20.0-40.0 Vitamin B12 & Folate 02/22/2021 [facility] [address] [place] [address] [phone] Vitamin B12 Level 615 pg/mL Normal 21 Folate 3.9 NG/ML Normal 22 Alkaline Phosphatase Fractionated 02/22/2021 [facility] [address] [place] [address] [phone] Gamma Glutamyltransferase 67 U/L Normal 15-85 Alkaline Phosphatase 229 U/L High 45-117 Stable Alkphos 140 U/L Normal Labile Alkphos 89 U/L Normal % Labile Alkaline Phosphatase 38.86 % Normal 23 Total Iron Binding Capacit 02/22/2021 [facility] [address] [place] [address] [phone] Iron (Fe) 28 g/dL Low 65-175 Total Iron Binding Capacity 368 g/dL Normal 250-450 Percent Saturation 7.6 % Low 19.7-50.0 Complete Blood Count 02/16/2021 [facility] [employer] Maker: [place] [address] [phone] WBC 6.6 x10*3/UL 4.1 - 10.9 24 RBC 3.99 x10*6/UL Low 4.20 - 6.30 Hemoglobin 10.5 g/dL Low 12.0 - 18.0 Hematocrit 32.2 % Low 37.0 - 51.0 MCV 80.7 fL 80.0 - 97.0 MCH 26.2 pg 26.0 - 32.0 MCHC 32.5 g/dL 31.0 - 38.0 RDW 14.5 % High 11.6 - 13.7 PLT 295 x10*3/UL 140 - 440 MPV 8.8 FL 7.8 - 11.0 Lymph % 21.8 % 10.0 - 58.5 Mid % 4.8 % 1.7 - 9.3 Neut % 73.4 % 37.0 - 92.0 Lymph # 1.4 x10*3/UL 0.6 - 4.1 Mid # 0.4 x10*3/UL 0.1 - 0.6 Neut # 4.8 x10*3/UL 2.0 - 7.8 A1c 02/16/2021 [facility] [employer] Maker: [place] [address] [phone] Hba1c 7.5 % High <5.7 25 Est Avg Glucose 169 mg/dL High 60 - 110 Comprehensive Chem Profile 02/16/2021 [facility] [employer] Maker: [place] [address] [phone] Glucose 79 mg/dL 74 - 99 26 BUN 18 mg/dL 7 - 18 Creatinine 0.9 mg/dL 0.6 - 1.3 Sodium 139 mEq/L 136 - 145 Potassium 3.8 mEq/L 3.5 - 5.1 Chloride 99 mEq/L 98 - 107 Carbon Dioxide 32 mEq/L 21 - 32 Calcium 8.8 mg/dL 8.5 - 10.1 Alk. Phosphatase 213 mg/dL High 46 - 116 27 Total Bilirubin 0.7 mg/dL 0.2 - 1.0 Ast (Sgot) 14 U/L Low 15 - 37 Alt (SGPT) 12 U/L 12 - 78 Albumin 3.0 g/dL Low 3.4 - 5.0 Total Protein 7.8 g/dL 6.4 - 8.2 A/G Ratio 0.63 CALC Low 1.00 - 1.90 GFR >= 60 mL/min >60 GFR >= 60 mL/min >60 28 Lipid Profile 02/16/2021 [facility] [employer] Maker: [place] [address] [phone] Cholesterol 116 mg/dL Low 131 - 200 Triglycerides 67 mg/dL 30 - 150 HDL Cholesterol 52 mg/dL 35 - 60 LDL (Calculated) 51 CALC 50 - 159 Laboratory test finding 02/16/2021 [facility] [employer] Maker: [place] [address] [phone] Thyroid Stimulating Hormone 2.82 uIU/mL 0.3 6 - 3.74 1 100-125 mg/dL PRE-DIABET ES/FASTING >126 mg/dL DIABETES/FASTING 2 CHRONIC KIDNEY DISEASE STAGI NG PER NKF STAGE I & II GFR >= 60 NORMAL TO MILDLY DECREASED STAGE III GFR 30-59 MODERATELY DECREASED STAGE IV GFR 15-29 SEVERELY DECREASED STAGE V GFR <15 VERY LITTLE GFR LEFT ESRD GFR <15 ON POWER LINE INST[employer]ER AND REPAIRER 3 Lab Result Notes: Pre-Diabetes 5.7 - 6.4 % Diabetes = or > 6.5% 4 NOTE: cbc verified 5 Units are mL/min/1.73 m2 Chronic Kidney Disease Staging per NKF: Stage I & II GFR >=60 Normal to Mildly Decreased Stage III GFR 30-59 Moderately Decreased Stage IV GFR 15-29 Severely Decreased Stage V GFR <15 Very Little GFR Left ESRD GFR <15 on POWER LINE INSTALLER AND REPAIRER 6 This specimen has an elevate d potassium level but there is NO visible hemolysis noted. @ [facility] CALLED ALL CRITICAL RESULTS AT [id number]. THE RESULTS WERE READ @ BACK AND VERIFIED BY JENNY 7 DIAGNOSIS CRITERIA MMB ng/ml Relative Index (RI) NON-AMI < or = 5 N/A ELLIOTT ZONE > 5 < or = 4 AMI > 5 > 4 8 Troponin I Reference Interva l for Siemens [place] LOCI: 99th Percentile= 0.00-0.045 ng/ml Risk Stratification: <= 0.10 ng/ml Decreased Risk for Adverse Clinical Events. 0.10-1.50 ng/ml Increased Risk for Adv erse Clinical Events. Evaluation of additional criterion and/or repeat testing in 2-6 hours is suggested to rule out myocardial damage. >= 1.50 ng/ml Indicative of Myocardial Injury. 9 Y/N query for Sepsis Lactate Rule: Y 10 Troponin I Reference Interva l for Siemens [place] LOCI: 99th Percentile= 0.00-0.045 ng/ml Risk Stratification: <= 0.10 ng/ml Decreased Risk for Adverse Clinical Events. 0.10-1.50 ng/ml Increased Risk for Adv erse Clinical Events. Evaluation of additional criterion and/or repeat testing in 2-6 hours is suggested to rule out myocardial damage. >= 1.50 ng/ml Indicative of Myocardial Injury. 11 Units are mL/min/1.73 m2 Chronic Kidney Disease Staging per NKF: Stage I & II GFR >=60 Normal to Mildly Decreased Stage III GFR 30-59 Moderately Decreased Stage IV GFR 15-29 Severely Decreased Stage V GFR <15 Very Little GFR Left ESRD GFR <15 on POWER LINE INSTALLER AND REPAIRER 12 THERAPUTIC HUMAN INR VALUES INDICATIONS NORMAL RANGES PROPHYLAXIS/TREATMENT OF: VENOUS THROMBOSIS 2.0-3.0 PULMONARY EMBOLISM 2.0-3.0 PREVENTION OF SYSTEMIC EMBOLISM FROM: TISSUE HEART VALVES 2.0-3.0 ACUTE MYOCARDIAL INFARCTION 2.0-3.0 VALVULAR HEART DISEASE 2.0-3.0 ATRIAL FIBRILLATION 2.0-3.0 MECHANICAL VALVES(HIGH RISK) 2.5-3.5 RECURRENT MYOCARDIAL INFARCTION 2.5-3.5 13 Negative results do not prec lude influenza or RSV virus infection and should not be used as the sole basis for treatment or other patient management decisions. 14 Negative results do not prec lude influenza or RSV virus infection and should not be used as the sole basis for treatment or other patient management decisions. 15 Negative results do not prec lude influenza or RSV virus infection and should not be used as the sole basis for treatment or other patient management decisions. 16 A false negative result may occur if a specimen is improperly collected, transported or handled. False negative results may also occur if inadequate numbers of organisms are present in the specimen. As with any molecular test, mutations within the target regions of Xpert Xpress SARS-CoV-2 could affect primer and/or probe binding resulting in failure to detect the presence of virus. This test cannot rule out diseases caused by other bacterial or viral pathogens. DISCLAIMER: Testing was performed using the [employer] SARS-CoV-2 test. This test was developed and its performance characteristics determined by [employer]. This test has not been FDA cleared or approved. This test has been authorized by FDA under an Emergency Use Authorization (EUA). This test is only authorized for the duration of time the declaration that circumstances exist justifying the authorization of the emergency use of in vitro diagnostic tests for detection of SARS-CoV-2 virus and/or diagnosis of COVID-19 infection under section 564(b)(1) of the Act, 21 U.S.C. 360bbb-3(b)(1), unless the authorization is terminated or revoked sooner. 17 100-125 mg/dL PRE-DIABET ES/FASTING >126 mg/dL DIABETES/FASTING 18 NOTE: RESULT VERIFIED. 19 CHRONIC KIDNEY DISEASE STAGI NG PER NKF STAGE I & II GFR >= 60 NORMAL TO MILDLY DECREASED STAGE III GFR 30-59 MODERATELY DECREASED STAGE IV GFR 15-29 SEVERELY DECREASED STAGE V GFR <15 VERY LITTLE GFR LEFT ESRD GFR <15 ON POWER LINE INSTALLER AND REPAIRER 20 NOTE: RESULT VERIFIED. 21 VITAMIN B12 NORMAL RANGE NORMAL 247 - 911 PG/ML INDETERMINATE 211 - 246 PG/ML DEFICIENT LESS THAN 211 PG/ML 22 FOLATE NORMAL RANGE NORMAL GREATER THAN 5.4 NG/ML INDETERMINATE 3.4-5.4 NG/ML DEFICIENT LESS THAN 3.4 NG/ML 23 FRACTIONATED ALK PHOSPHATASE INTERPRETATION LABILE VALUES GREATER THAN 70% OF TOTAL ALK PHOS SUGGESTS BONE ORIGIN. LABILE VALUES LESS THAN 65% OF TOTAL ALK PHOS SUGGESTS LIVER ORIGIN. 24 NOTE: CBC VERIFIED 25 Lab Result Notes: Pre-Diabetes 5.7 - 6.4 % Diabetes = or > 6.5% 26 100-125 mg/dL PRE-DIABET ES/FASTING >126 mg/dL DIABETES/FASTING 27 NOTE: ALK PHOS,ALBUMIN VERIFIED 28 CHRONIC KIDNEY DISEASE STAGI NG PER NKF STAGE I & II GFR >= 60 NORMAL TO MILDLY DECREASED STAGE III GFR 30-59 MODERATELY DECREASED STAGE IV GFR 15-29 SEVERELY DECREASED STAGE V GFR <15 VERY LITTLE GFR LEFT ESRD GFR <15 ON POWER LINE INSTALLER AND REPAIRER Procedures Date Code Description Status 05/18/2021 82868 Trans Care SRV W/I 14D Of DC, Co mm W/I 2 Dys Med Rec Completed 04/06/2021 90728 Office/Outpatient Established Mo d MDM 30-39 Min Completed 02/22/2021 17905 Office/Outpatient Established Mo d MDM 30-39 Min Completed 04/04/2019 [id number] Diabetic Foot Exam Completed Medical Devices Description No Information Available Encounters Type Date Location Provider Dx Diagnosis Office Visit 05/18/2021 8:30a [facility] M[facility] 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 R60.9 Edema, unspecified E11.65 Type 2 diabetes mellitus wit h hyperglycemia E11.40 Type 2 diabetes mellitus wit h diabetic neuropathy, unsp D64.9 Anemia, unspecified I48.20 Chronic atrial fibrillation, unspecified Z79.01 rat exterminator (current) use of a nticoagulants Z79.4 rat exterminator (current) use of i nsulin E63.9 Nutritional deficiency, unsp ecified Office Visit 02/22/2021 1:30p [facility] M.[facility] R60.9 Edema, unspecified I48.20 Chronic atrial fibrillation, unspecified Z79.01 rat exterminator (current) use of a nticoagulants E11.65 Type 2 diabetes mellitus wit h hyperglycemia Z79.4 [facility] (current) use of i nsulin E11.40 Type 2 diabetes mellitus wit h diabetic neuropathy, unsp I50.32 Chronic diastolic (congestiv e) heart failure E63.9 Nutritional deficiency, unsp ecified D64.9 Anemia, unspecified R74.8 Abnormal levels of other ser um enzymes Assessments Date Code Description Provider 06/21/2021 R60.9 Edema, unspecified Guille cruz M.D. 06/21/2021 E11.65 Type 2 diabetes mellitus with hy perglycemia Guille Frye M.D. 06/21/2021 D64.9 Anemia, unspecified Guille llanes M.D. 06/21/2021 I48.20 Chronic atrial fibrillation, uns pecified Guille Frye M.D. 06/21/2021 Z79.01 rat exterminator (current) use of antic oagulants Guille Frye M.D. 06/21/2021 I50.32 Chronic diastolic (congestive) h eart failure Guille Frye M.D. 06/21/2021 Z91.19 Patient's noncomplia nce with other medical treatment and regimen Guille Frye M.D. 06/21/2021 N18.30 Chronic kidney disease, stage 3 anthonyified Guille Frye M.D. 06/21/2021 R09.02 Hypoxemia Guille Frye M.D. 05/18/2021 N17.8 Other acute kidney failure Guille Frye M.D. 05/18/2021 R60.9 Edema, unspecified Guille cruz M.D. 05/18/2021 E11.65 Type 2 diabetes mellitus with hy perglycemia Guille Frye M.D. 05/18/2021 Z79.4 [facility] (current) use of insul in Guille Frye M.D. 05/18/2021 D64.9 Anemia, unspecified Guille llanes M.D. 05/18/2021 I48.20 Chronic atrial fibrillation, uns yessenia Frye M.D. 05/18/2021 Z79.01 [employer] (current) use of antic oagulants Guille Frye M.D. 05/18/2021 I50.32 Chronic diastolic (congestive) h eart failure Guille Frye M.D. 05/18/2021 Z91.19 Patient's noncomplia nce with other medical treatment and regimen Guille Frye M.D. 04/06/2021 R60.9 Edema, unspecified Guille cruz M.D. 04/06/2021 E11.65 Type 2 diabetes mellitus with hy perglycemia Guille Frye M.D. 04/06/2021 E11.40 Type 2 diabetes yeyo itus with diabetic neuropathy, anthonyified Guille Frye M.D. 04/06/2021 D64.9 Anemia, unspecified Guille llanes M.D. 04/06/2021 I48.20 Chronic atrial fibrillation, uns yessenia Frye M.D. 04/06/2021 Z79.01 [facility] (current) use of antic oagulants Guille Frye M.D. 04/06/2021 Z79.4 [facility] (current) use of insul in Guille Frye M.D. 04/06/2021 E63.9 Nutritional deficiency, unspecif ied Guille Frye M.D. 03/01/2021 Z12.12 Encounter for screening for isha gnant neoplasm of rectum Guille Frye M.D. 03/01/2021 Z12.12 Encounter for screening for isha gnant neoplasm of rectum Lab Schedule 02/22/2021 R60.9 Edema, unspecified Guille cruz M.D. 02/22/2021 I48.20 Chronic atrial fibrillation, uns yessenia Frye M.D. 02/22/2021 Z79.01 [facility] (current) use of antic oagulants Guille Frye M.D. 02/22/2021 E11.65 Type 2 diabetes mellitus with hy perglycemia Guille Frye M.D. 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 02/22/2021 E11.40 Type 2 diabetes yeyo itus with diabetic neuropathy, unspecified Guille Frye M.D. 02/22/2021 I50.32 Chronic diastolic (congestive) h eart failure Guille Frye M.D. 02/22/2021 E63.9 Nutritional deficiency, unspecif ied Guille Frye M.D. 02/22/2021 D64.9 Anemia, unspecified Guille llanes M.D. 02/22/2021 R74.8 Abnormal levels of other serum e nzymes Guille Frye M.D. 02/16/2021 I48.91 Unspecified atrial fibrillation Guille Frye M.D. 02/16/2021 I48.91 Unspecified atrial fibrillation Lab Schedule 02/16/2021 Z79.01 [facility] (current) use of antic oagulants Guille Frye M.D. 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 02/16/2021 I12.9 Hypertensive chronic kidney disease with stage 1 through stage 4 chronic kidney disease, or unspecified chronic kidney disease Lab Schedule 02/16/2021 N18.30 Chronic kidney disease, stage 3 unspecified Guille Frye M.D. 02/16/2021 N18.30 Chronic kidney disease, stage 3 unspecified Lab Schedule 02/16/2021 E11.65 Type 2 diabetes mellitus with hy perglycemia Guille Frye M.D. 02/16/2021 E11.65 Type 2 diabetes mellitus with hy perglycemia Lab Schedule 02/16/2021 E78.5 Hyperlipidemia, unspecified Joaquin Frye M.D. 02/16/2021 E78.5 Hyperlipidemia, unspecified Lab Schedule Plan of Treatment Future Appointment(s):* 10/11/2021 3:00 pm - Guille [facility]e M.D. at [facility]. 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 Edema: Doing generally well on increased dose of Torsemide via [facility]. He should be very careful with recent humidity. We discussed using air conditioning to cut the humidity down. He will continue to attempt to cut more salt out of his diet. He understands this and will follow up.2. Other acute kidney failure: Seeing Dr. Dang Toro and told improved renal function. Continue diuretics. We will obtain records from Nephrology. 3. Type 2 diabetes mellitus with hyperglycemia: Patient's checking his blood sugar 3 times a day and denies any episodes of low blood sugar. They will continue to work on this and will use current regimen appropriately. We will monitor.4. Anemia: His blood count was low in the hospital, received 3 units of blood, on iron supplement. Patient is referred to Dr. Aleksandar Vasquez regarding his colonoscopy (last in 2008) and upper endoscopy. We will continue to monitor.5. Chronic atrial fibrillation: Rate is controlled. He is anticoagulated. We will continue to monitor.6. [facility] (current) use of anticoagulants: He is on Xarelto for his atrial fib, will continue and monitor.7. [facility] (current) use of insulin: His is managing insulins. He should be careful with hypoglycemia. Continue current regimen. We will monitor.8. Chronic diastolic (congestive) heart failure: O verall generally controlled with diuretics. He had bradycardia during hospitalization, which is possibly due to underlying sleep apnea and we discussed possible treatment with CPAP machine. We will obtain EKG result from the hospital. He will continue to work on avoidance of salt and dietary changes.9. Patient's noncompliance w oth medical treatment and regimen: Patient saw Dr. Dang Toro yesterday after discharge from the hospital who is controlling his medications and his wounds are better now, although patient still refuses to see Dr. Thompson or any other providers. We will continue to monitor.Ongoing cares: I am going to see him again in 2-3 months with CMP and CBC. If he has new problems or issues sooner he will let us know. Functional Status Description No Information Available Mental Status Description No Information Available Referrals Refer to Reason for Referral Status Appt Date Aleksandar Vasquez JR, MD CONSULT FOR PANENDOSCOPY DX: ANEMIA Yumiko callaway [facility] General Surgery [address] [address] [phone]
--- OUTSIDE RECORDS SUMMARY | 2021-07-29 09:57 | CCD | Continuity of Care Document ---
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 AUTM [phone] Problems Description No Information Available Social History [...] lb BMI (Body Mass Index) 57.0 kg/m2 [place] Body Weight 172 lb Weight 185.522 kg BSA (Body Surface Area) 2.86 m2 Results Test Acquired Date Facility Test Result H/L Range Note Prothrombin Time/Inr 04/26/2021 [facility] Main Lab [address] [place] [address] [phone] Prothrombin Time 16.7 seconds High 12.5-14.3 Inr 1.32 Normal 1 Laboratory test finding 04/26/2021 [facility] Main Lab [address] [place] [address] [phone] Partial Thromboplastin Time 39.4 seconds High 24 .2-38.5 Type & Screen -Incl Blood Type,Payam,AB SC 04/26/2021 [facility] Main Lab [address] [place] [address] [phone] Blood Type B POSITIVE Normal AB Screen (Indirect Mohit)Vis NEGATIVE Normal Basic Metabolic Profile 04/26/2021 [facility] Main Lab [address] [place] [address] [phone] Glucose, Fasting 91 mg/dL Normal 70-100 Blood [...] mg/dL Low 8.8-10.2 Laboratory test finding 04/26/2021 [facility] Main Lab [address] [place] [address] [phone] Troponin I < 0.02 NG/ML Normal < [...] Little GFR Left ESRD GFR <15 on RAMP MANAGER 3 Troponin I Reference Interva l for Thermodynamic Process Control [place] LOCI: 99th Percentile= 0.00-0.045 ng/ml Risk Stratification: <= 0.10 ng/ml Decreased Risk for Adverse Clinical Events. 0.10-1.50 ng/ml Increased Risk for Adv erse Clinical Events. Evaluation of additional criterion and/or repeat testing in 2-6 hours is suggested to rule out myocardial damage. >= 1.50 ng/ml Indicative of Myocardial Injury. Procedures Date Code Description Status 05/26/2021 88915 Office/Outpatient New Moderate M DM 45-59 Minutes Completed 04/28/2021 72894 Critical Care First 30-74 Minute s Completed 04/27/2021 97505 Critical Care First 30-74 Minute s Completed 04/26/2021 90499 Critical Care Addl 30 Min Comple nilton 04/26/2021 23512 Critical Care First 30-74 Minute s Completed 04/26/2021 48577 Ultrasound Guidance For Vascular Access Requiring Ultrasound Eval Completed 04/26/2021 92236 Insertion Of Non-Ezekiel neled Centrally Inserted Central Venous [place] Completed 04/26/2021 20069 Insertion Of Non-Ezekiel neled Centrally Inserted Central Venous [place] Completed Medical Devices Description No Information Available Encounters Type Date Location Provider Dx Diagnosis Office Visit 05/26/2021 9:15a [facility] JAZ Lord D50.9 Iron deficiency anemia, unspecified Z86.010 Personal history of colonic polyps I48.20 Chronic atrial fibrillation, unspecified Z68.43 Body mass index [BMI] 50.0-5 9.9, adult Office Visit 04/28/2021 1:23a [facility] Gayle Vogel M.D. A41.9 Sepsis, unspecified organism R65.21 Severe sepsis with septic sh ock N17.9 Acute kidney failure, unspec ified E87.2 Acidosis Office Visit 04/27/2021 1:23a [facility] Gayle Vogel M.D. A41.9 Sepsis, unspecified organism R65.21 Severe sepsis with septic sh ock N17.9 Acute kidney failure, unspec ified E87.2 Acidosis Office Visit 04/26/2021 1:23a [facility] Gayle Vogel M.D. A41.9 Sepsis, unspecified [...] Acidosis Gayle Houston M.D. Plan of Treatment Future Appointment(s):* 08/12/2021 11:30 am - JAZ Fraser at [facility] * 07/29/2021 10:15 am - Aleksandar Vasquez JR, MD at [facility] 05/26/2021 - JAZ Fraser* D50.9 Iron deficiency anemia, unspecified * Z86.010 Personal history of colonic polyps * I48.20 Chronic atrial fibrillation, unspecified * Z68.43 Body mass index [BMI] 50.0-59.9, adult Functional Status Description No Information Available Mental Status Description No Information Available Referrals Refer to Reason for Referral Status Appt Date Aleksandar Vasquez JR, MD ANEMIA / EGD Scheduled [address] [place] [phone]
--- OUTSIDE RECORDS SUMMARY | 2021-07-29 09:57 | CCD | Continuity of Care Document ---
Author Author Keegan HUNTLEY M.D. Organization Unknown Address [address] [place] [address] Phone [phone] Care Team Providers Care Pumping Plant Operator Name Role Phone AUTM Unavailable Guille Frye M.D. AUTM [phone] Problems Description No Information Available Social History Type Date Description Comments Sex Unknown Allergies, Adverse Reactions, Alerts Description No Information Available Medications Description No Information Available Immunizations Description No Information Available Vital Signs Description No Information Available Results Test Acquired Date Facility Test Result H/L Range Note Prothrombin Time/Inr 04/26/2021 [facility] Main Lab [address] [place], [place] [id number] [phone] Prothrombin Time 16.7 seconds High 12.5-14.3 Inr 1.32 Normal 1 Laboratory test finding 04/26/2021 [facility] Main Lab [address] [place] [id number] [phone] Partial Thromboplastin Time 39.4 seconds High 24 .2-38.5 Type & Screen -Incl Blood Type,Payam,AB SC 04/26/2021 [facility] Main Lab [address] [place] [place], [place] [id number] [phone] Blood Type B POSITIVE Normal AB Screen (Indirect Mohit)Vis NEGATIVE Normal Basic Metabolic Profile 04/26/2021 [facility] Main Lab [address] [place] [place], [place] [id number] [phone] Glucose, Fasting 91 mg/dL Normal 70-100 Blood [...] mg/dL Low 8.8-10.2 Laboratory test finding 04/26/2021 [facility] Main Lab [address] [id number] [phone] Troponin I < 0.02 NG/ML Normal < [...] Little GFR Left ESRD GFR <15 on RUNNER MAN 3 Troponin I Reference Interva l for [employer] Omni-ID LOCI: 99th Percentile= 0.00-0.045 ng/ml Risk Stratification: <= 0.10 ng/ml Decreased Risk for Adverse Clinical Events. 0.10-1.50 ng/ml Increased Risk for Adv erse Clinical Events. Evaluation of additional criterion and/or repeat testing in 2-6 hours is suggested to rule out myocardial damage. >= 1.50 ng/ml Indicative of Myocardial Injury. Procedures Date Code Description Status 04/28/2021 51057 Critical Care First 30-74 Minute s Completed 04/27/2021 24942 Critical Care First 30-74 Minute s Completed 04/26/2021 96456 Critical Care Addl 30 Min Comple nilton 04/26/2021 35169 Critical Care First 30-74 Minute s Completed 04/26/2021 27669 Ultrasound Guidance For Vascular Access Requiring Ultrasound Eval Completed 04/26/2021 19308 Insertion Of Non-Ezekiel neled Centrally Inserted Central Venous [place] Completed 04/26/2021 97349 Insertion Of Non-Ezekiel neled Centrally Inserted Central [...] 05/26/2021 9:15 am - JAZ Fraser at [facility] Functional Status Description No Information Available Mental Status Description No Information Available Referrals Refer to Dr Reason for Referral Status Appt Date Aleksandar Vasquez JR, MD ANEMIA / EGD Scheduled [address] [place] [phone]
--- OUTSIDE RECORDS SUMMARY | 2021-07-29 09:57 | CCD | Continuity of Care Document ---
Author Author Keegan EVANS M.D. Organization Unknown Address [address] [facility] [address] [place] [address] Phone [phone] Care Team Providers Care Director Of Digital Marketing Name Role Phone Guille Evans MD AUTM [phone] [facility] Hea AUTM [phone] Problems Active Problems Provider Date Mixed hyperlipidemia [...] Indications Ordering Provide r Date Potassium Chloride Donita ER 10Meq Tablets ER 1 by mouth every day 90tabs Guille Evans M.D. 05/18/2021 Iron (Ferrous Sulfate) 325(65Fe) mg Tablets 1 by mouth every day with juice 30tabs Guille Evans M.D. 05/18/2021 Vitamin D-3 125mcg (5000 Ut) Table ts one every day by mouth Guille Evans M.D. 05/18/20 21 Humalog Mix 75/25 Kwikpen (75-25)100Unit/ML Supn inject 2 units as needed on sliding scale MDD 100u 45units Guille Evans M.D. 2020 Xarelto 20mg Tablets take one tablet by mouth every day with food 90tabs Guille Evans M.D. 0 04/05/2019 Triple Antibiotic Ointment dose top daily Unkno wn 03/13/2019 BD Pen Needle/Naomy/Ultra -Fine/32G X 4mm 32G X 4 mm Misc 3 times a day 100units Guille Evans M.D. 12/25 Freestyle Lancets Misc 100units E11.9 Guille Evans M.D. 07/01/2015 Simvastatin 40mg Tablets 1 tablet, 1 time per day every night at bedtime, 90tabs Guille Evans M.D. Hydrocodone-Acetaminophen 7.5-325mg Tablets one pill by mouth every 6 hours as needed pain. m54.5 28tabs Guille Evans M.D. Lantus Solostar 100U nit/ML Solution Pen-Inject inject subcu 10 units every night at bedtime, 45ml Guille Evans M.D. Protonix 40mg Tablets DR 1 by mouth every morning Unknown Magnesium Oxide -MG Supplement 400mg Capsules 1 by mouth every day Unknown 000 Torsemide 20mg Tablets 1 by mouth b.i.d. Unknown History Medications Ozempic (0.25 Or 0.5 MG/Dose) 2mg/1.5ML Solution Pen-Inject 0.5 mg inject weekly 4.5ml Guille Evans M.D. 04/06/2021 - 05/10/2021 Humalog Mix 75/25 Kwikpen (75-25)100Unit/ML Supn inject 2 units as needed on sliding scale 45units Guille Evans M.D. 2020 - 2020 Immunizations CPT Code Status Date Vaccine Lot # [id number] Given 09/26/2014 Influenza Virus Vaccine [id number] Given 10/09/2000 Adacel- Tetanus Diphtheria P ertussis (Age64 & Under) U-Flu Refused 09/18/2018 Influenza,Unspecified 93591 Refused 09/03/2013 Influenza Virus Vaccine [id number] Refused 08/17/2012 Influenza Virus Vaccine [id number] Refused 10/09/2010 Pneumovax 23 [id number] Refused 07/09/2010 Influenza Virus Vaccine Vital Signs Date Vital Result Comment 05/18/2021 8:31am BP Systolic 112 mmHg BP Diastolic 70 mmHg Heart Rate 74 /min Height 70 inches 5'10" Weight 399.00 lb O2 % BldC Oximetry 99 % BMI (Body Mass Index) 57.2 kg/m2 04/06/2021 3:32pm BP Systolic 132 mmHg BP Diastolic 78 mmHg Heart Rate 76 /min Height 70 inches 5'10" Weight 419.00 lb BMI (Body Mass Index) 60.1 kg/m2 Results Test Acquired Date Facility Test Result H/L Range Note Laboratory test finding 04/26/[address] [address] [phone] Partial Thromboplastin Time 39.4 seconds High 24 .2-38.5 Laboratory test finding 04/26/[address] [id number] [phone] Lipase 1090 U/L High 73-393 Basic Metabolic Profile 04/26/[address] [address] [phone] Glucose, Fasting 101 mg/dL High 70-100 Blood Urea Nitrogen 80 mg/dL High 7-18 Creatinine For GFR 8.29 mg/dL Critical high 0.70-1.30 Glomerular Filtration Rate 7.0 Low >49 1 Sodium Level 121 mEq/L Low 136-145 Potassium Serum 7.1 mEq/L Critical high 3.5-5.1 2 Chloride Level 91 mEq/L Low 98-107 Carbon Dioxide Level 18 mEq/L Low 21-32 Anion Gap 12 mEq/L Normal 8-16 Calcium Level 7.7 mg/dL Low 8.8-10.2 Liver Profile 04/26/2021 [facility] [address] [place] [address] [phone] Ast/Sgot 14 U/L Normal 7-37 Alt/SGPT 15 U/L Normal 12-78 Alkaline Phosphatase 167 U/L High 45-117 Bilirubin,Total 0.4 mg/dL Normal 0.2-1.0 Bilirubin,Direct 0.2 mg/dL Normal 0.0-0.2 Total Protein 7.3 GM/DL Normal 6.4-8.2 Albumin 2.5 GM/DL Low 3.2-5.2 Albumin/Globulin Ratio 0.5 Normal Cardiac Marker Panel 04/26/2021 [facility] enter [address] [place] [address] [phone] CPK Creatine Phosphokinase 89 U/L Normal 39-30 8 CK-MB Value Mass 8.0 NG/ML High <3.6 MB/CK Relative Index 8.99 High < Or =4 3 Troponin I < 0.02 NG/ML Normal < 0.10 4 Laboratory test finding 04/26/2021 [facility] [address] [place] [address] [phone] Lactic Acid Sepsis Protocol 1.8 mmol/L Normal 0.4- 2.0 5 CBC With Differential 04/26/2021 [place] [place] [address] [phone] White Blood Count 12.6 10 High 4.0-10.0 [...] 36.0-66.0 Lymph % 8.4 % Low 24.0-44.0 Terry % 4.9 % Normal 2.0-8.0 Eos % 0.3 % Normal 0.0-3.0 Baso % 0.1 % Normal 0.0-1.0 Immature Granulocyte % 0.7 % Normal 0-3.0 Nucleated Red Blood Cell % 0.0 % Normal 0-0 Neutrophils # 10.8 10 High 1.5-8.5 Lymph # 1.1 10 Low 1.5-5.0 Terry # 0.6 10 Normal 0.0-0.8 Eos # 0.0 10 Normal 0.0-0.5 Baso # 0.0 10 Normal 0.0-0.2 Ua W/ Reflex To Culture 04/26/2021 [facility] [address] [place] [address] [phone] Appearance, Urine RFX CLOUDY High Clear Color, Urine RFX BRAYAN Normal Yellow PH,Urine RFX 5.0 units Normal 5.0-9.0 Specific Reubens Ur Auto RFX 1.024 Normal 1.002-1.035 Protein, [...] 0-1 Amorphous Sediment RFX SMALL High Negative Influenza A/B RSV Covid Amp 04/26/[address] [address] [phone] Influenza A Amplification NEGATIVE Normal Negati ve 6 Influenza B Amplification NEGATIVE Normal Negative 7 RSV Amplification NEGATIVE Normal Negative 8 Sars Covid-19 Amplification NEGATIVE Normal Negative 9 Laboratory test finding 04/26/2021 [facility] [address] [place] [address] [phone] Ammonia 26 uMOL/L Normal <32 Venous Blood Gas 04/26/2021 [facility] nter [address] [place] [address] [phone] Venous PH 7.206 units Low 7.330-7.430 Venous Partial Pressure Co2 38.9 mmHg Normal 38.0-50.0 Venous Partial Pressure O2 73.3 mmHg High 30.0-50.0 Venous Total Co2 16.3 mEq/L Low 24.0-28.0 Venous Hco3 15.1 mEq/L Low 23.0-27.0 Venous Base Excess -12.1 Low -2.0-2.0 Venous Standard Hco3 14.8 mEq/L Normal Venous O2 Saturation 91.0 % High 60.0-80.0 Laboratory test finding 04/26/2021 [facility] [address] [place] [address] [phone] Troponin I < 0.02 NG/ML Normal < 0.10 10 Fibrinogen 718 mg/dL High 221-452 Basic Metabolic Profile 04/26/[address] [address] [phone] Glucose, Fasting 91 mg/dL Normal 70-100 Blood [...] & Screen -Incl Blood Type,Payam,AB SC 04/26/[address] [address] [phone] Blood Type B POSITIVE Normal AB Screen (Indirect Mohit)Vis NEGATIVE Normal Prothrombin Time/Inr 04/26/2021 [facility] enter [address] [place] [address] [phone] Prothrombin Time 16.7 seconds High 12.5-14.3 Inr 1.32 Normal 12 Istat ABG 04/26/2021 [facility] nter [address] [place] [address] [phone] iSTAT pH 7.250 units Low 7.350-7.450 iSTAT pCO2 36.8 MMHG Normal 35.0-45.0 iSTAT pO2 64.0 MMHG Low 80-105 iSTAT Tco2 17.0 mmol/L Low 23.0-27.0 iSTAT Hco3 16.1 mmol/L Low 22.0-26.0 iSTAT Base Excess -11.0 mmol/L Low -2.0-3.0 iSTAT sO2 88 % Low 95-98 Laboratory test finding 03/01/2021 [place] [employer] [facility]ary [place] Manager Hvac: Dr Giuliano Mc [place] [id number] [phone] Fecal Immunochemical Test POSITIVE Abnormal Negati ve Retic (Reticulocyte Count) 02/22/2021 [facility] [address] [place] [address] [phone] Reticulocyte % 1.4 % Normal 0.5-1.5 Reticulocyte # 57.1 10 Normal 17-77 Retic Hemoglobin Equivalent 26.8 pg Normal 24-36 Comprehensive Chem Profile 02/22/2021 [facility] law Manager Hvac: [place] [address] [phone] Glucose 123 mg/dL High 74 - 99 13 BUN 17 mg/dL 7 - 18 Creatinine [...] Albumin 2.9 g/dL Low 3.4 - 5.0 14 Total Protein 7.7 g/dL 6.4 - 8.2 A/G Ratio 0.60 CALC Low 1.00 - 1.90 GFR >= 60 mL/min >60 GFR >= 60 mL/min >60 15 Complete Blood Count 02/22/2021 [place] [employer] Manager Hvac: Dr Giuliano Mc [place], [place] [id number] [phone] WBC 7.5 x10*3/UL 4.1 - 10.9 RBC 4.05 x10*6/UL Low 4.20 - 6.30 Hemoglobin 10.4 g/dL Low 12.0 - 18.0 16 Hematocrit 32.3 % Low 37.0 - 51.0 [...] 2.0 - 7.8 Laboratory test finding 02/22/[address] [address] [phone] Ferritin 29 NG/ML Normal 26-388 Prealbumin 11.5 mg/dL Low 20.0-40.0 Vitamin B12 & Folate 02/22/2021 [facility] enter [address] [place] [phone] Vitamin B12 Level 615 pg/mL Normal 17 Folate 3.9 NG/ML Normal 18 Alkaline Phosphatase Fractionated 02/22/[address] [phone] Gamma Glutamyltransferase 67 U/L Normal 15-85 Alkaline Phosphatase 229 U/L High 45-117 Stable Alkphos 140 U/L Normal Labile Alkphos 89 U/L Normal % Labile Alkaline Phosphatase 38.86 % Normal 19 Total Iron Binding Capacit 02/22/[address] [address] [phone] Iron (Fe) 28 g/dL Low 65-175 Total Iron Binding Capacity 368 g/dL Normal 250-450 Percent Saturation 7.6 % Low 19.7-50.0 Complete Blood Count 02/16/2021 [facility] [employer] [facility] Manager Hvac: [place] [address] [phone] WBC 6.6 x10*3/UL 4.1 - 10.9 20 RBC 3.99 x10*6/UL Low 4.20 - 6.30 [...] 4.8 x10*3/UL 2.0 - 7.8 A1c 02/16/2021 [facility] , Manager Hvac: [place] [address] [phone] Hba1c 7.5 % High <5.7 21 Est Avg Glucose 169 mg/dL High 60 - 110 Comprehensive Chem Profile 02/16/2021 [facility], Manager Hvac: [place] [address] [phone] Glucose 79 mg/dL 74 - 99 22 BUN 18 mg/dL 7 - 18 Creatinine 0.9 mg/dL 0.6 - 1.3 Sodium 139 mEq/L 136 - 145 Potassium 3.8 mEq/L 3.5 - 5.1 Chloride 99 mEq/L 98 - 107 Carbon Dioxide 32 mEq/L 21 - 32 Calcium 8.8 mg/dL 8.5 - 10.1 Alk. Phosphatase 213 mg/dL High 46 - 116 23 Total Bilirubin 0.7 mg/dL 0.2 - 1.0 Ast (Sgot) 14 U/L Low 15 - 37 Alt (SGPT) 12 U/L 12 - 78 Albumin 3.0 g/dL Low 3.4 - 5.0 Total Protein 7.8 g/dL 6.4 - 8.2 A/G Ratio 0.63 CALC Low 1.00 - 1.90 GFR >= 60 mL/min >60 GFR >= 60 mL/min >60 24 Lipid Profile 02/16/2021 [facility] , Manager Hvac: Dr Giuliano Mc [place], [place] [phone] Cholesterol 116 mg/dL Low 131 - 200 Triglycerides 67 mg/dL 30 - 150 HDL Cholesterol 52 mg/dL 35 - 60 LDL (Calculated) 51 CALC 50 - 159 Laboratory test finding 02/16/2021 [place] [employer] [facility] pc Manager Hvac: [place] [address] [phone] Thyroid Stimulating Hormone 2.82 uIU/mL 0.3 6 - 3.74 1 Units are mL/min/1.73 m2 Chronic Kidney Disease Staging per NKF: Stage I & II GFR >=60 Normal to Mildly Decreased Stage III GFR 30-59 Moderately Decreased Stage IV GFR 15-29 Severely Decreased Stage V GFR <15 Very Little GFR Left ESRD GFR <15 on CLIENT ADMINISTRATOR 2 This specimen has an elevate d potassium level but there is NO visible hemolysis noted. @ [facility] CALLED ALL CRITICAL RESULTS AT [id number]. THE RESULTS WERE READ @ BACK AND VERIFIED BY JENNY 3 DIAGNOSIS CRITERIA MMB ng/ml Relative Index (RI) NON-AMI < or = 5 N/A ELLIOTT ZONE > 5 < or = 4 AMI > 5 > 4 4 Troponin I Reference Interva l for Siemens [place] LOCI: 99th Percentile= 0.00-0.045 ng/ml Risk Stratification: <= 0.10 ng/ml Decreased Risk for Adverse Clinical Events. 0.10-1.50 ng/ml Increased Risk for Adv erse Clinical Events. Evaluation of additional criterion and/or repeat testing in 2-6 hours is suggested to rule out myocardial damage. >= 1.50 ng/ml Indicative of Myocardial Injury. 5 Y/N query for Sepsis Lactate Rule: Y 6 Negative results do not prec lude influenza or RSV virus infection and should not be used as the sole basis for treatment or other patient management decisions. 7 Negative results do not prec lude influenza or RSV virus infection and should not be used as the sole basis for treatment or other patient management decisions. 8 Negative results do not prec lude influenza or RSV virus infection and should not be used as the sole basis for treatment or other patient management decisions. 9 A false negative result may occur if [...] pathogens. DISCLAIMER: Testing was performed using the [employer] SARS-CoV-2 test. This test was developed and its performance characteristics determined by [employer]. This test has not been FDA cleared [...] the authorization is terminated or revoked sooner. 10 Troponin I Reference Interva l for Siemens [place] LOCI: 99th Percentile= 0.00-0.045 ng/ml Risk Stratification: [...] Little GFR Left ESRD GFR <15 on CLIENT ADMINISTRATOR 12 THERAPUTIC HUMAN INR VALUES INDICATIONS NORMAL RANGES PROPHYLAXIS/TREATMENT OF: VENOUS THROMBOSIS 2.0-3.0 PULMONARY EMBOLISM 2.0-3.0 PREVENTION OF SYSTEMIC EMBOLISM FROM: TISSUE HEART VALVES 2.0-3.0 ACUTE MYOCARDIAL INFARCTION 2.0-3.0 VALVULAR HEART DISEASE 2.0-3.0 ATRIAL FIBRILLATION 2.0-3.0 MECHANICAL VALVES(HIGH RISK) 2.5-3.5 RECURRENT MYOCARDIAL INFARCTION 2.5-3.5 13 100-125 mg/dL PRE-DIABET ES/FASTING >126 mg/dL DIABETES/FASTING 14 NOTE: RESULT VERIFIED. 15 CHRONIC KIDNEY DISEASE STAGI NG PER NKF STAGE I & II GFR >= 60 NORMAL TO MILDLY DECREASED STAGE III GFR 30-59 MODERATELY DECREASED STAGE IV GFR 15-29 SEVERELY DECREASED STAGE V GFR <15 VERY LITTLE GFR LEFT ESRD GFR <15 ON CLIENT ADMINISTRATOR 16 NOTE: RESULT VERIFIED. 17 VITAMIN B12 NORMAL RANGE NORMAL 247 - 911 PG/ML INDETERMINATE 211 - 246 PG/ML DEFICIENT LESS THAN 211 PG/ML 18 FOLATE NORMAL RANGE NORMAL GREATER THAN 5.4 NG/ML INDETERMINATE 3.4-5.4 NG/ML DEFICIENT LESS THAN 3.4 NG/ML 19 FRACTIONATED ALK PHOSPHATASE INTERPRETATION LABILE VALUES GREATER THAN 70% OF TOTAL ALK PHOS SUGGESTS BONE ORIGIN. LABILE VALUES LESS THAN 65% OF TOTAL ALK PHOS SUGGESTS LIVER ORIGIN. 20 NOTE: CBC VERIFIED 21 Lab Result Notes: Pre-Diabetes 5.7 - 6.4 % Diabetes = or > 6.5% 22 100-125 mg/dL PRE-DIABET ES/FASTING >126 mg/dL DIABETES/FASTING 23 NOTE: ALK PHOS,ALBUMIN VERIFIED 24 CHRONIC KIDNEY DISEASE STAGI NG PER NKF STAGE I & II GFR >= 60 NORMAL TO MILDLY DECREASED STAGE III GFR 30-59 MODERATELY DECREASED STAGE IV GFR 15-29 SEVERELY DECREASED STAGE V GFR <15 VERY LITTLE GFR LEFT ESRD GFR <15 ON CLIENT ADMINISTRATOR Procedures Date Code Description Status 04/06/2021 25608 Office/Outpatient Established Mo d MDM 30-39 Min Completed 02/22/2021 93457 Office/Outpatient Established Mo d MDM 30-39 Min Completed 04/04/2019 [id number] Diabetic Foot Exam Completed Medical Devices Description No Information Available Encounters Type Date Location Provider Dx Diagnosis Office Visit 04/06[facility]2021 [facility] R60.9 Edema, unspecified E11.65 Type 2 diabetes mellitus wit h hyperglycemia E11.40 Type 2 diabetes mellitus wit h diabetic neuropathy, unsp D64.9 Anemia, unspecified I48.20 Chronic atrial fibrillation, unspecified Z79.01 group home (current) use of a nticoagulants Z79.4 group home (current) use of i nsulin E63.9 Nutritional deficiency, unsp ecified Office Visit 02/22/2021 1:30p [facility] Guille Evans M.D. R60.9 Edema, unspecified I48.20 Chronic atrial fibrillation, unspecified Z79.01 group home (current) use of a nticoagulants E11.65 Type 2 diabetes mellitus wit h hyperglycemia Z79.4 group home (current) use of i nsulin E11.40 Type 2 diabetes mellitus wit h diabetic neuropathy, unsp I50.32 Chronic diastolic (congestiv e) heart failure E63.9 Nutritional deficiency, unsp ecified D64.9 Anemia, unspecified R74.8 Abnormal levels of other ser um enzymes Assessments Date Code Description Provider 04/06/2021 R60.9 Edema, unspecified Guille cruz M.D. 04/06/2021 E11.65 Type 2 diabetes mellitus with hy perglycemia Guille Evans M.D. 04/06/2021 E11.40 Type 2 diabetes yeyo itus with diabetic neuropathy, unspecified Guille Evans M.D. 04/06/2021 D64.9 Anemia, unspecified Guille llanes M.D. 04/06/2021 I48.20 Chronic atrial fibrillation, uns pecified Guille Evans M.D. 04/06/2021 Z79.01 senior bi architect (current) use of antic oagulants Guille Evans M.D. 04/06/2021 Z79.4 senior bi architect (current) use of insul in Guille Evans M.D. 04/06/2021 E63.9 Nutritional deficiency, unspecif ied Guille Evans M.D. 03/01/2021 Z12.12 Encounter for screening for isha gnant neoplasm of rectum Guille Evans M.D. 03/01/2021 Z12.12 Encounter for screening for isha gnant neoplasm of rectum Lab Schedule 02/22/2021 R60.9 Edema, unspecified Guille cruz M.D. 02/22/2021 I48.20 Chronic atrial fibrillation, uns pecified Guille Evans M.D. 02/22/2021 Z79.01 senior bi architect (current) use of antic oagulants Guille Evans M.D. 02/22/2021 E11.65 Type 2 diabetes mellitus with hy perglycemia Guille Evans M.D. 02/22/2021 Z79.4 senior bi architect (current) use of insul in Guille Evans M.D. 02/22/2021 E11.40 Type 2 diabetes yeyo itus with diabetic neuropathy, unspecified Guille Evans M.D. 02/22/2021 I50.32 Chronic diastolic (congestive) h eart failure Guille Evans M.D. 02/22/2021 E63.9 Nutritional deficiency, unspecif ied Guille Evans M.D. 02/22/2021 D64.9 Anemia, unspecified Guille llanes M.D. 02/22/2021 R74.8 Abnormal levels of other serum e nzymes Guille Evans M.D. 02/16/2021 I48.91 Unspecified atrial fibrillation Guille Evans M.D. 02/16/2021 I48.91 Unspecified atrial fibrillation Lab Schedule 02/16/2021 Z79.01 group home (current) use of antic oagulants Guille Evans M.D. 02/16/2021 Z79.01 senior bi architect (current) use of antic oagulants Lab Schedule 02/16/2021 I12.9 Hypertensive chronic kidney disease with stage 1 through stage 4 chronic kidney disease, or unspecified chronic kidney disease Guille Evans M.D. 02/16/2021 I12.9 Hypertensive chronic kidney disease with stage 1 through stage 4 chronic kidney disease, or unspecified chronic kidney disease Lab Schedule 02/16/2021 N18.30 Chronic kidney disease, stage 3 unspecified Guille Evans M.D. 02/16/2021 N18.30 Chronic kidney disease, stage 3 unspecified Lab Schedule 02/16/2021 E11.65 Type 2 diabetes mellitus with hy perglycemia Guille Evans M.D. 02/16/2021 E11.65 Type 2 diabetes mellitus with hy perglycemia Lab Schedule 02/16/2021 E78.5 Hyperlipidemia, unspecified Joaquin Evans M.D. 02/16/2021 E78.5 Hyperlipidemia, unspecified Lab Schedule Plan of Treatment Future Appointment(s):* 06/21/2021 3:30 pm - [facility] 02/22/2021 - Guille Evans M.D.* R60.9 Edema, unspecified * I48.20 Chronic atrial fibrillation, unspecified * Z79.01 senior bi architect (current) use of anticoagulants * E11.65 Type 2 diabetes mellitus with hyperglycemia * Z79.4 senior bi architect (current) use of insulin * E11.40 Type 2 diabetes mellitus with diabetic neuropathy, unsp * I50.32 Chronic diastolic (congestive) heart failure * E63.9 Nutritional deficiency, unspecified * D64.9 Anemia, unspecified * R74.8 Abnormal levels of other serum enzymes * * Comments:* 1. Edema: He has chronic wounds on his legs. Education was done including elevation of legs. We discussed about evaluating at the wound clinic.2. Chronic atrial fibrillation: Rate has been controlled and doing well on anticoagulation. We will monitor.3. senior bi architect (current) use of anticoagulants: Generally doing okay, will continue and monitor.4. Type 2 diabetes mellitus with hyperglycemia: HgbA1c is now 7.5. We discussed the importance of diabetic control and all the end organ damage that he can lead to. He should avoid taking ice cream daily.5. senior bi architect (current) use of insulin: We discussed this in detail and will continue to use Lantus and Humalog appropriately. We will monitor.6. Type 2 diabetes mellitus with diabetic neuropathy: Generally stable, intermittent. Continue to monitor. 7. Chronic diastolic (congestive) heart failure: Generally controlled. He will continue to use diuretics with avoidance of salt and dietary changes.8. Nutritional deficiency: Check new prealbumin.9. Anemia: Check for etiology again, was lower last summer when hospitalized. Refused follow up colonoscopy (last 2008) or EGD.10. Abnormal levels of other serum enzymes: Increased alkaline phosphatase - check fractionation (refuses referral).Ongoing cares: We will obtain labs on his way out and he will follow up with results sotero toney. I am going to see him again in 1 month with no labs. If he has new problems or issues sooner he will let us know. Functional Status Description No Information Available Mental Status Description No Information Available Referrals Description No Information Available
--- OUTSIDE RECORDS SUMMARY | 2021-07-29 09:57 | CCD ---
Continuity of Care Document (CCD) Created on: 06/28/2021 Keegan Blackmon External Reference #: [id number] : [id number] Sex: Male Author Author Keegan FRYE M.D. Organization Unknown Address [address] [facility] [address] [place] [address] Phone [phone] Care Team Providers Care Adjunct Instructor In Economics Name Role Phone Guille Frye MD AUTM [phone] [facility] Hea AUTM [phone] Aleksandar Vasquez JR AUTM [phone] Problems Active Problems Provider Date Mixed hyperlipidemia [...] CPT Code Status Date Vaccine Lot # [id number] Given 09/26/2014 Influenza Virus Vaccine 47856 Given 10/09/2000 Adacel- Tetanus Diphtheria P ertussis U-Flu Refused 09/18/2018 Influenza,Unspecified 06943 Refused 09/03/2013 Influenza Virus Vaccine 60638 Refused 08/17/2012 Influenza Virus Vaccine 10486 Refused 10/09/2010 Pneumovax 23 [id number] Refused 07/09/2010 Influenza Virus Vaccine Vital Signs [...] H/L Range Note Comprehensive Chem Profile 06/21/2021 [facility], [facility]: [place] [address] [phone] Glucose 223 mg/dL High 74 - 99 [...] >= 60 mL/min >60 2 A1c 06/21/2021 [facility]: [place] [address] [phone] Hba1c 7.5 % High <5.7 3 Est Avg Glucose 169 mg/dL High 60 - 110 Complete Blood Count 06/21/2021 [facility]: Dr Giuliano Mc [place] [id number] [phone] WBC 8.0 x10*3/UL 4.1 - 10.9 4 [...] x10*3/UL 2.0 - 7.8 Liver Profile 04/26/2021 [facility] nter [address] [place] [address] [phone] Ast/Sgot 14 U/L Normal 7-37 Alt/SGPT 15 U/L Normal 12-78 Alkaline Phosphatase 167 U/L High 45-117 Bilirubin,Total 0.4 mg/dL Normal 0.2-1.0 Bilirubin,Direct 0.2 mg/dL Normal 0.0-0.2 Total Protein 7.3 GM/DL Normal 6.4-8.2 Albumin 2.5 GM/DL Low 3.2-5.2 Albumin/Globulin Ratio 0.5 Normal Laboratory test finding 04/26/2021 [facility] [address] [place] [address] [phone] Lipase 1090 U/L High 73-393 Basic Metabolic Profile 04/26/2021 [facility] [address] [place] [address] [phone] Glucose, Fasting 101 mg/dL High 70-100 Blood [...] mg/dL Low 8.8-10.2 Cardiac Marker Panel 04/26/2021 [facility] enter [address] [place], [place] [id number] [phone] CPK Creatine Phosphokinase 89 U/L Normal 39-30 8 CK-MB Value Mass 8.0 NG/ML High <3.6 MB/CK Relative Index 8.99 High < Or =4 7 Troponin I < 0.02 NG/ML Normal < 0.10 8 Laboratory test finding 04/26/[address] [address] [phone] Lactic Acid Sepsis Protocol 1.8 mmol/L Normal 0.4- 2.0 9 CBC With Differential 04/26/[address] [address] [phone] White Blood Count 12.6 10 High 4.0-10.0 [...] 36.0-66.0 Lymph % 8.4 % Low 24.0-44.0 [place] % 4.9 % Normal 2.0-8.0 Eos % 0.3 % Normal 0.0-3.0 Baso % 0.1 % Normal 0.0-1.0 Immature Granulocyte % 0.7 % Normal 0-3.0 Nucleated Red Blood Cell % 0.0 % Normal 0-0 Neutrophils # 10.8 10 High 1.5-8.5 Lymph # 1.1 10 Low 1.5-5.0 [place] # 0.6 10 Normal 0.0-0.8 Eos # 0.0 10 Normal 0.0-0.5 Baso # 0.0 10 Normal 0.0-0.2 Ua W/ Reflex To Culture 04/26/2021 [facility] [address] [place] [address] [phone] Appearance, Urine RFX CLOUDY High Clear Color, Urine RFX BRAYAN Normal Yellow PH,Urine RFX 5.0 units Normal 5.0-9.0 Specific [place] Ur Auto RFX 1.024 Normal 1.002-1.035 Protein, [...] RFX SMALL High Negative Istat ABG 04/26/2021 [facility] nter [address] [place] [address] [phone] iSTAT pH 7.250 units Low 7.350-7.450 iSTAT pCO2 36.8 MMHG Normal 35.0-45.0 iSTAT pO2 64.0 MMHG Low 80-105 iSTAT Tco2 17.0 mmol/L Low 23.0-27.0 iSTAT Hco3 16.1 mmol/L Low 22.0-26.0 iSTAT Base Excess -11.0 mmol/L Low -2.0-3.0 iSTAT sO2 88 % Low 95-98 Laboratory test finding 04/26/2021 [facility] [address] [place] [address] [phone] Ammonia 26 uMOL/L Normal <32 Venous Blood Gas 04/26/2021 [facility] nter [address] [place] [address] [phone] Venous PH 7.206 units Low 7.330-7.430 Venous Partial Pressure Co2 38.9 mmHg Normal 38.0-50.0 Venous Partial Pressure O2 73.3 mmHg High 30.0-50.0 Venous Total Co2 16.3 mEq/L Low 24.0-28.0 Venous Hco3 15.1 mEq/L Low 23.0-27.0 Venous Base Excess -12.1 Low -2.0-2.0 Venous Standard Hco3 14.8 mEq/L Normal Venous O2 Saturation 91.0 % High 60.0-80.0 Laboratory test finding 04/26/[address] [address] [phone] Troponin I < 0.02 NG/ML Normal < 0.10 10 Fibrinogen 718 mg/dL High 221-452 Basic Metabolic Profile 04/26/[address] [address] [phone] Glucose, Fasting 91 mg/dL Normal 70-100 Blood [...] & Screen -Incl Blood Type,Payam,AB SC 04/26/[address] [address] [phone] Blood Type B POSITIVE Normal AB Screen (Indirect Mohit)Vis NEGATIVE Normal Laboratory test finding 04/26/2021 [facility] [address] [place] [address] [phone] Partial Thromboplastin Time 39.4 seconds High 24 .2-38.5 Prothrombin Time/Inr 04/26/2021 [facility] enter [address] [place] [address] [phone] Prothrombin Time 16.7 seconds High 12.5-14.3 Inr 1.32 Normal 12 Influenza A/B RSV Covid Amp 04/26/2021 [facility] [address] [place] [address] [phone] Influenza A Amplification NEGATIVE Normal Negati ve 13 Influenza B Amplification NEGATIVE Normal Negative 14 RSV Amplification NEGATIVE Normal Negative 15 Sars Covid-19 Amplification NEGATIVE Normal Negative 16 Laboratory test finding 03/01/2021 [facility]: [place] [address] [phone] Fecal Immunochemical Test POSITIVE Abnormal Negati ve Retic (Reticulocyte Count) 02/22/2021 [facility] [address] [place] [address] [phone] Reticulocyte % 1.4 % Normal 0.5-1.5 Reticulocyte # 57.1 10 Normal 17-77 Retic Hemoglobin Equivalent 26.8 pg Normal 24-36 Comprehensive Chem Profile 02/22/2021 [facility]: Dr Giuliano Mc [place] [id number] [phone] Glucose 123 mg/dL High 74 - 99 [...] mL/min >60 19 Complete Blood Count 02/22/2021 [facility]: [place] [address] [phone] WBC 7.5 x10*3/UL 4.1 - 10.9 RBC [...] 2.0 - 7.8 Laboratory test finding 02/22/2021 [facility] [address] [place] [address] [phone] Ferritin 29 NG/ML Normal 26-388 Prealbumin 11.5 mg/dL Low 20.0-40.0 Vitamin B12 & Folate 02/22/2021 [facility] enter [address] [place] [address] [phone] Vitamin B12 Level 615 pg/mL Normal 21 Folate 3.9 NG/ML Normal 22 Alkaline Phosphatase Fractionated 02/22/2021 [facility] [address] [place] [address] [phone] Gamma Glutamyltransferase 67 U/L Normal 15-85 Alkaline Phosphatase 229 U/L High 45-117 Stable Alkphos 140 U/L Normal Labile Alkphos 89 U/L Normal % Labile Alkaline Phosphatase 38.86 % Normal 23 Total Iron Binding Capacit 02/22/2021 [facility] [address] [place] [address] [phone] Iron (Fe) 28 g/dL Low 65-175 Total Iron Binding Capacity 368 g/dL Normal 250-450 Percent Saturation 7.6 % Low 19.7-50.0 Complete Blood Count 02/16/2021 [facility] Super[facility]: [place] [address] [phone] WBC 6.6 x10*3/UL 4.1 - 10.9 24 [...] 4.8 x10*3/UL 2.0 - 7.8 A1c 02/16/2021 [facility] Super[facility]: [place] [address] [phone] Hba1c 7.5 % High <5.7 25 Est Avg Glucose 169 mg/dL High 60 - 110 Comprehensive Chem Profile 02/16/2021 [facility]: [place] [address] [phone] Glucose 79 mg/dL 74 - 99 26 [...] 60 mL/min >60 28 Lipid Profile 02/16/2021 [facility] Super[facility] House: [place] [address] [phone] Cholesterol 116 mg/dL Low 131 - 200 Triglycerides 67 mg/dL 30 - 150 HDL Cholesterol 52 mg/dL 35 - 60 LDL (Calculated) 51 CALC 50 - 159 Laboratory test finding 02/16/2021 [facility] Super[facility]: [place] [address] [phone] Thyroid Stimulating Hormone 2.82 uIU/mL 0.3 6 - 3.74 1 100-125 mg/dL PRE-DIABET ES/FASTING >126 mg/dL DIABETES/FASTING 2 CHRONIC KIDNEY DISEASE STAGI NG PER NKF STAGE I & II GFR >= 60 NORMAL TO MILDLY DECREASED STAGE III GFR 30-59 MODERATELY DECREASED STAGE IV GFR 15-29 SEVERELY DECREASED STAGE V GFR <15 VERY LITTLE GFR LEFT ESRD GFR <15 ON TIP STRETCHER 3 Lab Result Notes: Pre-Diabetes 5.7 - 6.4 % Diabetes = or > 6.5% 4 NOTE: cbc verified 5 Units are mL/min/1.73 m2 Chronic Kidney Disease Staging per NKF: Stage I & II GFR >=60 Normal to Mildly Decreased Stage III GFR 30-59 Moderately Decreased Stage IV GFR 15-29 Severely Decreased Stage V GFR <15 Very Little GFR Left ESRD GFR <15 on TIP STRETCHER 6 This specimen has an elevate d potassium level but there is NO visible hemolysis noted. @ [facility] CALLED ALL CRITICAL RESULTS AT [id number]. THE RESULTS WERE READ @ BACK AND VERIFIED BY JENNY 7 DIAGNOSIS CRITERIA MMB ng/ml Relative Index (RI) NON-AMI < or = 5 N/A ELLIOTT ZONE > 5 < or = 4 AMI > 5 > 4 8 Troponin I Reference Interva l for Siemens [place] LOCI: 99th Percentile= 0.00-0.045 ng/ml Risk Stratification: [...] Troponin I Reference Interva l for Siemens [place] LOCI: 99th Percentile= 0.00-0.045 ng/ml Risk Stratification: [...] Little GFR Left ESRD GFR <15 on TIP STRETCHER 12 THERAPUTIC HUMAN INR VALUES INDICATIONS NORMAL [...] pathogens. DISCLAIMER: Testing was performed using the [employer] SARS-CoV-2 test. This test was developed and its performance characteristics determined by [employer]. This test has not been FDA cleared [...] LITTLE GFR LEFT ESRD GFR <15 ON TIP STRETCHER 20 NOTE: RESULT VERIFIED. 21 VITAMIN B12 [...] LITTLE GFR LEFT ESRD GFR <15 ON TIP STRETCHER Procedures Date Code Description Status 06/21/2021 23002 Office/Outpatient Established Mo d MDM 30-39 Min Completed 05/18/2021 36250 Trans Care SRV W/I 14D Of DC, Co mm W/I 2 Dys Med Rec Completed 04/06/2021 35431 Office/Outpatient Established Mo d MDM 30-39 Min Completed 02/22/2021 06427 Office/Outpatient Established Mo d MDM 30-39 Min Completed 04/04/2019 532013203 Diabetic Foot Exam Completed Medical Devices Description No Information Available Encounters Type Date Location Provider Dx Diagnosis Office Visit 06/21/2021 3:30p [facility] PKina Frye M.D. R60.9 Edema, unspecified E11.65 Type 2 diabetes mellitus wit h hyperglycemia D64.9 Anemia, unspecified I48.20 Chronic atrial fibrillation, unspecified Z79.01 [employer] (current) use of a nticoagulants I50.32 Chronic diastolic (congestiv e) heart failure Z91.19 Patient's noncompliance w ot h medical treatment and regimen N18.30 Chronic kidney disease, stag e 3 unspecified R09.02 Hypoxemia Office Visit 05/18/2021 8:30a [facility] N17.8 Other acute kidney failure R60.9 Edema, unspecified E11.65 Type 2 diabetes mellitus wit h hyperglycemia Z79.4 [employer] (current) use of i nsulin D64.9 Anemia, unspecified I48.20 Chronic atrial fibrillation, unspecified Z79.01 [facility] (current) use of a nticoagulants I50.32 Chronic diastolic (congestiv e) heart failure Z91.19 Patient's noncompliance w ot h medical treatment and regimen Office Visit 04/06/2021 3[facility]p [facility] R60.9 Edema, unspecified E11.65 Type 2 diabetes mellitus wit h hyperglycemia E11.40 Type 2 diabetes mellitus wit h diabetic neuropathy, unsp D64.9 Anemia, unspecified I48.20 Chronic atrial fibrillation, unspecified Z79.01 [facility] (current) use of a nticoagulants Z79.4 [employer] (current) use of i nsulin E63.9 Nutritional deficiency, unsp ecified Office Visit 02/22/2021 1:30p [facility] R60.9 Edema, unspecified I48.20 Chronic atrial fibrillation, unspecified Z79.01 [facility] (current) use of a nticoagulants E11.65 Type 2 diabetes mellitus wit h hyperglycemia Z79.4 [facility] (current) use of i nsulin E11.40 Type [...] uns pecified Guille Frye M.D. 06/21/2021 Z79.01 [facility] (current) use of antic oagulants Guille Frye M.D. 06/21/2021 I50.32 Chronic diastolic (congestive) h eart failure Guille Frye M.D. 06/21/2021 Z91.19 Patient's noncomplia nce with other medical treatment and regimen Guille Frye M.D. 06/21/2021 N18.30 Chronic kidney disease, stage 3 unspecified Guille Frye M.D. 06/21/2021 R09.02 Hypoxemia Guille Frye M.D. 05/18/2021 N17.8 Other acute kidney failure Guille Frye M.D. 05/18/2021 R60.9 Edema, unspecified Guille cruz M.D. 05/18/2021 E11.65 Type 2 diabetes mellitus with hy perglycemia Guille Frye M.D. 05/18/2021 Z79.4 [facility] (current) use of insul in Guille Frye M.D. 05/18/2021 D64.9 Anemia, unspecified Guille llanes M.D. 05/18/2021 I48.20 Chronic atrial fibrillation, uns yessenia Frye M.D. 05/18/2021 Z79.01 [employer] (current) use of antic oagulants Guille Frye [...] with diabetic neuropathy, unspecified Guille Frye M.D. 04/06/2021 D64.9 Anemia, unspecified Guille llanes M.D. 04/06/2021 I48.20 Chronic atrial fibrillation, uns yessenia Frye M.D. 04/06/2021 Z79.01 [employer] (current) use of antic oagulants Guille Frye M.D. 04/06/2021 Z79.4 [employer] (current) use of insul in Guille Frye M.D. 04/06/2021 E63.9 Nutritional deficiency, unspecif ied Guille Frye M.D. 03/01/2021 Z12.12 Encounter for screening for isha gnant neoplasm of rectum Guille Frye M.D. 03/01/2021 Z12.12 Encounter for screening for isha gnant neoplasm of rectum Lab Schedule 02/22/2021 R60.9 Edema, unspecified Guille cruz M.D. 02/22/2021 I48.20 Chronic atrial fibrillation, uns pecified Guille Frye M.D. 02/22/2021 Z79.01 [facility] (current) use of antic oagulants Guille Frye M.D. 02/22/2021 E11.65 Type 2 diabetes mellitus with hy perglycemia Guille Frye M.D. 02/22/2021 Z79.4 [employer] (current) use of insul in Guille Frye [...] Unspecified atrial fibrillation Lab Schedule 02/16/2021 Z79.01 [facility] (current) use of antic oagulants Guille Frye M.D. 02/16/2021 Z79.01 [employer] (current) use of antic oagulants Lab Schedule [...] 3:00 pm - [facility] 05/18/2021 - Guille Frye M.D.* N17.8 Other acute kidney failure * R60.9 Edema, unspecified * E11.65 Type 2 diabetes mellitus with hyperglycemia * Z79.4 [facility] (current) use of insulin * D64.9 Anemia, unspecified * I48.20 Chronic atrial fibrillation, unspecified * Z79.01 [employer] (current) use of anticoagulants * I50.32 Chronic [...] is anticoagulated. We will continue to monitor.6. [facility] (current) use of anticoagulants: He is on Xarelto for his atrial fib, will continue and monitor.7. [employer] (current) use of insulin: His is managing [...] JR, MD CONSULT FOR PANENDOSCOPY DX: ANEMIA Costaa nilton [facility] General Surgery [address] [address] [phone]
--- OUTSIDE RECORDS SUMMARY | 2021-07-29 09:57 | CCD | Continuity of Care Document ---
Author Author Keegan FRYE M.D. Organization Unknown Address [address] [facility] [address] [place] [address] Phone [phone] Care Team Providers Care Concrete Analyst Name Role Phone Guille Frye MD AUTM [phone] [facility] Hea AUTM [phone] Aleksandar Vasquez JR AUTM [phone] Problems Active Problems Provider Date Mixed hyperlipidemia [...] needed on sliding scale MDD 100u 45units Giulle Frye M.D. 2020 Xarelto 20mg Tablets take [...] night at bedtime, 90tabs Guille Frye M.D. Hydrocodone-Acetaminophen 7.5-325mg Tablets one pill by mouth every 6 hours as needed pain. m54.5 28tabs Guille Frye M.D. Lantus Solostar 100U nit/ML [...] CPT Code Status Date Vaccine Lot # [id number] Given 09/26/2014 Influenza Virus Vaccine [id number] Given 10/09/2000 Adacel- Tetanus Diphtheria P ertussis (Age64 & Under) U-Flu Refused 09/18/2018 Influenza,Unspecified 52820 Refused 09/03/2013 Influenza Virus Vaccine 65669 Refused 08/17/2012 Influenza Virus Vaccine 90859 Refused 10/09/2010 Pneumovax 23 [id number] Refused 07/09/2010 Influenza Virus Vaccine Vital Signs [...] H/L Range Note Comprehensive Chem Profile 06/21/2021 [facility] Vehicle Body Builder: [place] [address] [phone] Glucose 223 mg/dL High 74 - 99 [...] >60 GFR >= 60 mL/min >60 2 Laboratory test finding 06/21/2021 [facility] Rodas Vehicle Body Builder: [place] [address] [phone] A1c <pending> Complete Blood Count 06/21/2021 [facility] Griffin Vehicle Body Builder: [place] [address] [phone] WBC 8.0 x10*3/UL 4.1 - 10.9 3 RBC 3.56 x10*6/UL Low 4.20 - 6.30 [...] x10*3/UL 2.0 - 7.8 Liver Profile 04/26/2021 [facility] [address] [place], [place] [id number] [phone] Ast/Sgot 14 U/L Normal 7-37 Alt/SGPT 15 U/L Normal 12-78 Alkaline Phosphatase 167 U/L High 45-117 Bilirubin,Total 0.4 mg/dL Normal 0.2-1.0 Bilirubin,Direct 0.2 mg/dL Normal 0.0-0.2 Total Protein 7.3 GM/DL Normal 6.4-8.2 Albumin 2.5 GM/DL Low 3.2-5.2 Albumin/Globulin Ratio 0.5 Normal Laboratory test finding 04/26/2021 [facility] [address] [place], [place] [id number] [phone] Lipase 1090 U/L High 73-393 Basic Metabolic Profile 04/26/2021 [facility] [address] [place], [place] [id number] [phone] Glucose, Fasting 101 mg/dL High 70-100 Blood Urea Nitrogen 80 mg/dL High 7-18 Creatinine For GFR 8.29 mg/dL Critical high 0.70-1.30 Glomerular Filtration Rate 7.0 Low >49 4 Sodium Level 121 mEq/L Low 136-145 Potassium Serum 7.1 mEq/L Critical high 3.5-5.1 5 Chloride Level 91 mEq/L Low 98-107 Carbon Dioxide Level 18 mEq/L Low 21-32 Anion Gap 12 mEq/L Normal 8-16 Calcium Level 7.7 mg/dL Low 8.8-10.2 Cardiac Marker Panel 04/26/2021 [facility] enter [address] [place] [phone] CPK Creatine Phosphokinase 89 U/L Normal 39-30 8 CK-MB Value Mass 8.0 NG/ML High <3.6 MB/CK Relative Index 8.99 High < Or =4 6 Troponin I < 0.02 NG/ML Normal < 0.10 7 Laboratory test finding 04/26/[address] [address] [phone] Lactic Acid Sepsis Protocol 1.8 mmol/L Normal 0.4- 2.0 8 CBC With Differential 04/26/[address] [address] [phone] White Blood Count 12.6 10 High 4.0-10.0 [...] 36.0-66.0 Lymph % 8.4 % Low 24.0-44.0 [place]ka % 4.9 % Normal 2.0-8.0 Eos % 0.3 % Normal 0.0-3.0 Baso % 0.1 % Normal 0.0-1.0 Immature Granulocyte % 0.7 % Normal 0-3.0 Nucleated Red Blood Cell % 0.0 % Normal 0-0 Neutrophils # 10.8 10 High 1.5-8.5 Lymph # 1.1 10 Low 1.5-5.0 [place]ka # 0.6 10 Normal 0.0-0.8 Eos # 0.0 10 Normal 0.0-0.5 Baso # 0.0 10 Normal 0.0-0.2 Ua W/ Reflex To Culture 04/26/2021 [facility] [address] [place] [address] [phone] Appearance, Urine RFX CLOUDY High Clear Color, Urine RFX BRAYAN Normal Yellow PH,Urine RFX 5.0 units Normal 5.0-9.0 Specific Gwynn Ur Auto RFX 1.024 Normal 1.002-1.035 Protein, [...] RFX SMALL High Negative Istat ABG 04/26/2021 [facility] [address] [place] [address] [phone] iSTAT pH 7.250 units Low 7.350-7.450 iSTAT pCO2 36.8 MMHG Normal 35.0-45.0 iSTAT pO2 64.0 MMHG Low 80-105 iSTAT Tco2 17.0 mmol/L Low 23.0-27.0 iSTAT Hco3 16.1 mmol/L Low 22.0-26.0 iSTAT Base Excess -11.0 mmol/L Low -2.0-3.0 iSTAT sO2 88 % Low 95-98 Laboratory test finding 04/26/[address] [address] [phone] Ammonia 26 uMOL/L Normal <32 Venous Blood Gas 04/26/2021 [facility] [address] [place] [address] [phone] Venous PH 7.206 units Low 7.330-7.430 Venous Partial Pressure Co2 38.9 mmHg Normal 38.0-50.0 Venous Partial Pressure O2 73.3 mmHg High 30.0-50.0 Venous Total Co2 16.3 mEq/L Low 24.0-28.0 Venous Hco3 15.1 mEq/L Low 23.0-27.0 Venous Base Excess -12.1 Low -2.0-2.0 Venous Standard Hco3 14.8 mEq/L Normal Venous O2 Saturation 91.0 % High 60.0-80.0 Laboratory test finding 04/26/[address] [address] [phone] Troponin I < 0.02 NG/ML Normal < 0.10 9 Fibrinogen 718 mg/dL High 221-452 Basic Metabolic Profile 04/26/[address] [address] [phone] Glucose, Fasting 91 mg/dL Normal 70-100 Blood Urea Nitrogen 78 mg/dL High 7-18 Creatinine For GFR 7.61 mg/dL High 0.70-1.30 Glomerular Filtration Rate 7.7 Low >49 1 0 Sodium Level 127 mEq/L Low 136-145 Potassium Serum 6.7 mEq/L Critical high 3.5-5.1 Chloride Level 100 mEq/L Normal 98-107 Carbon Dioxide Level 16 mEq/L Low 21-32 Anion Gap 11 mEq/L Normal 8-16 Calcium Level 6.7 mg/dL Low 8.8-10.2 Type & Screen -Incl Blood Type,Payam,AB SC 04/26/[address] [address] [phone] Blood Type B POSITIVE Normal AB Screen (Indirect Mohit)Vis NEGATIVE Normal Laboratory test finding 04/26/2021 [facility] [address] [place] [address] [phone] Partial Thromboplastin Time 39.4 seconds High 24 .2-38.5 Prothrombin Time/Inr 04/26/2021 [facility] enter [address] [place] [address] [phone] Prothrombin Time 16.7 seconds High 12.5-14.3 Inr 1.32 Normal 11 Influenza A/B RSV Covid Amp 04/26/2021 [facility] [address] [place] [address] [phone] Influenza A Amplification NEGATIVE Normal Negati ve 12 Influenza B Amplification NEGATIVE Normal Negative 13 RSV Amplification NEGATIVE Normal Negative 14 Sars Covid-19 Amplification NEGATIVE Normal Negative 15 Laboratory test finding 03/01/2021 [facility] Procedural Physician mary barksdale Vehicle Body Builder: [place] [address] [phone] Fecal Immunochemical Test POSITIVE Abnormal Negati ve Retic (Reticulocyte Count) 02/22/2021 [facility] [address] [place] [address] [phone] Reticulocyte % 1.4 % Normal 0.5-1.5 Reticulocyte # 57.1 10 Normal 17-77 Retic Hemoglobin Equivalent 26.8 pg Normal 24-36 Comprehensive Chem Profile 02/22/2021 [facility] Flower Vehicle Body Builder: Dr Giuliano Mc [place] [id number] [phone] Glucose 123 mg/dL High 74 - 99 16 BUN 17 mg/dL 7 - 18 Creatinine [...] Albumin 2.9 g/dL Low 3.4 - 5.0 17 Total Protein 7.7 g/dL 6.4 - 8.2 A/G Ratio 0.60 CALC Low 1.00 - 1.90 GFR >= 60 mL/min >60 GFR >= 60 mL/min >60 18 Complete Blood Count 02/22/2021 [facility] [employer] mary torres Vehicle Body Builder: Dr Giuliano Mc [place], [place] [id number] [phone] WBC 7.5 x10*3/UL 4.1 - 10.9 RBC 4.05 x10*6/UL Low 4.20 - 6.30 Hemoglobin 10.4 g/dL Low 12.0 - 18.0 19 Hematocrit 32.3 % Low 37.0 - 51.0 [...] 2.0 - 7.8 Laboratory test finding 02/22/2021 [facility] [address] [place] [address] [phone] Ferritin 29 NG/ML Normal 26-388 Prealbumin 11.5 mg/dL Low 20.0-40.0 Vitamin B12 & Folate 02/22/2021 [facility] enter [address] [place] [address] [phone] Vitamin B12 Level 615 pg/mL Normal 20 Folate 3.9 NG/ML Normal 21 Alkaline Phosphatase Fractionated 02/22/2021 [facility] [address] [place] [address] [phone] Gamma Glutamyltransferase 67 U/L Normal 15-85 Alkaline Phosphatase 229 U/L High 45-117 Stable Alkphos 140 U/L Normal Labile Alkphos 89 U/L Normal % Labile Alkaline Phosphatase 38.86 % Normal 22 Total Iron Binding Capacit 02/22/2021 [facility] [address] [place] [address] [phone] Iron (Fe) 28 g/dL Low 65-175 Total Iron Binding Capacity 368 g/dL Normal 250-450 Percent Saturation 7.6 % Low 19.7-50.0 Complete Blood Count 02/16/2021 [facility] [employer], pc Vehicle Body Builder: [place] [address] [phone] WBC 6.6 x10*3/UL 4.1 - 10.9 23 RBC 3.99 x10*6/UL Low 4.20 - 6.30 [...] 4.8 x10*3/UL 2.0 - 7.8 A1c 02/16/2021 [facility] Vehicle Body Builder: [place] [address] [phone] Hba1c 7.5 % High <5.7 24 Est Avg Glucose 169 mg/dL High 60 - 110 Comprehensive Chem Profile 02/16/2021 [facility] Vehicle Body Builder: [place] [address] [phone] Glucose 79 mg/dL 74 - 99 25 BUN 18 mg/dL 7 - 18 Creatinine 0.9 mg/dL 0.6 - 1.3 Sodium 139 mEq/L 136 - 145 Potassium 3.8 mEq/L 3.5 - 5.1 Chloride 99 mEq/L 98 - 107 Carbon Dioxide 32 mEq/L 21 - 32 Calcium 8.8 mg/dL 8.5 - 10.1 Alk. Phosphatase 213 mg/dL High 46 - 116 26 Total Bilirubin 0.7 mg/dL 0.2 - 1.0 Ast (Sgot) 14 U/L Low 15 - 37 Alt (SGPT) 12 U/L 12 - 78 Albumin 3.0 g/dL Low 3.4 - 5.0 Total Protein 7.8 g/dL 6.4 - 8.2 A/G Ratio 0.63 CALC Low 1.00 - 1.90 GFR >= 60 mL/min >60 GFR >= 60 mL/min >60 27 Lipid Profile 02/16/2021 [facility] , Vehicle Body Builder: [place] [address] [phone] Cholesterol 116 mg/dL Low 131 - 200 Triglycerides 67 mg/dL 30 - 150 HDL Cholesterol 52 mg/dL 35 - 60 LDL (Calculated) 51 CALC 50 - 159 Laboratory test finding 02/16/2021 [facility] Procedural Physician ists, Vehicle Body Builder: [place] [address] [phone] Thyroid Stimulating Hormone 2.82 uIU/mL 0.3 6 - 3.74 1 100-125 mg/dL PRE-DIABET ES/FASTING >126 mg/dL DIABETES/FASTING 2 CHRONIC KIDNEY DISEASE STAGI NG PER NKF STAGE I & II GFR >= 60 NORMAL TO MILDLY DECREASED STAGE III GFR 30-59 MODERATELY DECREASED STAGE IV GFR 15-29 SEVERELY DECREASED STAGE V GFR <15 VERY LITTLE GFR LEFT ESRD GFR <15 ON WATER CONTROL SUPERVISOR 3 NOTE: cbc verified 4 Units are mL/min/1.73 m2 Chronic Kidney Disease Staging per NKF: Stage I & II GFR >=60 Normal to Mildly Decreased Stage III GFR 30-59 Moderately Decreased Stage IV GFR 15-29 Severely Decreased Stage V GFR <15 Very Little GFR Left ESRD GFR <15 on WATER CONTROL SUPERVISOR 5 This specimen has an elevate d potassium level but there is NO visible hemolysis noted. @ RAC CALLED ALL CRITICAL RESULTS AT [id number] 0103. THE RESULTS WERE READ @ BACK AND VERIFIED BY JENNY 6 DIAGNOSIS CRITERIA MMB ng/ml Relative Index (RI) NON-AMI < or = 5 N/A ELLIOTT ZONE > 5 < or = 4 AMI > 5 > 4 7 Troponin I Reference Interva l for Siemens Wadley LOCI: 99th Percentile= 0.00-0.045 ng/ml Risk Stratification: <= 0.10 ng/ml Decreased Risk for Adverse Clinical Events. 0.10-1.50 ng/ml Increased Risk for Adv erse Clinical Events. Evaluation of additional criterion and/or repeat testing in 2-6 hours is suggested to rule out myocardial damage. >= 1.50 ng/ml Indicative of Myocardial Injury. 8 Y/N query for Sepsis Lactate Rule: Y 9 Troponin I Reference Interva l for Siemens Wadley LOCI: 99th Percentile= 0.00-0.045 ng/ml Risk Stratification: <= 0.10 ng/ml Decreased Risk for Adverse Clinical Events. 0.10-1.50 ng/ml Increased Risk for Adv erse Clinical Events. Evaluation of additional criterion and/or repeat testing in 2-6 hours is suggested to rule out myocardial damage. >= 1.50 ng/ml Indicative of Myocardial Injury. 10 Units are mL/min/1.73 m2 Chronic Kidney Disease Staging per NKF: Stage I & II GFR >=60 Normal to Mildly Decreased Stage III GFR 30-59 Moderately Decreased Stage IV GFR 15-29 Severely Decreased Stage V GFR <15 Very Little GFR Left ESRD GFR <15 on WATER CONTROL SUPERVISOR 11 THERAPUTIC HUMAN INR VALUES INDICATIONS NORMAL RANGES PROPHYLAXIS/TREATMENT OF: VENOUS THROMBOSIS 2.0-3.0 PULMONARY EMBOLISM 2.0-3.0 PREVENTION OF SYSTEMIC EMBOLISM FROM: TISSUE HEART VALVES 2.0-3.0 ACUTE MYOCARDIAL INFARCTION 2.0-3.0 VALVULAR HEART DISEASE 2.0-3.0 ATRIAL FIBRILLATION 2.0-3.0 MECHANICAL VALVES(HIGH RISK) 2.5-3.5 RECURRENT MYOCARDIAL INFARCTION 2.5-3.5 12 Negative results do not prec lude influenza or RSV virus infection and should not be used as the sole basis for treatment or other patient management decisions. 13 Negative results do not prec lude influenza or RSV virus infection and should not be used as the sole basis for treatment or other patient management decisions. 14 Negative results do not prec lude influenza or RSV virus infection and should not be used as the sole basis for treatment or other patient management decisions. 15 A false negative result may occur if [...] pathogens. DISCLAIMER: Testing was performed using the [employer] SARS-CoV-2 test. This test was developed and its performance characteristics determined by [employer]. This test has not been FDA cleared [...] the authorization is terminated or revoked sooner. 16 100-125 mg/dL PRE-DIABET ES/FASTING >126 mg/dL DIABETES/FASTING 17 NOTE: RESULT VERIFIED. 18 CHRONIC KIDNEY DISEASE STAGI NG PER NKF STAGE I & II GFR >= 60 NORMAL TO MILDLY DECREASED STAGE III GFR 30-59 MODERATELY DECREASED STAGE IV GFR 15-29 SEVERELY DECREASED STAGE V GFR <15 VERY LITTLE GFR LEFT ESRD GFR <15 ON WATER CONTROL SUPERVISOR 19 NOTE: RESULT VERIFIED. 20 VITAMIN B12 NORMAL RANGE NORMAL 247 - 911 PG/ML INDETERMINATE 211 - 246 PG/ML DEFICIENT LESS THAN 211 PG/ML 21 FOLATE NORMAL RANGE NORMAL GREATER THAN 5.4 NG/ML INDETERMINATE 3.4-5.4 NG/ML DEFICIENT LESS THAN 3.4 NG/ML 22 FRACTIONATED ALK PHOSPHATASE INTERPRETATION LABILE VALUES GREATER THAN 70% OF TOTAL ALK PHOS SUGGESTS BONE ORIGIN. LABILE VALUES LESS THAN 65% OF TOTAL ALK PHOS SUGGESTS LIVER ORIGIN. 23 NOTE: CBC VERIFIED 24 Lab Result Notes: Pre-Diabetes 5.7 - 6.4 % Diabetes = or > 6.5% 25 100-125 mg/dL PRE-DIABET ES/FASTING >126 mg/dL DIABETES/FASTING 26 NOTE: ALK PHOS,ALBUMIN VERIFIED 27 CHRONIC KIDNEY DISEASE STAGI NG PER NKF STAGE I & II GFR >= 60 NORMAL TO MILDLY DECREASED STAGE III GFR 30-59 MODERATELY DECREASED STAGE IV GFR 15-29 SEVERELY DECREASED STAGE V GFR <15 VERY LITTLE GFR LEFT ESRD GFR <15 ON WATER CONTROL SUPERVISOR Procedures Date Code Description Status 05/18/2021 19045 Trans Care SRV W/I 14D Of DC, Co mm W/I 2 Dys Med Rec Completed 04/06/2021 06069 Office/Outpatient Established Mo d MDM 30-39 Min Completed 02/22/2021 57072 Office/Outpatient Established Mo d MDM 30-39 Min Completed 04/04/2019 [id number] Diabetic Foot Exam Completed Medical Devices Description No Information Available Encounters Type Date Location Provider Dx Diagnosis Office Visit 05/18/2021 8:30a [facility] M.D. N17.8 Other acute kidney failure R60.9 Edema, unspecified E11.65 Type 2 diabetes mellitus wit h hyperglycemia Z79.4 ferry terminal agent (current) use of i nsulin D64.9 Anemia, unspecified I48.20 Chronic atrial fibrillation, unspecified Z79.01 ferry terminal agent (current) use of a nticoagulants I50.32 Chronic diastolic (congestiv e) heart failure Z91.19 Patient's noncompliance w ot h medical treatment and regimen Office Visit 04/06/2021 3:30p [facility] M.D. R60.9 Edema, unspecified E11.65 Type 2 diabetes mellitus wit h hyperglycemia E11.40 Type 2 diabetes mellitus wit h diabetic neuropathy, unsp D64.9 Anemia, unspecified I48.20 Chronic atrial fibrillation, unspecified Z79.01 ferry terminal agent (current) use of a nticoagulants Z79.4 ferry terminal agent (current) use of i nsulin E63.9 Nutritional deficiency, unsp ecified Office Visit 02/22/2021 1:30p [facility] M.D. R60.9 Edema, unspecified I48.20 Chronic atrial fibrillation, unspecified Z79.01 ferry terminal agent (current) use of a nticoagulants E11.65 Type 2 diabetes mellitus wit h hyperglycemia Z79.4 ferry terminal agent (current) use of i nsulin E11.40 Type [...] M.D. 06/21/2021 I48.20 Chronic atrial fibrillation, uns yessenia Frye M.D. 06/21/2021 Z79.01 ferry terminal agent (current) use of antic oagulants Guille Frye [...] hy perglycemia Guille Frye M.D. 05/18/2021 Z79.4 ferry terminal agent (current) use of insul in Guille Frye M.D. 05/18/2021 D64.9 Anemia, unspecified Guille llanes M.D. 05/18/2021 I48.20 Chronic atrial fibrillation, uns yessenia Frye M.D. 05/18/2021 Z79.01 ferry terminal agent (current) use of antic oagulants Guille Frye [...] Frye M.D. 04/06/2021 D64.9 Anemia, unspecified Guille llaens M.D. 04/06/2021 I48.20 Chronic atrial fibrillation, uns pecshannon Frye M.D. 04/06/2021 Z79.01 ferry terminal agent (current) use of antic oagulanjorge Frye M.D. 04/06/2021 Z79.4 ferry terminal agent (current) use of insul in Guille Frye M.D. 04/06/2021 E63.9 Nutritional deficiency, unspecif ied Guille Frye M.D. 03/01/2021 Z12.12 Encounter for screening for isha gnant neoplasm of rectum Guille Frye M.D. 03/01/2021 Z12.12 Encounter for screening for isha gnant neoplasm of rectum Lab Schedule 02/22/2021 R60.9 Edema, unspecified Guille cruz M.D. 02/22/2021 I48.20 Chronic atrial fibrillation, uns pecshannon Frye M.D. 02/22/2021 Z79.01 residential (current) use of antic teresagulants Guille Frye M.D. 02/22/2021 E11.65 Type 2 diabetes mellitus with hy perglycemia Guille Frye M.D. 02/22/2021 Z79.4 residential (current) use of insul in Guille Frye [...] Unspecified atrial fibrillation Lab Schedule 02/16/2021 Z79.01 ferry terminal agent (current) use of antic oagulants Guille Frye M.D. 02/16/2021 Z79.01 ferry terminal agent (current) use of antic oagulants Lab Schedule [...] 3:00 pm - Guille Frye M.D. at [facility] 05/18/2021 - Guille Frye M.D.* N17.8 Other acute kidney failure * R60.9 Edema, unspecified * E11.65 Type 2 diabetes mellitus with hyperglycemia * Z79.4 ferry terminal agent (current) use of insulin * D64.9 Anemia, unspecified * I48.20 Chronic atrial fibrillation, unspecified * Z79.01 ferry terminal agent (current) use of anticoagulants * I50.32 Chronic [...] is anticoagulated. We will continue to monitor.6. residential (current) use of anticoagulants: He is on Xarelto for his atrial fib, will continue and monitor.7. ferry terminal agent (current) use of insulin: His is managing [...] Vasquez JR, MD CONSULT FOR PANENDOSCOPY DX: DENI callaway [facility] General Surgery [address] [address] [phone]
--- OUTSIDE RECORDS SUMMARY | 2021-07-29 09:58 | CCD ---
Author Author [facility] Organization [facility] Address Unknown Phone Unavailable Care Team Providers Care Dispute Resolution Specialist Name Role Phone Marcelo Frye MD Unavailable Unavailable Marcelo Frye MD Unavailable Unavailable Marcelo Frye MD Unavailable Unavailable Marcelo Frye MD Unavailable Unavailable Marcelo Frye MD Unavailable Unavailable Marcelo Frye MD Unavailable Unavailable Marcelo Frye MD Unavailable Unavailable Marcelo Frye MD Unavailable Unavailable Marcelo Frye MD Unavailable Unavailable Marcelo Frye MD Unavailable Unavailable Marcelo Frye MD Unavailable Unavailable Marcelo Frye MD Unavailable Unavailable Marcelo Frye MD Unavailable Unavailable Marcelo Frye MD Unavailable Unavailable Marcelo Frye MD Unavailable Unavailable Marcelo Frye MD Unavailable Unavailable Marcelo Frye MD Unavailable Unavailable Marcelo Frye MD Unavailable Unavailable Marcelo Frye MD Unavailable Unavailable Marcelo Frye MD Unavailable Unavailable Marcelo Frye MD Unavailable Unavailable Marcelo Frye MD Unavailable Unavailable Marcelo Frye MD Unavailable Unavailable Marcelo Frye MD Unavailable Unavailable Marcelo Frye MD Unavailable Unavailable Marcelo Frye MD Unavailable Unavailable Marcelo Frye MD Unavailable Unavailable Marcelo Frye MD Unavailable Unavailable Marcelo Frye MD Unavailable Unavailable Marcelo Frye MD Unavailable Unavailable Marcelo Frye MD Unavailable Unavailable Marcelo Frye MD Unavailable Unavailable Marcelo Frye MD Unavailable Unavailable Marcelo Frye MD Unavailable Unavailable Marcelo Frye MD Unavailable Unavailable Marcelo Frye MD Unavailable Unavailable Marcelo Frye MD Unavailable Unavailable Marcelo Frye MD Unavailable Unavailable Marcelo Frye MD Unavailable Unavailable Melva F Guille SAHU Unavailable Unavailable Melva F Guille SAHU Unavailable Unavailable Melva F Guille SAHU Unavailable Unavailable Melva F Guille SAHU Unavailable Unavailable Melva F Guille SAHU Unavailable Unavailable Melva F Guille SAHU Unavailable Unavailable Melva F Guille SAHU Unavailable Unavailable Melva F Guille SAHU Unavailable Unavailable Melva F Guille SAHU Unavailable Unavailable Melva F Guille SAHU Unavailable Unavailable Melva F Guille SAHU Unavailable Unavailable Melva F Guille SAHU Unavailable Unavailable Melva F Guille SAHU Unavailable Unavailable Melva F Guille SAHU Unavailable Unavailable Melva F Guille SAHU Unavailable Unavailable Melva F Guille SAHU Unavailable Unavailable Melva F Guille SAHU Unavailable Unavailable Melva F Guille SAHU Unavailable Unavailable Melva F Guille SAHU Unavailable Unavailable Melva F Guille SAHU Unavailable Unavailable Melva F Guille SAHU Unavailable Unavailable Melva F Guille SAHU Unavailable Unavailable Melva F Guille SAHU Unavailable Unavailable Melva F Guille SAHU Unavailable Unavailable Melva F Guille SAHU Unavailable Unavailable Melva F Guille SAHU Unavailable Unavailable Marcelo Frye MD Unavailable Unavailable Melav F Guille SAHU Unavailable Unavailable Marcelo Frye MD Unavailable Unavailable Melva F Guille SAHU Unavailable Unavailable Melva F Guille SAHU Unavailable Unavailable Marcelo Frye MD Unavailable Unavailable Melva F Guille SAHU Unavailable Unavailable Marcelo Frye MD Unavailable Unavailable Marcelo Frye MD Unavailable Unavailable Marcelo Frye MD Unavailable Unavailable Marcelo Frye MD Unavailable Unavailable Marcelo Frye MD Unavailable Unavailable Gayle Houston MD Unavailable Unavailable Gayle Houston MD Unavailable Unavailable Gayle Houston MD Unavailable Unavailable Gayle Houston MD Unavailable Unavailable Gayle Houston MD Unavailable Unavailable Gayle Houston MD Unavailable Unavailable Gayle Houston MD Unavailable Unavailable Gayle Houston MD Unavailable Unavailable Gayle Houston MD Unavailable Unavailable Gayle Houston MD Unavailable Unavailable Gayle Houston MD Unavailable Unavailable Gayle Houston MD Unavailable Unavailable Gayle Houston MD Unavailable Unavailable Gayle Houston MD Unavailable Unavailable Gayle Houston MD Unavailable Unavailable Gayle Houston MD Unavailable Unavailable Gayle Houston MD Unavailable Unavailable Gayle Houston MD Unavailable Unavailable aGyle Houston MD Unavailable Unavailable Gayle Houston MD Unavailable Unavailable Gayle Houston MD Unavailable Unavailable Gayle Houston MD Unavailable Unavailable Gayle Houston MD Unavailable Unavailable Gayle Houston MD Unavailable Unavailable Gayle Houston MD Unavailable Unavailable Gayle Houston MD Unavailable Unavailable CelsoGayle tee MD Unavailable Unavailable CelsoGayle MD Unavailable Unavailable Celso, Gayle SAHU Unavailable Unavailable CelsoGayle MD Unavailable Unavailable Cornell, L Venice RPA Unavailable Unavailable Cornell, L Venice RPA Unavailable Unavailable Cornell, L Venice RPA Unavailable Unavailable Cornell, L Venice RPA Unavailable Unavailable Cornell, L Venice RPA Unavailable Unavailable Cornell, L Venice RPA Unavailable Unavailable Cornell, L Venice RPA Unavailable Unavailable Cornell, L Venice RPA Unavailable Unavailable Cornell, L Venice RPA Unavailable Unavailable Cornell, L Venice RPA Unavailable Unavailable Cornell, L Venice RPA Unavailable Unavailable Cornell, L Venice RPA Unavailable Unavailable Cornell, L Venice RPA Unavailable Unavailable Cornell, L Venice RPA Unavailable Unavailable Cornell, L Venice RPA Unavailable Unavailable Cornell, L Venice RPA Unavailable Unavailable Cornell, L Venice RPA Unavailable Unavailable Cornell, L Venice RPA Unavailable Unavailable Cornell, L Venice RPA Unavailable Unavailable Cornell, L Venice RPA Unavailable Unavailable Cornell, L Venice RPA Unavailable Unavailable Cornell, L Venice RPA Unavailable Unavailable Cornell, L Venice RPA Unavailable Unavailable Cornell, L Venice RPA Unavailable Unavailable Cornell, L Venice RPA Unavailable Unavailable Cornell, L Venice RPA Unavailable Unavailable Cornell, L Venice RPA Unavailable Unavailable Cornell, L Venice RPA Unavailable Unavailable Cornell, L Venice RPA Unavailable Unavailable Cornell, L Venice RPA Unavailable Unavailable Cornell, L Venice RPA Unavailable Unavailable Cornell, L Venice RPA Unavailable Unavailable Re-disclosure Warning The records that you are about to access may contain information from federally-assisted alcohol or drug abuse programs. If such information is present, then the following federally mandated warning applies: This information has been disclosed to you from records protected by federal confidentiality rules (42 CFR part 2). The federal rules prohibit you from making any further disclosure of this information unless further disclosure is expressly permitted by the written consent of the person to whom it pertains or as otherwise permitted by 42 CFR part 2. A general authorization for the release of medical or other information is NOT sufficient for this purpose. The Federal rules restrict any use of the information to criminally investigate or prosecute any alcohol or drug abuse patient.The records that you are about to access may contain highly sensitive health information, the redisclosure of which is protected by Article 27-F of the [facility] Public Health law. If you continue you may have access to information: Regarding HIV / AIDS; Provided by facilities licensed or operated by the [facility] Office of Mental Health; or Provided by the [facility] Office for People With Developmental Disabilities. If such information is present, then the following [facility] mandated warning applies: This information has been disclosed to you from confidential records which are protected by state law. State law prohibits you from making any further disclosure of this information without the specific written consent of the person to whom it pertains, or as otherwise permitted by law. Any unauthorized further disclosure in violation of state law may result in a fine or group home sentence or both. A general authorization for the release of medical or other information is NOT sufficient authorization for further disc losure. Family History Family Member Name Family Member Gender Family Member Status Date o f Status Description Data Source(s) Unknown Male Problem [facility] Unknown Female Problem [facility] ([facility]) Encounters Encounter Providers Location Date Indications Data Source(s ) Outpatient Attender: Guille Garcia 06/21 03:30:00 PM EDT [facility] ([facility] ) Outpatient Attender: Venice Escalera/Iaeger/Harjit/R eindl 05/26/2021 09:15:00 AM EDT [facility] ([facility]) Outpatient Attender: Guille Garcia 05/18 08:30:00 AM EDT [facility] ([facility] ) Outpatient Attender: Gayle Escalera/Iaeger/Harjit/Chandu ndl 04/28/2021 01:23:00 AM EDT [facility] ([facility]) Outpatient Attender: Gayle Escalera/Iaeger/Harjit/Chandu ndl 04/27/2021 01:23:00 AM EDT [facility] ([facility]) Outpatient Attender: Gayle Escalera/Connie/Harjit/Chandu ndl 04/26/2021 01:23:00 AM EDT [facility] Out[facility] Attender: Guille Garcia 04/06 03:30:00 PM EDT [facility] ([facility] ) Outpatient Attender: Guille Garcia 02/22 01:30:00 PM EDT [facility] ([facility] ) Outpatient Attender: Guille Garcia 10/19 02:00:00 PM EST [facility] ([facility] ) Outpatient Attender: Guille Garcia 07/15 03:00:00 PM EDT [facility] ([facility] ) Medications Medication Brand Name Start Date Product Form Dose Route Admi nistrative Instructions Pharmacy Instructions Status Indications Reaction Description Data Source(s) Acetaminophen 325 MG / Hydrocodone Bitartrate 7.5 MG O ral Tablet Hydrocodone Bitartrate/Acetaminophen 06/22/2021 12:00:00 AM EDT ORAL active [facility] ([facility]) ferrous sulfate 325 MG Oral Tablet Iron (Ferrous Sulfate) 12:00:00 AM EDT ORAL active [facility] ([facility]) Cholecalciferol 5000 UNT Oral Tablet Vitamin D-3 05/18/2021 12:00:00 AM EDT ORAL active [facility] ([facility]) Potassium Chloride 10 MEQ Extended Release Oral Tablet Potassium Chloride [facility] 05/18/2021 12:00:00 AM EDT ORAL active [facility] ([facility]) Ozempic (0.25 Or 0.5 MG/Dose) Ozempic (0.25 Or 0.5 MG/Dose) 04/06/2021 12:00:00 AM EDT completed [facility] ([facility]) 3 ML Insulin Lispro 25 UNT/ML / Insulin, Protamine Lispro, Human 75 UNT/ML Pen Injector [Humalog Mix] Humalog Mix 75/25 Kwikpen 2020 12:00:00 AM EST completed [facility] ([facility]) 3 ML Insulin Lispro 25 UNT/ML / Insulin, Protamine Lispro, Human 75 UNT/ML Pen Injector [Humalog Mix] Humalog Mix 75/25 Kwikpen 2020 12:00:00 AM EST active [facility] ([facility]) Insulin Lispro 25 UNT/ML / Insulin, Prot amine Lispro, Human 75 UNT/ML Injectable Suspension [Humalog Mix] Humalog Mix 75/25 10/19/2020 12:00:00 AM EST completed [facility] ([facility]) Cephalexin 500 MG Oral Capsule [Keflex] Keflex 07/15/2020 12:00:0 0 AM EDT ORAL active [facility] ([facility]) Furosemide 20 MG Oral Tablet Furosemide 06/10/2020 12:00:00 AM EDT ORAL active [facility] ([facility]) Insurance Providers Payer name Policy type / Coverage type Policy ID Covered green party ID Covered green party's relationship to ayala Policy Ayala Plan Information [facility] [id number] [facility] [employer] [place] Commercial [id number] Self [id number] [facility] Commercial [id number] Self [id number] [employer] Commercial [id number] Self [id number] [facility] [id number] SP [id number] [employer]CE[employer] BCBS B [id number] S [id number] [place] PPO 302/307 [id number] SP [id number] [place] PPO 302/307 [id number] SP [id number] [place] PPO 302/307 [id number] SP [id number] BS [place] Commercial [id number] Self [id number] [place] PPO 302/307 [id number] SP [id number] SELF PAY ONLY UNAVAILABLE SP UNAV AILABLE Problems, Conditions, and Diagnoses No Information Surgeries/Procedures Procedure Description Date Indications Data Source(s) OFFICE OUTPATIENT VISIT 25 MINUTES 06/21/2021 12:00:00 AM EDT [facility] ([facility]) OFFICE OUTPATIENT NEW 45 MINUTES 05/26/2021 12:00:00 A M EDT [facility] ([facility], ) Trans Care SRV W/I 14D Of DC, Comm W/I 2 Dys Med Rec 05/18/2021 12:00:00 AM EDT [facility] ([facility] ) CRITICAL CARE ILL/INJURED PATIENT INIT 30-74 MIN 04/28 12:00:00 AM EDT [facility] ([facility], ) CRITICAL CARE ILL/INJURED PATIENT INIT 30-74 MIN 04/27 12:00:00 AM EDT [facility] ([facility]) Insertion Of Non-Tunneled Centrally Inserted Central Venous Marilou 04/26/2021 12:00:00 AM EDT [facility]) Insertion Of Non-Tunneled Centrally Inserted Central Venous Marilou 04/26/2021 12:00:00 AM EDT [facility] ([facility]) Ultrasound Guidance For Vascular Access Requiring Ultrasound Eval 04/26/2021 12:00:00 AM EDT [facility] ([facility]) CRITICAL CARE ILL/INJURED PATIENT INIT 30-74 MIN 04/26 12:00:00 AM EDT [facility] ([facility]) CRITICAL CARE ILL/INJURED PATIENT ADDL 30 MIN 04/26/20 12:00:00 AM EDT [facility] ([facility]) OFFICE OUTPATIENT VISIT 25 MINUTES 04/06/2021 12:00:00 AM EDT [facility] ([facility]) OFFICE OUTPATIENT VISIT 25 MINUTES 02/22/2021 12:00:00 AM EDT [facility] ([facility]) OFFICE OUTPATIENT VISIT 25 MINUTES 10/19/2020 12:00:00 AM EST [facility] ([facility]) PARING/CUTTING BENIGN HYPERKERATOTIC LESION 2-4 2019 12:00:00 AM EDT [facility] ([facility] DEBRIDEMENT NAIL ANY METHOD 6/> 06/18/2020 12:00:00 AM EDT [facility] ([facility] Results ID Date Data Source [id number] 06/21/2021 03:29:00 PM EDT [facility] ([facility]) Name Value Range Interpretation Code Description Data Sunni rce(s) Supporting Document(s) Leukocytes [#/volume] in Blood by Automated count 8.0 x10*3/UL 4.1-10 .9 [facility] ([facility]) NOTE: cbc verified Hemoglobin [Mass/volume] in Blood 10.1 g/dL 12.0-18.0 [facility] ([facility]) Erythrocytes [#/volume] in Blood by Automated count 3.56 x10*6/UL 4.2 0-6.30 [facility] ([facility]) Hematocrit [Volume Fraction] of Blood by Automated count 30.5 % 3 7.0-51.0 [facility] ([facility]) MCH 28.4 pg 26.0-32.0 [facility] MCHC 33.1 g/dL 31.0-38.0 [facility] MCV 85.6 fL 80.0-97.0 [facility] Erythrocyte distribution width [Ratio] by Automated count 15.5 % 11.6-13.7 [facility] ([facility]) Platelets [#/volume] in Blood by Automated count 302 x10*3/UL 140-440 [facility] ([facility]) MPV 7.8 FL 7.8-11.0 [facility] Neut % 79.3 % 37.0-92.0 [facility] Lymph % 15.3 % 10.0-58.5 [facility] Mid % 5.4 % 1.7-9.3 [facility] Neut # 6.3 x10*3/UL 2.0-7.8 [facility] ([facility]) Lymph # 1.2 x10*3/UL 0.6-4.1 [facility] ([facility]) Mid # 0.5 x10*3/UL 0.1-0.6 [facility] ([facility]) ID Date Data Source [id number] 06/21/2021 03:29:00 PM EDT [facility] ([facility]) Name Value Range Interpretation Code Description Data Sunni rce(s) Supporting Document(s) Glucose mean value [Mass/volume] in Blood Estimated fr om glycated hemoglobin 169 mg/dL 60-110 [facility] ([facility] ) Hemoglobin A1c/Hemoglobin.total in Blood 7.5 % [facility] ([facility]) Lab Result Notes: Pre-Diabetes 5.7 - 6.4 % Diabetes = or > 6.5% ID Date Data Source [id number] 06/21/2021 03:29:00 PM EDT [facility] ([facility]) Name Value Range Interpretation Code Description Data Sunni rce(s) Supporting Document(s) Glucose [Mass/volume] in Serum or Plasma 223 mg/dL 74-99 [facility] ([facility]) 100-125 mg/dL PRE-DIABETES/FASTING >126 mg/dL DIABETES/FASTING Urea nitrogen [Mass/volume] in Serum or Plasma 18 mg/dL 7-18 [facility] ([facility]) Sodium [Moles/volume] in Serum or Plasma 139 meq/L 136-145 [facility] ([facility]) Creatinine 1.3 mg/dL 0.6-1.3 [facility] ([facility]) Potassium [Moles/volume] in Serum or Plasma 3.5 meq/L 3.5-5.1 [facility] ([facility]) Chloride [Moles/volume] in Serum or Plasma 100 meq/L 98-107 [facility] ([facility]) Carbon dioxide, total [Moles/volume] in Serum or Plasma 37 meq/L 21 -32 [facility] ([facility]) Calcium [Mass/volume] in Serum or Plasma 8.8 mg/dL 8.5-10.1 [facility] ([facility]) Alkaline phosphatase isoenzyme [Units/volume] in Serum or Pl asma 186 mg/dL 46-116 [facility] ([facility]) Total Bilirubin 0.4 mg/dL 0.2-1.0 [facility] ([facility]) Aspartate aminotransferase [Enzymatic activity/volume] in Serum or Plasma 12 U/L 15-37 [facility] ([facility] ) Albumin [Mass/volume] in Serum or Plasma 2.5 g/dL 3.4-5.0 [facility] ([facility]) Alanine aminotransferase [Enzymatic activity/volume] in Seru m or Plasma 13 U/L 12-78 [facility] ([facility]) Proteinase 3 Ab [Units/volume] in Serum 7.9 g/dL 6.4-8.2 [facility] Glomerular filtration rate/1.73 sq M pre dicted among non-blacks [Volume Rate/Area] in Serum or Plasma by Creatinine-based formula (MDRD) 56 mL/min [facility] ([facility]) A/G Ratio 0.46 CALC 1.00-1.90 [facility] Glomerular filtration rate/1.73 sq M pre dicted among blacks [Volume Rate/Area] in Serum or Plasma by Creatinine-based formula (MDRD) Laboratory test result [facility] <content>CHRONIC KIDNEY DISEASE STAGING PER NKF</content>
<content></content>
<content>STAGE I & II GFR >= 60 NORMAL TO MILDLY DECREASED</content>
<content>STAGE III GFR 30-59 MODERATELY DECREASED</content>
<content>STAGE IV GFR 15-29 SEVERELY DECREASED</content>
<content>STAGE V GFR <15 VERY LITTLE GFR LEFT</content>
<content>ESRD GFR <15 ON CLOCK REPAIRER</content>
<content></content> ID Date Data Source [id number] 06/21/2021 03:29:00 PM EDT [facility] ([facility]) Name Value Range Interpretation Code Description Data Sunni rce(s) Supporting Document(s) Hemoglobin A1c/Hemoglobin.total in Blood Laboratory test result [facility] ([facility]) ID Date Data Source [id number] 04/26/2021 04:41:00 AM EDT [facility] ([facility] Name Value Range Interpretation Code Description Data Sunni rce(s) Supporting Document(s) Troponin I.cardiac [Mass/volume] in Serum or Plasma Laboratory t est result Normal (applies to non-numeric results) [facility] ([facility], ) <content>Troponin I Reference Interval f or Siemens [place] LOCI:</content>
<content></content>
<content>99th Percentile= 0.00-0.045 ng/ml</content>
<content></content>
<content>Risk Stratification:</content>
<content><= 0.10 ng/ml Decreased Risk for Adverse Clinical</content>
<content>Events.</content>
<content>0.10-1.50 ng/ml Increased Risk for Adverse Clinical</content>
<content>Events. Evaluation of additional</content>
<content>criterion and/or repeat testing in 2-6</content>
<content>hours is suggested to rule out myocardial</content>
<content>damage.</content>
<content>>= 1.50 ng/ml Indicative of Myocardial Injury.</content>
<content></content> Fibrinogen [Mass/volume] in Platelet poor plasma by Coagulat ion assay 718 mg/dL 221-452 Above high normal [facility] ([facility], ) ID Date Data Source [id number] 04/26/2021 04:41:00 AM EDT [facility] ([facility]) Name Value Range Interpretation Code Description Data Sunni rce(s) Supporting Document(s) Blood Urea Nitrogen 78 mg/dL 7-18 Above high normal [facility] ([facility]) Glucose, Fasting 91 mg/dL 70-100 Normal (applies to non-numeric results) [facility] ([facility]) Glomerular Filtration Rate 7.7 Below low normal [facility] ([facility]) <content>Units are mL/min/1.73 m2</content>
<content></content>
<content>Chronic Kidney Disease Staging per NKF:</content>
<content></content>
<content>Stage I & II GFR >=60 Normal to Mildly Decreased</content>
<content>Stage III GFR 30- 59 Moderately Decreased</content>
<content>Stage IV GFR 15-29 Severely Decreased</content>
<content>Stage V GFR <15 Very Little GFR Left</content>
<content>ESRD GFR <15 on CLOCK REPAIRER</content>
<content></content> Sodium Level 127 meq/L 136-145 Below low normal [facility] ([facility]) Creatinine For GFR 7.61 mg/dL 0.70-1.30 Above high normal [facility] ([facility]) Carbon Dioxide Level 16 meq/L 21-32 Below low normal [facility] ([facility]) Chloride Level 100 meq/L 98-107 Normal (applies to non-numeric r esults) [facility] ([facility]) Potassium Serum 6.7 meq/L 3.5-5.1 Above upper panic limits [facility] ([facility]) Anion Gap 11 meq/L 8-16 Normal (applies to non-numeric resul ts) [facility] ([facility]) Calcium Level 6.7 mg/dL 8.8-10.2 Below low normal [facility] ([facility]) ID Date Data Source [id number] 04/26/2021 04:41:00 AM EDT [facility] ([facility]) Name Value Range Interpretation Code Description Data Sunni rce(s) Supporting Document(s) Blood Type Laboratory test result Normal (applies to non-n umeric results) [facility] ([facility]) Blood group antibody screen [Presence] in Serum or Car sma Laboratory test result Normal (applies to non-numeric results) [facility]) ID Date Data Source [id number] 04/26/2021 04:41:00 AM EDT [facility] ([facility]) Name Value Range Interpretation Code Description Data Sunni rce(s) Supporting Document(s) aPTT in Platelet poor plasma by Coagulation assay 39.4 s 24.2-38.5 Above high normal [facility] ([facility]) ID Date Data Source [id number] 04/26/2021 04:41:00 AM EDT [facility] ([facility]) Name Value Range Interpretation Code Description Data Sunni rce(s) Supporting Document(s) Prothrombin Time 16.7 s 12.5-14.3 Above high normal M [facility] ([facility]) Inr 1.32 Normal (applies to non-numeric resul ts) [facility] ([facility]) THERAPUTIC HUMAN INR VALUES INDICATIONS NORMAL RANGES PROPHYLAXIS/TREATMENT OF: VENOUS THROMBOSIS 2.0-3.0 PULMONARY EMBOLISM 2.0-3.0 PREVENTION OF SYSTEMIC EMBOLISM FROM: TISSUE HEART VALVES 2.0-3.0 ACUTE MYOCARDIAL INFARCTION 2.0-3.0 VALVULAR HEART DISEASE 2.0-3.0 ATRIAL FIBRILLATION 2.0-3.0 MECHANICAL VALVES(HIGH RISK) 2.5-3.5 RECURRENT MYOCARDIAL INFARCTION 2.5-3.5 ID Date Data Source [id number] 04/26/2021 04:41:00 AM EDT [facility] Name Value Range Interpretation Code Description Data Sunni rce(s) Supporting Document(s) Blood Type Laboratory test result [facility] ([facility] AB Screen (Indirect Mohit)Vis Laboratory test result [facility] ([facility]) ID Date Data Source [id number] 04/26/2021 04:41:00 AM EDT [facility] ([facility]) Name Value Range Interpretation Code Description Data Sunni rce(s) Supporting Document(s) Glucose, Fasting 91 mg/dL 70-100 [facility] ([facility]) Blood Urea Nitrogen 78 mg/dL 7-18 [facility] ([facility]) Creatinine For GFR 7.61 mg/dL 0.70-1.30 [facility] ([facility]) Glomerular Filtration Rate 7.7 [facility] ([facility]) <content>Units are mL/min/1.73 m2</content>
<content></content>
<content>Chronic Kidney Disease Staging per NKF:</content>
<content></content>
<content>Stage I & II GFR >=60 Normal to Mildly Decreased</content>
<content>Stage III GFR 30- 59 Moderately Decreased</content>
<content>Stage IV GFR 15-29 Severely Decreased</content>
<content>Stage V GFR <15 Very Little GFR Left</content>
<content>ESRD GFR <15 on CLOCK REPAIRER</content>
<content></content> Sodium Level 127 meq/L 136-145 [facility] ([facility]) Chloride Level 100 meq/L 98-107 [facility] ([facility]) Potassium Serum 6.7 meq/L 3.5-5.1 Above upper panic limits [facility] ([facility]) Anion Gap 11 meq/L 8-16 [facility] ([facility]) Carbon Dioxide Level 16 meq/L 21-32 [facility] ([facility]) Calcium Level 6.7 mg/dL 8.8-10.2 [facility] ([facility]) ID Date Data Source [id number] 04/26/2021 04:41:00 AM EDT [facility] ([facility]) Name Value Range Interpretation Code Description Data Sunni rce(s) Supporting Document(s) Troponin I.cardiac [Mass/volume] in Serum or Plasma Laboratory test result [facility] ([facility]) <content>Troponin I Reference Interval f or Siemens [place] LOCI:</content>
<content></content>
<content>99th Percentile= 0.00-0.045 ng/ml</content>
<content></content>
<content>Risk Stratification:</content>
<content><= 0.10 ng/ml Decreased Risk for Adverse Clinical</content>
<content>Events.</content>
<content>0.10-1.50 ng/ml Increased Risk for Adverse Clinical</content>
<content>Events. Evaluation of additional</content>
<content>criterion and/or repeat testing in 2-6</content>
<content>hours is suggested to rule out myocardial</content>
<content>damage.</content>
<content>>= 1.50 ng/ml Indicative of Myocardial Injury.</content>
<content></content> Fibrinogen [Mass/volume] in Platelet poor plasma by Coagulat ion assay 718 mg/dL 221-452 [facility] ([facility]) ID Date Data Source [id number] 04/26/2021 04:41:00 AM EDT [facility] ([facility]) Name Value Range Interpretation Code Description Data Sunni rce(s) Supporting Document(s) Prothrombin Time 16.7 s 12.5-14.3 [facility] ([facility]) Inr 1.32 [facility] THERAPUTIC HUMAN INR VALUES INDICATIONS NORMAL RANGES PROPHYLAXIS/TREATMENT OF: VENOUS THROMBOSIS 2.0-3.0 PULMONARY EMBOLISM 2.0-3.0 PREVENTION OF SYSTEMIC EMBOLISM FROM: TISSUE HEART VALVES 2.0-3.0 ACUTE MYOCARDIAL INFARCTION 2.0-3.0 VALVULAR HEART DISEASE 2.0-3.0 ATRIAL FIBRILLATION 2.0-3.0 MECHANICAL VALVES(HIGH RISK) 2.5-3.5 RECURRENT MYOCARDIAL INFARCTION 2.5-3.5 ID Date Data Source [id number] 04/26/2021 04:41:00 AM EDT [facility] ([facility]) Name Value Range Interpretation Code Description Data Sunni rce(s) Supporting Document(s) aPTT in Blood by Coagulation assay 39.4 s 24.2-38.5 [facility] ([facility]) ID Date Data Source [id number] 04/26/2021 01:03:00 AM EDT [facility] ([facility]) Name Value Range Interpretation Code Description Data Sunni rce(s) Supporting Document(s) Venous PH 7.206 units 7.330-7.430 [facility] ([facility]) Venous Partial Pressure Co2 38.9 mmHg 38.0-50.0 [facility] ([facility]) Venous Partial Pressure O2 73.3 mmHg 30.0-50.0 [facility] ([facility]) Venous Total Co2 16.3 meq/L 24.0-28.0 [facility] Venous Hco3 15.1 meq/L 23.0-27.0 [facility] ([facility]) Venous Base Excess -12.1 [facility] ([facility]) Venous Standard Hco3 14.8 meq/L [facility] ( [facility]) Venous O2 Saturation 91.0 % 60.0-80.0 [facility] ([facility]) ID Date Data Source [id number] 04/26/2021 01:03:00 AM EDT [facility]) Name Value Range Interpretation Code Description Data Sunni rce(s) Supporting Document(s) Ammonia [Mass/volume] in Blood 26 uMOL/L [facility] ([facility]) ID Date Data Source [id number] 04/26/2021 12:45:00 AM EDT [facility] Name Value Range Interpretation Code Description Data Sunni rce(s) Supporting Document(s) SARS coronavirus 2 RNA [Presence] in Res piratory specimen by DIONE with probe detection NEGATIVE [facility] This lab was ordered by [facility] a nd reported by [facility]. ID Date Data Source [id number] 04/26/2021 12:45:00 AM EDT [facility] ([facility]) Name Value Range Interpretation Code Description Data Sunni rce(s) Supporting Document(s) Influenza A Amplification Laboratory test result [facility] ([facility]) Negative results do not preclude influen za or RSV virus infection and should not be used as the sole basis for treatment or other patient management decisions. Influenza B Amplification Laboratory test result [facility] ([facility]) Negative results do not preclude influen za or RSV virus infection and should not be used as the sole basis for treatment or other patient management decisions. RSV Amplification Laboratory test result [facility] ([facility]) Negative results do not preclude influen za or RSV virus infection and should not be used as the sole basis for treatment or other patient management decisions. Laboratory test finding (navigational concept) Laboratory test result [facility] ([facility]) A false negative result may occur if a s pecimen is improperly collected, transported or handled. False [...] pathogens. DISCLAIMER: Testing was performed using the [employer] SARS-CoV-2 test. This test was developed and its performance characteristics determined by [employer]. This test has not been FDA cleared [...] the authorization is terminated or revoked sooner. ID Date Data Source [id number] 04/26/2021 12:34:00 AM EDT [facility] ([facility]) Name Value Range Interpretation Code Description Data Sunni rce(s) Supporting Document(s) Laboratory test finding (navigational concept) 36.8 MMHG 35.0-45.0 [facility] ([facility]) Laboratory test finding (navigational concept) 7.250 units 7.350-7.45 0 [facility] ([facility]) Laboratory test finding (navigational concept) 64.0 MMHG 80-105 [facility] ([facility]) Laboratory test finding (navigational concept) 16.1 mmol/L 22.0-26.0 [facility] ([facility]) Laboratory test finding (navigational concept) 17.0 mmol/L 23.0-27.0 [facility] ([facility]) Laboratory test finding (navigational concept) -11.0 mmol/L [facility] ([facility]) Laboratory test finding (navigational concept) 88 % 95-98 [facility] ([facility]) ID Date Data Source [id number] 04/26/2021 12:11:00 AM EDT [facility] ([facility]) Name Value Range Interpretation Code Description Data Sunni rce(s) Supporting Document(s) PH,Urine RFX 5.0 units 5.0-9.0 [facility] ([facility]) Color, Urine RFX Laboratory test result [facility] ([facility]) Appearance, Urine RFX Laboratory test result [facility] ([facility]) Specific [place] Ur Auto RFX 1.024 1.002-1.035 [facility] ([facility]) Protein, Urine Auto RFX Laboratory test result [facility] ([facility]) Glucose, Urine (Ua) Auto RFX Laboratory test result [facility] ([facility]) Ketone, Urine Auto RFX Laboratory test result [facility] ([facility]) Urobilinogen, Urine Auto RFX 0.2 mg/dL 0.0-2.0 [facility] ([facility]) Nitrite, Urine Auto RFX Laboratory test result [facility] ([facility]) Bilirubin, Urine Auto RFX Laboratory test result [facility] ([facility]) Blood, Urine Blood RFX Laboratory test result [facility] ([facility]) Leukocyte Esterase Ur Auto RFX Laboratory test result [facility] ([facility]) RBC, Urine Auto RFX 4 /HPF 0-3 [facility] ([facility] WBC, Urine Auto RFX 13 /HPF 0-3 [facility] ([facility]) Bacteria, Urine Auto RFX Laboratory test result [facility] ([facility]) Squam Epithelial Cell Ur Aurfx 1 /HPF 0-6 [facility] ([facility]) Transitional Epithelial AU RFX 1 /HPF [facility] ([facility]) Hyaline Cast, Urine Auto RFX 3 /LPF 0-1 [facility] ([facility]) Mucus, Urine RFX Laboratory test result [facility] ([facility]) Amorphous Sediment RFX Laboratory test result [facility] ([facility]) ID Date Data Source [id number] 04/26/2021 12:10:00 AM EDT [facility] ([facility]) Name Value Range Interpretation Code Description Data Sunni rce(s) Supporting Document(s) White Blood Count 12.6 10 4.0-10.0 [facility] ([facility]) Red Blood Count 3.79 10 4.30-6.10 [facility] ([facility]) Hematocrit 31.4 % 42.0-52.0 [facility] Mean Corpuscular Volume 82.8 fl 80.0-96.0 [facility] ([facility]) Hemoglobin 9.7 g/dL 13.5-17.5 [facility] [facility] [place] Mean Corpuscular Hemoglobin 25.6 pg 27.0-33.0 [facility] ([facility]) Mean Corpuscular HGB Conc 30.9 g/dL 32.0-36.5 [facility] ([facility]) Red Cell Distribution Width 17.4 % 11.5-14.5 [facility] ([facility]) Platelet Count, Automated 389 10 150-450 [facility] ([facility]) Lymph % 8.4 % 24.0-44.0 [facility]) Neutrophils % 85.6 % 36.0-66.0 [facility] ([facility]) [place] % 4.9 % 2.0-8.0 [facility] Eos % 0.3 % 0.0-3.0 [facility] Baso % 0.1 % 0.0-1.0 [facility] Neutrophils # 10.8 10 1.5-8.5 [facility] ([facility]) Nucleated Red Blood Cell % 0.0 % 0-0 [facility] ([facility]) Immature Granulocyte % 0.7 % 0-3.0 [facility] ([facility]) Lymph # 1.1 10 1.5-5.0 [facility]) [place] # 0.6 10 0.0-0.8 [facility] Eos # 0.0 10 0.0-0.5 [facility]) Baso # 0.0 10 0.0-0.2 [facility] ID Date Data Source [id number] 04/26/2021 12:10:00 AM EDT [facility] ([facility]) Name Value Range Interpretation Code Description Data Sunni rce(s) Supporting Document(s) Lactate [Mass/volume] in Serum or Plasma 1.8 mmol/L 0.4-2.0 [facility] ([facility]) Y/N query for Sepsis Lactate Rule: Y ID Date Data Source [id number] 04/26/2021 12:10:00 AM EDT [facility] ([facility]) Name Value Range Interpretation Code Description Data Sunni rce(s) Supporting Document(s) MB/CK Relative Index 8.99 [facility] ([facility] <content>DIAGNOSIS CRITERIA</content>
<content>MMB ng/ml Relative Index (RI)</content>
<content>NON-AMI < or = 5 N/A</content>
<content>ELLIOTT ZONE > 5 < or = 4</content>
<content>AMI > 5 > 4</content>
<content></content> CK-MB Value Mass 8.0 ng/mL [facility] ([facility]) CPK Creatine Phosphokinase 89 U/L 39-308 [facility] ([facility]) Troponin I Laboratory test result [facility] ([facility]) <content>Troponin I Reference Interval f or Siemens [place] LOCI:</content>
<content></content>
<content>99th Percentile= 0.00-0.045 ng/ml</content>
<content></content>
<content>Risk Stratification:</content>
<content><= 0.10 ng/ml Decreased Risk for Adverse Clinical</content>
<content>Events.</content>
<content>0.10-1.50 ng/ml Increased Risk for Adverse Clinical</content>
<content>Events. Evaluation of additional</content>
<content>criterion and/or repeat testing in 2-6</content>
<content>hours is suggested to rule out myocardial</content>
<content>damage.</content>
<content>>= 1.50 ng/ml Indicative of Myocardial Injury.</content>
<content></content> ID Date Data Source [id number] 04/26/2021 12:10:00 AM EDT [facility] ([facility]) Name Value Range Interpretation Code Description Data Sunni rce(s) Supporting Document(s) Glucose, Fasting 101 mg/dL 70-100 [facility] ([facility]) Blood Urea Nitrogen 80 mg/dL 7-18 [facility] ([facility]) Glomerular Filtration Rate 7.0 [facility] ([facility]) <content>Units are mL/min/1.73 m2</content>
<content></content>
<content>Chronic Kidney Disease Staging per NKF:</content>
<content></content>
<content>Stage I & II GFR >=60 Normal to Mildly Decreased</content>
<content>Stage III GFR 30- 59 Moderately Decreased</content>
<content>Stage IV GFR 15-29 Severely Decreased</content>
<content>Stage V GFR <15 Very Little GFR Left</content>
<content>ESRD GFR <15 on CLOCK REPAIRER</content>
<content></content> Creatinine For GFR 8.29 mg/dL 0.70-1.30 Above upper panic limits [facility] ([facility]) Sodium Level 121 meq/L 136-145 [facility] ([facility]) Chloride Level 91 meq/L 98-107 [facility] ([facility]) Potassium Serum 7.1 meq/L 3.5-5.1 Above upper panic limits [facility] ([facility]) This specimen has an elevated potassium level but there is NO visible hemolysis noted. @ [facility] CALLED ALL CRITICAL RESULTS AT [id number]. THE RESULTS WERE READ @ BACK AND VERIFIED BY JENNY Anion Gap 12 meq/L 8-16 [facility] ([facility]) Carbon Dioxide Level 18 meq/L 21-32 [facility] ([facility] Calcium Level 7.7 mg/dL 8.8-10.2 [facility] ([facility]) ID Date Data Source [id number] 04/26/2021 12:10:00 AM EDT [facility] ([facility]) Name Value Range Interpretation Code Description Data Sunni rce(s) Supporting Document(s) Lipoprotein lipase [Enzymatic activity/volume] in Serum or P lasma 1090 U/L 73-393 [facility] ([facility] ID Date Data Source [id number] 04/26/2021 12:10:00 AM EDT [facility] ([facility]) Name Value Range Interpretation Code Description Data Sunni rce(s) Supporting Document(s) Alt/SGPT 15 U/L 12-78 [facility] ([facility]) Ast/Sgot 14 U/L 7-37 [facility] ([facility]) Alkaline Phosphatase 167 U/L 45-117 [facility] Bilirubin,Total 0.4 mg/dL 0.2-1.0 [facility] ([facility]) Albumin 2.5 GM/DL 3.2-5.2 [facility] ([facility]) Bilirubin,Direct 0.2 mg/dL 0.0-0.2 [facility] ([facility]) Total Protein 7.3 GM/DL 6.4-8.2 [facility] ([facility]) Albumin/Globulin Ratio 0.5 [facility] ([facility] ID Date Data Source [id number] 03/01/2021 10:10:00 AM EDT [facility] ([facility]) Name Value Range Interpretation Code Description Data Sunni rce(s) Supporting Document(s) Hemoglobin.gastrointestinal [Presence] in Stool by Imm unologic method Laboratory test result Abnormal (applies to non-numeric results) [facility] ([facility]) ID Date Data Source [id number] 02/22/2021 02:23:00 PM EDT [facility] ([facility]) Name Value Range Interpretation Code Description Data Usnni rce(s) Supporting Document(s) Total Iron Binding Capacity 368 ug/dL 250-450 [facility] ([facility]) Iron (Fe) 28 ug/dL 65-175 [facility] ([facility]) Percent Saturation 7.6 % 19.7-50.0 [facility] ([facility]) ID Date Data Source [id number] 02/22/2021 02:23:00 PM EDT [facility] ([facility]) Name Value Range Interpretation Code Description Data Sunni rce(s) Supporting Document(s) Gamma Glutamyltransferase 67 U/L 15-85 [facility] ([facility]) Stable Alkphos 140 U/L [facility] ([facility]) Alkaline Phosphatase 229 U/L 45-117 [facility] ([facility]) % Labile Alkaline Phosphatase 38.86 % [facility] ([facility]) FRACTIONATED ALK PHOSPHATASE INTERPRETAT ION LABILE VALUES GREATER THAN 70% OF TOTAL ALK PHOS SUGGESTS BONE ORIGIN. LABILE VALUES LESS THAN 65% OF TOTAL ALK PHOS SUGGESTS LIVER ORIGIN. Labile Alkphos 89 U/L [facility] ([facility]) ID Date Data Source [id number] 02/22/2021 02:23:00 PM EDT [facility] ([facility]) Name Value Range Interpretation Code Description Data Sunni rce(s) Supporting Document(s) Folate 3.9 ng/mL [facility]) FOLATE NORMAL RANGE NORMAL GREATER THAN 5.4 NG/ML INDETERMINATE 3.4-5.4 NG/ML DEFICIENT LESS THAN 3.4 NG/ML Vitamin B12 Level 615 pg/mL [facility] ([facility]) VITAMIN B12 NORMAL RANGE NORMAL 247 - 911 PG/ML INDETERMINATE 211 - 246 PG/ML DEFICIENT LESS THAN 211 PG/ML ID Date Data Source [id number] 02/22/2021 02:23:00 PM EDT [facility] ([facility]) Name Value Range Interpretation Code Description Data Sunni rce(s) Supporting Document(s) Ferritin [Mass/volume] in Serum or Plasma 29 ng/mL 26-388 [facility] ([facility]) Prealbumin [Mass/volume] in Serum or Plasma 11.5 mg/dL 20.0-40.0 [facility] ([facility]) ID Date Data Source [id number] 02/22/2021 02:23:00 PM EDT [facility] ([facility]) Name Value Range Interpretation Code Description Data Sunni rce(s) Supporting Document(s) Reticulocyte % 1.4 % 0.5-1.5 [facility] ([facility]) Reticulocyte # 57.1 10 17-77 [facility] ([facility]) Retic Hemoglobin Equivalent 26.8 pg 24-36 [facility] ([facility]) ID Date Data Source [id number] 02/22/2021 02:21:00 PM EDT [facility] ([facility]) Name Value Range Interpretation Code Description Data Sunni rce(s) Supporting Document(s) Leukocytes [#/volume] in Blood by Automated count 7.5 x10*3/UL 4.1-10 .9 [facility] ([facility]) Erythrocytes [#/volume] in Blood by Automated count 4.05 x10*6/UL 4.2 0-6.30 [facility] ([facility]) Hemoglobin [Mass/volume] in Blood 10.4 g/dL 12.0-18.0 [facility] ([facility]) NOTE: RESULT VERIFIED. MCV 79.7 fL 80.0-97.0 [facility] ([facility]) Hematocrit [Volume Fraction] of Blood by Automated count 32.3 % 3 7.0-51.0 [facility] ([facility]) MCH 25.6 pg 26.0-32.0 [facility] ([facility]) MCHC 32.1 g/dL 31.0-38.0 [facility] ([facility]) Erythrocyte distribution width [Ratio] by Automated count 14.6 % 11.6-13.7 [facility] ([facility]) Platelets [#/volume] in Blood by Automated count 351 x10*3/UL 140-440 [facility] ([facility] MPV 8.1 FL 7.8-11.0 [facility] Lymph % 17.6 % 10.0-58.5 [facility] Mid % 5.3 % 1.7-9.3 [facility] Neut % 77.1 % 37.0-92.0 [facility] Lymph # 1.3 x10*3/UL 0.6-4.1 [facility] ([facility]) Mid # 0.4 x10*3/UL 0.1-0.6 [facility] ([facility]) Neut # 5.8 x10*3/UL 2.0-7.8 [facility] ([facility]) ID Date Data Source [id number] 02/22/2021 02:21:00 PM EDT [facility] ([facility]) Name Value Range Interpretation Code Description Data Sunni rce(s) Supporting Document(s) Glucose [Mass/volume] in Serum or Plasma 123 mg/dL 74-99 [facility] ([facility]) 100-125 mg/dL PRE-DIABETES/FASTING >126 mg/dL DIABETES/FASTING Urea nitrogen [Mass/volume] in Serum or Plasma 17 mg/dL 7-18 [facility] ([facility]) Creatinine 1.1 mg/dL 0.6-1.3 [facility] ([facility]) Sodium [Moles/volume] in Serum or Plasma 136 meq/L 136-145 [facility] ([facility]) Potassium [Moles/volume] in Serum or Plasma 4.1 meq/L 3.5-5.1 [facility] ([facility]) Chloride [Moles/volume] in Serum or Plasma 98 meq/L 98-107 [facility] ([facility]) Carbon dioxide, total [Moles/volume] in Serum or Plasma 29 meq/L 21 -32 [facility] ([facility]) Calcium [Mass/volume] in Serum or Plasma 8.6 mg/dL 8.5-10.1 [facility] ([facility]) Alkaline phosphatase isoenzyme [Units/volume] in Serum or Pl asma 231 mg/dL 46-116 [facility] ([facility]) Total Bilirubin 0.6 mg/dL 0.2-1.0 [facility] ([facility]) Aspartate aminotransferase [Enzymatic activity/volume] in Serum or Plasma 18 U/L 15-37 [facility] ([facility] ) Alanine aminotransferase [Enzymatic activity/volume] in Seru m or Plasma 12 U/L 12-78 [facility] ([facility]) Albumin [Mass/volume] in Serum or Plasma 2.9 g/dL 3.4-5.0 [facility] ([facility]) NOTE: RESULT VERIFIED. Proteinase 3 Ab [Units/volume] in Serum 7.7 g/dL 6.4-8.2 [facility] ([facility]) A/G Ratio 0.60 CALC 1.00-1.90 [facility]) Glomerular filtration rate/1.73 sq M pre dicted among non-blacks [Volume Rate/Area] in Serum or Plasma by Creatinine-based formula (MDRD) Laboratory test result [facility] ([facility] Glomerular filtration rate/1.73 sq M pre dicted among blacks [Volume Rate/Area] in Serum or Plasma by Creatinine-based formula (MDRD) Laboratory test result [facility] ([facility]) <content>CHRONIC KIDNEY DISEASE STAGING PER NKF</content>
<content></content>
<content>STAGE I & II GFR >= 60 NORMAL TO MILDLY DECREASED</content>
<content>STAGE III GFR 30-59 MODERATELY DECREASED</content>
<content>STAGE IV GFR 15-29 SEVERELY DECREASED</content>
<content>STAGE V GFR <15 VERY LITTLE GFR LEFT</content>
<content>ESRD GFR <15 ON CLOCK REPAIRER</content>
<content></content> ID Date Data Source [id number] 02/16/2021 09:41:00 AM EDT [facility] ([facility]) Name Value Range Interpretation Code Description Data Sunni rce(s) Supporting Document(s) Thyrotropin [Units/volume] in Serum or Plasma by Detec tion limit <= 0.05 mIU/L 2.82 uIU/mL 0.36-3.74 [facility] ID Date Data Source [id number] 02/16/2021 09:41:00 AM EDT [facility] ([facility]) Name Value Range Interpretation Code Description Data Sunni rce(s) Supporting Document(s) Cholesterol [Mass/volume] in Serum or Plasma 116 mg/dL 131-200 [facility] ([facility]) Triglyceride [Mass/volume] in Serum or Plasma 67 mg/dL 30-150 [facility] ([facility]) Cholesterol in HDL [Mass/volume] in Serum or Plasma 52 mg/dL 35-60 [facility] ([facility]) Cholesterol in LDL [Mass/volume] in Serum or Plasma by calcu lation 51 CALC 50-159 [facility] ([facility]) ID Date Data Source [id number] 02/16/2021 09:41:00 AM EDT [facility] ([facility]) Name Value Range Interpretation Code Description Data Sunni rce(s) Supporting Document(s) Glucose [Mass/volume] in Serum or Plasma 79 mg/dL 74-99 [facility] ([facility]) 100-125 mg/dL PRE-DIABETES/FASTING >126 mg/dL DIABETES/FASTING Urea nitrogen [Mass/volume] in Serum or Plasma 18 mg/dL 7-18 [facility] ([facility]) Creatinine 0.9 mg/dL 0.6-1.3 [facility] Sodium [Moles/volume] in Serum or Plasma 139 meq/L 136-145 [facility] ([facility]) Potassium [Moles/volume] in Serum or Plasma 3.8 meq/L 3.5-5.1 [facility] ([facility]) Chloride [Moles/volume] in Serum or Plasma 99 meq/L 98-107 [facility] ([facility]) Carbon dioxide, total [Moles/volume] in Serum or Plasma 32 meq/L 21 -32 [facility] ([facility]) Calcium [Mass/volume] in Serum or Plasma 8.8 mg/dL 8.5-10.1 [facility] ([facility]) Alkaline phosphatase isoenzyme [Units/volume] in Serum or Pl asma 213 mg/dL 46-116 [facility] ([facility]) NOTE: ALK PHOS,ALBUMIN VERIFIED Total Bilirubin 0.7 mg/dL 0.2-1.0 [facility] ([facility]) Aspartate aminotransferase [Enzymatic activity/volume] in Serum or Plasma 14 U/L 15-37 [facility] ([facility] ) Alanine aminotransferase [Enzymatic activity/volume] in Seru m or Plasma 12 U/L 12-78 [facility] ([facility]) Albumin [Mass/volume] in Serum or Plasma 3.0 g/dL 3.4-5.0 [facility] ([facility]) Proteinase 3 Ab [Units/volume] in Serum 7.8 g/dL 6.4-8.2 [facility] ([facility]) A/G Ratio 0.63 CALC 1.00-1.90 [facility] Glomerular filtration rate/1.73 sq M pre dicted among non-blacks [Volume Rate/Area] in Serum or Plasma by Creatinine-based formula (MDRD) Laboratory test result [facility] Glomerular filtration rate/1.73 sq M pre dicted among blacks [Volume Rate/Area] in Serum or Plasma by Creatinine-based formula (MDRD) Laboratory test result [facility] <content>CHRONIC KIDNEY DISEASE STAGING PER NKF</content>
<content></content>
<content>STAGE I & II GFR >= 60 NORMAL TO MILDLY DECREASED</content>
<content>STAGE III GFR 30-59 MODERATELY DECREASED</content>
<content>STAGE IV GFR 15-29 SEVERELY DECREASED</content>
<content>STAGE V GFR <15 VERY LITTLE GFR LEFT</content>
<content>ESRD GFR <15 ON CLOCK REPAIRER</content>
<content></content> ID Date Data Source [id number] 02/16/2021 09:41:00 AM EDT [facility] ([facility]) Name Value Range Interpretation Code Description Data Sunni rce(s) Supporting Document(s) Hemoglobin A1c/Hemoglobin.total in Blood 7.5 % [facility] Lab Result Notes: Pre-Diabetes 5.7 - 6.4 % Diabetes = or > 6.5% Glucose mean value [Mass/volume] in Blood Estimated fr om glycated hemoglobin 169 mg/dL 60-110 [facility] ID Date Data Source [id number] 02/16/2021 09:41:00 AM EDT [facility] Name Value Range Interpretation Code Description Data Sunni rce(s) Supporting Document(s) Erythrocytes [#/volume] in Blood by Automated count 3.99 x10*6/UL 4.2 0-6.30 [facility] Leukocytes [#/volume] in Blood by Automated count 6.6 x10*3/UL 4.1-10 .9 [facility] NOTE: CBC VERIFIED MCV 80.7 fL 80.0-97.0 [facility] ([facility]) Hematocrit [Volume Fraction] of Blood by Automated count 32.2 % 3 7.0-51.0 [facility] Hemoglobin [Mass/volume] in Blood 10.5 g/dL 12.0-18.0 [facility] MCH 26.2 pg 26.0-32.0 [facility] ([facility]) MCHC 32.5 g/dL 31.0-38.0 [facility] ([facility]) Platelets [#/volume] in Blood by Automated count 295 x10*3/UL 140-440 [facility] MPV 8.8 FL 7.8-11.0 [facility] ([facility]) Erythrocyte distribution width [Ratio] by Automated count 14.5 % 11.6-13.7 [facility] ([facility]) Mid % 4.8 % 1.7-9.3 [facility] ([facility]) Lymph % 21.8 % 10.0-58.5 [facility] ([facility]) Neut % 73.4 % 37.0-92.0 [facility] ([facility]) Mid # 0.4 x10*3/UL 0.1-0.6 [facility] ([facility]) Lymph # 1.4 x10*3/UL 0.6-4.1 [facility] ([facility]) Neut # 4.8 x10*3/UL 2.0-7.8 [facility] ([facility]) ID Date Data Source [id number] 10/13/2020 08:11:00 AM EST [facility] ([facility]) Name Value Range Interpretation Code Description Data Sunni rce(s) Supporting Document(s) Prealbumin [Mass/volume] in Serum or Plasma 17.4 mg/dL 20.0-40.0 [facility] ([facility]) ID Date Data Source [id number] 10/13/2020 08:10:00 AM EST [facility] ([facility]) Name Value Range Interpretation Code Description Data Sunni rce(s) Supporting Document(s) Glucose [Mass/volume] in Serum or Plasma 175 mg/dL 74-99 [facility] ([facility]) 100-125 mg/dL PRE-DIABETES/FASTING >126 mg/dL DIABETES/FASTING Urea nitrogen [Mass/volume] in Serum or Plasma 27 mg/dL 7-18 [facility] ([facility]) Creatinine 1.5 mg/dL 0.6-1.3 [facility] Sodium [Moles/volume] in Serum or Plasma 132 meq/L 136-145 [facility] ([facility]) Potassium [Moles/volume] in Serum or Plasma 4.2 meq/L 3.5-5.1 [facility] ([facility]) Chloride [Moles/volume] in Serum or Plasma 95 meq/L 98-107 [facility] ([facility]) Carbon dioxide, total [Moles/volume] in Serum or Plasma 28 meq/L 21 -32 [facility] ([facility]) Calcium [Mass/volume] in Serum or Plasma 8.5 mg/dL 8.5-10.1 [facility] ([facility]) Alkaline phosphatase isoenzyme [Units/volume] in Serum or Pl asma 142 mg/dL 46-116 [facility] ([facility]) Total Bilirubin 0.9 mg/dL 0.2-1.0 [facility] ([facility]) Aspartate aminotransferase [Enzymatic activity/volume] in Serum or Plasma 15 U/L 15-37 [facility] ([facility] ) Alanine aminotransferase [Enzymatic activity/volume] in Seru m or Plasma 13 U/L 12-78 [facility] ([facility]) Albumin [Mass/volume] in Serum or Plasma 2.7 g/dL 3.4-5.0 [facility] ([facility]) Proteinase 3 Ab [Units/volume] in Serum 6.8 g/dL 6.4-8.2 [facility] Glomerular filtration rate/1.73 sq M pre dicted among non-blacks [Volume Rate/Area] in Serum or Plasma by Creatinine-based formula (MDRD) 47 mL/min [facility] A/G Ratio 0.66 CALC 1.00-1.90 [facility] Glomerular filtration rate/1.73 sq M pre dicted among blacks [Volume Rate/Area] in Serum or Plasma by Creatinine-based formula (MDRD) 57 mL/min [facility] <content>CHRONIC KIDNEY DISEASE STAGING PER NKF</content>
<content></content>
<content>STAGE I & II GFR >= 60 NORMAL TO MILDLY DECREASED</content>
<content>STAGE III GFR 30-59 MODERATELY DECREASED</content>
<content>STAGE IV GFR 15-29 SEVERELY DECREASED</content>
<content>STAGE V GFR <15 VERY LITTLE GFR LEFT</content>
<content>ESRD GFR <15 ON CLOCK REPAIRER</content>
<content></content> ID Date Data Source [id number] 10/13/2020 08:10:00 AM EST [facility] ([facility]) Name Value Range Interpretation Code Description Data Sunni rce(s) Supporting Document(s) Hemoglobin A1c/Hemoglobin.total in Blood 7.8 % [facility] Lab Result Notes: Pre-Diabetes 5.7 - 6.4 % Diabetes = or > 6.5% Glucose mean value [Mass/volume] in Blood Estimated fr om glycated hemoglobin 177 mg/dL 60-110 [facility] ID Date Data Source [id number] 10/13/2020 08:10:00 AM EST [facility] Name Value Range Interpretation Code Description Data Sunni rce(s) Supporting Document(s) Hemoglobin A1c/Hemoglobin.total in Blood Laboratory test result [facility] ([facility]) Natriuretic peptide B [Mass/volume] in Serum or Plasma 277.0 pg/mL 0.0-100.0 [facility] ID Date Data Source [id number] 10/13/2020 08:10:00 AM EST [facility] ([facility] Name Value Range Interpretation Code Description Data Sunni rce(s) Supporting Document(s) Erythrocytes [#/volume] in Blood by Automated count 3.96 x10*6/UL 4.2 0-6.30 [facility] ([facility] Leukocytes [#/volume] in Blood by Automated count 13.1 x10*3/UL 4.1-1 0.9 [facility] ([facility] NOTE: RESULT VERIFIED. Hemoglobin [Mass/volume] in Blood 10.8 g/dL 12.0-18.0 [facility] ([facility] Hematocrit [Volume Fraction] of Blood by Automated count 32.2 % 3 7.0-51.0 [facility] ([facility] MCV 81.4 fL 80.0-97.0 [facility] ([facility]) MCHC 33.6 g/dL 31.0-38.0 [facility] ([facility]) MCH 27.3 pg 26.0-32.0 [facility] ([facility]) Erythrocyte distribution width [Ratio] by Automated count 15.8 % 11.6-13.7 [facility] ([facility] MPV 8.7 FL 7.8-11.0 [facility] ([facility]) Platelets [#/volume] in Blood by Automated count 231 x10*3/UL 140-440 [facility] Mid % 2.4 % 1.7-9.3 [facility] ([facility]) Lymph % 7.3 % 10.0-58.5 [facility] Lymph # 0.9 x10*3/UL 0.6-4.1 [facility] ([facility]) Neut % 90.3 % 37.0-92.0 [facility] Mid # 0.3 x10*3/UL 0.1-0.6 [facility] ([facility]) Neut # 11.9 x10*3/UL 2.0-7.8 [facility] ID Date Data Source [id number] 07/14/2020 08:18:00 AM EDT [facility] Name Value Range Interpretation Code Description Data Sunni rce(s) Supporting Document(s) Prostate specific Ag [Mass/volume] in Serum or Plasma 0.39 ng/mL [facility] ([facility]) This assay was performed on the Siemens Dimension EXL using the B- Galactosidase/CPRG methodology and should not be compared interchangeably with other methods. The PSA should not be used alone as a screening test for the presence or absence of malignant disease. ID Date Data Source [id number] 07/14/2020 08:17:00 AM EDT [facility] Name Value Range Interpretation Code Description Data Sunni rce(s) Supporting Document(s) Hemoglobin A1c/Hemoglobin.total in Blood Laboratory test result [facility] ([facility]) Natriuretic peptide B [Mass/volume] in Serum or Plasma 326.0 pg/mL 0.0-100.0 [facility] ([facility]) ID Date Data Source [id number] 07/14/2020 08:17:00 AM EDT [facility] Name Value Range Interpretation Code Description Data Sunni rce(s) Supporting Document(s) Glucose mean value [Mass/volume] in Blood Estimated fr om glycated hemoglobin 183 mg/dL 60-110 [facility] Hemoglobin A1c/Hemoglobin.total in Blood 8.0 % [facility] ([facility]) Lab Result Notes: Pre-Diabetes 5.7 - 6.4 % Diabetes = or > 6.5% ID Date Data Source [id number] 07/14/2020 08:17:00 AM EDT [facility] ([facility]) Name Value Range Interpretation Code Description Data Sunni rce(s) Supporting Document(s) Creatinine 1.1 mg/dL 0.6-1.3 [facility] ([facility]) Glucose [Mass/volume] in Serum or Plasma 169 mg/dL 74-99 [facility] ([facility]) 100-125 mg/dL PRE-DIABETES/FASTING >126 mg/dL DIABETES/FASTING Urea nitrogen [Mass/volume] in Serum or Plasma 16 mg/dL 7-18 [facility] ([facility]) Chloride [Moles/volume] in Serum or Plasma 97 meq/L 98-107 [facility] ([facility]) Sodium [Moles/volume] in Serum or Plasma 138 meq/L 136-145 [facility] ([facility]) Potassium [Moles/volume] in Serum or Plasma 3.8 meq/L 3.5-5.1 [facility] ([facility]) Alkaline phosphatase isoenzyme [Units/volume] in Serum or Pl asma 191 mg/dL 46-116 [facility] ([facility]) Carbon dioxide, total [Moles/volume] in Serum or Plasma 33 meq/L 21 -32 [facility] ([facility]) Calcium [Mass/volume] in Serum or Plasma 8.8 mg/dL 8.5-10.1 [facility] ([facility]) Total Bilirubin 0.8 mg/dL 0.2-1.0 [facility] ([facility]) Alanine aminotransferase [Enzymatic activity/volume] in Seru m or Plasma 10 U/L 12-78 [facility] ([facility]) Aspartate aminotransferase [Enzymatic activity/volume] in Serum or Plasma 12 U/L 15-37 [facility] ([facility] ) A/G Ratio 0.44 CALC 1.00-1.90 [facility] ([facility]) Albumin [Mass/volume] in Serum or Plasma 2.4 g/dL 3.4-5.0 [facility] ([facility]) Proteinase 3 Ab [Units/volume] in Serum 7.8 g/dL 6.4-8.2 [facility] ([facility]) Glomerular filtration rate/1.73 sq M pre dicted among blacks [Volume Rate/Area] in Serum or Plasma by Creatinine-based formula (MDRD) Laboratory test result [facility] ([facility]) <content>CHRONIC KIDNEY DISEASE STAGING PER NKF</content>
<content></content>
<content>STAGE I & II GFR >= 60 NORMAL TO MILDLY DECREASED</content>
<content>STAGE III GFR 30-59 MODERATELY DECREASED</content>
<content>STAGE IV GFR 15-29 SEVERELY DECREASED</content>
<content>STAGE V GFR <15 VERY LITTLE GFR LEFT</content>
<content>ESRD GFR <15 ON CLOCK REPAIRER</content>
<content></content> Glomerular filtration rate/1.73 sq M pre dicted among non-blacks [Volume Rate/Area] in Serum or Plasma by Creatinine-based formula (MDRD) Laboratory test result [facility] ([facility] ID Date Data Source [id number] 07/14/2020 08:17:00 AM EDT [facility] Name Value Range Interpretation Code Description Data Sunni rce(s) Supporting Document(s) Cholesterol [Mass/volume] in Serum or Plasma 115 mg/dL 131-200 [facility] ([facility]) Cholesterol in HDL [Mass/volume] in Serum or Plasma 42 mg/dL 35-60 [facility] ([facility]) Cholesterol in LDL [Mass/volume] in Serum or Plasma by calcu lation 57 CALC 50-159 [facility] ([facility]) Triglyceride [Mass/volume] in Serum or Plasma 79 mg/dL 30-150 [facility] ID Date Data Source [id number] 07/14/2020 08:17:00 AM EDT [facility] Name Value Range Interpretation Code Description Data Sunni rce(s) Supporting Document(s) Erythrocytes [#/volume] in Blood by Automated count 4.15 x10*6/UL 4.2 0-6.30 [facility] Leukocytes [#/volume] in Blood by Automated count 10.9 x10*3/UL 4.1-1 0.9 [facility] ([facility]) NOTE: RESULT VERIFIED. Hemoglobin [Mass/volume] in Blood 11.5 g/dL 12.0-18.0 [facility] ([facility]) MCV 81.9 fL 80.0-97.0 [facility] Hematocrit [Volume Fraction] of Blood by Automated count 34.0 % 3 7.0-51.0 [facility] ([facility] Erythrocyte distribution width [Ratio] by Automated count 15.3 % 11.6-13.7 [facility] ([facility]) MCHC 33.8 g/dL 31.0-38.0 [facility] MCH 27.7 pg 26.0-32.0 [facility] Lymph % 14.3 % 10.0-58.5 [facility] Platelets [#/volume] in Blood by Automated count 430 x10*3/UL 140-440 [facility] ([facility]) MPV 8.4 FL 7.8-11.0 [facility] Lymph # 1.5 x10*3/UL 0.6-4.1 [facility] ([facility]) Neut % 80.4 % 37.0-92.0 [facility] Mid % 5.3 % 1.7-9.3 [facility] ([facility]) Neut # 8.8 x10*3/UL 2.0-7.8 [facility] ([facility]) Mid # 0.6 x10*3/UL 0.1-0.6 [facility] ([facility]) Procedure Social History No Information Vital Signs ID Date Data Source UNK Name Value Range Interpretation Code Description Data Source(s) Oxygen saturation in Arterial blood by Pulse oximetry 93 % 93 % [facility] ([facility]) Systolic blood pressure 128 mm[Hg] 128 mm[Hg] M [facility] ([facility]) Diastolic blood pressure 62 mm[Hg] 62 mm[Hg] [facility] ([facility]) Heart rate 66 /min 66 /min [facility] ([facility]) Body height 70 [in_i] 70 [in_i] [facility] ([facility]) 5'10" Body weight 428.00 [lb_av] 428.00 [lb_av] [facility] ([facility]) Body mass index (BMI) [Ratio] 61.4 kg/m2 61.4 k g/m2 [facility] ([facility]) Body weight 185.522 kg 185.522 kg [facility] ([facility]) Systolic blood pressure 158 mm[Hg] 158 mm[Hg] [facility] ([facility]) Diastolic blood pressure 80 mm[Hg] 80 mm[Hg] [facility] ([facility]) Body temperature 97.9 [degF] 97.9 [degF] [facility] ([facility]) Body height 71 [in_i] 71 [in_i] [facility] ([facility]) 5'11" Body weight 409.00 [lb_av] 409.00 [lb_av] [facility] ([facility]) Body mass index (BMI) [Ratio] 57.0 kg/m2 57.0 k g/m2 [facility] ([facility]) [place] body weight 172 [lb_av] 172 [lb_av] [facility] ([facility]) Body surface area Derived from formula 2.86 m2 2.86 m2 [facility] ([facility]) Body weight 399.00 [lb_av] 399.00 [lb_av] [facility] ([facility]) Systolic blood pressure 112 mm[Hg] 112 mm[Hg] [facility] Body mass index (BMI) [Ratio] 57.2 kg/m2 57.2 k g/m2 [facility] ([facility]) Diastolic blood pressure 70 mm[Hg] 70 mm[Hg] [facility] ([facility]) Heart rate 74 /min 74 /min [facility] ([facility]) Body height 70 [in_i] 70 [in_i] [facility] ([facility]) 5'10" Oxygen saturation in Arterial blood by Pulse oximetry 99 % 99 % [facility] ([facility]) Systolic blood pressure 132 mm[Hg] 132 mm[Hg] M [facility] ([facility]) Diastolic blood pressure 78 mm[Hg] 78 mm[Hg] [facility] ([facility]) Heart rate 76 /min 76 /min [facility] ([facility]) Body height 70 [in_i] 70 [in_i] [facility] ([facility]) 5'10" Body weight 419.00 [lb_av] 419.00 [lb_av] [facility] ([facility]) Body mass index (BMI) [Ratio] 60.1 kg/m2 60.1 k g/m2 [facility] ([facility]) Systolic blood pressure 102 mm[Hg] 102 mm[Hg] M [facility] ([facility]) Heart rate 94 /min 94 /min [facility] ([facility]) irregular Diastolic blood pressure 50 mm[Hg] 50 mm[Hg] [facility] ([facility]) Body mass index (BMI) [Ratio] 64.3 kg/m2 64.3 k g/m2 [facility] ([facility]) Body height 70 [in_i] 70 [in_i] [facility] ([facility]) 5'10" Body weight 448.00 [lb_av] 448.00 [lb_av] [facility] Body height 70 [in_i] 70 [in_i] [facility] ([facility]) 5'10" Body weight 439.00 [lb_av] 439.00 [lb_av] [facility] Systolic blood pressure 138 mm[Hg] 138 mm[Hg] [facility] Diastolic blood pressure 80 mm[Hg] 80 mm[Hg] [facility] ([facility]) Heart rate 76 /min 76 /min [facility] ([facility]) Body mass index (BMI) [Ratio] 63.0 kg/m2 63.0 k g/m2 [facility] ([facility]) Oxygen saturation in Arterial blood by Pulse oximetry --post exerci se 92 % 92 % [facility] ([facility]) Body mass index (BMI) [Ratio] 66.7 kg/m2 66.7 k g/m2 [facility] ([facility]) Systolic blood pressure 142 mm[Hg] 142 mm[Hg] [facility] ([facility]) Diastolic blood pressure 78 mm[Hg] 78 mm[Hg] [facility] ([facility]) Heart rate 84 /min 84 /min [facility] ([facility]) Body height 70 [in_i] 70 [in_i] [facility] ([facility]) 5'10" Body weight 465.00 [lb_av] 465.00 [lb_av] [facility] ([facility]) Body height 71 [in_i] 71 [in_i] [facility] ([facility] 5'11" Systolic blood pressure 134 mm[Hg] 134 mm[Hg] [facility] ([facility] Diastolic blood pressure 78 mm[Hg] 78 mm[Hg] [facility] ([facility] Heart rate 96 /min 96 /min [facility] ([facility] Body mass index (BMI) [Ratio] 68.1 kg/m2 68.1 k g/m2 [facility] ([facility] Body weight 488.00 [lb_av] 488.00 [lb_av] [facility] ([facility]
[2021-07-29] MEDS ORDERED: propofoL 500 MG/50 ML VIAL As Ordered ONE (10:10)
[2021-07-29] MEDS ORDERED: LIDOCAINE 2% 100MG/5ML SDV (FOR ANES.) As Ordered ONE (10:10)
[2021-07-29] MEDS ORDERED: fentaNYL 100 MCG/2 ML INJECTION (J3010) As Ordered ONE (10:10)
--- NOTE | 2021-07-29 10:57 | ROOR ---
Patient Name: Keegan Blackmon Procedure Date: 07/29/2021 10:42 AM Date of : 1955 Age: 65 Room: [facility] Gender: Male Note Status: Finalized Procedure: Upper GI endoscopy Indications: Iron deficiency anemia Providers: Aleksandar Vasquez Jr, MD Referring MD: Guille Frye MD Requesting Provider: Medicines: Propofol per Anesthesia Complications: No immediate complications. Procedure: Pre-Anesthesia Assessment: - Prior to the procedure, a History and Physical was performed, and patient medications and allergies were reviewed. The patient is competent. The risks and benefits of the procedure and the sedation options and risks were discussed with the patient. All questions were answered and informed consent was obtained. Patient identification and proposed procedure were verified by the physician and the nurse in the pre-procedure area and in the procedure room. Mental Status Examination: alert and oriented. Airway Examination: normal oropharyngeal airway and neck mobility. Respiratory Examination: clear to auscultation. CV Examination: normal. ASA Grade Assessment: II - A patient with mild systemic disease. After reviewing the risks and benefits, the patient was deemed in satisfactory condition to undergo the procedure. The anesthesia plan was to use moderate sedation / analgesia (conscious sedation). Immediately prior to administration of medications, the patient was re-assessed for adequacy to receive sedatives. The heart rate, respiratory rate, oxygen saturations, blood pressure, adequacy of pulmonary ventilation, and response to care were monitored throughout the procedure. The physical status of the patient was re-assessed after the procedure. The Endoscope was introduced through the mouth, and advanced to the second part of duodenum. The upper GI endoscopy was accomplished without difficulty. The patient tolerated the procedure well. Findings: The upper third of the esophagus, middle third of the esophagus and lower third of the esophagus were normal. The cardia, gastric fundus and gastric body were normal. Patchy moderate inflammation characterized by congestion (edema), erythema and friability was found in the prepyloric region of the stomach. The first portion of the duodenum and second portion of the duodenum were normal. Patchy moderate inflammation characterized by congestion (edema), erythema, friability and granularity was found in the duodenal bulb. Impression: - Normal upper third of esophagus, middle third of esophagus and lower third of esophagus. - Normal cardia, gastric fundus and gastric body. - Gastritis. - Normal first portion of the duodenum and second portion of the duodenum. - Duodenitis. - No specimens collected. Recommendation: - Discharge patient to home (ambulatory). - Return to my office as previously scheduled. Procedure Code(s): --- Professional --- 10835, Esophagogastroduodenoscopy, flexible, transoral; diagnostic, including collection of specimen(s) by brushing or washing, when performed (separate procedure) Diagnosis Code(s): --- Professional --- K29.70, Gastritis, unspecified, without bleeding K29.80, Duodenitis without bleeding D50.9, Iron deficiency anemia, unspecified CPT copyright 2019 [employer]. All rights reserved. The codes documented in this report are preliminary and upon maintenance worker house trailer review may be revised to meet current compliance requirements. Aleksandar Vasquez MD Aleksandar Vasquez Jr, MD 07/29/2021 10:57:24 AM Electronically signed by Aleksandar Vasquez Jr, MD Number of Addenda: 0 Note Initiated On: 07/29/2021 10:42 AM Estimated Blood Loss: Estimated blood loss: none.
--- NOTE | 2021-07-29 11:24 | ROOR ---
Patient Name: Keegan Blackmon Procedure Date: 07/29/2021 10:42 AM Date of : 1955 Age: 65 Room: [facility] Gender: Male Note Status: Finalized Procedure: Colonoscopy Indications: Iron deficiency anemia Providers: Aleksandar Vasquez Jr, MD Referring MD: Guille Frye MD Requesting Provider: Medicines: Propofol per Anesthesia Complications: No immediate complications. Procedure: Pre-Anesthesia Assessment: - Prior to the procedure, a History and Physical was performed, and patient medications and allergies were reviewed. The patient is competent. The risks and benefits of the procedure and the sedation options and risks were discussed with the patient. All questions were answered and informed consent was obtained. Patient identification and proposed procedure were verified by the physician and the nurse in the pre-procedure area and in the procedure room. Mental Status Examination: alert and oriented. Airway Examination: normal oropharyngeal airway and neck mobility. Respiratory Examination: clear to auscultation. CV Examination: normal. ASA Grade Assessment: III - A patient with severe systemic disease. After reviewing the risks and benefits, the patient was deemed in satisfactory condition to undergo the procedure. The anesthesia plan was to use moderate sedation / analgesia (conscious sedation). Immediately prior to administration of medications, the patient was re-assessed for adequacy to receive sedatives. The heart rate, respiratory rate, oxygen saturations, blood pressure, adequacy of pulmonary ventilation, and response to care were monitored throughout the procedure. The physical status of the patient was re-assessed after the procedure. The Colonoscope was introduced through the anus and advanced to the ascending colon with probable ileocecal valve in the distance. The colonoscopy was performed without difficulty. The patient tolerated the procedure well. The quality of the bowel preparation was poor. Findings: The rectum, recto-sigmoid colon, sigmoid colon, descending colon, transverse colon and ascending colon appeared normal. Two polyps were found in the hepatic flexure and ascending colon. The polyps were small in size. These polyps were removed with a jumbo cold forceps. Resection and retrieval were complete. Impression: - Preparation of the colon was poor. - The rectum, recto-sigmoid colon, sigmoid colon, descending colon, transverse colon and ascending colon are normal. - Two small polyps at the hepatic flexure and in the ascending colon, removed with a jumbo cold forceps. Resected and retrieved. Recommendation: - Discharge patient to home (ambulatory). - Repeat colonoscopy in 5-10 years for surveillance based on pathology results. Procedure Code(s): --- Professional --- 91392, Colonoscopy, flexible; with biopsy, single or multiple Diagnosis Code(s): --- Professional --- K63.5, Polyp of colon D50.9, Iron deficiency anemia, unspecified CPT copyright 2019 [employer]. All rights reserved. The codes documented in this report are preliminary and upon orthopedics nurse review may be revised to meet current compliance requirements. Aleksandar Vasquez MD Aleksandar Vasquez Jr, MD 07/29/2021 11:23:48 AM Electronically signed by Aleksandar Vasquez Jr, MD Number of Addenda: 0 Note Initiated On: 07/29/2021 10:42 AM Estimated Blood Loss: Estimated blood loss: none.
[2021-07-29 11:40] VITALS: BP 118/56
== END 2021-07-29 11:55 | disposition home or self-care (01) ==
LOC: M OPP 09:49
PROVIDERS: ATTEND Surgery
DX: D50.9 Iron deficiency anemia, unspecified (principal); Z86.010 Personal history of colon polyps; K63.5 Polyp of colon; K29.70 Gastritis, unspecified, without bleeding; K29.80 Duodenitis without bleeding; I48.91 Unspecified atrial fibrillation; I50.9 Heart failure, unspecified; I11.0 Hypertensive heart disease with heart failure; E78.5 Hyperlipidemia, unspecified; K21.9 Gastro-esophageal reflux disease without esophagitis; G47.30 Sleep apnea, unspecified; Z86.14 Personal history of Methicillin resistant Staphylococcus aureus infection; Z87.891 Personal history of nicotine dependence; Z79.01 Long term (current) use of anticoagulants; Z79.4 Long term (current) use of insulin; Z79.899 Other long term (current) drug therapy; Z82.49 Family history of ischemic heart disease and other diseases of the circulatory system; Z80.1 Family history of malignant neoplasm of trachea, bronchus and lung
CPT/HCPCS: 43235; 45380; 88305; J3010

== ENCOUNTER → 2021-10-11 | Outpatient (REF) | payer BC ==
[~2021-10-11] MED LIST changes: -NS 1,000 ML IV ONE
[2021-10-11 18:32] LABS: LIPASE 108 U/L (73-393); NT-PRO BNP 1136 PG/ML (<125)
== END ==
LOC: M LAB REF 16:35
PROVIDERS: ATTEND Family Medicine
DX: I50.40 Unspecified combined systolic (congestive) and diastolic (congestive) heart failure (principal); R74.8 Abnormal levels of other serum enzymes

== ENCOUNTER → 2021-11-22 | Outpatient (REF) | payer BC ==
[~2021-11-22] MED LIST changes: +POTA-151 PO; -POTA20TA6 PO
[2021-11-22 13:57] LABS: PERCENT SATURATION 40.3 % (19.7-50.0)
== END ==
LOC: M LAB REF 13:04
PROVIDERS: ATTEND Internal Medicine Nephrology
DX: N18.31 Chronic kidney disease, stage 3a (principal); D50.9 Iron deficiency anemia, unspecified

== ENCOUNTER 2022-11-22 18:55 | Inpatient (IN) | payer BC, MEDICARE ==
[~2022-11-22] VITALS: Ht 180.3 cm; Wt 151.6 kg
[~2022-11-22 18:55] MED LIST changes: +POTA-150 PO; -POTA10TA17 PO
[2022-11-22] MEDS ORDERED: RIVAROXABAN 20MG TAB (XARELTO) PO SCH (21:00)
[2022-11-22] MEDS: SIMVASTATIN 40 MG TAB PO SCH (21:00)
[2022-11-22 21:18] LABS: BASO % 0.2 % (0.0-1.0); EOS % 0.1 % (0.0-3.0); HEMATOCRIT 23.2 % (42.0-52.0); LYMPH # 1.1 10^3/uL (1.5-5.0); LYMPH % 11.4 % (24.0-44.0); MEAN CORPUSCULAR HGB CONC 26.7 g/dl (32.0-36.5); MEAN CORPUSCULAR VOLUME 78.6 fl (80.0-96.0); MONO # 0.6 10^3/uL (0.0-0.8); NEUTROPHILS # 8.1 10^3/uL (1.5-8.5); NEUTROPHILS % 81.8 % (36.0-66.0); PLATELET COUNT, AUTOMATED 268 10^3/uL (150-450); RED BLOOD COUNT 2.95 10^6/uL (4.30-6.10); WHITE BLOOD COUNT 9.9 10^3/uL (4.0-10.0)
[2022-11-22 21:20] LABS: HEMOGLOBIN 6.2 g/dl (13.5-17.5)
[2022-11-22 21:43] LABS: ERYTHROCYTE SEDIMENTATION RATE 129 mm/hr (0-20)
[2022-11-22] MEDS ORDERED: MORPHINE 4 MG/ML 1ML VIAL IV ONE (21:45)
[2022-11-22 22:26] LABS: C REACTIVE PROTEIN QUANTITATIV 4.2 MG/DL (<1.0)
[2022-11-22 22:32] LABS: ALBUMIN 2.4 G/DL (3.2-5.2); BILIRUBIN,DIRECT 0.2 MG/DL (<0.4); BILIRUBIN,TOTAL 0.4 MG/DL (0.3-1.2); CREATININE FOR GFR 1.48 MG/DL (0.70-1.30); GLOMERULAR FILTRATION RATE 50.8 (>49); POTASSIUM SERUM 3.9 MMOL/L (3.5-5.1); TOTAL PROTEIN 8.1 G/DL (5.7-8.2)
[2022-11-22] MEDS ORDERED: PROHANCE 279.3MG/ML 5ML VIAL As Ordered ONE (22:52)
[2022-11-23] VITALS (13 sets, daily range): BP systolic 106–152; BP diastolic 46–72
[2022-11-23] MEDS ORDERED: MORPHINE 2 MG/ML 1ML VIAL IV ONE (00:25)
[2022-11-23 01:08] LABS: RSV AMPLIFICATION NEGATIVE (NEGATIVE)
[2022-11-23] MEDS ORDERED: ACETAMINOPHEN TAB 650MG DOSE (2X325MG) PO PRN (01:35)
[2022-11-23] MEDS ORDERED: FUROSEMIDE 40MG/4ML VIAL IV ONE (01:35)
[2022-11-23] MEDS ORDERED: GLUCOSE 4GM CHEW TABLET PO PRN (01:40)
[2022-11-23] MEDS ORDERED: DEXTROSE 50% 50ML SYRINGE IV PRN (01:40)
[2022-11-23] MEDS ORDERED: GLUCAGON INJ 1MG VIAL SC PRN (01:40)
[2022-11-23 02:05] LABS: FOLATE 7.9 NG/ML (>5.4)
[2022-11-23 02:06] LABS: FERRITIN 10.8 NG/ML (10.5-307.3)
[2022-11-23] MEDS ORDERED: PERCOCET 5MG/325MG TAB PO PRN ×2 (02:15)
[2022-11-23] MEDS ORDERED: PANT40TA29 PO (02:19)
[2022-11-23] MEDS ORDERED: LANTINJ4 SC (02:19)
[2022-11-23] MEDS ORDERED: SUCR1TAB56 PO (02:19)
[2022-11-23] MEDS ORDERED: TORS20TA2 PO (02:19)
[2022-11-23] MEDS ORDERED: VITA100093 PO (02:19)
[2022-11-23] MEDS ORDERED: HOME MED LIST COMPLETE! XX SCH (02:20)
[2022-11-23] MEDS ORDERED: MAGN400T2 PO (02:40)
[2022-11-23 06:26] LABS: HEMATOCRIT 23.7 % (42.0-52.0); MEAN CORPUSCULAR HEMOGLOBIN 22.8 pg (27.0-33.0); MEAN CORPUSCULAR HGB CONC 28.7 g/dl (32.0-36.5); MEAN CORPUSCULAR VOLUME 79.5 fl (80.0-96.0); PLATELET COUNT, AUTOMATED 220 10^3/uL (150-450); RED BLOOD COUNT 2.98 10^6/uL (4.30-6.10); WHITE BLOOD COUNT 9.2 10^3/uL (4.0-10.0)
[2022-11-23 06:41] LABS: INR 2.41; PROTHROMBIN TIME 26.6 SECONDS (12.5-14.5)
[2022-11-23 06:42] LABS: PARTIAL THROMBOPLASTIN TIME 47.5 SECONDS (24.8-34.2)
[2022-11-23 06:52] LABS: CALCIUM LEVEL 8.1 MG/DL (8.3-10.6); CREATININE FOR GFR 1.47 MG/DL (0.70-1.30); GLOMERULAR FILTRATION RATE 51.2 (>49); POTASSIUM SERUM 3.9 MMOL/L (3.5-5.1)
[2022-11-23 06:56] LABS: HEMOGLOBIN 6.8 g/dl (13.5-17.5)
[2022-11-23] MEDS: SUCRALFATE 1 GM TAB PO SCH (08:45)
[2022-11-23] MEDS: INSULIN LISPRO (NovoLOG) PER UNIT SC SCH ×4 (08:45→20:35)
[2022-11-23] MEDS: TORSEMIDE 20 MG TAB PO SCH (08:46)
[2022-11-23] MEDS: PANTOPRAZOLE 40MG TAB (PROTONIX) PO SCH (08:47)
[2022-11-23 14:30] LABS: HEMATOCRIT 25.8 % (42.0-52.0); HEMOGLOBIN 7.4 g/dl (13.5-17.5); MEAN CORPUSCULAR HEMOGLOBIN 23.1 pg (27.0-33.0); MEAN CORPUSCULAR HGB CONC 28.7 g/dl (32.0-36.5); MEAN CORPUSCULAR VOLUME 80.4 fl (80.0-96.0); PLATELET COUNT, AUTOMATED 233 10^3/uL (150-450); RED BLOOD COUNT 3.21 10^6/uL (4.30-6.10); WHITE BLOOD COUNT 15.2 10^3/uL (4.0-10.0)
[2022-11-23] MEDS: SIMVASTATIN 40 MG TAB PO SCH (20:35)
[2022-11-23] MEDS: LEVEMIR (INSULIN DETEMIR) 1 UNITS/0.01ML SC SCH (20:35)
[2022-11-24] VITALS (13 sets, daily range): BP systolic 97–140; BP diastolic 48–73
[2022-11-24 06:26] LABS: HEMATOCRIT 22.9 % (42.0-52.0); MEAN CORPUSCULAR HEMOGLOBIN 23.2 pg (27.0-33.0); MEAN CORPUSCULAR HGB CONC 29.3 g/dl (32.0-36.5); MEAN CORPUSCULAR VOLUME 79.2 fl (80.0-96.0); PLATELET COUNT, AUTOMATED 213 10^3/uL (150-450); RED BLOOD COUNT 2.89 10^6/uL (4.30-6.10); WHITE BLOOD COUNT 22.2 10^3/uL (4.0-10.0)
[2022-11-24 06:35] LABS: HEMOGLOBIN 6.7 g/dl (13.5-17.5)
[2022-11-24 06:57] LABS: BLOOD UREA NITROGEN 36 MG/DL (9-23); CALCIUM LEVEL 7.8 MG/DL (8.3-10.6); CARBON DIOXIDE LEVEL 24 MMOL/L (20-31); CHLORIDE LEVEL 101 MMOL/L (98-107); CREATININE FOR GFR 1.68 MG/DL (0.70-1.30); GLOMERULAR FILTRATION RATE 43.9 (>49); GLUCOSE, FASTING 136 MG/DL (74-106); POTASSIUM SERUM 3.4 MMOL/L (3.5-5.1); SODIUM LEVEL 135 MMOL/L (136-145)
[2022-11-24] MEDS ORDERED: CEFEPIME HCL 1 GM in D5W MINI-BAG PLUS 50 ML IV SCH (07:30)
[2022-11-24] MEDS ORDERED: VANCOMYCIN HCL IV SCH (07:30)
[2022-11-24] MEDS ORDERED: FLUID PLACE HOLDER IV SCH (07:30)
[2022-11-24] MEDS ORDERED: ISOVUE-370 76% 100ML VIAL As Ordered ONE (08:13)
[2022-11-24] MEDS ORDERED: VANCOMYCIN HCL 750 MG, VIAL MATE ADAPTER 1 EACH in D5W 250 ML IV ONE ×2 (09:00→10:00)
[2022-11-24] MEDS: INSULIN LISPRO (NovoLOG) PER UNIT SC SCH ×4 (09:24→20:39)
[2022-11-24] MEDS: SUCRALFATE 1 GM TAB PO SCH (09:24)
[2022-11-24] MEDS: PANTOPRAZOLE 40MG TAB (PROTONIX) PO SCH (09:24)
[2022-11-24] MEDS: TORSEMIDE 20 MG TAB PO SCH (09:24)
[2022-11-24 11:05] LABS: INR 1.78
[2022-11-24 11:07] LABS: PARTIAL THROMBOPLASTIN TIME 45.5 SECONDS (24.8-34.2)
[2022-11-24 11:09] LABS: D-DIMER QUANT 2287.27 ng/ml (<500)
[2022-11-24] MEDS: CEFEPIME HCL 2 GM in D5W MINI-BAG PLUS 50 ML IV SCH ×2 (11:33→23:24)
[2022-11-24] MEDS: metroNIDAZOLE 500 MG in IV 1 EA IV SCH ×2 (12:56→20:53)
[2022-11-24 13:24] LABS: ALBUMIN 1.8 G/DL (3.2-5.2); ALKALINE PHOSPHATASE 161 U/L (46-116); ALT/SGPT < 9 U/L (7.0-40); AST/SGOT 11 U/L (<34); BILIRUBIN,DIRECT 1.3 MG/DL (<0.4); TOTAL PROTEIN 6.7 G/DL (5.7-8.2)
[2022-11-24] MEDS ORDERED: LIDOCAINE 1% MDV 20ML VIAL As Ordered ONE ×2 (14:36→15:26)
[2022-11-24] MEDS ORDERED: ISOVUE-300 61% 100ML VIAL As Ordered ONE ×2 (14:36→15:26)
[2022-11-24] MEDS ORDERED: fentaNYL 100 MCG/2 ML INJECTION As Ordered ONE ×2 (14:36→15:16)
[2022-11-24] MEDS ORDERED: MIDAZOLAM INJ 2MG/2ML VIAL As Ordered ONE (14:36)
[2022-11-24] MEDS ORDERED: diphenhydrAMINE 50MG/ML VIAL As Ordered ONE (14:36)
[2022-11-24] MEDS ORDERED: ONDANSETRON 4MG 2ML VIAL IV PRN (16:25)
[2022-11-24] MEDS: POTASSIUM CHLORIDE 10MEQ SR TABLET PO SCH ×3 (16:26→20:53)
[2022-11-24 17:23] LABS: HEMATOCRIT 26.3 % (42.0-52.0); HEMOGLOBIN 7.8 g/dl (13.5-17.5); MEAN CORPUSCULAR HEMOGLOBIN 24.2 pg (27.0-33.0); MEAN CORPUSCULAR HGB CONC 29.7 g/dl (32.0-36.5); MEAN CORPUSCULAR VOLUME 81.7 fl (80.0-96.0); PLATELET COUNT, AUTOMATED 218 10^3/uL (150-450); RED BLOOD COUNT 3.22 10^6/uL (4.30-6.10); WHITE BLOOD COUNT 18.6 10^3/uL (4.0-10.0)
[2022-11-24] MEDS: LEVEMIR (INSULIN DETEMIR) 1 UNITS/0.01ML SC SCH (20:53)
[2022-11-24] MEDS: SIMVASTATIN 40 MG TAB PO SCH (20:53)
[2022-11-24] MEDS: VANCOMYCIN HCL 750 MG, VIAL MATE ADAPTER 1 EACH in D5W 250 ML IV SCH (22:07)
[2022-11-24 23:53] LABS: HEMATOCRIT 24.7 % (42.0-52.0); HEMOGLOBIN 7.2 g/dl (13.5-17.5)
[2022-11-25] VITALS (7 sets, daily range): BP systolic 104–121; BP diastolic 53–59
[2022-11-25] MEDS: metroNIDAZOLE 500 MG in IV 1 EA IV SCH ×3 (03:38→20:16)
[2022-11-25 04:42] LABS: HEMATOCRIT 24.7 % (42.0-52.0); HEMOGLOBIN 7.2 g/dl (13.5-17.5); MEAN CORPUSCULAR HEMOGLOBIN 23.6 pg (27.0-33.0); MEAN CORPUSCULAR HGB CONC 29.1 g/dl (32.0-36.5); PLATELET COUNT, AUTOMATED 211 10^3/uL (150-450); RED BLOOD COUNT 3.05 10^6/uL (4.30-6.10); WHITE BLOOD COUNT 13.7 10^3/uL (4.0-10.0)
[2022-11-25 05:04] LABS: ALBUMIN 1.8 G/DL (3.2-5.2); ALKALINE PHOSPHATASE 148 U/L (46-116); ALT/SGPT < 9 U/L (7.0-40); AST/SGOT 13 U/L (<34); BILIRUBIN,DIRECT 0.9 MG/DL (<0.4); BILIRUBIN,TOTAL 1.3 MG/DL (0.3-1.2); CALCIUM LEVEL 7.8 MG/DL (8.3-10.6); CREATININE FOR GFR 1.7 MG/DL (0.70-1.30); GLOMERULAR FILTRATION RATE 43.3 (>49); POTASSIUM SERUM 3.1 MMOL/L (3.5-5.1); TOTAL PROTEIN 6.6 G/DL (5.7-8.2)
[2022-11-25] MEDS ORDERED: POTASSIUM CHLORIDE 10% LIQ 20MEQ/15ML UDC PO ONE (07:00)
[2022-11-25] MEDS: INSULIN LISPRO (NovoLOG) PER UNIT SC SCH ×4 (07:30→20:57)
[2022-11-25] MEDS: TORSEMIDE 20 MG TAB PO SCH (09:00)
[2022-11-25] MEDS: VANCOMYCIN HCL 750 MG, VIAL MATE ADAPTER 1 EACH in D5W 250 ML IV SCH ×2 (09:07→22:21)
[2022-11-25] MEDS: SUCRALFATE 1 GM TAB PO SCH (09:07)
[2022-11-25] MEDS: POTASSIUM CHLORIDE 10MEQ SR TABLET PO SCH ×2 (09:08→20:16)
[2022-11-25] MEDS: PANTOPRAZOLE 40MG TAB (PROTONIX) PO SCH (09:08)
[2022-11-25] MEDS: CEFEPIME HCL 2 GM in D5W MINI-BAG PLUS 50 ML IV SCH ×2 (11:38→23:28)
[2022-11-25 12:15] LABS: HEMATOCRIT 26.2 % (42.0-52.0); HEMOGLOBIN 7.6 g/dl (13.5-17.5)
[2022-11-25 16:55] LABS: GC DNA AMPLIFICATION NEGATIVE (NEGATIVE)
[2022-11-25] MEDS: SIMVASTATIN 40 MG TAB PO SCH (20:16)
[2022-11-25] MEDS: LEVEMIR (INSULIN DETEMIR) 1 UNITS/0.01ML SC SCH (20:17)
[2022-11-26 00:13] VITALS: BP 118/59
[2022-11-26 04:09] LABS: HEMATOCRIT 26.4 % (42.0-52.0); HEMOGLOBIN 7.5 g/dl (13.5-17.5); MEAN CORPUSCULAR HEMOGLOBIN 23.7 pg (27.0-33.0); MEAN CORPUSCULAR HGB CONC 28.4 g/dl (32.0-36.5); MEAN CORPUSCULAR VOLUME 83.5 fl (80.0-96.0); PLATELET COUNT, AUTOMATED 211 10^3/uL (150-450); RED BLOOD COUNT 3.16 10^6/uL (4.30-6.10); WHITE BLOOD COUNT 10.1 10^3/uL (4.0-10.0)
[2022-11-26 04:22] LABS: ERYTHROCYTE SEDIMENTATION RATE 104 mm/hr (0-20)
[2022-11-26 04:36] LABS: ALBUMIN 1.7 G/DL (3.2-5.2); ALKALINE PHOSPHATASE 138 U/L (46-116); ALT/SGPT < 9 U/L (7.0-40); AST/SGOT 11 U/L (<34); BILIRUBIN,DIRECT 0.6 MG/DL (<0.4); BILIRUBIN,TOTAL 0.8 MG/DL (0.3-1.2); BLOOD UREA NITROGEN 27 MG/DL (9-23); CALCIUM LEVEL 7.8 MG/DL (8.3-10.6); CARBON DIOXIDE LEVEL 25 MMOL/L (20-31); CHLORIDE LEVEL 106 MMOL/L (98-107); CREATININE FOR GFR 1.48 MG/DL (0.70-1.30); GLOMERULAR FILTRATION RATE 50.8 (>49); GLUCOSE, FASTING 59 MG/DL (74-106); POTASSIUM SERUM 3.5 MMOL/L (3.5-5.1); SODIUM LEVEL 137 MMOL/L (136-145); TOTAL PROTEIN 6.5 G/DL (5.7-8.2)
[2022-11-26] MEDS: metroNIDAZOLE 500 MG in IV 1 EA IV SCH (04:36)
[2022-11-26 04:59] VITALS: BP 107/54
[2022-11-26] MEDS: INSULIN LISPRO (NovoLOG) PER UNIT SC SCH ×4 (07:30→20:18)
[2022-11-26 08:00] VITALS: BP 108/56
[2022-11-26] MEDS: VANCOMYCIN HCL 750 MG, VIAL MATE ADAPTER 1 EACH in D5W 250 ML IV SCH ×2 (09:40→20:18)
[2022-11-26] MEDS: SUCRALFATE 1 GM TAB PO SCH (09:40)
[2022-11-26] MEDS: PANTOPRAZOLE 40MG TAB (PROTONIX) PO SCH (09:40)
[2022-11-26] MEDS: MAGNESIUM OXIDE 400MG TAB (MAG-OX) PO SCH (10:50)
[2022-11-26] MEDS: TORSEMIDE 20 MG TAB PO SCH (10:50)
[2022-11-26] MEDS: POTASSIUM CHLORIDE 10MEQ SR TABLET PO SCH (10:51)
[2022-11-26] MEDS: VITAMIN D 1,000 INTERNATIONAL UNITS TABLET PO SCH (10:51)
[2022-11-26] MEDS: PIPERACILLIN/TAZOBACTAM SOD 3.375 GM in D5W MINI-BAG PLUS 50 ML IV SCH ×3 (10:51→23:10)
[2022-11-26 12:00] VITALS: BP 121/65
[2022-11-26] MEDS: RIVAROXABAN 20MG TAB (XARELTO) PO SCH (17:20)
[2022-11-26] MEDS: LEVEMIR (INSULIN DETEMIR) 1 UNITS/0.01ML SC SCH (20:18)
[2022-11-26] MEDS: SIMVASTATIN 40 MG TAB PO SCH (20:18)
[2022-11-26 20:45] VITALS: BP 108/52
[2022-11-27 04:52] VITALS: BP 104/54
[2022-11-27] MEDS: PIPERACILLIN/TAZOBACTAM SOD 3.375 GM in D5W MINI-BAG PLUS 50 ML IV SCH (05:17)
[2022-11-27 06:55] LABS: HEMATOCRIT 25.7 % (42.0-52.0); HEMOGLOBIN 7.2 g/dl (13.5-17.5); MEAN CORPUSCULAR VOLUME 85.7 fl (80.0-96.0); PLATELET COUNT, AUTOMATED 231 10^3/uL (150-450); WHITE BLOOD COUNT 8.7 10^3/uL (4.0-10.0)
[2022-11-27 07:47] LABS: BASO # 0.1 10^3/uL (0.0-0.2); BASO % 0.6 % (0.0-1.0); EOS # 0.4 10^3/uL (0.0-0.5); LYMPH # 1.2 10^3/uL (1.5-5.0); LYMPH % 13.8 % (24.0-44.0); MONO # 0.7 10^3/uL (0.0-0.8); MONO % 7.9 % (2.0-8.0); NEUTROPHILS # 6.4 10^3/uL (1.5-8.5)
[2022-11-27 08:00] VITALS: BP 126/61
[2022-11-27 08:34] LABS: ALBUMIN 1.6 G/DL (3.2-5.2); ALKALINE PHOSPHATASE 143 U/L (46-116); ALT/SGPT < 9 U/L (7.0-40); AST/SGOT 19 U/L (<34); BILIRUBIN,DIRECT 0.3 MG/DL (<0.4); BILIRUBIN,TOTAL 0.6 MG/DL (0.3-1.2); BLOOD UREA NITROGEN 24 MG/DL (9-23); CALCIUM LEVEL 7.7 MG/DL (8.3-10.6); CARBON DIOXIDE LEVEL 24 MMOL/L (20-31); CHLORIDE LEVEL 104 MMOL/L (98-107); CREATININE FOR GFR 1.42 MG/DL (0.70-1.30); GLOMERULAR FILTRATION RATE 53.3 (>49); GLUCOSE, FASTING 134 MG/DL (74-106); POTASSIUM SERUM 3.5 MMOL/L (3.5-5.1); SODIUM LEVEL 137 MMOL/L (136-145); TOTAL PROTEIN 6.5 G/DL (5.7-8.2)
[2022-11-27] MEDS: INSULIN LISPRO (NovoLOG) PER UNIT SC SCH ×4 (09:06→21:00)
[2022-11-27] MEDS: PANTOPRAZOLE 40MG TAB (PROTONIX) PO SCH (09:06)
[2022-11-27] MEDS: MAGNESIUM OXIDE 400MG TAB (MAG-OX) PO SCH (09:06)
[2022-11-27] MEDS: TORSEMIDE 20 MG TAB PO SCH (09:06)
[2022-11-27] MEDS: SUCRALFATE 1 GM TAB PO SCH (09:06)
[2022-11-27] MEDS: VITAMIN D 1,000 INTERNATIONAL UNITS TABLET PO SCH (09:06)
[2022-11-27] MEDS: VANCOMYCIN HCL 750 MG, VIAL MATE ADAPTER 1 EACH in D5W 250 ML IV SCH ×2 (09:06→21:13)
[2022-11-27] MEDS: POTASSIUM CHLORIDE 10MEQ SR TABLET PO SCH (09:06)
[2022-11-27 12:00] VITALS: BP 126/60
[2022-11-27] MEDS: RIVAROXABAN 20MG TAB (XARELTO) PO SCH (17:28)
[2022-11-27 21:00] VITALS: BP 113/57
[2022-11-27] MEDS: SIMVASTATIN 40 MG TAB PO SCH (21:12)
[2022-11-27] MEDS: LEVEMIR (INSULIN DETEMIR) 1 UNITS/0.01ML SC SCH (21:13)
[2022-11-28 05:30] VITALS: BP 119/58
[2022-11-28 05:38] LABS: BASO # 0.1 10^3/uL (0.0-0.2); BASO % 0.6 % (0.0-1.0); EOS # 0.3 10^3/uL (0.0-0.5); EOS % 3.9 % (0.0-3.0); HEMATOCRIT 26.5 % (42.0-52.0); HEMOGLOBIN 7.2 g/dl (13.5-17.5); LYMPH # 1.4 10^3/uL (1.5-5.0); LYMPH % 17.3 % (24.0-44.0); MEAN CORPUSCULAR HEMOGLOBIN 23.3 pg (27.0-33.0); MEAN CORPUSCULAR HGB CONC 27.2 g/dl (32.0-36.5); MEAN CORPUSCULAR VOLUME 85.8 fl (80.0-96.0); MONO # 0.6 10^3/uL (0.0-0.8); MONO % 7.5 % (2.0-8.0); NEUTROPHILS # 5.5 10^3/uL (1.5-8.5); NEUTROPHILS % 69.9 % (36.0-66.0); PLATELET COUNT, AUTOMATED 240 10^3/uL (150-450); RED BLOOD COUNT 3.09 10^6/uL (4.30-6.10); WHITE BLOOD COUNT 7.9 10^3/uL (4.0-10.0)
[2022-11-28 06:05] LABS: ERYTHROCYTE SEDIMENTATION RATE 116 mm/hr (0-20)
[2022-11-28 06:09] LABS: ALBUMIN 1.8 G/DL (3.2-5.2); ALKALINE PHOSPHATASE 152 U/L (46-116); ALT/SGPT < 9 U/L (7.0-40); AST/SGOT 11 U/L (<34); BILIRUBIN,DIRECT 0.4 MG/DL (<0.4); BILIRUBIN,TOTAL 0.6 MG/DL (0.3-1.2); BLOOD UREA NITROGEN 23 MG/DL (9-23); CALCIUM LEVEL 7.8 MG/DL (8.3-10.6); CARBON DIOXIDE LEVEL 26 MMOL/L (20-31); CHLORIDE LEVEL 104 MMOL/L (98-107); CREATININE FOR GFR 1.43 MG/DL (0.70-1.30); GLOMERULAR FILTRATION RATE 52.8 (>49); GLUCOSE, FASTING 109 MG/DL (74-106); POTASSIUM SERUM 3.4 MMOL/L (3.5-5.1); SODIUM LEVEL 138 MMOL/L (136-145); TOTAL PROTEIN 6.6 G/DL (5.7-8.2)
[2022-11-28] MEDS: INSULIN LISPRO (NovoLOG) PER UNIT SC SCH ×4 (07:20→20:33)
[2022-11-28] MEDS ORDERED: POTASSIUM CHLORIDE 10% LIQ 20MEQ/15ML UDC PO ONE (07:40)
[2022-11-28 07:44] VITALS: BP 122/58
[2022-11-28] MEDS: SUCRALFATE 1 GM TAB PO SCH (09:13)
[2022-11-28] MEDS: POTASSIUM CHLORIDE 10MEQ SR TABLET PO SCH (09:13)
[2022-11-28] MEDS: VITAMIN D 1,000 INTERNATIONAL UNITS TABLET PO SCH (09:13)
[2022-11-28] MEDS: VANCOMYCIN HCL 750 MG, VIAL MATE ADAPTER 1 EACH in D5W 250 ML IV SCH ×2 (09:13→20:55)
[2022-11-28] MEDS: PANTOPRAZOLE 40MG TAB (PROTONIX) PO SCH (09:13)
[2022-11-28] MEDS: MAGNESIUM OXIDE 400MG TAB (MAG-OX) PO SCH (09:13)
[2022-11-28] MEDS: TORSEMIDE 20 MG TAB PO SCH (09:14)
[2022-11-28 16:24] VITALS: BP 126/55
[2022-11-28] MEDS: RIVAROXABAN 20MG TAB (XARELTO) PO SCH (17:37)
[2022-11-28] MEDS: LEVEMIR (INSULIN DETEMIR) 1 UNITS/0.01ML SC SCH (20:55)
[2022-11-28] MEDS: SIMVASTATIN 40 MG TAB PO SCH (20:55)
[2022-11-28 22:00] VITALS: BP 125/55
[2022-11-29 06:00] VITALS: BP 115/53
[2022-11-29 06:32] LABS: BASO # 0.1 10^3/uL (0.0-0.2); BASO % 0.7 % (0.0-1.0); EOS # 0.2 10^3/uL (0.0-0.5); EOS % 2.7 % (0.0-3.0); HEMATOCRIT 27.1 % (42.0-52.0); HEMOGLOBIN 7.5 g/dl (13.5-17.5); LYMPH # 1.4 10^3/uL (1.5-5.0); MEAN CORPUSCULAR HEMOGLOBIN 23.8 pg (27.0-33.0); MEAN CORPUSCULAR HGB CONC 27.7 g/dl (32.0-36.5); MONO # 0.6 10^3/uL (0.0-0.8); MONO % 7.3 % (2.0-8.0); NEUTROPHILS # 5.8 10^3/uL (1.5-8.5); NEUTROPHILS % 71.3 % (36.0-66.0); PLATELET COUNT, AUTOMATED 235 10^3/uL (150-450); RED BLOOD COUNT 3.15 10^6/uL (4.30-6.10); WHITE BLOOD COUNT 8.2 10^3/uL (4.0-10.0)
[2022-11-29 06:53] LABS: ALBUMIN 1.8 G/DL (3.2-5.2); ALKALINE PHOSPHATASE 153 U/L (46-116); ALT/SGPT < 9 U/L (7.0-40); AST/SGOT 10 U/L (<34); BILIRUBIN,DIRECT 0.3 MG/DL (<0.4); BILIRUBIN,TOTAL 0.5 MG/DL (0.3-1.2); BLOOD UREA NITROGEN 21 MG/DL (9-23); CALCIUM LEVEL 7.5 MG/DL (8.3-10.6); CARBON DIOXIDE LEVEL 28 MMOL/L (20-31); CHLORIDE LEVEL 104 MMOL/L (98-107); CREATININE FOR GFR 1.29 MG/DL (0.70-1.30); GLOMERULAR FILTRATION RATE 59.5 (>49); GLUCOSE, FASTING 109 MG/DL (74-106); POTASSIUM SERUM 3.1 MMOL/L (3.5-5.1); SODIUM LEVEL 138 MMOL/L (136-145); TOTAL PROTEIN 6.7 G/DL (5.7-8.2)
[2022-11-29] MEDS ORDERED: KCL 10MEQ/100ML SWI (KRUN) 10 MEQ in IV 1 EA IV ONE (07:15)
[2022-11-29] MEDS ORDERED: POTASSIUM CHLORIDE 10% LIQ 20MEQ/15ML UDC PO ONE (07:15)
[2022-11-29] MEDS: INSULIN LISPRO (NovoLOG) PER UNIT SC SCH ×3 (07:30→17:30)
[2022-11-29] MEDS: SUCRALFATE 1 GM TAB PO SCH (08:39)
[2022-11-29] MEDS: VITAMIN D 1,000 INTERNATIONAL UNITS TABLET PO SCH (08:39)
[2022-11-29] MEDS: POTASSIUM CHLORIDE 10MEQ SR TABLET PO SCH (08:39)
[2022-11-29] MEDS: TORSEMIDE 20 MG TAB PO SCH (08:39)
[2022-11-29] MEDS: PANTOPRAZOLE 40MG TAB (PROTONIX) PO SCH (08:40)
[2022-11-29] MEDS: MAGNESIUM OXIDE 400MG TAB (MAG-OX) PO SCH (08:40)
[2022-11-29] MEDS: VANCOMYCIN HCL 750 MG, VIAL MATE ADAPTER 1 EACH in D5W 250 ML IV SCH (10:05)
[2022-11-29] MEDS ORDERED: LINE1TAB6 PO ×2 (10:40→17:50)
[2022-11-29 14:00] VITALS: BP 116/53
[2022-11-29] MEDS ORDERED: LINEZOLID 600MG TABLET (ZYVOX) PO SCH (21:00)
== END 2022-11-29 19:00 | disposition home health service (06) | DRG 605 ==
LOC: EDBD 18:55 → M ED 18:55 → M ED INP 11-23 01:33 → M MSPAV 11-23 02:28 → M PCU 11-24 13:27 → M MSPAV 11-28 16:22
PROVIDERS: ADMIT Family Medicine; ATTEND Internal Medicine
PROC: 30233N1 Transfusion of Nonautologous Red Blood Cells into Peripheral Vein, Percutaneous Approach (ICD-10-PCS; principal; 2022-11-23)
PROC: 0F9430Z Drainage of Gallbladder with Drainage Device, Percutaneous Approach (ICD-10-PCS; 2022-11-24)
DX: S91.311A Laceration without foreign body, right foot, initial encounter (principal); D62 Acute posthemorrhagic anemia; I50.32 Chronic diastolic (congestive) heart failure; I13.0 Hypertensive heart and chronic kidney disease with heart failure and stage 1 through stage 4 chronic kidney disease, or unspecified chronic kidney disease; I48.19 Other persistent atrial fibrillation; N17.9 Acute kidney failure, unspecified; K81.0 Acute cholecystitis; L97.909 Non-pressure chronic ulcer of unspecified part of unspecified lower leg with unspecified severity; K63.2 Fistula of intestine; K21.9 Gastro-esophageal reflux disease without esophagitis; E11.22 Type 2 diabetes mellitus with diabetic chronic kidney disease; I27.20 Pulmonary hypertension, unspecified; N18.30 Chronic kidney disease, stage 3 unspecified; E66.9 Obesity, unspecified; R60.0 Localized edema; E78.5 Hyperlipidemia, unspecified; E11.649 Type 2 diabetes mellitus with hypoglycemia without coma; G89.29 Other chronic pain; I87.2 Venous insufficiency (chronic) (peripheral); R16.1 Splenomegaly, not elsewhere classified; R59.0 Localized enlarged lymph nodes; Z79.01 Long term (current) use of anticoagulants; W18.30XA Fall on same level, unspecified, initial encounter; Y92.009 Unspecified place in unspecified non-institutional (private) residence as the place of occurrence of the external cause; B95.62 Methicillin resistant Staphylococcus aureus infection as the cause of diseases classified elsewhere; Z79.4 Long term (current) use of insulin; Z79.899 Other long term (current) drug therapy; I87.8 Other specified disorders of veins

== ENCOUNTER → 2022-12-08 | Outpatient (REF) | payer MEDICARE ==
[~2022-12-08] MED LIST changes: +LINE1TAB6 PO; +SUCR1TAB56 PO; +VITA100093 PO
[2022-12-08 17:50] LABS: PERCENT SATURATION 50.4 % (19.7-50.0)
[2022-12-08 17:52] LABS: FERRITIN 36.1 NG/ML (10.5-307.3)
== END ==
LOC: M LAB REF 16:12
PROVIDERS: ATTEND Family Medicine
DX: D64.9 Anemia, unspecified (principal)

== ENCOUNTER → 2023-01-10 | Outpatient (POV) | payer MEDICARE ==
[~2023-01-10] VITALS: Ht 180.3 cm; Wt 148.1 kg
[2023-01-10 12:55] VITALS: BP 129/60
== END ==
LOC: M IRPOV 12:12
PROVIDERS: ATTEND Radiology Diagnostic Radiology
DX: K81.9 Cholecystitis, unspecified (principal); Z93.59 Other cystostomy status

== ENCOUNTER → 2023-02-08 | Outpatient (CLI) | payer MEDICARE | LOC: M RAD 11:20 | PROVIDERS: ATTEND Surgery | DX: L97.822 Non-pressure chronic ulcer of other part of left lower leg with fat layer exposed (principal); L97.812 Non-pressure chronic ulcer of other part of right lower leg with fat layer exposed; R68.89 Other general symptoms and signs; I70.238 Atherosclerosis of native arteries of right leg with ulceration of other part of lower leg; I70.248 Atherosclerosis of native arteries of left leg with ulceration of other part of lower leg ==

== ENCOUNTER → 2023-02-08 | Outpatient (CLI) | payer MEDICARE | LOC: M PLAIMG 09:32 | PROVIDERS: ATTEND Surgery | DX: K81.9 Cholecystitis, unspecified (principal); Z95.828 Presence of other vascular implants and grafts ==

== ENCOUNTER → 2023-02-20 | Outpatient (CLI) | payer MEDICARE ==
[~2023-02-20] MED LIST changes: +ISOVUE-300 61% 100ML VIAL As Ordered ONE; +NS 1,000 ML IV SCH; +cefTRIAXone SOD 1 GM in D5W MINI-BAG PLUS 50 ML IV ONE
== END ==
LOC: M IRPRO 10:31
PROVIDERS: ATTEND Radiology Diagnostic Radiology
DX: K81.0 Acute cholecystitis (principal); R93.41 Abnormal radiologic findings on diagnostic imaging of renal pelvis, ureter, or bladder
CPT/HCPCS: 47537; Q9967